=== PATIENT | male | born 1945 | race Caucasian/White ===

== ENCOUNTER 2018-04-21 12:41 | Emergency (ER) | payer MEDICARE, OTHER ==
--- NOTE | 2018-04-21 13:16 | ED ---
General Adult HPI - General Chief complaint: Shortness of Breath Stated complaint: Trouble breathing Time Seen by Provider: 04/21/18 13:09 Source: patient, RN notes reviewed Mode of arrival: wheelchair Limitations: no limitations - History of Present Illness Initial comments: Patient is a pleasant 73-year-old male presenting to the emergency department with some difficulty in breathing. Patient did have arthroscopic surgery of the right shoulder yesterday to clean up some cartilage. Patient did have nerve block, no intubation. Patient did feel somewhat short of breath last night. Patient did use his CPAP last night and noticed dyspnea again this morning when he woke up. Patient does have some discomfort of the right side of the chest with deep breaths. No history of similar symptoms previously. No cough. No fever. - Related Data Home Medications Medication Instructions Recorded Confirmed Atorvastatin [Lipitor] 40 mg PO QAM 03/08/16 04/21/18 Dofetilide [Tikosyn] 500 mcg PO Q12HR 03/08/16 04/21/18 Furosemide [Lasix] 20 mg PO QAM 03/08/16 04/21/18 Lisinopril 20 mg PO QAM 03/08/16 04/21/18 Magnesium 200 mg PO BID 03/08/16 04/21/18 Potassium Chloride [Klor-Con 20] 20 meq PO HS 03/08/16 04/21/18 Rivaroxaban [Xarelto] 20 mg PO QAM 03/08/16 04/21/18 Tamsulosin [Flomax] 0.4 mg PO HS 03/08/16 04/21/18 metFORMIN HCL [Glucophage] 500 mg PO BID 03/08/16 04/21/18 Multivitamins, Thera [Multivitamin] 1 tab PO DAILY 08/23/16 04/21/18 Omeprazole 20 mg PO DAILY 08/23/16 04/21/18 Cinnamon Bark [Cinnamon] 500 mg PO HS 04/21/18 04/21/18 Allergies Allergy/AdvReac Type Severity Reaction Status Date / Time No Known Allergies Allergy Verified 04/21/18 13:16 Review of Systems ROS Statement: Those systems with pertinent positive or pertinent negative responses have been documented in the HPI. ROS Other: All systems not noted in ROS Statement are negative. Constitutional: Denies: fever Eyes: Denies: eye pain ENT: Denies: ear pain Respiratory: Reports: dyspnea. Denies: cough Cardiovascular: Reports: chest pain Endocrine: Denies: fatigue Gastrointestinal: Denies: abdominal pain Genitourinary: Denies: dysuria Musculoskeletal: Denies: back pain Skin: Denies: rash Neurological: Denies: weakness Past Medical History Past Medical History: Atrial Fibrillation, Diabetes Mellitus, Hyperlipidemia, Hypertension, Prostate Disorder Additional Past Medical History / Comment(s): disc out of place in back, cardioversion 10/2015, Fe deficiency anemia, SOB when doing "strenuous activity " such as climbing stairs; as of 03/07/16 core analyst in [place] has patient on a heart monitor for 2 weeks "my heart beats slow...it was down to 48" History of Any Multi-Drug Resistant Organisms: None Reported Past Surgical History: Adenoidectomy, Cholecystectomy, Coronary Bypass/CABG, Hernia Repair, Joint Replacement, Tonsillectomy Additional Past Surgical History / Comment(s): CABG x 4 in 2005 at [facility], bilateral knees replaced, cardioversion 10/2015 Past Anesthesia/Blood Transfusion Reactions: Postoperative Nausea & Vomiting ( PONV) Past Psychological History: PTSD Smoking Status: Former smoker Past Alcohol Use History: Rare Past Drug Use History: None Reported - Past Family History Mother Family Medical History: Chest Pain / Angina, Coronary Artery Disease (CAD), Diabetes Mellitus, Hypertension Father Family Medical History: Chest Pain / Angina, Coronary Artery Disease (CAD), Diabetes Mellitus, Hypertension General Exam Limitations: no limitations General appearance: alert, in no apparent distress Head exam: Present: atraumatic Eye exam: Present: normal appearance, PERRL ENT exam: Present: normal oropharynx Neck exam: Present: normal inspection Respiratory exam: Present: normal lung sounds bilaterally. Absent: chest wall tenderness Cardiovascular Exam: Present: regular rate, normal rhythm Expanded Peripheral pulses: 2+: Radial (R), Radial (L), Dorsalis Pedis (R), Dorsalis Pedis (L) GI/Abdominal exam: Present: soft. Absent: tenderness Extremities exam: Present: normal inspection. Absent: pedal edema, calf tenderness Neurological exam: Present: alert Psychiatric exam: Present: normal affect, normal mood Skin exam: Present: normal color Course Vital Signs 04/21/18 04/21/18 04/21/18 12:46 14:01 15:13 Temperature 97.8 F Pulse Rate 83 78 76 Respiratory 22 18 18 Rate Blood Pressure 148/69 147/63 143/65 O2 Sat by Pulse 94 L 95 97 Oximetry EKG Findings - EKG Comments: EKG Findings:: Sinus rhythm at 81. For screening AV block OH of 240. QRS 84. QT 418. QTC 45. Left axis. Normal QRS. No acute ST change. Medical Decision Making - Medical Decision Making Patient reevaluated and resting comfortably in bed. Patient updated on results. Patient is unaware of any wiring in his chest except for loop recorder which he does not believe has additional wiring to it. Patient is advised to stay in the hospital for further evaluation including further cardiac testing. Also for evaluation for why her. Patient is made aware that cardiac etiology has not been completely ruled out at this time. Family is present. Despite this patient refuses admission stating he is feeling better. Patient does agree to follow-up and states he does have a core analyst in [place] that he will also follow-up with regarding CT results. - Lab Data Result diagrams: 04/21/18 13:09 04/21/18 13:09 Lab Results 04/21/18 04/21/18 04/21/18 Range/Units 13:09 13:09 13:09 WBC 11.9 H (3.8-10.6) k/uL RBC 4.40 (4.30-5.90) m/uL Hgb 13.5 (13.0-17.5) gm/dL Hct 41.5 (39.0-53.0) % MCV 94.3 (80.0-100.0) fL MCH 30.7 (25.0-35.0) pg MCHC 32.5 (31.0-37.0) g/dL RDW 13.2 (11.5-15.5) % Plt Count 212 (150-450) k/uL Neutrophils % 85 % Lymphocytes % 7 % Monocytes % 6 % Eosinophils % 1 % Basophils % 0 % Neutrophils # 10.1 H (1.3-7.7) k/uL Lymphocytes # 0.9 L (1.0-4.8) k/uL Monocytes # 0.7 (0-1.0) k/uL Eosinophils # 0.1 (0-0.7) k/uL Basophils # 0.0 (0-0.2) k/uL PT (9.0-12.0) sec INR (<1.2) APTT (22.0-30.0) sec Sodium 140 (137-145) mmol/L Potassium 4.5 (3.5-5.1) mmol/L Chloride 104 (98-107) mmol/L Carbon Dioxide 24 (22-30) mmol/L Anion Gap 12 mmol/L BUN 14 (9-20) mg/dL Creatinine 0.75 (0.66-1.25) mg/dL Est GFR (CKD-EPI)AfAm >90 (>60 ml/min/1.73 sqM) Est GFR (CKD-EPI)NonAf >90 (>60 ml/min/1.73 sqM) Glucose 172 H (74-99) mg/dL Calcium 9.2 (8.4-10.2) mg/dL Total Bilirubin 0.4 (0.2-1.3) mg/dL AST 27 (17-59) U/L ALT 47 (21-72) U/L Alkaline Phosphatase 69 (38-126) U/L Total Creatine Kinase 133 (55-170) U/L CK-MB (CK-2) 4.1 H* (0.0-2.4) ng/mL CK-MB (CK-2) Rel Index 3.1 Troponin I <0.012 (0.000-0.034) ng/mL NT-Pro-B Natriuret Pep pg/mL Total Protein 6.0 L (6.3-8.2) g/dL Albumin 3.7 (3.5-5.0) g/dL 04/21/18 04/21/18 Range/Units 13:09 13:09 WBC (3.8-10.6) k/uL RBC (4.30-5.90) m/uL Hgb (13.0-17.5) gm/dL Hct (39.0-53.0) % MCV (80.0-100.0) fL MCH (25.0-35.0) pg MCHC (31.0-37.0) g/dL RDW (11.5-15.5) % Plt Count (150-450) k/uL Neutrophils % % Lymphocytes % % Monocytes % % Eosinophils % % Basophils % % Neutrophils # (1.3-7.7) k/uL Lymphocytes # (1.0-4.8) k/uL Monocytes # (0-1.0) k/uL Eosinophils # (0-0.7) k/uL Basophils # (0-0.2) k/uL PT 11.8 (9.0-12.0) sec INR 1.2 H (<1.2) APTT 28.2 (22.0-30.0) sec Sodium (137-145) mmol/L Potassium (3.5-5.1) mmol/L Chloride (98-107) mmol/L Carbon Dioxide (22-30) mmol/L Anion Gap mmol/L BUN (9-20) mg/dL Creatinine (0.66-1.25) mg/dL Est GFR (CKD-EPI)AfAm (>60 ml/min/1.73 sqM) Est GFR (CKD-EPI)NonAf (>60 ml/min/1.73 sqM) Glucose (74-99) mg/dL Calcium (8.4-10.2) mg/dL Total Bilirubin (0.2-1.3) mg/dL AST (17-59) U/L ALT (21-72) U/L Alkaline Phosphatase (38-126) U/L Total Creatine Kinase (55-170) U/L CK-MB (CK-2) (0.0-2.4) ng/mL CK-MB (CK-2) Rel Index Troponin I (0.000-0.034) ng/mL NT-Pro-B Natriuret Pep 546 pg/mL Total Protein (6.3-8.2) g/dL Albumin (3.5-5.0) g/dL - Radiology Data Radiology results: image reviewed (Computed tomography scan of the chest shows no evidence of pulmonary embolism. There is an epicardial pacer leads. Also appears to be a free-floating transvenous pacer which extends across right atrium, right ventricle and turbinates the level of the main pulmonary artery bifurcation. Right basilar volume loss and pleural parenchymal scarring. Previous rib fracture.) Disposition Clinical Impression: Dyspnea Disposition: Left Against Medical Advice Instructions: Dyspnea (ED) Additional Instructions: Please follow-up with primary care physician and core analyst and orthopedic surgeon in the beginning of the week. Please have your doctor's review computed tomography scan from today. Return for chest pain, difficulty breathing, worsening or change in symptoms or other concerns. Is patient prescribed a controlled substance at d/c from ED?: No Referrals: Cornell Leon MD [Primary Care Provider] - 1-2 days Jeferson Mi DO [Doctor of Osteopathic Medicine] - 1-2 days Estrada Wong MD [STAFF PHYSICIAN] - 1-2 days Time of Disposition: 16:21
[2018-04-21 13:32] LABS: Basophils % (A) 0 %; Eosinophils # (A) 0.1 k/uL (0-0.7); Eosinophils % (A) 1 %; HCT 41.5 % (39.0-53.0); HGB 13.5 gm/dL (13.0-17.5); Lymphocytes # (A) 0.9 k/uL (1.0-4.8); Lymphocytes % (A) 7 %; MCH 30.7 pg (25.0-35.0); MCHC 32.5 g/dL (31.0-37.0); MCV 94.3 fL (80.0-100.0); Mean Platelet Volume 7.2; Monocytes # (A) 0.7 k/uL (0-1.0); Monocytes % (A) 6 %; Neutrophils # (A) 10.1 k/uL (1.3-7.7); Neutrophils % (A) 85 %; Platelet Count 212 k/uL (150-450); RDW 13.2 % (11.5-15.5); WBC 11.9 k/uL (3.8-10.6)
[2018-04-21 13:43] LABS: INR 1.2 (<1.2); Partial Thromboplastin Time 28.2 sec (22.0-30.0); Prothrombin Time 11.8 sec (9.0-12.0)
[2018-04-21 13:50] LABS: ALT 47 U/L (21-72); AST 27 U/L (17-59); Albumin 3.7 g/dL (3.5-5.0); Alkaline Phosphatase 69 U/L (38-126); Anion Gap 12 mmol/L; Blood Urea Nitrogen 14 mg/dL (9-20); Calcium 9.2 mg/dL (8.4-10.2); Carbon Dioxide 24 mmol/L (22-30); Chloride 104 mmol/L (98-107); Glucose 172 mg/dL (74-99); Potassium 4.5 mmol/L (3.5-5.1); Sodium 140 mmol/L (137-145); Total Bilirubin 0.4 mg/dL (0.2-1.3)
[2018-04-21 13:57] LABS: Creatine Kinase 133 U/L (55-170)
[2018-04-21 14:01] VITALS: RESP 18
[2018-04-21 14:09] LABS: Troponin I <0.012 ng/mL (0.000-0.034)
[2018-04-21 14:19] LABS: Creatine Kinase MB 4.1 ng/mL (0.0-2.4)
--- NOTE | 2018-04-21 15:42 | CT ---
EXAMINATION TYPE: CT angio chest DATE OF EXAM: 04/21/2018 COMPARISON: 08/14/2013 HISTORY: 73-year-old male shortness of breath, right shoulder arthroscopic surgery yesterday TECHNIQUE: Contiguous axial scanning of the chest performed with IV Contrast, patient injected with 1 00 mL of Isovue 370. Coronal/sagittal MIP reconstructions performed. CT DLP: 1132.4 mGycm Automated exposure control for dose reduction was used. FINDINGS: Median sternotomy wires post-CABG changes. Heart is normal size without pericardial effusion. Epicardial pacer leads. There also appears to be a transvenous pacer lead that extends into the right atrium, right ventricle, and terminates at the bi furcation of the pulmonary artery. Mild ectasia ascending aorta 3.6 cm. Mild atherosclerotic arch calcifications with a very direct take off of the left vertebral artery directly from the aortic arch. The findings lead as mentioned above terminating at the level of the main pulmonary artery bifurcatio n. Satisfactory opacification of the pulmonary arterial system. Some motion artifact in the lower magnus gs. No definite pulmonary embolus. Enlarged caliber to the main right and the pulmonary arteries at 2.7 and 2.9 cm, respectively, sugges ting underlying pulmonary artery hypertension. Mild bilateral gynecomastia. No thoracic lymphadenopathy. Mild emphysematous change is present. Prominent bands of right basilar atelectasis with elevation of the right hemidiaphragm. Stable nodular thickening along the right mid lung major fissure as compared to 2013, axial image 67 likely a pulmonary lymph node. Mild diffuse bronchial wall thickening. Visualized upper abdomen shows no gross abnormality. Bones: Incompletely united right lateral fourth, fifth, and sixth rib fractures. Degenerative disc di sease midthoracic spine. No osseous destructive process. IMPRESSION: 1. NO EVIDENCE FOR PULMONARY EMBOLUS. 2. COPD WITH MILD EMPHYSEMA AND PULMONARY ARTERY HYPERTENSION. 3. NOTE AN EPICARDIAL PACER LEAD. THERE ALSO APPEARS TO BE A FREE-FLOATING TRANSVENOUS PACER LEAD WHI CH EXTENDS ACROSS THE RIGHT ATRIUM, RIGHT VENTRICLE, AND TERMINATES AT THE LEVEL OF THE MAIN PULMONAR Y ARTERY BIFURCATION. 4. RIGHT BASILAR VOLUME LOSS WITH PLEURAL PARENCHYMAL SCARRING AND INCOMPLETELY UNITED RIGHT LATERAL FOURTH THROUGH SIXTH RIB FRACTURE DEFORMITIES.
[2018-04-21 16:41] VITALS: BP 143/67; PULSE 87; TEMP 98.5
== END 2018-04-21 16:41 | disposition left against medical advice (07) ==
LOC: EC 12:41
DX: R06.00 Dyspnea, unspecified (principal); I48.91 Unspecified atrial fibrillation; E11.9 Type 2 diabetes mellitus without complications; E78.5 Hyperlipidemia, unspecified; I10 Essential (primary) hypertension; Z87.891 Personal history of nicotine dependence; Z90.49 Acquired absence of other specified parts of digestive tract; Z95.1 Presence of aortocoronary bypass graft; Z96.653 Presence of artificial knee joint, bilateral; Z98.890 Other specified postprocedural states; Z79.01 Long term (current) use of anticoagulants; Z79.84 Long term (current) use of oral hypoglycemic drugs; Z79.899 Other long term (current) drug therapy
CPT/HCPCS: 36415; 93005; 83880; 80053; 82550; 82553; 84484; 85025; 85610; 85730; 71275; 99285; Q9967

== ENCOUNTER 2020-08-17 13:21 | Emergency (ER) | payer MEDICARE, OTHER ==
[2020-08-17 13:48] VITALS: BP 113/54; PULSE 94; RESP 18; TEMP 98.5
[2020-08-17] MEDS ORDERED: HYDROmorphone 1 MG/ML 1 ML SYRINGE IM STA (14:03)
[2020-08-17] MEDS ORDERED: KETOROLAC 15 MG/ML 1 ML VIAL IM STA (14:03)
--- NOTE | 2020-08-17 14:09 | ED ---
General Adult HPI - General Chief complaint: Back Pain/Injury Stated complaint: Sciatic Nerve Pain Time Seen by Provider: 08/17/20 13:52 Source: patient, family, RN notes reviewed Mode of arrival: ambulatory Limitations: no limitations - History of Present Illness Initial comments: Patient is a pleasant 75-year-old male presenting to the emergency Department with complaints of left sciatic pain. Onset of symptoms was months ago. Patient has seen several doctors for this including had acupuncture done. Patient did have an epidural without much improvement of symptoms. Patient is pending injection with Dr. Akers here however there is dispute between him and the support services coordinator as far as how long to hold anticoagulation. Patient does have history of similar symptoms previously. Patient has had MRI for this. No abdominal pain. No leg weakness. No incontinence or retention of bowel or bladder. Patient does take [place] and Motrin at home - Related Data Home Medications Medication Instructions Recorded Confirmed Atorvastatin [Lipitor] 40 mg PO QAM 03/08/16 04/21/18 Dofetilide [Tikosyn] 500 mcg PO Q12HR 03/08/16 04/21/18 Furosemide [Lasix] 20 mg PO QAM 03/08/16 04/21/18 Magnesium 200 mg PO BID 03/08/16 04/21/18 Potassium Chloride [Klor-Con 20] 20 meq PO HS 03/08/16 04/21/18 Rivaroxaban [Xarelto] 20 mg PO QAM 03/08/16 04/21/18 Tamsulosin [Flomax] 0.4 mg PO HS 03/08/16 04/21/18 lisinopriL 20 mg PO QAM 03/08/16 04/21/18 metFORMIN HCL [Glucophage] 500 mg PO BID 03/08/16 04/21/18 Multivitamins, Thera [Multivitamin] 1 tab PO DAILY 08/23/16 04/21/18 Omeprazole 20 mg PO DAILY 08/23/16 04/21/18 Cinnamon Bark [Cinnamon] 500 mg PO HS 04/21/18 04/21/18 Previous Rx's Medication Instructions Recorded Cyclobenzaprine [Flexeril] 10 mg PO TID PRN #12 tablet 08/17/20 Allergies Allergy/AdvReac Type Severity Reaction Status Date / Time No Known Allergies Allergy Verified 08/17/20 13:46 Review of Systems ROS Statement: Those systems with pertinent positive or pertinent negative responses have been documented in the HPI. ROS Other: All systems not noted in ROS Statement are negative. Constitutional: Denies: fever Eyes: Denies: eye pain ENT: Denies: ear pain Respiratory: Denies: cough Cardiovascular: Denies: chest pain Endocrine: Denies: fatigue Gastrointestinal: Denies: abdominal pain Genitourinary: Denies: dysuria Musculoskeletal: Reports: as per HPI Skin: Denies: rash Neurological: Denies: weakness Past Medical History Past Medical History: Atrial Fibrillation, Diabetes Mellitus, Hyperlipidemia, Hypertension, Prostate Disorder Additional Past Medical History / Comment(s): disc out of place in back, cardioversion 10/2015, Fe deficiency anemia, SOB when doing "strenuous activity" such as climbing stairs; as of 03/07/16 support services coordinator in [place] has patient on a heart monitor for 2 weeks "my heart beats slow...it was down to 48" History of Any Multi-Drug Resistant Organisms: None Reported Past Surgical History: Adenoidectomy, Cholecystectomy, Coronary Bypass/CABG, Hernia Repair, Joint Replacement, Tonsillectomy Additional Past Surgical History / Comment(s): CABG x 4 in 2006 at [facility], bilateral knees replaced, cardioversion 10/2015 Past Anesthesia/Blood Transfusion Reactions: Postoperative Nausea & Vomiting (PONV) Past Psychological History: PTSD Past Alcohol Use History: Rare Past Drug Use History: None Reported - Past Family History Mother Family Medical History: Chest Pain / Angina, Coronary Artery Disease (CAD), Diabetes Mellitus, Hypertension Father Family Medical History: Chest Pain / Angina, Coronary Artery Disease (CAD), Diabetes Mellitus, Hypertension General Exam Limitations: no limitations General appearance: alert, in no apparent distress Head exam: Present: normocephalic Eye exam: Present: normal appearance Neck exam: Present: normal inspection Respiratory exam: Present: normal lung sounds bilaterally Cardiovascular Exam: Present: regular rate, normal rhythm GI/Abdominal exam: Present: soft. Absent: tenderness Extremities exam: Present: normal inspection, full ROM Back exam: Present: normal inspection. Absent: tenderness Neurological exam: Present: alert. Absent: motor sensory deficit Expanded Sensory exam: Lower Extremity Light Touch: Normal Motor strength exam: RUE: 5, LUE: 5, RLE: 5, LLE: 5 Psychiatric exam: Present: normal affect, normal mood Skin exam: Present: normal color Course Vital Signs 08/17/20 13:43 Temperature 98.5 F Pulse Rate 94 Respiratory 18 Rate Blood Pressure 113/54 O2 Sat by Pulse 97 Oximetry Disposition Clinical Impression: Sciatica Disposition: HOME SELF-CARE Condition: Stable Instructions (If sedation given, give patient instructions): Sciatica (ED) Additional Instructions: Please follow-up with Dr. velasquez as well as your support services coordinator to determine exact treatment plan. Return for leg weakness, loss of sensation, loss of control of bowel or bladder function, worsening symptoms or other concerns. Also consider physical therapy. Prescription has been sent to your pharmacy, [facility] in [place]. Prescriptions: Cyclobenzaprine [Flexeril] 10 mg PO TID PRN #12 tablet PRN Reason: Pain Is patient prescribed a controlled substance at d/c from ED?: No Referrals: Cornell Leon MD [Primary Care Provider] - 1-2 days Ward Velasquez MD [STAFF PHYSICIAN] - 1-2 days George Nugent MD [STAFF PHYSICIAN] - 1-2 days Time of Disposition: 14:07
== END 2020-08-17 14:23 | disposition home or self-care (01) ==
LOC: EC 13:21
DX: M54.32 Sciatica, left side (principal); I48.91 Unspecified atrial fibrillation; E11.9 Type 2 diabetes mellitus without complications; E78.5 Hyperlipidemia, unspecified; I10 Essential (primary) hypertension; N42.9 Disorder of prostate, unspecified; F43.10 Post-traumatic stress disorder, unspecified; Z79.1 Long term (current) use of non-steroidal anti-inflammatories (NSAID); Z79.899 Other long term (current) drug therapy; Z95.1 Presence of aortocoronary bypass graft; Z96.653 Presence of artificial knee joint, bilateral; Z79.84 Long term (current) use of oral hypoglycemic drugs
CPT/HCPCS: 96372 ×2; 99283; J1170; J1885

== ENCOUNTER 2020-09-03 15:24 | Emergency (ER) | payer MEDICARE, OTHER ==
[2020-09-03 15:29] VITALS: RESP 18
[2020-09-03] MEDS ORDERED: SODIUM CHLORIDE 0.9% 500 ML 500 ML IV STA (15:49)
[2020-09-03 16:12] LABS: HCT 42.7 % (39.0-53.0); HGB 13.8 gm/dL (13.0-17.5); MCH 31.6 pg (25.0-35.0); MCHC 32.4 g/dL (31.0-37.0); MCV 97.6 fL (80.0-100.0); Mean Platelet Volume 7.2; Platelet Count 267 k/uL (150-450); RBC 4.38 m/uL (4.30-5.90); RDW 13.1 % (11.5-15.5); WBC 4.6 k/uL (3.8-10.6)
[2020-09-03 16:14] LABS: Glucose,Whole Blood 105 mg/dL (75-99)
[2020-09-03 16:15] LABS: Appearance,Urine Clear (Clear); Bacteria,Urine Few /hpf; Bilirubin,Urine Negative (Negative); Blood,Urine Moderate (Negative); Color,Urine Yellow; Glucose,Urine (UA) Negative (Negative); Hyaline Casts,Urine 10 /lpf (0-2); Ketones,Urine Negative (Negative); Leukocyte Esterase,Urine Moderate (Negative); Mucus,Urine Rare /hpf; Nitrite,Urine Negative (Negative); Protein,Urine Negative (Negative); RBC,Urine 43 /hpf (0-5); Specific Gravity,Urine 1.015 (1.001-1.035); Squamous Epithelial Cell,Urine <1 /hpf (0-4); Urobilinogen,Urine <2.0 mg/dL (<2.0); WBC,Urine 13 /hpf (0-5)
[2020-09-03 16:23] LABS: Albumin 3.4 g/dL (3.5-5.0); Magnesium 1.6 mg/dL (1.6-2.3); Total Bilirubin 0.5 mg/dL (0.2-1.3)
[2020-09-03 16:36] LABS: INR 1.1 (<1.2); Partial Thromboplastin Time 32.9 sec (22.0-30.0); Prothrombin Time 11.4 sec (9.0-12.0)
[2020-09-03 16:38] LABS: Lymphocytes # (M) 1.43 k/uL (1.0-4.8); Neutrophils # (M) 2.58 k/uL (1.3-7.7); Neutrophils % (M) 56 %; Nucleated Red Blood Cells 0 /100 WBC (0-0); Total Cells Counted 100
--- NOTE | 2020-09-03 16:50 | CT ---
EXAMINATION TYPE: CT brain wo con DATE OF EXAM: 09/03/2020 COMPARISON: None HISTORY: 75-year-old male Headache and dizziness TECHNIQUE: Examination was done in axial plane without intravenous contrast. Coronal and sagittal r econstructions performed. CT DLP: 1011.4 mGycm Automated exposure control for dose reduction was used. FINDINGS: There is no evidence of acute intracranial hemorrhage, acute ischemic changes, mass, mass-effect, or extra-axial fluid collection. There is no effacement of cerebral sulci or basal subarachnoid cister ns. There is no hydrocephalus. There is no midline shift. Salazar-white matter distinction is preserv ed. Very mild age related cerebral cortical volume loss. Paranasal sinuses and mastoid air cells well pneumatized. Orbits and globes are intact. IMPRESSION: Very mild age-related cortical atrophy. No acute intracranial abnormality seen.
--- NOTE | 2020-09-03 17:36 | XR ---
EXAMINATION: XR chest 2V DATE AND TIME: 09/03/2020 5:07 PM CLINICAL INDICATION: PHH; sob TECHNIQUE: Departmental protocol COMPARISON: 08/16/2011 FINDINGS: The lungs are predominantly clear and well expanded, but there is subtle added opacity at the right l eitan base on the frontal radiograph, overlying the right breast shadow. This is a nonspecific finding not confirmed on the lateral view. It could simply represent artifact from overlying anatomic summati on shadows. However, if there is clinical suspicion for developing pneumonia, short interval repeat r adiographs could add specificity. The pleural spaces are negative. Sternal sutures and mediastinal clips noted. The cardiac silhouette is not enlarged. The remainder of the mediastinal silhouette is unremarkable. The skeletal structures and soft tissues are negative for acute findings. IMPRESSION: No definite acute radiographic process, although subtle right lung base finding as discussed.
--- NOTE | 2020-09-03 18:47 | ED ---
General Adult HPI - General Chief complaint: Dizziness Stated complaint: Dizziness Time Seen by Provider: 09/03/20 15:33 Source: patient, RN notes reviewed, old records reviewed Mode of arrival: wheelchair Limitations: no limitations - History of Present Illness Initial comments: 75-year-old male patient presents ED for evaluation. Patient reports that 3 times a day one time yesterday while walking he felt dizzy as if he is going to pass out. He reports that he stay down and the feeling went away. Denies any chest pain is shortness of breath associated with this. Patient reports that he is concerned because he states the friend had similar symptoms and diagnosed with a brain tumor - he wants to make sure that he does not have one. Patient does have COPD and after walking a distance does have some shortness of breath. This is unchanged. Denies any chest pain. Denies any other acute complaints. Patient is feeling fine at this time. Systemic: Pt denies fatigue, fever/chills, rash. Pt denies weakness, night sweats, weight loss. Neuro: Pt denies headache, visual disturbances, syncope. HEENT: Pt denies ocular discharge or irritation, otalgia, rhinorrhea, pharyngitis or notable lymphadenopathy. Cardiopulmonary: Pt denies chest pain, SOB, heart palpitations, dyspnea on exertion. Abdominal/GI: Pt denies abdominal pain, n/v/d. : Pt denies dysuria, burning w/ urination, frequency/urgency. Denies new onset urinary or bowel incontinence. MSK: Pt denies myalgia, loss of strength or function in extremities. Neuro: Pt denies new onset weakness, paresthesias. - Related Data Home Medications Medication Instructions Recorded Confirmed Dofetilide [Tikosyn] 500 mcg PO BID 03/08/16 09/03/20 Furosemide [Lasix] 20 mg PO DAILY 03/08/16 09/03/20 Rivaroxaban [Xarelto] 20 mg PO DAILY 03/08/16 09/03/20 Tamsulosin [Flomax] 0.4 mg PO HS 03/08/16 09/03/20 metFORMIN HCL [Glucophage] 500 mg PO BID 03/08/16 09/03/20 Multivitamins, Thera [Multivitamin] 1 tab PO DAILY 08/23/16 09/03/20 Omeprazole 20 mg PO DAILY 08/23/16 09/03/20 Cinnamon Bark [Cinnamon] 500 mg PO HS 04/21/18 09/03/20 Atorvastatin [Lipitor] 80 mg PO DAILY 09/03/20 09/03/20 Dulaglutide [Trulicity] 0.75 mg SQ MO 09/03/20 09/03/20 Glimepiride [Amaryl] 2 mg PO BID 09/03/20 09/03/20 Metoprolol Tartrate [Lopressor] 25 mg PO BID 09/03/20 09/03/20 lisinopriL 20 mg PO DAILY 09/03/20 09/03/20 Allergies Allergy/AdvReac Type Severity Reaction Status Date / Time No Known Allergies Allergy Verified 09/03/20 17:48 Review of Systems ROS Statement: Those systems with pertinent positive or pertinent negative responses have been documented in the HPI. ROS Other: All systems not noted in ROS Statement are negative. Past Medical History Past Medical History: Atrial Fibrillation, Diabetes Mellitus, Hyperlipidemia, Hypertension, Prostate Disorder Additional Past Medical History / Comment(s): disc out of place in [facility] rdioversion 10/2015, Fe deficiency anemia, SOB when doing "strenuous activity" such as climbing stairs; as of 03/07/16 automation technologist in [place] has patient on a heart monitor for 2 weeks "my heart beats slow...it was down to 48" History of Any Multi-Drug Resistant Organisms: None Reported Past Surgical History: Adenoidectomy, Cholecystectomy, Coronary Bypass/CABG, Hernia Repair, Joint Replacement, Tonsillectomy Additional Past Surgical History / Comment(s): CABG x 4 in 2006 at [facility], bilateral knees replaced, cardioversion 10/2015 Past Anesthesia/Blood Transfusion Reactions: Postoperative Nausea & Vomiting (PONV) Past Psychological History: PTSD Smoking Status: Former smoker Past Alcohol Use History: Occasional Past Drug Use History: None Reported - Past Family History Mother Family Medical History: Chest Pain / Angina, Coronary Artery Disease (CAD), Diabetes Mellitus, Hypertension Father Family Medical History: Chest Pain / Angina, Coronary Artery Disease (CAD), Diabetes Mellitus, Hypertension General Exam - General Exam Comments Initial Comments: Constitutional: NAD, AOX3, Pt has pleasant affect. HEENT: NC/AT, trachea midline, neck supple, no lymphadenopathy. Posterior pharynx non erythematous, without exudates. External ears appear normal, without discharge. Mucous membranes moist. Eyes PERRLA, EOM intact. There is no scleral icterus. No pallor noted. Cardiopulmonary: RRR, no murmurs, rubs or gallops, no JVD noted. Lungs CTAB in anterior and posterior smith. No peripheral edema. Abdominal exam: Abdomen soft and non-distended. Abdomen non-tender to palpation in all 4 quadrants. Bowel sounds active in LLQ. No hepatosplenomegaly. No ecchymosis Neuro: CN II-XII intact. No nuchal rigidity. No raccon eyes, no stroud sign, no hemotympanum. No cervical spinal tenderness. MSK: No posterior calf tenderness bilaterally, homans sign negative bilaterally. Posterior tibialis and radial pulse +2 bilaterally. Sensation intact in upper and lower extremities. Full active ROM in upper and lower extremities, 5/5 stregnth. Limitations: no limitations Course Vital Signs 09/03/20 09/03/20 15:27 18:59 Temperature 98.4 F 98.5 F Pulse Rate 86 94 Respiratory 18 18 Rate Blood Pressure 117/71 152/69 O2 Sat by Pulse 97 96 Oximetry Medical Decision Making - Medical Decision Making 75-year-old male patient to ED for evaluation. Patient vital signs are stable, afebrile. Physical exam negative for acute pathology. Laboratory investigations are overall unremarkable. There is some blood noted in his urine. Brain CT is negative for any acute process. Chest x-ray did not display any definite acute radiographic process. There was subtle opacity in the right lung base and dullness in one view. Likely overlying soft tissue. Patient not having any new cough or any fevers. Patient ambulatory without difficulty. EKG is nonischemic. I did recommend admission patient she is declining. Patient will follow-up with primary care provider and return to ER if any worsening symptoms. He reports that he had a stress test and the heart ca theterization a couple months ago which he reports were normal. Pt advised to have repeat urine. Csae disucssed with Dr. Joyce. - Lab Data Result diagrams: 09/03/20 15:57 09/03/20 15:57 Lab Results 09/03/20 09/03/20 09/03/20 Range/Units 15:57 15:57 15:57 WBC 4.6 (3.8-10.6) k/uL RBC 4.38 (4.30-5.90) m/uL Hgb 13.8 (13.0-17.5) gm/dL Hct 42.7 (39.0-53.0) % MCV 97.6 (80.0-100.0) fL MCH 31.6 (25.0-35.0) pg MCHC 32.4 (31.0-37.0) g/dL RDW 13.1 (11.5-15.5) % Plt Count 267 (150-450) k/uL Neutrophils % (Manual) 56 % Lymphocytes % (Manual) 31 % Monocytes % (Manual) 13 % Neutrophils # (Manual) 2.58 (1.3-7.7) k/uL Lymphocytes # (Manual) 1.43 (1.0-4.8) k/uL Monocytes # (Manual) 0.60 (0-1.0) k/uL Nucleated RBCs 0 (0-0) /100 WBC Manual Slide Review Performed RBC Morphology Normal PT 11.4 (9.0-12.0) sec INR 1.1 (<1.2) APTT 32.9 H (22.0-30.0) sec Sodium (137-145) mmol/L Potassium (3.5-5.1) mmol/L Chloride (98-107) mmol/L Carbon Dioxide (22-30) mmol/L Anion Gap mmol/L BUN (9-20) mg/dL Creatinine (0.66-1.25) mg/dL Est GFR (CKD-EPI)AfAm (>60 ml/min/1.73 sqM) Est GFR (CKD-EPI)NonAf (>60 ml/min/1.73 sqM) Glucose (74-99) mg/dL POC Glucose (mg/dL) (75-99) mg/dL POC Glu Giver ID Calcium (8.4-10.2) mg/dL Magnesium (1.6-2.3) mg/dL Total Bilirubin (0.2-1.3) mg/dL AST (17-59) U/L ALT (4-49) U/L Alkaline Phosphatase (38-126) U/L Troponin I (0.000-0.034) ng/mL Total Protein (6.3-8.2) g/dL Albumin (3.5-5.0) g/dL Urine Color Yellow Urine Appearance Clear (Clear) Urine pH 6.0 (5.0-8.0) Ur Specific [place] 1.015 (1.001-1.035) Urine Protein Negative (Negative) Urine Glucose (UA) Negative (Negative) Urine Ketones Negative (Negative) Urine Blood Moderate H (Negative) Urine Nitrite Negative (Negative) Urine Bilirubin Negative (Negative) Urine Urobilinogen <2.0 (<2.0) mg/dL Ur Leukocyte Esterase Moderate H (Negative) Urine RBC 43 H (0-5) /hpf Urine WBC 13 H (0-5) /hpf Ur Squamous Epith Cells <1 (0-4) /hpf Urine Bacteria Few H (None) /hpf Hyaline Casts 10 H (0-2) /lpf Urine Mucus Rare H (None) /hpf 09/03/20 09/03/20 09/03/20 Range/Units 15:57 15:57 16:12 WBC (3.8-10.6) k/uL RBC (4.30-5.90) m/uL Hgb (13.0-17.5) gm/dL Hct (39.0-53.0) % MCV (80.0-100.0) fL MCH (25.0-35.0) pg MCHC (31.0-37.0) g/dL RDW (11.5-15.5) % Plt Count (150-450) k/uL Neutrophils % (Manual) % Lymphocytes % (Manual) % Monocytes % (Manual) % Neutrophils # (Manual) (1.3-7.7) k/uL Lymphocytes # (Manual) (1.0-4.8) k/uL Monocytes # (Manual) (0-1.0) k/uL Nucleated RBCs (0-0) /100 WBC Manual Slide Review RBC Morphology PT (9.0-12.0) sec INR (<1.2) APTT (22.0-30.0) sec Sodium 140 (137-145) mmol/L Potassium 4.0 (3.5-5.1) mmol/L Chloride 108 H (98-107) mmol/L Carbon Dioxide 25 (22-30) mmol/L Anion Gap 7 mmol/L BUN 16 (9-20) mg/dL Creatinine 1.03 (0.66-1.25) mg/dL Est GFR (CKD-EPI)AfAm 83 (>60 ml/min/1.73 sqM) Est GFR (CKD-EPI)NonAf 72 (>60 ml/min/1.73 sqM) Glucose 101 H (74-99) mg/dL POC Glucose (mg/dL) 105 H (75-99) mg/dL POC Glu Giver ID JUDI Maynard Andre Calcium 9.0 (8.4-10.2) mg/dL Magnesium 1.6 (1.6-2.3) mg/dL Total Bilirubin 0.5 (0.2-1.3) mg/dL AST 51 (17-59) U/L ALT 53 H (4-49) U/L Alkaline Phosphatase 82 (38-126) U/L Troponin I <0.012 (0.000-0.034) ng/mL Total Protein 6.0 L (6.3-8.2) g/dL Albumin 3.4 L (3.5-5.0) g/dL Urine Color Urine Appearance (Clear) Urine pH (5.0-8.0) Ur Specific [place] (1.001-1.035) Urine Protein (Negative) Urine Glucose (UA) (Negative) Urine Ketones (Negative) Urine Blood (Negative) Urine Nitrite (Negative) Urine Bilirubin (Negative) Urine Urobilinogen (<2.0) mg/dL Ur Leukocyte Esterase (Negative) Urine RBC (0-5) /hpf Urine WBC (0-5) /hpf Ur Squamous Epith Cells (0-4) /hpf Urine Bacteria (None) /hpf Hyaline Casts (0-2) /lpf Urine Mucus (None) /hpf - EKG Data -: EKG Interpreted by Me (and Dr. Joyce) EKG Comments: Ventriular rate 82, GA interval 228, QRS 88, QT/QTc 412/481. Sinus rhythm with 1st degree AV block. Sinus left axis deviation. Abnormal EKG. No concern for acute ischemia. Disposition Clinical Impression: Lightheadedness Disposition: HOME SELF-CARE Condition: Stable Instructions (If sedation given, give patient instructions): Dizziness (ED) Additional Instructions: Follow up with PCP tomorrow. Return to ED with any worsening symptoms. Is patient prescribed a controlled substance at d/c from ED?: No Referrals: Cornell Leon MD [Primary Care Provider] - 1-2 days
[2020-09-03 19:00] VITALS: BP 152/69; PULSE 94; TEMP 98.5
== END 2020-09-03 19:01 | disposition home or self-care (01) ==
LOC: EC 15:24
DX: R42 Dizziness and giddiness (principal); I48.91 Unspecified atrial fibrillation; E11.9 Type 2 diabetes mellitus without complications; E78.5 Hyperlipidemia, unspecified; I10 Essential (primary) hypertension; Z79.84 Long term (current) use of oral hypoglycemic drugs; Z79.01 Long term (current) use of anticoagulants; Z79.899 Other long term (current) drug therapy; Z95.1 Presence of aortocoronary bypass graft; Z90.49 Acquired absence of other specified parts of digestive tract; Z87.891 Personal history of nicotine dependence; Z96.653 Presence of artificial knee joint, bilateral
CPT/HCPCS: 36415; 70450; 71046; 80053; 81001; 83735; 84484; 85025; 85610; 85730; 93005; 96360; 99285

== ENCOUNTER 2020-09-07 16:14 | Observation (INO) | payer MEDICARE, OTHER ==
[2020-09-07] MEDS ORDERED: ACETAMINOPHEN TAB 500 MG TAB PO STA (17:08)
[2020-09-07] MEDS: SODIUM CHLORIDE 0.9% 500 ML 500 ML IV SCH ×2 (17:40→20:28)
[2020-09-07 17:54] LABS: Appearance,Urine Cloudy (Clear); Bacteria,Urine Occasional /hpf; Bilirubin,Urine Negative (Negative); Blood,Urine Negative (Negative); Color,Urine Dark Yellow; Glucose,Urine (UA) Negative (Negative); Ketones,Urine Negative (Negative); Leukocyte Esterase,Urine Large (Negative); Mucus,Urine Many /hpf; Nitrite,Urine Negative (Negative); PH, Urine 5.5 (5.0-8.0); Protein,Urine 2+ (Negative); RBC,Urine 23 /hpf (0-5); Specific Gravity,Urine 1.029 (1.001-1.035); Squamous Epithelial Cell,Urine 3 /hpf (0-4); WBC,Urine 99 /hpf (0-5)
[2020-09-07 17:55] LABS: ALT 52 U/L (4-49); AST 62 U/L (17-59); African American GFR (CKD) >90 (>60 ml/min/1.73 sqM); Albumin 3.7 g/dL (3.5-5.0); Alkaline Phosphatase 87 U/L (38-126); Anion Gap 6 mmol/L; Blood Urea Nitrogen 16 mg/dL (9-20); Calcium 8.9 mg/dL (8.4-10.2); Carbon Dioxide 29 mmol/L (22-30); Chloride 104 mmol/L (98-107); Glucose 103 mg/dL (74-99); Non-African American GFR(CKD) 85 (>60 ml/min/1.73 sqM); Potassium 4.3 mmol/L (3.5-5.1); Sodium 139 mmol/L (137-145); Total Bilirubin 0.6 mg/dL (0.2-1.3); Total Protein 6.5 g/dL (6.3-8.2)
--- NOTE | 2020-09-07 18:01 | XR ---
EXAMINATION TYPE: XR chest 2V DATE OF EXAM: 09/07/2020 COMPARISON: 09/03/2020 HISTORY: Dizziness TECHNIQUE: 2 views FINDINGS: There is no heart failure nor confluent pneumonic infiltrate. Costophrenic angles are clear . Heart appears enlarged. There are sternal wires. There are chest leads. Bony thorax appears intact. IMPRESSION: No active cardiopulmonary disease. Cardiomegaly unchanged.
[2020-09-07 18:08] LABS: Basophils % (A) 0 %; Eosinophils % (A) 0 %; HGB 14.6 gm/dL (13.0-17.5); Lymphocytes # (A) 0.8 k/uL (1.0-4.8); Lymphocytes % (A) 23 %; MCH 29.8 pg (25.0-35.0); MCHC 31.7 g/dL (31.0-37.0); MCV 94.3 fL (80.0-100.0); Mean Platelet Volume 7.8; Monocytes # (A) 0.3 k/uL (0-1.0); Monocytes % (A) 7 %; Neutrophils # (A) 2.3 k/uL (1.3-7.7); Neutrophils % (A) 68 %; Platelet Count 150 k/uL (150-450); RBC 4.88 m/uL (4.30-5.90); RDW 13.6 % (11.5-15.5); WBC 3.4 k/uL (3.8-10.6)
[2020-09-07 18:10] LABS: INR 0.9 (<1.2); Partial Thromboplastin Time 26.4 sec (22.0-30.0); Prothrombin Time 9.5 sec (9.0-12.0)
[2020-09-07] MEDS ORDERED: ONDANSETRON 4 MG/2 ML VIAL IVP PRN (19:09)
[2020-09-07] MEDS ORDERED: ACETAMINOPHEN TAB 325 MG TAB PO PRN (19:09)
[2020-09-07] MEDS ORDERED: NALOXONE 0.4 MG/ML 1 ML VIAL IV PRN (19:09)
--- NOTE | 2020-09-07 19:09 | ED ---
SOB HPI - General Chief Complaint: Shortness of Breath Stated Complaint: Med refill Time Seen by Provider: 09/07/20 16:51 Source: patient Mode of arrival: wheelchair Limitations: no limitations - History of Present Illness Initial Comments: 75-year-old male patient presents to the emergency department today for evaluation of cough, fever, shortness of breath with activity. Patient states that he was evaluated 5 days ago and told that he had a shadow over his lung was not given any treatment for it. States he follow-up with his primary care physician who treated him for his dizziness episodes only and not for his respiratory symptoms. Patient states that he has had persistent cough with sputum production. Denies any hemoptysis. States he has had chills and believes he has a fever. He denies any nausea or vomiting but states he does have diarrhea. Denies any hematochezia or melena. States his is sick with similar symptoms. Patient denies any recent rash, chest pain, abdominal pain, back pain, numbness, tingling, dizziness, weakness, hematuria, dysuria, urinary urgency, urinary frequency, headache, visual changes, or any other complaints. - Related Data Home Medications Medication Instructions Recorded Confirmed Dofetilide [Tikosyn] 500 mcg PO BID 03/08/16 09/07/20 Furosemide [Lasix] 20 mg PO DAILY 03/08/16 09/07/20 Rivaroxaban [Xarelto] 20 mg PO DAILY 03/08/16 09/07/20 Tamsulosin [Flomax] 0.4 mg PO HS 03/08/16 09/07/20 metFORMIN HCL [Glucophage] 500 mg PO BID 03/08/16 09/07/20 Multivitamins, Thera [Multivitamin] 1 tab PO DAILY 08/23/16 09/07/20 Cinnamon Bark [Cinnamon] 500 mg PO HS 04/21/18 09/07/20 Atorvastatin [Lipitor] 80 mg PO DAILY 09/03/20 09/07/20 Dulaglutide [Trulicity] 0.75 mg SQ MO 09/03/20 09/07/20 Glimepiride [Amaryl] 2 mg PO BID 09/03/20 09/07/20 Metoprolol Tartrate [Lopressor] 25 mg PO BID 09/03/20 09/07/20 lisinopriL 20 mg PO DAILY 09/03/20 09/07/20 Magnesium 300mg 300 mg PO DAILY 09/07/20 09/07/20 Allergies Allergy/AdvReac Type Severity Reaction Status Date / Time No Known Allergies Allergy Verified 09/07/20 17:55 Review of Systems ROS Statement: Those systems with pertinent positive or pertinent negative responses have been documented in the HPI. ROS Other: All systems not noted in ROS Statement are negative. 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 manager in [place] has patient on a heart monitor for 2 weeks "my heart beats slow...it was down to 48" History of Any Multi-Drug Resistant Organisms: None Reported Past Surgical History: Adenoidectomy, Cholecystectomy, Coronary Bypass/CABG, Hernia Repair, Joint Replacement, Tonsillectomy Additional Past Surgical History / Comment(s): CABG x 4 in 2005 at [facility], bilateral knees replaced, cardioversion 10/2015 Past Anesthesia/Blood Transfusion Reactions: Postoperative Nausea & Vomiting (PONV) Past Psychological History: PTSD Smoking Status: Former smoker Past Alcohol Use History: Occasional Past Drug Use History: None Reported - Past Family History Mother Family Medical History: Chest Pain / Angina, Coronary Artery Disease (CAD), Diabetes Mellitus, Hypertension Father Family Medical History: Chest Pain / Angina, Coronary Artery Disease (CAD), Diabetes Mellitus, Hypertension General Exam Limitations: no limitations General appearance: alert, in no apparent distress, other (This is a well- developed, well-nourished adult male patient in no acute distress. Vital signs upon presentation are temperature 101.8F oral, pulse 81, respirations 18, blood pressure 105/67, pulse ox 94% on room air.) Eye exam: Present: normal appearance, PERRL, EOMI. Absent: scleral icterus, conjunctival injection, periorbital swelling ENT exam: Present: normal exam, normal oropharynx, mucous membranes moist Neck exam: Present: normal inspection. Absent: tenderness, meningismus, lymphadenopathy Respiratory exam: Present: rales (Right lower lung). Absent: respiratory d istress, wheezes, rhonchi, stridor Cardiovascular Exam: Present: normal rhythm, tachycardia, normal heart sounds. Absent: systolic murmur, diastolic murmur, rubs, gallop, clicks GI/Abdominal exam: Present: soft, normal bowel sounds. Absent: distended, tenderness, guarding, rebound, rigid Neurological exam: Present: alert, oriented X3, CN II-XII intact Psychiatric exam: Present: normal affect, normal mood Skin exam: Present: warm, dry, intact, normal color. Absent: rash Course Vital Signs 09/07/20 09/07/20 09/07/20 16:38 17:01 18:35 Temperature 101.8 F H 100.0 F H Pulse Rate 81 97 Respiratory 18 16 16 Rate Blood Pressure 105/67 145/77 O2 Sat by Pulse 94 L 96 Oximetry Medical Decision Making - Lab Data Result diagrams: 09/07/20 17:36 09/07/20 17:36 Lab Results 09/07/20 09/07/20 09/07/20 Range/Units 17:36 17:36 17:36 WBC 3.4 L (3.8-10.6) k/uL RBC 4.88 (4.30-5.90) m/uL Hgb 14.6 (13.0-17.5) gm/dL Hct 46.0 (39.0-53.0) % MCV 94.3 (80.0-100.0) fL MCH 29.8 (25.0-35.0) pg MCHC 31.7 (31.0-37.0) g/dL RDW 13.6 (11.5-15.5) % Plt Count 150 (150-450) k/uL Neutrophils % 68 % Lymphocytes % 23 % Monocytes % 7 % Eosinophils % 0 % Basophils % 0 % Neutrophils # 2.3 (1.3-7.7) k/uL Lymphocytes # 0.8 L (1.0-4.8) k/uL Monocytes # 0.3 (0-1.0) k/uL Eosinophils # 0.0 (0-0.7) k/uL Basophils # 0.0 (0-0.2) k/uL PT 9.5 (9.0-12.0) sec INR 0.9 (<1.2) APTT 26.4 (22.0-30.0) sec Sodium (137-145) mmol/L Potassium (3.5-5.1) mmol/L Chloride (98-107) mmol/L Carbon Dioxide (22-30) mmol/L Anion Gap mmol/L BUN (9-20) mg/dL Creatinine (0.66-1.25) mg/dL Est GFR (CKD-EPI)AfAm (>60 ml/min/1.73 sqM) Est GFR (CKD-EPI)NonAf (>60 ml/min/1.73 sqM) Glucose (74-99) mg/dL Plasma Lactic Acid Eliazar (0.7-2.0) mmol/L Calcium (8.4-10.2) mg/dL Total Bilirubin (0.2-1.3) mg/dL AST (17-59) U/L ALT (4-49) U/L Alkaline Phosphatase (38-126) U/L Total Protein (6.3-8.2) g/dL Albumin (3.5-5.0) g/dL Urine Color Dark Yellow Urine Appearance Cloudy (Clear) Urine pH 5.5 (5.0-8.0) Ur Specific [place] 1.029 (1.001-1.035) Urine Protein 2+ H (Negative) Urine Glucose (UA) Negative (Negative) Urine Ketones Negative (Negative) Urine Blood Negative (Negative) Urine Nitrite Negative (Negative) Urine Bilirubin Negative (Negative) Urine Urobilinogen 2.0 (<2.0) mg/dL Ur Leukocyte Esterase Large H (Negative) Urine RBC 23 H (0-5) /hpf Urine WBC 99 H (0-5) /hpf Ur Squamous Epith Cells 3 (0-4) /hpf Urine Bacteria Occasional H (None) /hpf Urine Mucus Many H (None) /hpf Coronavirus (PCR) (Not Detectd) Influenza Type A RNA (Not Detectd) Influenza Type B (PCR) (Not Detectd) 09/07/20 09/07/20 09/07/20 Range/Units 17:36 17:36 17:36 WBC (3.8-10.6) k/uL RBC (4.30-5.90) m/uL Hgb (13.0-17.5) gm/dL Hct (39.0-53.0) % MCV (80.0-100.0) fL MCH (25.0-35.0) pg MCHC (31.0-37.0) g/dL RDW (11.5-15.5) % Plt Count (150-450) k/uL Neutrophils % % Lymphocytes % % Monocytes % % Eosinophils % % Basophils % % Neutrophils # (1.3-7.7) k/uL Lymphocytes # (1.0-4.8) k/uL Monocytes # (0-1.0) k/uL Eosinophils # (0-0.7) k/uL Basophils # (0-0.2) k/uL PT (9.0-12.0) sec INR (<1.2) APTT (22.0-30.0) sec Sodium 139 (137-145) mmol/L Potassium 4.3 (3.5-5.1) mmol/L Chloride 104 (98-107) mmol/L Carbon Dioxide 29 (22-30) mmol/L Anion Gap 6 mmol/L BUN 16 (9-20) mg/dL Creatinine 0.89 (0.66-1.25) mg/dL Est GFR (CKD-EPI)AfAm >90 (>60 ml/min/1.73 sqM) Est GFR (CKD-EPI)NonAf 85 (>60 ml/min/1.73 sqM) Glucose 103 H (74-99) mg/dL Plasma Lactic Acid Eliazar 1.6 (0.7-2.0) mmol/L Calcium 8.9 (8.4-10.2) mg/dL Total Bilirubin 0.6 (0.2-1.3) mg/dL AST 62 H (17-59) U/L ALT 52 H (4-49) U/L Alkaline Phosphatase 87 (38-126) U/L Total Protein 6.5 (6.3-8.2) g/dL Albumin 3.7 (3.5-5.0) g/dL Urine Color Urine Appearance (Clear) Urine pH (5.0-8.0) Ur Specific [place] (1.001-1.035) Urine Protein (Negative) Urine Glucose (UA) (Negative) Urine Ketones (Negative) Urine Blood (Negative) Urine Nitrite (Negative) Urine Bilirubin (Negative) Urine Urobilinogen (<2.0) mg/dL Ur Leukocyte Esterase (Negative) Urine RBC (0-5) /hpf Urine WBC (0-5) /hpf Ur Squamous Epith Cells (0-4) /hpf Urine Bacteria (None) /hpf Urine Mucus (None) /hpf Coronavirus (PCR) (Not Detectd) Influenza Type A RNA Not Detected (Not Detectd) Influenza Type B (PCR) Detected H (Not Detectd) 09/07/20 Range/Units 17:36 WBC (3.8-10.6) k/uL RBC (4.30-5.90) m/uL Hgb (13.0-17.5) gm/dL Hct (39.0-53.0) % MCV (80.0-100.0) fL MCH (25.0-35.0) pg MCHC (31.0-37.0) g/dL RDW (11.5-15.5) % Plt Count (150-450) k/uL Neutrophils % % Lymphocytes % % Monocytes % % Eosinophils % % Basophils % % Neutrophils # (1.3-7.7) k/uL Lymphocytes # (1.0-4.8) k/uL Monocytes # (0-1.0) k/uL Eosinophils # (0-0.7) k/uL Basophils # (0-0.2) k/uL PT (9.0-12.0) sec INR (<1.2) APTT (22.0-30.0) sec Sodium (137-145) mmol/L Potassium (3.5-5.1) mmol/L Chloride (98-107) mmol/L Carbon Dioxide (22-30) mmol/L Anion Gap mmol/L BUN (9-20) mg/dL Creatinine (0.66-1.25) mg/dL Est GFR (CKD-EPI)AfAm (>60 ml/min/1.73 sqM) Est GFR (CKD-EPI)NonAf (>60 ml/min/1.73 sqM) Glucose (74-99) mg/dL Plasma Lactic Acid Eliazar (0.7-2.0) mmol/L Calcium (8.4-10.2) mg/dL Total Bilirubin (0.2-1.3) mg/dL AST (17-59) U/L ALT (4-49) U/L Alkaline Phosphatase (38-126) U/L Total Protein (6.3-8.2) g/dL Albumin (3.5-5.0) g/dL Urine Color Urine Appearance (Clear) Urine pH (5.0-8.0) Ur Specific [place] (1.001-1.035) Urine Protein (Negative) Urine Glucose (UA) (Negative) Urine Ketones (Negative) Urine Blood (Negative) Urine Nitrite (Negative) Urine Bilirubin (Negative) Urine Urobilinogen (<2.0) mg/dL Ur Leukocyte Esterase (Negative) Urine RBC (0-5) /hpf Urine WBC (0-5) /hpf Ur Squamous Epith Cells (0-4) /hpf Urine Bacteria (None) /hpf Urine Mucus (None) /hpf Coronavirus (PCR) Detected A (Not Detectd) Influenza Type A RNA (Not Detectd) Influenza Type B (PCR) (Not Detectd) - EKG Data -: EKG Interpreted by [place] EKG Comments: EKG obtained at 1736 shows sinus tachycardia with first-degree AV block. Ventricular rate is 106, MA interval 218, QRS duration 90, QT 316, QTC 419 - Radiology Data Radiology results: report reviewed, image reviewed Disposition Clinical Impression: COVID-19, Influenza B Disposition: ADMITTED IP TO THIS HOSP Condition: Serious Referrals: Cornell Leon MD [Primary Care Provider] - 1-2 days Decision to Admit Reason: Admit from EC Decision Date: 09/07/20 Decision Time: 19:08
[2020-09-07 19:15] LABS: C Reactive Protein 35.1 mg/L (<10.0); Magnesium 2.1 mg/dL (1.6-2.3)
--- NOTE | 2020-09-07 23:37 | P.HPIM ---
History of Present Illness H&P Date: 09/07/20 The patient was seen and evaluated in the emergency room at 8 PM on 09/07 Patient is a 75-year-old male with a PMH of ATorri willoughby on Xarelto, type II DM, hyperlipidemia, and hypertension, who presented to the emergency room with complaints of diarrhea, fever, and productive cough. The patient reports that his symptoms started a few days ago and have gradually progressed. He reports that his chronic cough productive of yellow-green phlegm has increased and he's had intermittent fevers over this time. The patient was seen in the emergency room on 09/03 for complaints of shortness of breath and was discharged home at that time. He notes that his has had an excessive cough with significant amount of phlegm production for the past 2 weeks. The patient also reports mild dysuria and some hematuria. Denies hemoptysis. Denies chest pain, diaphoresis, nausea, vomiting, abdominal pain, weakness, or numbness. The patient was febrile in the emergency room with T-max of 101.8 and saturating 94% on room air. Laboratory evaluation was positive for coronavirus and influenza B. Chest x-ray in the emergency room revealed cardiomegaly. EKG revealed sinus tachycardia at 106 bpm with first-degree AV block with left axis deviation as reviewed by me. Review of Systems Pertinent positives and negatives as discussed in HPI, a complete review of systems was performed and all other systems are negative. 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 analyst in [place] has patient on a heart monitor for 2 weeks "my heart beats slow...it was down to 48" History of Any Multi-Drug Resistant Organisms: None Reported Past Surgical History: Adenoidectomy, Cholecystectomy, Coronary Bypass/CABG, Hernia Repair, Joint Replacement, Tonsillectomy Additional Past Surgical History / Comment(s): CABG x 4 in 2005 at [facility], bilateral knees replaced, cardioversion 10/2015 Past Anesthesia/Blood Transfusion Reactions: Postoperative Nausea & Vomiting (PONV) Past Psychological History: PTSD Smoking Status: Former smoker Past Alcohol Use History: Occasional Past Drug Use History: None Reported - Past Family History Mother Family Medical History: Chest Pain / Angina, Coronary Artery Disease (CAD), Diabetes Mellitus, Hypertension Father Family Medical History: Chest Pain / Angina, Coronary Artery Disease (CAD), Diabetes Mellitus, Hypertension Medications and Allergies Home Medications Medication Instructions Recorded Confirmed Type Dofetilide [Tikosyn] 500 mcg PO BID 03/08/16 09/07/20 History Furosemide [Lasix] 20 mg PO DAILY 03/08/16 09/07/20 History Rivaroxaban [Xarelto] 20 mg PO DAILY 03/08/16 09/07/20 History Tamsulosin [Flomax] 0.4 mg PO HS 03/08/16 09/07/20 History metFORMIN HCL [Glucophage] 500 mg PO BID 03/08/16 09/07/20 History Multivitamins, Thera [Multivitamin] 1 tab PO DAILY 08/23/16 09/07/20 History Cinnamon Bark [Cinnamon] 500 mg PO HS 04/21/18 09/07/20 History Atorvastatin [Lipitor] 80 mg PO DAILY 09/03/20 09/07/20 History Dulaglutide [Trulicity] 0.75 mg SQ MO 09/03/20 09/07/20 History Glimepiride [Amaryl] 2 mg PO BID 09/03/20 09/07/20 History Metoprolol Tartrate [Lopressor] 25 mg PO BID 09/03/20 09/07/20 History lisinopriL 20 mg PO DAILY 09/03/20 09/07/20 History Magnesium 300mg 300 mg PO DAILY 09/07/20 09/07/20 History Allergies Allergy/AdvReac Type Severity Reaction Status Date / Time No Known Allergies Allergy Verified 09/07/20 17:55 Physical Exam Vitals: Vital Signs Temp Pulse Resp BP Pulse Ox 09/07/20 18:35 100.0 F H 97 16 145/77 96 09/07/20 17:01 16 09/07/20 16:38 101.8 F H 81 18 105/67 94 L Intake and Output 09/07/20 09/07/20 09/07/20 06:59 14:59 22:59 Other: Weight 120.202 kg General: non toxic, no distress, appears at stated age, morbidly obese Derm: no unusual rashes/lesions no unusual ecchymoses, warm, dry Head: atraumatic, normocephalic, symmetric Eyes: EOMI, no lid lag, anicteric sclera, pupils equal round reactive to light ENT: Nose and ears atraumatic, no thrush, no pharyngeal erythema Neck: No thyromegaly, no cervical lymphadenopathy, trachea midline, supple Mouth: no lip lesion, mucus membranes moist Cardiovascular: S1S2 reg, no murmur, positive posterior tibial pulse bilateral, no edema, capillary refill less than 2 seconds Lungs: CTA bilateral, no rhonchi, no rales , no accessory muscle use Abdominal: soft, nontender to palpation, no guarding, no appreciable organomegaly, normal bowel sounds Ext: no gross muscle atrophy, muscle strength 5 out of 5 in all 4 extremities grossly, no contractures, Neuro: CN II-XI grossly intact, light touch intact all 4 extremities, finger to nose within normal limits, Psych: Alert, oriented, appropriate affect Results CBC & Chem 7: 09/07/20 17:36 09/07/20 17:36 Labs: Abnormal Lab Results - Last 24 Hours (Table) 09/07/20 09/07/20 09/07/20 Range/Units 17:36 17:36 17:36 WBC 3.4 L (3.8-10.6) k/uL Lymphocytes # 0.8 L (1.0-4.8) k/uL D-Dimer (<0.60) mg/L FEU Glucose 103 H (74-99) mg/dL AST 62 H (17-59) U/L ALT 52 H (4-49) U/L C-Reactive Protein (<10.0) mg/L Urine Protein 2+ H (Negative) Ur Leukocyte Esterase Large H (Negative) Urine RBC 23 H (0-5) /hpf Urine WBC 99 H (0-5) /hpf Urine Bacteria Occasional H (None) /hpf Urine Mucus Many H (None) /hpf Coronavirus (PCR) (Not Detectd) Influenza Type B (PCR) (Not Detectd) 09/07/20 09/07/20 09/07/20 Range/Units 17:36 17:36 17:36 WBC (3.8-10.6) k/uL Lymphocytes # (1.0-4.8) k/uL D-Dimer 0.86 H (<0.60) mg/L FEU Glucose (74-99) mg/dL AST (17-59) U/L ALT (4-49) U/L C-Reactive Protein (<10.0) mg/L Urine Protein (Negative) Ur Leukocyte Esterase (Negative) Urine RBC (0-5) /hpf Urine WBC (0-5) /hpf Urine Bacteria (None) /hpf Urine Mucus (None) /hpf Coronavirus (PCR) Detected A (Not Detectd) Influenza Type B (PCR) Detected H (Not Detectd) 09/07/20 Range/Units 17:36 WBC (3.8-10.6) k/uL Lymphocytes # (1.0-4.8) k/uL D-Dimer (<0.60) mg/L FEU Glucose (74-99) mg/dL AST (17-59) U/L ALT (4-49) U/L C-Reactive Protein 35.1 H (<10.0) mg/L Urine Protein (Negative) Ur Leukocyte Esterase (Negative) Urine RBC (0-5) /hpf Urine WBC (0-5) /hpf Urine Bacteria (None) /hpf Urine Mucus (None) /hpf Coronavirus (PCR) (Not Detectd) Influenza Type B (PCR) (Not Detectd) Assessment and Plan Plan: COVID-19 infection -Supplemental oxygen -Droplet precautions -Continue with Ceftriaxone for now(elevated CRP) -Patient does not qualify for Dexamethasone for Remdesevir -C/w Xarelto -Follow up blood cultures Influenza B infection -Does not meet criteria for Tamiflu -C/w treatment as above Diarrhea -Likely due to Covid. Treatment as per above UTI -C/w Ceftriaxone -F/u urine culture Chronic medications: Type II DM, A. fib, hypertension, hyperlipidemia, -Continue with home Xarelto -Blood glucose monitoring with lispro insulin sliding scale -Check A1c -Continue with home antihypertensives -Hold statin in setting of deranged LFTs DVT prophylaxis -Xarelto The patient is admitted with an anticipated less than 2 midnight stay for evaluation of COVID-19 infection CODE STATUS: Full Code Discussed with: Patient Anticipated discharge date: in am Anticipated discharge place: Home A total of 40 minutes was spent on the care of this complex patient more than 50% of the time was spent in counseling and care coordination.
[2020-09-08 06:24] LABS: Glucose,Whole Blood 113 mg/dL (75-99)
[2020-09-08 08:31] VITALS: BP 112/65; PULSE 100; RESP 16; TEMP 98.8
[2020-09-08] MEDS: INSULIN ASPART (NovoLOG) 100 UNIT/ML VIAL SQ SCH ×2 (08:33→13:18)
[2020-09-08] MEDS ORDERED: RIVAROXABAN 20 MG TAB PO SCH (09:00)
[2020-09-08] MEDS ORDERED: lisinopriL 20 MG TAB PO SCH (09:00)
[2020-09-08] MEDS ORDERED: MULTIVITAMINS, THERA 1 EACH TAB PO SCH (09:00)
[2020-09-08] MEDS ORDERED: ATORVASTATIN 80 MG TAB PO SCH (09:00)
[2020-09-08] MEDS ORDERED: METOPROLOL TARTRATE 25 MG TAB PO SCH (09:00)
[2020-09-08] MEDS ORDERED: dexAMETHasone 2 MG TAB PO STA (09:54)
[2020-09-08] MEDS ORDERED: HYDROcodone/APAP 5-325MG 1 EACH TAB PO PRN (09:54)
[2020-09-08 10:13] LABS: HCT 44.2 % (39.0-53.0); HGB 14.1 gm/dL (13.0-17.5); MCH 30.8 pg (25.0-35.0); MCHC 31.9 g/dL (31.0-37.0); MCV 96.8 fL (80.0-100.0); Mean Platelet Volume 7.6; Platelet Count 138 k/uL (150-450); RBC 4.57 m/uL (4.30-5.90); RDW 13.3 % (11.5-15.5); WBC 3.7 k/uL (3.8-10.6)
[2020-09-08 10:33] LABS: ALT 45 U/L (4-49); AST 55 U/L (17-59); African American GFR (CKD) >90 (>60 ml/min/1.73 sqM); Albumin 3.2 g/dL (3.5-5.0); Alkaline Phosphatase 73 U/L (38-126); Anion Gap 8 mmol/L; Blood Urea Nitrogen 14 mg/dL (9-20); Calcium 8.3 mg/dL (8.4-10.2); Carbon Dioxide 21 mmol/L (22-30); Chloride 108 mmol/L (98-107); Glucose 177 mg/dL (74-99); Non-African American GFR(CKD) >90 (>60 ml/min/1.73 sqM); Potassium 4.6 mmol/L (3.5-5.1); Sodium 137 mmol/L (137-145); Total Bilirubin 0.6 mg/dL (0.2-1.3); Total Protein 5.8 g/dL (6.3-8.2)
[2020-09-08 19:23] LABS: Hemoglobin A1C 6.7 % (4.0-6.0)
[2020-09-08] MEDS ORDERED: TAMSULOSIN 0.4 MG CAP.ER.24H PO SCH (21:00)
--- NOTE | 2020-09-08 22:07 | P.DS ---
Providers Date of admission: 09/07/20 18:16 Expected date of discharge: 09/08/20 Attending physician: Ranjana Cervantes Primary care physician: Cornell Leon Hospital Course: Discharge Diagnosis: Covid19 infection FLU B Acute hypoxic respiratory failure Paroxysmal atrial fibrillation on chronic anticoagulation Diabetes mellitus type 2 Dyslipidemia Hypertension Obesity with BMI 38.9 History of exercise-induced intolerance Diarrhea Hospital Course: Patient is a 75-year-old male with a PMH of A. fib on Xarelto, type II DM, hyperlipidemia, and hypertension, who presented to the emergency room with complaints of diarrhea, fever, and productive cough. The patient was seen in the emergency room on 09/03 for complaints of shortness of breath and was discharged home at that time. He notes that his has had an excessive cough with significant amount of phlegm production for the past 2 weeks. The patient was febrile in the emergency room with T-max of 101.8 and saturating 94% on room air. Laboratory evaluation was positive for coronavirus and influenza B. Chest x-ray in the emergency room revealed cardiomegaly. EKG revealed sinus tachycardia at 106 bpm with first-degree AV block with left axis deviation. He was admitted. He was found to have an oxygen saturation of less than 94%. He was subsequently started on dexamethasone. He did not have any additional significant fevers after admission. On the morning after admission he felt well and was asking to be discharged home. His ambulatory pulse ox dropped to 83%. He was subsequently when it written for home oxygen. I did encourage him to stay in the hospital for further monitoring however he felt well and wanted to be discharged home. He was given extensive instructions to return to the hospital with worsening shortness of breath, fever greater than 101, diarrhea, nausea, or worsening cough or fatigue. I did recommend obtaining a home pulse ox Emergency department if oxygen is less than 92%. He did require oxygen on discharge secondary to diagnosis of covert 19. He'll follow-up with Dr. Leon 1-2 days. Will complete a ten-day course of dexamethasone. He will also take vitamin C, zinc, and vitamin D. He is not given a dose of daily aspirin as he already takes Xarelto for his chronic A. fib. Again I encouraged patient to stay and he wanted to be discharged home. Patient seen and examined at bedside. Feeling well, having increase in his back pain. Asking to be discharged home. Vital signs reviewed and stable. General: non toxic, no distress, appears at stated age Derm: warm, dry Head: atraumatic, normocephalic, symmetric Eyes: EOMI, no lid lag, anicteric sclera Mouth: no lip lesion, mucus membranes moist Cardiovascular: S1S2 reg, no murmur, positive posterior tibial pulse bilateral, Lungs: Clear to auscultation bilaterally without rhonchi or wheeze, no accessory muscle use Abdominal: soft, nontender to palpation, no guarding, no appreciable organomegaly Ext: no gross muscle atrophy, trace edema, no contractures Neuro: CN II-XI grossly intact, no focal neuro deficits Psych: Alert, oriented, appropriate affect A total of 35 minutes of time were spent preparing this complex discharge summary . Patient Condition at Discharge: Stable Plan - Discharge Summary Discharge Rx Participant: No New Discharge Prescriptions: New Dexamethasone 6 mg PO DAILY #9 tablet Ascorbic Acid [Vitamin C] 1,000 mg PO DAILY #15 tablet Cholecalciferol [Vitamin D3 (25 Mcg = 1000 Iu)] 1,000 unit PO DAILY #15 tablet Zinc 50 mg PO DAILY #15 tablet Continue Dofetilide [Tikosyn] 500 mcg PO BID Furosemide [Lasix] 20 mg PO DAILY metFORMIN HCL [Glucophage] 500 mg PO BID Rivaroxaban [Xarelto] 20 mg PO DAILY Tamsulosin [Flomax] 0.4 mg PO HS Multivitamins, Thera [Multivitamin (formulary)] 1 tab PO DAILY Cinnamon Bark [Cinnamon] 500 mg PO HS Metoprolol Tartrate [Lopressor] 25 mg PO BID Glimepiride [Amaryl] 2 mg PO BID lisinopriL 20 mg PO DAILY Atorvastatin [Lipitor] 80 mg PO DAILY Dulaglutide [Trulicity] 0.75 mg SQ MO Magnesium 300mg 300 mg PO DAILY Discharge Medication List Dofetilide [Tikosyn] 500 mcg PO BID 03/08/16 [History] Furosemide [Lasix] 20 mg PO DAILY 03/08/16 [History] Rivaroxaban [Xarelto] 20 mg PO DAILY 03/08/16 [History] Tamsulosin [Flomax] 0.4 mg PO HS 03/08/16 [History] metFORMIN HCL [Glucophage] 500 mg PO BID 03/08/16 [History] Multivitamins, Thera [Multivitamin (formulary)] 1 tab PO DAILY 08/23/16 [History] Cinnamon Bark [Cinnamon] 500 mg PO HS 04/21/18 [History] Atorvastatin [Lipitor] 80 mg PO DAILY 09/03/20 [History] Dulaglutide [Trulicity] 0.75 mg SQ MO 09/03/20 [History] Glimepiride [Amaryl] 2 mg PO BID 09/03/20 [History] Metoprolol Tartrate [Lopressor] 25 mg PO BID 09/03/20 [History] lisinopriL 20 mg PO DAILY 09/03/20 [History] Magnesium 300mg 300 mg PO DAILY 09/07/20 [History] Ascorbic Acid [Vitamin C] 1,000 mg PO DAILY #15 tablet 09/08/20 [Rx] Cholecalciferol [Vitamin D3 (25 Mcg = 1000 Iu)] 1,000 unit PO DAILY #15 tablet 09/08/20 [Rx] Dexamethasone 6 mg PO DAILY #9 tablet 09/08/20 [Rx] Zinc 50 mg PO DAILY #15 tablet 09/08/20 [Rx] Follow up Appointment(s)/Referral(s): [facility],Equipment [NON-STAFF] - As Needed (Supplier of home oxygen) Cornell Leon MD [Primary Care Provider] - 1-2 days Patient Instructions/Handouts: Influenza (DC) Activity/Diet/Wound Care/Special Instructions: Activity: as tolerated Diet: heart healthy cardiac Special Instructions: Return to emergency department with worsening shortness of breath, fever 101 or greater, diarrhea, nausea, worsening cough, worsening fatigue. I recommend obtaining a home pulse Ox and coming to emergency department if O2 is less than 92 Patient will require home oxygen at discharge due to diagnosis of COVID 19 and low saturations when ambulating without oxygen. Discharge Disposition: HOME SELF-CARE
== END 2020-09-08 14:50 | disposition home or self-care (01) ==
LOC: EC 16:14 → 1SOBS 18:16
PROVIDERS: ADMIT Internal Medicine; ATTEND Internal Medicine
DX: U07.1 COVID-19 (principal); J96.01 Acute respiratory failure with hypoxia; J10.1 Influenza due to other identified influenza virus with other respiratory manifestations; N39.0 Urinary tract infection, site not specified; I11.9 Hypertensive heart disease without heart failure; I44.0 Atrioventricular block, first degree; I48.0 Paroxysmal atrial fibrillation; I48.20 Chronic atrial fibrillation, unspecified; E11.9 Type 2 diabetes mellitus without complications; E78.5 Hyperlipidemia, unspecified; Z68.38 Body mass index [BMI] 38.0-38.9, adult; F43.10 Post-traumatic stress disorder, unspecified; E66.9 Obesity, unspecified; Z79.01 Long term (current) use of anticoagulants; Z79.84 Long term (current) use of oral hypoglycemic drugs; Z79.899 Other long term (current) drug therapy; Z82.49 Family history of ischemic heart disease and other diseases of the circulatory system; Z83.3 Family history of diabetes mellitus; Z87.891 Personal history of nicotine dependence; Z95.1 Presence of aortocoronary bypass graft
CPT/HCPCS: 96361 ×2; 96366 ×2; 96365; 99285; 36415; 93005; 85379; 83880; 80053 ×2; 82728; 83605; 83615; 83735; 84484; 85025; 85027; 85610; 85730; 86140; 81001; 87040; 87086; 87077; 87186; 87502; 83036; 84145; 87635; 71046; G0378 ×2; J0696 ×2; J8540

== ENCOUNTER 2020-09-15 16:54 | Inpatient (IN) | payer MEDICARE, OTHER ==
[2020-09-15] MEDS ORDERED: ALBUTEROL HFA INHALER INHALATION STA (17:11)
[2020-09-15] MEDS ORDERED: ALBUTEROL HFA INHALER INHALATION PRN (17:11)
--- NOTE | 2020-09-15 17:13 | ED ---
General Adult HPI - General Chief complaint: Shortness of Breath Stated complaint: + COVID,SOB Time Seen by Provider: 09/15/20 16:56 Source: patient, EMS, RN notes reviewed Mode of arrival: EMS Limitations: no limitations - History of Present Illness Initial comments: Patient is a pleasant 75-year-old male presenting to the emergency Department with complaints of difficulty breathing. Patient states onset of symptoms was just a couple of days ago. Occasional cough that is dry nonproductive. Patient was diagnosed: Positive just less than a week ago. Patient unclear if he is having fevers. Patient does feel somewhat fatigued. No abdominal pain. No constipation or diarrhea. No history of chronic lung problems. - Related Data Home Medications Medication Instructions Recorded Confirmed Dofetilide [Tikosyn] 500 mcg PO BID 03/08/16 09/07/20 Furosemide [Lasix] 20 mg PO DAILY 03/08/16 09/07/20 Rivaroxaban [Xarelto] 20 mg PO DAILY 03/08/16 09/07/20 Tamsulosin [Flomax] 0.4 mg PO HS 03/08/16 09/07/20 metFORMIN HCL [Glucophage] 500 mg PO BID 03/08/16 09/07/20 Multivitamins, Thera [Multivitamin 1 tab PO DAILY 08/23/16 09/07/20 (formulary)] Cinnamon Bark [Cinnamon] 500 mg PO HS 04/21/18 09/07/20 Atorvastatin [Lipitor] 80 mg PO DAILY 09/03/20 09/07/20 Dulaglutide [Trulicity] 0.75 mg SQ MO 09/03/20 09/07/20 Glimepiride [Amaryl] 2 mg PO BID 09/03/20 09/07/20 Metoprolol Tartrate [Lopressor] 25 mg PO BID 09/03/20 09/07/20 lisinopriL 20 mg PO DAILY 09/03/20 09/07/20 Magnesium 300mg 300 mg PO DAILY 09/07/20 09/07/20 Previous Rx's Medication Instructions Recorded Ascorbic Acid [Vitamin C] 1,000 mg PO DAILY #15 tablet 09/08/20 Cholecalciferol [Vitamin D3 (25 1,000 unit PO DAILY #15 tablet 09/08/20 Mcg = 1000 Iu)] Dexamethasone 6 mg PO DAILY #9 tablet 09/08/20 Zinc 50 mg PO DAILY #15 tablet 09/08/20 Allergies Allergy/AdvReac Type Severity Reaction Status Date / Time No Known Allergies Allergy Verified 09/07/20 17:55 Review of Systems ROS Statement: Those systems with pertinent positive or pertinent negative responses have been documented in the HPI. ROS Other: All systems not noted in ROS Statement are negative. Constitutional: Reports: as per HPI Eyes: Denies: eye pain ENT: Denies: ear pain Respiratory: Reports: cough, dyspnea Cardiovascular: Denies: chest pain Endocrine: Reports: fatigue Gastrointestinal: Denies: abdominal pain, nausea, vomiting Genitourinary: Denies: dysuria Musculoskeletal: Denies: back pain Skin: Denies: rash Neurological: Denies: weakness Past Medical History Past Medical History: Atrial Fibrillation, Diabetes Mellitus, Hyperlipidemia, Hypertension, Prostate Disorder Additional Past Medical History / Comment(s): disc out of place in back, cardiov ersion 10/2015, Fe deficiency anemia, SOB when doing "strenuous activity" such as climbing stairs; as of 03/07/16 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 [place] has patient on a heart monitor for 2 weeks "my heart beats slow...it was down to 48" History of Any Multi-Drug Resistant Organisms: None Reported Past Surgical History: Adenoidectomy, Cholecystectomy, Coronary Bypass/CABG, Hernia Repair, Joint Replacement, Tonsillectomy Additional Past Surgical History / Comment(s): CABG x 4 in 2006 at [facility], bilateral knees replaced, cardioversion 10/2015 Past Anesthesia/Blood Transfusion Reactions: Postoperative Nausea & Vomiting (PONV) Past Psychological History: PTSD Smoking Status: Former smoker Past Alcohol Use History: Occasional Past Drug Use History: None Reported - Past Family History Mother Family Medical History: Chest Pain / Angina, Coronary Artery Disease (CAD), Diabetes Mellitus, Hypertension Father Family Medical History: Chest Pain / Angina, Coronary Artery Disease (CAD), Diabetes Mellitus, Hypertension General Exam Limitations: no limitations General appearance: alert, in no apparent distress Head exam: Present: normocephalic Eye exam: Present: normal appearance Neck exam: Present: normal inspection Respiratory exam: Present: normal lung sounds bilaterally Cardiovascular Exam: Present: regular rate, normal rhythm GI/Abdominal exam: Present: soft. Absent: tenderness Extremities exam: Present: normal inspection. Absent: pedal edema, calf tenderness Neurological exam: Present: alert Psychiatric exam: Present: normal affect, normal mood Skin exam: Present: normal color Course Vital Signs 09/15/20 09/15/20 17:01 17:06 Temperature 98.4 F Pulse Rate 84 Respiratory 24 30 H Rate Blood Pressure 97/67 O2 Sat by Pulse 84 L Oximetry EKG Findings - EKG Comments: EKG Findings:: normal sinus rhythm at 86. WI 182. QRS 90. QT 410. QTc 490. Left axis. Poor R-wave progression. Inferior Q waves. No acute ST change. Medical Decision Making - Medical Decision Making patient reevaluated and updated. BNP will be added. Case discussed with Dr. Staples, who will admit covering for Dr. Leon. Patient requires oxygen. - Lab Data Result diagrams: 09/15/20 17:17 09/15/20 17:17 Lab Results 09/15/20 09/15/20 09/15/20 Range/Units 17:17 17:17 17:17 WBC 10.6 (3.8-10.6) k/uL RBC 4.57 (4.30-5.90) m/uL Hgb 14.3 (13.0-17.5) gm/dL Hct 42.4 (39.0-53.0) % MCV 92.7 (80.0-100.0) fL MCH 31.2 (25.0-35.0) pg MCHC 33.7 (31.0-37.0) g/dL RDW 13.4 (11.5-15.5) % Plt Count 196 (150-450) k/uL MPV 8.1 Neutrophils % 94 % Lymphocytes % 2 % Monocytes % 2 % Eosinophils % 1 % Basophils % 0 % Neutrophils # 10.0 H (1.3-7.7) k/uL Lymphocytes # 0.2 L (1.0-4.8) k/uL Monocytes # 0.2 (0-1.0) k/uL Eosinophils # 0.1 (0-0.7) k/uL Basophils # 0.1 (0-0.2) k/uL PT 11.1 (9.0-12.0) sec INR 1.1 (<1.2) APTT 32.7 H (22.0-30.0) sec Sodium 140 (137-145) mmol/L Potassium 4.1 (3.5-5.1) mmol/L Chloride 109 H (98-107) mmol/L Carbon Dioxide 24 (22-30) mmol/L Anion Gap 7 mmol/L BUN 30 H (9-20) mg/dL Creatinine 0.99 (0.66-1.25) mg/dL Est GFR (CKD-EPI)AfAm 87 (>60 ml/min/1.73 sqM) Est GFR (CKD-EPI)NonAf 75 (>60 ml/min/1.73 sqM) Glucose 98 (74-99) mg/dL Plasma Lactic Acid Eliazar (0.7-2.0) mmol/L Calcium 8.4 (8.4-10.2) mg/dL Magnesium 1.9 (1.6-2.3) mg/dL Total Bilirubin 1.0 (0.2-1.3) mg/dL AST 87 H (17-59) U/L ALT 67 H (4-49) U/L Alkaline Phosphatase 67 (38-126) U/L Lactate Dehydrogenase 1513 H (313-618) U/L C-Reactive Protein 70.4 H (<10.0) mg/L Total Protein 5.7 L (6.3-8.2) g/dL Albumin 2.9 L (3.5-5.0) g/dL 09/15/20 Range/Units 17:17 WBC (3.8-10.6) k/uL RBC (4.30-5.90) m/uL Hgb (13.0-17.5) gm/dL Hct (39.0-53.0) % MCV (80.0-100.0) fL MCH (25.0-35.0) pg MCHC (31.0-37.0) g/dL RDW (11.5-15.5) % Plt Count (150-450) k/uL MPV Neutrophils % % Lymphocytes % % Monocytes % % Eosinophils % % Basophils % % Neutrophils # (1.3-7.7) k/uL Lymphocytes # (1.0-4.8) k/uL Monocytes # (0-1.0) k/uL Eosinophils # (0-0.7) k/uL Basophils # (0-0.2) k/uL PT (9.0-12.0) sec INR (<1.2) APTT (22.0-30.0) sec Sodium (137-145) mmol/L Potassium (3.5-5.1) mmol/L Chloride (98-107) mmol/L Carbon Dioxide (22-30) mmol/L Anion Gap mmol/L BUN (9-20) mg/dL Creatinine (0.66-1.25) mg/dL Est GFR (CKD-EPI)AfAm (>60 ml/min/1.73 sqM) Est GFR (CKD-EPI)NonAf (>60 ml/min/1.73 sqM) Glucose (74-99) mg/dL Plasma Lactic Acid Eliazar 2.5 H* (0.7-2.0) mmol/L Calcium (8.4-10.2) mg/dL Magnesium (1.6-2.3) mg/dL Total Bilirubin (0.2-1.3) mg/dL AST (17-59) U/L ALT (4-49) U/L Alkaline Phosphatase (38-126) U/L Lactate Dehydrogenase (313-618) U/L C-Reactive Protein (<10.0) mg/L Total Protein (6.3-8.2) g/dL Albumin (3.5-5.0) g/dL - Radiology Data Radiology results: image reviewed (Chest x-ray shows bilateral diffuse airspace disease, concerning for cold bed pneumonia, possibleedema) Disposition Clinical Impression: COVID-19 Disposition: ADMITTED IP TO THIS [facility] Condition: Serious Is patient prescribed a controlled substance at d/c from ED?: No Referrals: Cornell Leon MD [Primary Care Provider] - 1-2 days Decision Time: 18:17
[2020-09-15 17:30] LABS: Basophils # (A) 0.1 k/uL (0-0.2); Basophils % (A) 0 %; Eosinophils # (A) 0.1 k/uL (0-0.7); Eosinophils % (A) 1 %; HCT 42.4 % (39.0-53.0); HGB 14.3 gm/dL (13.0-17.5); Lymphocytes # (A) 0.2 k/uL (1.0-4.8); Lymphocytes % (A) 2 %; MCH 31.2 pg (25.0-35.0); MCHC 33.7 g/dL (31.0-37.0); MCV 92.7 fL (80.0-100.0); Mean Platelet Volume 8.1; Monocytes # (A) 0.2 k/uL (0-1.0); Monocytes % (A) 2 %; Neutrophils % (A) 94 %; Platelet Count 196 k/uL (150-450); RBC 4.57 m/uL (4.30-5.90); RDW 13.4 % (11.5-15.5); WBC 10.6 k/uL (3.8-10.6)
[2020-09-15 17:44] LABS: Albumin 2.9 g/dL (3.5-5.0); C Reactive Protein 70.4 mg/L (<10.0); Calcium 8.4 mg/dL (8.4-10.2); Magnesium 1.9 mg/dL (1.6-2.3); Potassium 4.1 mmol/L (3.5-5.1); Total Protein 5.7 g/dL (6.3-8.2)
[2020-09-15 17:46] LABS: INR 1.1 (<1.2); Partial Thromboplastin Time 32.7 sec (22.0-30.0); Prothrombin Time 11.1 sec (9.0-12.0)
--- NOTE | 2020-09-15 17:52 | XR ---
EXAMINATION TYPE: XR chest 1V portable DATE OF EXAM: 09/15/2020 COMPARISON: NONE HISTORY: Shortness of breath. TECHNIQUE: Single frontal view of the chest is obtained. FINDINGS: There are bilateral diffuse moderate airspace opacities. No significant pleural effusion, or pneumothorax seen. The cardiac silhouette size is within normal limits cardiomegaly and CABG are noted. There is limited evaluation of the bilateral lower ribs due to overlapping structures. Otherwi se no definite acute osseous abnormality. IMPRESSION: Bilateral diffuse airspace disease, concerning for Covid pneumonia with probable compone nt of pulmonary edema.
[2020-09-15] MEDS ORDERED: NALOXONE 0.4 MG/ML 1 ML VIAL IV PRN (18:18)
[2020-09-15] MEDS ORDERED: ACETAMINOPHEN TAB 500 MG TAB PO PRN (18:19)
[2020-09-15] MEDS ORDERED: ENOXAPARIN 40 MG/0.4 ML SYRINGE SQ SCH (18:30)
[2020-09-15] MEDS ORDERED: CHOLECALCIFEROL 1,000 UNIT TAB PO STA (18:41)
[2020-09-15] MEDS ORDERED: dexAMETHasone 2 MG TAB PO STA (18:41)
[2020-09-15] MEDS ORDERED: ZINC SULFATE 220 MG CAP PO STA (18:43)
[2020-09-15] MEDS: SODIUM CHLORIDE 0.9% 1,000 ML IV SCH (19:39)
[2020-09-15] MEDS: ALBUTEROL HFA INHALER INHALATION SCH (19:58)
[2020-09-15 20:26] LABS: Glucose,Whole Blood 156 mg/dL (75-99)
[2020-09-15] MEDS: GLIMEPIRIDE 2 MG TAB PO SCH (22:14)
[2020-09-15] MEDS: metFORMIN 500 MG TAB PO SCH (22:14)
[2020-09-15] MEDS: DOFETILIDE 500 MCG CAP PO SCH (22:15)
[2020-09-15] MEDS: ASCORBIC ACID 500 MG TAB PO SCH (22:15)
[2020-09-15] MEDS: METOPROLOL TARTRATE 25 MG TAB PO SCH (22:15)
[2020-09-16] MEDS: LACTATED RINGERS 1,000 ML IV SCH ×3 (00:32→21:39)
[2020-09-16 03:21] LABS: Ferritin 2454.5 ng/mL (22.0-322.0)
[2020-09-16] MEDS: ALBUTEROL HFA INHALER INHALATION SCH ×4 (04:33→21:19)
[2020-09-16 07:54] LABS: Glucose,Whole Blood 253 mg/dL (75-99)
[2020-09-16] MEDS: INSULIN ASPART (NovoLOG) 100 UNIT/ML VIAL SQ SCH ×4 (08:20→21:41)
[2020-09-16] MEDS: CHOLECALCIFEROL 1,000 UNIT TAB PO SCH (08:21)
[2020-09-16] MEDS: ASCORBIC ACID 500 MG TAB PO SCH ×2 (08:22→21:41)
[2020-09-16] MEDS: ATORVASTATIN 80 MG TAB PO SCH (08:22)
[2020-09-16] MEDS: lisinopriL 20 MG TAB PO SCH (08:23)
[2020-09-16] MEDS: METOPROLOL TARTRATE 25 MG TAB PO SCH ×2 (08:23→21:39)
[2020-09-16] MEDS: DOFETILIDE 500 MCG CAP PO SCH ×2 (08:23→21:39)
[2020-09-16] MEDS: RIVAROXABAN 20 MG TAB PO SCH (08:23)
[2020-09-16] MEDS: GLIMEPIRIDE 2 MG TAB PO SCH ×2 (08:24→21:39)
[2020-09-16] MEDS: metFORMIN 500 MG TAB PO SCH ×2 (08:24→21:39)
[2020-09-16] MEDS: MULTIVITAMINS, THERA 1 EACH TAB PO SCH (08:24)
[2020-09-16] MEDS: ZINC SULFATE 220 MG CAP PO SCH (08:25)
[2020-09-16] MEDS: MAGNESIUM OXIDE 400 MG TAB PO SCH (08:26)
[2020-09-16] MEDS ORDERED: NON FORMULARY DRUG (Ascorbic Acid [Vitamin C] 1,000 MG Tablet) PO SCH (09:00)
[2020-09-16] MEDS ORDERED: NON FORMULARY DRUG (Zinc [Zinc] 50 MG Tablet) PO SCH (09:00)
[2020-09-16] MEDS ORDERED: FUROSEMIDE 20 MG TAB PO SCH (09:00)
[2020-09-16] MEDS ORDERED: dexAMETHasone 2 MG TAB PO SCH (09:00)
[2020-09-16 11:31] LABS: Glucose,Whole Blood 257 mg/dL (75-99)
[2020-09-16] MEDS: methylPREDNISolone SOD SUCCI 40 MG/ML 1 ML VIAL IV SCH ×2 (12:32→16:44)
[2020-09-16 16:52] LABS: Glucose,Whole Blood 347 mg/dL (75-99)
[2020-09-16] MEDS: SODIUM CHLORIDE 0.9% 1,000 ML IV SCH (18:46)
[2020-09-16 20:29] LABS: Glucose,Whole Blood 283 mg/dL (75-99)
[2020-09-16] MEDS: TAMSULOSIN 0.4 MG CAP.ER.24H PO SCH (21:39)
--- NOTE | 2020-09-16 21:41 | P.HPIM ---
History of Present Illness H&P Date: 09/16/20 Chief Complaint: Short of breath History of presenting complaint: This is a pleasant [address] Leon. Chronic stable medical conditions include atrial fibrillation, diabetes, hyperlipidemia, hypertension, BPH, obstructive sleep apnea uses CPAP. Patient's had cardioversion in 2015. Also known coronary artery disease with bypass in 2005. Also had a cardiac catheteri zation in January of this year. He was told and no blockages. Patient was here in the hospital from September 07 of September 08. Patient on the last visit presented to the ER for cough fever or shortness of breath with activity. He tested positive for COVID. Did not want to stay longer the hospital and decided to leave. Patient does take Savella to for his chronic A. fib. Patient's also was tested positive for COVID. She now presents with increasing shortness of breath. Pulse ox was found to be 85%. Slight headache. Patient's been having some loose stool also. Does feel weak, tired and rundown. Review of systems: GEN.: As above EYES: None HEENT: Slight headaches NECK: None RESPIRATORY: Short of breath CARDIOVASCULAR: None GASTROINTESTINAL: Some loose stools GENITOURINARY: None MUSCULOSKELETAL: Generalized achiness LYMPHATICS: None HEMATOLOGICAL: None PSYCHIATRY: None NEUROLOGICAL: None Past medical history to include: Atrial fibrillation, diabetes, hyperlipidemia, hypertension, obstructive sleep apnea with CPAP, coronary artery disease with bypass and a repeat cardiac catheterization in 01/30/2020 with no significant disease PTSD. Social history: . Patient smoked for 49 years stopping in 2011. Social drinker. Physical examination: VITAL SIGNS: 98.4, 84, 24, 97.67, 84% on room air GENERAL: BMI 38, sitting up in a chair, tired. EYES: Pupils equal. Conjunctiva normal. HEENT: External appearance of nose and ears normal, oral cavity grossly normal. NECK: JVD not raised; masses not palpable. HEART: First and second heart sounds are normal; no edema. LUNGS: Respiratory rate increased, decreased breath sounds occasional crackles some wheezing. ABDOMEN: Soft, nontender, liver spleen not palpable, no masses palpable. PSYCH: Alert and oriented x3; mood and affect normal. NEUROLOGICAL: Cranial nerves grossly intact; no facial asymmetry, power and sensation grossly intact. LYMPHATICS: No lymph nodes palpable in the axilla and neck INVESTIGATIONS, reviewed in the clinical context: White count 10.6 hemoglobin 14.3 platelets 196 potassium 4.1 creatinine 0.99 Lactic acid 2.5 Ferritin 2454, CRP 70.4 LDH 1513 pro-calcitonin 0.09 EKG tracing personally reviewed by me-no sinus rhythm Chest x-ray film personally reviewed by me-bilateral infiltrates Assessment: -This is a patient tested positive for COVID on September 07. Symptoms have been progressive. Now has bilateral pneumonia. -Lactic acidosis type II from above -Acute hypoxic respiratory failure from above -Paroxysmal atrial fibrillation currently in sinus rhythm -Diabetes mellitus type 2 -Hyperlipidemia -Essential hypertension -Obstructive sleep apnea uses CPAP -Coronary artery disease with a CABG in 2005 and a cardiac catheterization in January 2020 showing nonsignificant disease -Acute COPD exacerbation in a ex-smoker Plan: Patient started IV Solu-Medrol, therapeutic doses of Lovenox, Ventolin inhaler, home medications are renewed. Accu-Cheks to be followed. Also supplemented with zinc Pepcid. COVID 19 precautions. Care was discussed with the patient. Questions answered. Pulmonary will be consulted. Supplement oxygen. Past Medical History Past Medical History: Atrial Fibrillation, Diabetes Mellitus, Hyperlipidemia, Hypertension, Prostate Disorder Additional Past Medical History / Comment(s): Cardioversion 10/2015 - 5 years without AFIB, iron deficiency anemia, sleep apnea with CPAP, heart catheterization January 2020, enlarged prostate History of Any Multi-Drug Resistant Organisms: None Reported Past Surgical History: Adenoidectomy, Cholecystectomy, Coronary Bypass/CABG, Heart Catheterization, Hernia Repair, Joint Replacement, Tonsillectomy Additional Past Surgical History / Comment(s): CABG x 4 in 2005 at [facility], bilateral knees replaced, cardioversion 10/2015, heart catheterization January 2020 Past Anesthesia/Blood Transfusion Reactions: Postoperative Nausea & Vomiting (PONV) Past Psychological History: PTSD Smoking Status: Former smoker Past Alcohol Use History: Occasional Additional Past Alcohol Use History / Comment(s): smoking: started 1962 stopped 2011. ETOH: "just social drinker" Past Drug Use History: None Reported - Past Family History Mother Family Medical History: Chest Pain / Angina, Coronary Artery Disease (CAD), Diabetes Mellitus, Hypertension Father Family Medical History: Chest Pain / Angina, Coronary Artery Disease (CAD), Diabetes Mellitus, Hypertension Medications and Allergies Home Medications Medication Instructions Recorded Confirmed Type Dofetilide [Tikosyn] 500 mcg PO BID 03/08/16 09/15/20 History Furosemide [Lasix] 20 mg PO DAILY 03/08/16 09/15/20 History Rivaroxaban [Xarelto] 20 mg PO DAILY 03/08/16 09/15/20 History Tamsulosin [Flomax] 0.4 mg PO HS 03/08/16 09/15/20 History metFORMIN HCL [Glucophage] 500 mg PO BID 03/08/16 09/15/20 History Multivitamins, Thera [Multivitamin 1 tab PO DAILY 08/23/16 09/15/20 History (formulary)] Cinnamon Bark [Cinnamon] 500 mg PO HS 04/21/18 09/15/20 History Atorvastatin [Lipitor] 80 mg PO DAILY 09/03/20 09/15/20 History Dulaglutide [Trulicity] 0.75 mg SQ MO 09/03/20 09/15/20 History Glimepiride [Amaryl] 2 mg PO BID 09/03/20 09/15/20 History Metoprolol Tartrate [Lopressor] 25 mg PO BID 09/03/20 09/15/20 History lisinopriL 20 mg PO DAILY 09/03/20 09/15/20 History Magnesium 300mg 300 mg PO DAILY 09/07/20 09/15/20 History Ascorbic Acid [Vitamin C] 1,000 mg PO DAILY #15 tablet 09/08/20 09/15/20 Rx Cholecalciferol [Vitamin D3 (25 1,000 unit PO DAILY #15 tablet 09/08/20 09/15/20 Rx Mcg = 1000 Iu)] Zinc 50 mg PO DAILY #15 tablet 09/08/20 09/15/20 Rx dexAMETHasone [Dexamethasone] 6 mg PO DAILY 09/15/20 09/15/20 History Allergies Allergy/AdvReac Type Severity Reaction Status Date / Time No Known Allergies Allergy Verified 09/15/20 18:21 Physical Exam Vitals: Vital Signs Temp Pulse Pulse Resp BP BP Pulse Ox 09/16/20 08:20 90 L 09/16/20 07:00 98.1 F 65 22 132/71 82 L 09/16/20 01:00 97.5 F L 71 22 105/63 88 L 09/15/20 20:25 97.6 F 87 24 115/74 86 L 09/15/20 18:57 98.3 F 79 24 104/64 90 L 09/15/20 17:06 30 H 09/15/20 17:01 98.4 F 84 24 97/67 84 L Intake and Output 09/15/20 09/16/20 09/16/20 22:59 06:59 14:59 Intake Total 60 800 Balance 60 800 Intake: Intake, IV Titration 60 800 Amount Lactated Ringers 1,000 ml 800 @ 100 mls/hr IV .Q10H [facility] Rx#:[id number] Sodium Chloride 0.9% 1, 60 000 ml @ 20 mls/hr IV . Q24H [facility] Rx#:[id number] Other: # Voids 1 Weight 120.202 kg Results CBC & Chem 7: 09/15/20 17:17 09/15/20 17:17 Labs: Abnormal Lab Results - Last 24 Hours (Table) 09/15/20 09/15/20 09/15/20 Range/Units 17:17 17:17 17:17 Neutrophils # 10.0 H (1.3-7.7) k/uL Lymphocytes # 0.2 L (1.0-4.8) k/uL APTT 32.7 H (22.0-30.0) sec Chloride 109 H (98-107) mmol/L BUN 30 H (9-20) mg/dL POC Glucose (mg/dL) (75-99) mg/dL Plasma Lactic Acid Eliazar (0.7-2.0) mmol/L Ferritin 2454.5 H (22.0-322.0) ng/mL AST 87 H (17-59) U/L ALT 67 H (4-49) U/L Lactate Dehydrogenase 1513 H (313-618) U/L C-Reactive Protein 70.4 H (<10.0) mg/L Total Protein 5.7 L (6.3-8.2) g/dL Albumin 2.9 L (3.5-5.0) g/dL 09/15/20 09/15/20 09/15/20 Range/Units 17:17 20:16 20:25 Neutrophils # (1.3-7.7) k/uL Lymphocytes # (1.0-4.8) k/uL APTT (22.0-30.0) sec Chloride (98-107) mmol/L BUN (9-20) mg/dL POC Glucose (mg/dL) 156 H (75-99) mg/dL Plasma Lactic Acid Eliazar 2.5 H* 3.6 H* (0.7-2.0) mmol/L Ferritin (22.0-322.0) ng/mL AST (17-59) U/L ALT (4-49) U/L Lactate Dehydrogenase (313-618) U/L C-Reactive Protein (<10.0) mg/L Total Protein (6.3-8.2) g/dL Albumin (3.5-5.0) g/dL 09/15/20 09/16/20 09/16/20 Range/Units 23:25 01:58 04:57 Neutrophils # (1.3-7.7) k/uL Lymphocytes # (1.0-4.8) k/uL APTT (22.0-30.0) sec Chloride (98-107) mmol/L BUN (9-20) mg/dL POC Glucose (mg/dL) (75-99) mg/dL Plasma Lactic Acid Eliazar 4.0 H* 3.1 H* 2.3 H* (0.7-2.0) mmol/L Ferritin (22.0-322.0) ng/mL AST (17-59) U/L ALT (4-49) U/L Lactate Dehydrogenase (313-618) U/L C-Reactive Protein (<10.0) mg/L Total Protein (6.3-8.2) g/dL Albumin (3.5-5.0) g/dL 09/16/20 09/16/20 Range/Units 07:52 08:34 Neutrophils # (1.3-7.7) k/uL Lymphocytes # (1.0-4.8) k/uL APTT (22.0-30.0) sec Chloride (98-107) mmol/L BUN (9-20) mg/dL POC Glucose (mg/dL) 253 H (75-99) mg/dL Plasma Lactic Acid Eliazar 4.2 H* (0.7-2.0) mmol/L Ferritin (22.0-322.0) ng/mL AST (17-59) U/L ALT (4-49) U/L Lactate Dehydrogenase (313-618) U/L C-Reactive Protein (<10.0) mg/L Total Protein (6.3-8.2) g/dL Albumin (3.5-5.0) g/dL Thrombosis Risk Factor Assmnt - Choose All That Apply Any of the Below Risk Factors Present?: No Other Risk Factors: Yes Each Risk Factor Represents 2 Points: Age 61-74 years Other congenital or acquired thrombophilia - If yes, enter type in comment: No Thrombosis Risk Factor Assessment Total Risk Factor Score: 2 Thrombosis Risk Factor Assessment Level: Low Risk
[2020-09-17] MEDS: methylPREDNISolone SOD SUCCI 40 MG/ML 1 ML VIAL IV SCH ×2 (00:06→07:56)
[2020-09-17] MEDS: ALBUTEROL HFA INHALER INHALATION SCH ×4 (04:01→20:53)
[2020-09-17] MEDS: LACTATED RINGERS 1,000 ML IV SCH ×2 (06:00→17:27)
[2020-09-17 07:27] LABS: Glucose,Whole Blood 202 mg/dL (75-99)
[2020-09-17] MEDS ORDERED: INSULIN ASPART (NovoLOG) 100 UNIT/ML VIAL SQ SCH (07:30)
[2020-09-17] MEDS: INSULIN ASPART (NovoLOG) 100 UNIT/ML VIAL SQ SCH ×4 (07:52→21:23)
[2020-09-17] MEDS: ASCORBIC ACID 500 MG TAB PO SCH ×2 (07:53→21:23)
[2020-09-17] MEDS: CHOLECALCIFEROL 1,000 UNIT TAB PO SCH (07:53)
[2020-09-17] MEDS: DOFETILIDE 500 MCG CAP PO SCH ×2 (07:54→21:23)
[2020-09-17] MEDS: RIVAROXABAN 20 MG TAB PO SCH (07:54)
[2020-09-17] MEDS: MAGNESIUM OXIDE 400 MG TAB PO SCH (07:54)
[2020-09-17] MEDS: GLIMEPIRIDE 2 MG TAB PO SCH ×2 (07:55→21:23)
[2020-09-17] MEDS: lisinopriL 20 MG TAB PO SCH (07:55)
[2020-09-17] MEDS: metFORMIN 500 MG TAB PO SCH ×2 (07:55→21:23)
[2020-09-17] MEDS: ZINC SULFATE 220 MG CAP PO SCH (07:56)
[2020-09-17] MEDS: MULTIVITAMINS, THERA 1 EACH TAB PO SCH (07:56)
[2020-09-17] MEDS: METOPROLOL TARTRATE 25 MG TAB PO SCH ×2 (07:56→21:23)
[2020-09-17] MEDS: ATORVASTATIN 80 MG TAB PO SCH (10:14)
[2020-09-17 11:10] LABS: Glucose,Whole Blood 261 mg/dL (75-99)
[2020-09-17] MEDS: OSELTAMIVIR 75 MG CAP PO SCH ×2 (15:04→21:23)
[2020-09-17] MEDS: dexAMETHasone 2 MG TAB PO SCH (15:04)
--- NOTE | 2020-09-17 15:58 | P.CNPUL ---
History of Present Illness Consult date: 09/17/20 Requesting physician: Sudheer Staples Reason for consult: dyspnea Chief complaint: Severe hypoxemia related to COVID 19 and influenza History of present illness: 75-year-old white male patient of Dr. Cornell Gasca who presented to the emergency department on 09/15/2020 with complaints of difficulty breathing. Patient tested positive for COVID 19 and influenza B on 09/07/2020. He is been progressively short of breath, has a dry nonproductive cough, he is unclear whether he is having fevers. He feels fatigued, denies any nausea vomiting or diarrhea, denies any abdominal pain, denies any history of chronic lung problems. His past medical history positive for atrial fibrillation on anticoa gulation, hypertension, hyperlipidemia, diabetes mellitus type 2, coronary artery disease with history of previous bypass grafting, he is a former smoker. His chest x-ray showed bilateral diffuse airspace disease, concerning for COVID 19 pneumonia. His labs were reviewed, showing lymphopenia with lymphocyte count of 0.2, lactic acid level of 2.5 which has subsequently increased to 4.0, ferritin level was 2454, AST and ALT were 87 and 67 respectively, Altace was 1513, and CRP was 70.4. Pro-calcitonin level was negative at 0.09. Decadron has been started at 6 mg daily, he is on IV hydration, with lactated Ringer's at 100 ML per hour. he is on oral anticoagulation in the form of Xarelto. Remains on 7 L of oxygen per high flow nasal cannula and the pulse ox is between 87-91%. Afebrile Review of Systems All systems: negative Constitutional: Denies chills, Denies fever Eyes: denies blurred vision, denies pain Ears, nose, mouth and throat: Denies headache, Denies sore throat Cardiovascular: Denies chest pain, Denies shortness of breath Respiratory: Reports cough, Reports dyspnea Gastrointestinal: Denies abdominal pain, Denies diarrhea, Denies nausea, Denies vomiting Musculoskeletal: Denies myalgias Integumentary: Denies pruritus, Denies rash Neurological: Denies numbness, Denies weakness Psychiatric: Denies anxiety, Denies depression Endocrine: Denies fatigue, Denies weight change Past Medical History Past Medical History: Atrial Fibrillation, Diabetes Mellitus, Hyperlipidemia, Hypertension, Prostate Disorder Additional Past Medical History / Comment(s): Cardioversion 10/2015 - 5 years without AFIB, iron deficiency anemia, sleep apnea with CPAP, heart catheterization January 2020, enlarged prostate History of Any Multi-Drug Resistant Organisms: None Reported Past Surgical History: Adenoidectomy, Cholecystectomy, Coronary Bypass/CABG, Heart Catheterization, Hernia Repair, Joint Replacement, Tonsillectomy Additional Past Surgical History / Comment(s): CABG x 4 in 2005 at [facility], bilateral knees replaced, cardioversion 10/2015, heart catheterization January 2020 Past Anesthesia/Blood Transfusion Reactions: Postoperative Nausea & Vomiting (PONV) Past Psychological History: PTSD Smoking Status: Former smoker Past Alcohol Use History: Occasional Additional Past Alcohol Use History / Comment(s): smoking: started 1963 stopped 2011. ETOH: "just social drinker" Past Drug Use History: None Reported - Past Family History Mother Family Medical History: Chest Pain / Angina, Coronary Artery Disease (CAD), Diabetes Mellitus, Hypertension Father Family Medical History: Chest Pain / Angina, Coronary Artery Disease (CAD), Diabetes Mellitus, Hypertension Medications and Allergies Home Medications Medication Instructions Recorded Confirmed Type Dofetilide [Tikosyn] 500 mcg PO BID 03/08/16 09/15/20 History Furosemide [Lasix] 20 mg PO DAILY 03/08/16 09/15/20 History Rivaroxaban [Xarelto] 20 mg PO DAILY 03/08/16 09/15/20 History Tamsulosin [Flomax] 0.4 mg PO HS 03/08/16 09/15/20 History metFORMIN HCL [Glucophage] 500 mg PO BID 03/08/16 09/15/20 History Multivitamins, Thera [Multivitamin 1 tab PO DAILY 08/23/16 09/15/20 History (formulary)] Cinnamon Bark [Cinnamon] 500 mg PO HS 04/21/18 09/15/20 History Atorvastatin [Lipitor] 80 mg PO DAILY 09/03/20 09/15/20 History Dulaglutide [Trulicity] 0.75 mg SQ MO 09/03/20 09/15/20 History Glimepiride [Amaryl] 2 mg PO BID 09/03/20 09/15/20 History Metoprolol Tartrate [Lopressor] 25 mg PO BID 09/03/20 09/15/20 History lisinopriL 20 mg PO DAILY 09/03/20 09/15/20 History Magnesium 300mg 300 mg PO DAILY 09/07/20 09/15/20 History Ascorbic Acid [Vitamin C] 1,000 mg PO DAILY #15 tablet 09/08/20 09/15/20 Rx Cholecalciferol [Vitamin D3 (25 1,000 unit PO DAILY #15 tablet 09/08/20 09/15/20 Rx Mcg = 1000 Iu)] Zinc 50 mg PO DAILY #15 tablet 09/08/20 09/15/20 Rx dexAMETHasone [Dexamethasone] 6 mg PO DAILY 09/15/20 09/15/20 History Allergies Allergy/AdvReac Type Severity Reaction Status Date / Time No Known Allergies Allergy Verified 09/15/20 18:21 Physical Exam Vitals: Vital Signs Temp Pulse Resp BP Pulse Ox 09/17/20 14:53 97.6 F 81 20 122/65 91 L 09/17/20 11:00 97.5 F L 62 18 126/64 90 L 09/17/20 07:00 97.0 F L 73 20 129/67 87 L 09/17/20 00:55 96.1 F L 56 L 24 123/64 95 09/16/20 19:07 97.6 F 84 22 121/69 90 L 09/16/20 16:00 20 Intake and Output 09/17/20 09/17/20 09/17/20 06:59 14:59 22:59 Intake Total 800 Balance 800 Intake: Intake, IV Titration 800 Amount Lactated Ringers 1,000 ml 800 @ 100 mls/hr IV .Q10H [facility] Rx#:[id number] Other: Voiding Method Toilet Urinal # Voids 2 4 GENERAL EXAM: Alert, very pleasant, 75-year-old white male, on 7 L per high flow nasal cannula with a pulse ox between 87-91%, comfortable in no apparent distress. HEAD: Normocephalic/atraumatic. EYES: Normal reaction of pupils, equal size. Conjunctiva pink, sclera white. NOSE: Clear with pink turbinates. THROAT: No erythema or exudates. NECK: No masses, no JVD, no thyroid enlargement, no adenopathy. CHEST: No chest wall deformity. Symmetrical expansion. LUNGS: Equal air entry with no crackles, wheeze, rhonchi or dullness. CVS: Regular rate and rhythm, normal S1 and S2, no gallops, no murmurs, no rubs ABDOMEN: Soft, nontender. No hepatosplenomegaly, normal bowel sounds, no guarding or rigidity. EXTREMITIES: No clubbing, no edema, no cyanosis, 2+ pulses and upper and lower extremities. MUSCULOSKELETAL: Muscle strength and tone normal. SPINE: No scoliosis or deformity SKIN: No rashes CENTRAL NERVOUS SYSTEM: Alert and oriented -3. No focal deficits, tone is normal in all 4 extremities. PSYCHIATRIC: Alert and oriented -3. Appropriate affect. Intact judgment and insight. Results - Laboratory Findings CBC and BMP: 09/15/20 17:17 09/15/20 17:17 PT/INR, D-dimer PT 11.1 sec (9.0-12.0) 09/15/20 17:17 INR 1.1 (<1.2) 09/15/20 17:17 D-Dimer 1.64 mg/L FEU (<0.60) H 09/17/20 07:32 Abnormal lab findings: Abnormal Labs 09/15/20 09/15/20 09/15/20 17:17 17:17 17:17 Neutrophils # 10.0 H Lymphocytes # 0.2 L APTT 32.7 H D-Dimer Chloride 109 H BUN 30 H POC Glucose (mg/dL) Plasma Lactic Acid Eliazar Ferritin 2454.5 H AST 87 H ALT 67 H Lactate Dehydrogenase 1513 H C-Reactive Protein 70.4 H Total Protein 5.7 L Albumin 2.9 L 09/15/20 09/15/20 09/15/20 17:17 20:16 20:25 Neutrophils # Lymphocytes # APTT D-Dimer Chloride BUN POC Glucose (mg/dL) 156 H Plasma Lactic Acid Eliazar 2.5 H* 3.6 H* Ferritin AST ALT Lactate Dehydrogenase C-Reactive Protein Total Protein Albumin 09/15/20 09/16/20 09/16/20 23:25 01:58 04:57 Neutrophils # Lymphocytes # APTT D-Dimer Chloride BUN POC Glucose (mg/dL) Plasma Lactic Acid Eliazar 4.0 H* 3.1 H* 2.3 H* Ferritin AST ALT Lactate Dehydrogenase C-Reactive Protein Total Protein Albumin 09/16/20 09/16/20 09/16/20 07:52 08:34 10:51 Neutrophils # Lymphocytes # APTT D-Dimer 1.39 H Chloride BUN POC Glucose (mg/dL) 253 H Plasma Lactic Acid Eliazar 4.2 H* Ferritin AST ALT Lactate Dehydrogenase C-Reactive Protein Total Protein Albumin 09/16/20 09/16/20 09/16/20 11:30 11:39 14:48 Neutrophils # Lymphocytes # APTT D-Dimer Chloride BUN POC Glucose (mg/dL) 257 H Plasma Lactic Acid Eliazar 3.4 H* 4.4 H* Ferritin AST ALT Lactate Dehydrogenase C-Reactive Protein Total Protein Albumin 09/16/20 09/16/20 09/16/20 16:50 17:57 20:27 Neutrophils # Lymphocytes # APTT D-Dimer Chloride BUN POC Glucose (mg/dL) 347 H 283 H Plasma Lactic Acid Eliazar 3.0 H* Ferritin AST ALT Lactate Dehydrogenase C-Reactive Protein Total Protein Albumin 09/17/20 09/17/20 09/17/20 07:22 07:32 07:32 Neutrophils # Lymphocytes # APTT D-Dimer 1.64 H Chloride BUN POC Glucose (mg/dL) 202 H Plasma Lactic Acid Eliazar Ferritin AST ALT Lactate Dehydrogenase C-Reactive Protein 3.6 H Total Protein Albumin 09/17/20 11:09 Neutrophils # Lymphocytes # APTT D-Dimer Chloride BUN POC Glucose (mg/dL) 261 H Plasma Lactic Acid Eliazar Ferritin AST ALT Lactate Dehydrogenase C-Reactive Protein Total Protein Albumin - Diagnostic Findings Chest x-ray: report reviewed, image reviewed Additional studies: EKG Assessment and Plan Plan: Assessment: #1. Acute hypoxic respiratory failure related to COVID 19 and Influenza B, patient tested positive on September 07, 2020 for both COVID 19 and influenza B infection #2. Worsening dyspnea and severe hypoxemia related to the above #3. Chronic atrial fibrillation on Xarelto, with previous history of cardioversion #4. BPH #5. Diabetes mellitus type 2 #6. Hypertension #7. Increased inflammatory markers related to acute COVID 19 infection #8. Lymphopenia #9. Lactic acidosis Plan: Continue with oral Decadron, albuterol inhaler, vitamin C, zinc supplement, vitamin D, continue IV hydration, we will add Tamiflu, patient is out of the window for Remdesivir. We'll continue supportive treatment, continue Lovenox. I performed a history & physical examination of the patient and discussed their management with my nurse practitioner, Xochitl Ramirez. I reviewed the nurse practitioner's note and agree with the documented findings and plan of care. Lung sounds are positive for diminished breath sounds. The findings and the impression was discussed with the patient. I attest to the documentation by the nurse practitioner. Time with Patient: Greater than 30
[2020-09-17 16:24] LABS: Glucose,Whole Blood 165 mg/dL (75-99)
[2020-09-17] MEDS: SODIUM CHLORIDE 0.9% 1,000 ML IV SCH (20:06)
[2020-09-17 20:22] LABS: Glucose,Whole Blood 278 mg/dL (75-99)
--- NOTE | 2020-09-17 20:26 | P.PN ---
Progress Note - Text Progress Note Date: 09/17/20 Chief Complaint: Short of breath History of presenting complaint: This is a pleasant [address] Leon. Chronic stable medical conditions include atrial fibrillation, diabetes, hyperlipidemia, hypertension, BPH, obstructive sleep apnea uses CPAP. Patient's had cardioversion in 2015. Also known coronary artery disease with bypass in 2005. Also had a cardiac catheterization in January of this year. He was told and no blockages. Patient was here in the hospital from September 07 of September 08. Patient on the last visit presented to the ER for cough fever or shortness of breath with activity. He tested positive for COVID. Did not want to stay longer the hospital and decided to leave. Patient does take Savella to for his chronic A. fib. Patient's also was tested positive for COVID. She now presents with increasing shortness of breath. Pulse ox was found to be 85%. Slight headache. Patient's been having some loose stool also. Does feel weak, tired and rundown. Admitted with bilateral COVID 19 pneumonia, acute hypoxic respiratory failure, l actic acidosis type II. Patient was started on steroids, Lovenox, continued on Xarelto, bronchodilators. Today-sitting up in a chair. Eating all his meals. Breathing a bit better. Slight cough. Review of systems: Was done for constitutional, cardiovascular, GI, pulmonary. relevant finding as above Active Medications Acetaminophen (Acetaminophen Tab 500 Mg Tab) 1,000 mg PO Q6HR PRN PRN Reason: Fever>101 Albuterol Sulfate (Albuterol Hfa Inhaler) 2 puff INHALATION RT-Q6H PRN PRN Reason: Shortness Of Breath Or Wheezing Albuterol Sulfate (Albuterol Hfa Inhaler) 2 puff INHALATION RT-Q6H [facility] Last Admin: 09/17/20 12:11 Dose: 2 puff Documented by: Ascorbic Acid (Ascorbic Acid 500 Mg Tab) 500 mg PO BID [facility] Last Admin: 09/17/20 07:53 Dose: 500 mg Documented by: Atorvastatin Calcium (Atorvastatin 80 Mg Tab) 80 mg PO DAILY [facility] Last Admin: 09/17/20 10:14 Dose: Not Given Documented by: Cholecalciferol (Cholecalciferol 1,000 Unit Tab) 5,000 unit PO DAILY [facility] Last Admin: 09/17/20 07:53 Dose: 5,000 unit Documented by: Dexamethasone (Dexamethasone 2 Mg Tab) 6 mg PO DAILY [facility] Last Admin: 09/17/20 15:04 Dose: 6 mg Documented by: Dofetilide (Dofetilide 500 Mcg Cap) 500 mcg PO BID [facility] Last Admin: 09/17/20 07:54 Dose: 500 mcg Documented by: Glimepiride (Glimepiride 2 Mg Tab) 2 mg PO BID [facility] Last Admin: 09/17/20 07:55 Dose: 2 mg Documented by: Sodium Chloride (Saline 0.9%) 1,000 mls @ 20 mls/hr IV .Q24H [facility] Last Admin: 09/17/20 20:06 Dose: Not Given Documented by: Lactated Ringer's (Lactated Ringers) 1,000 mls @ 100 mls/hr IV .Q10H [facility] Last Admin: 09/17/20 17:27 Dose: Not Given Documented by: Insulin Aspart (Insulin Aspart (Novolog) 100 Unit/Ml Vial) 0 unit SQ ACHS [facility]; Protocol Last Admin: 09/17/20 17:26 Dose: 2 unit Documented by: Lisinopril (Lisinopril 20 Mg Tab) 20 mg PO DAILY [facility] Last Admin: 09/17/20 07:55 Dose: 20 mg Documented by: Magnesium Oxide (Magnesium Oxide 400 Mg Tab) 400 mg PO DAILY [facility] Last Admin: 09/17/20 07:54 Dose: 400 mg Documented by: Metformin HCl (Metformin 500 Mg Tab) 500 mg PO BID [facility] Last Admin: 09/17/20 07:55 Dose: 500 mg Documented by: Metoprolol Tartrate (Metoprolol Tartrate 25 Mg Tab) 25 mg PO BID [facility] Last Admin: 09/17/20 07:56 Dose: 25 mg Documented by: Multivitamins (Multivitamins, Thera 1 Each Tab) 1 each PO DAILY [facility] Last Admin: 09/17/20 07:56 Dose: 1 each Documented by: Naloxone HCl (Naloxone 0.4 Mg/Ml 1 Ml Vial) 0.2 mg IV Q2M PRN PRN Reason: Opioid Reversal Non-Formulary Medication (Dulaglutide [Trulicity]) 0.75 mg SQ MO [facility] Oseltamivir Phosphate (Oseltamivir 75 Mg Cap) 75 mg PO Q12HR [facility] Stop: 09/21/20 21:01 Last Admin: 11/19/20 15:04 Dose: 75 mg Documented by: Rivaroxaban (Rivaroxaban 20 Mg Tab) 20 mg PO DAILY [facility] Last Admin: 09/17/20 07:54 Dose: 20 mg Documented by: Tamsulosin HCl (Tamsulosin 0.4 Mg Cap.Er.24h) 0.4 mg PO HS [facility] Last Admin: 09/16/20 21:39 Dose: 0.4 mg Documented by: Zinc Sulfate (Zinc Sulfate 220 Mg Cap) 220 mg PO DAILY [facility] Last Admin: 09/17/20 07:56 Dose: 220 mg Documented by: Physical examination: VITAL SIGNS: 97.5, 62, 18, 1 26 x 64, 90% on 7 L GENERAL: BMI 38, sitting up in a chair, some shortness of breath EYES: Pupils equal. Conjunctiva normal. PSYCH: Alert and oriented x3; mood and affect normal. Rest of exam as per nursing and pulmonary INVESTIGATIONS, reviewed in the clinical context: D-dimer 1.64, CRP 3.6 Previous testing White count 10.6 hemoglobin 14.3 platelets 196 potassium 4.1 creatinine 0.99 Lactic acid 2.5 Ferritin 2454, CRP 70.4 LDH 1513 pro-calcitonin 0.09 EKG tracing personally reviewed by me-no sinus rhythm Chest x-ray film personally reviewed by me-bilateral infiltrates Assessment: -This is a patient tested positive for COVID on September 07. Symptoms have been progressive. Now has bilateral pneumonia.-Slow to respond -Lactic acidosis type II from above -Acute hypoxic respiratory failure from above-9 L nasal cannula-slow to respond -Paroxysmal atrial fibrillation currently in sinus rhythm -Diabetes mellitus type 2 -Hyperlipidemia -Essential hypertension -Obstructive sleep apnea uses CPAP -Coronary artery disease with a CABG in 2005 and a cardiac catheterization in January 2020 showing nonsignificant disease -Acute COPD exacerbation in a ex-smoker Plan: Continue steroids, xarelto, Ventolin inhaler, questions answered. Supplement oxygen. Follow with pulmonary.
[2020-09-17] MEDS: TAMSULOSIN 0.4 MG CAP.ER.24H PO SCH (21:23)
[2020-09-18] MEDS: LACTATED RINGERS 1,000 ML IV SCH ×2 (02:10→23:46)
[2020-09-18] MEDS: ALBUTEROL HFA INHALER INHALATION SCH ×4 (03:45→19:41)
[2020-09-18 06:53] LABS: Glucose,Whole Blood 127 mg/dL (75-99)
[2020-09-18] MEDS: INSULIN ASPART (NovoLOG) 100 UNIT/ML VIAL SQ SCH ×4 (07:59→21:10)
[2020-09-18] MEDS: MAGNESIUM OXIDE 400 MG TAB PO SCH (10:08)
[2020-09-18] MEDS: ATORVASTATIN 80 MG TAB PO SCH (10:08)
[2020-09-18] MEDS: ZINC SULFATE 220 MG CAP PO SCH (10:08)
[2020-09-18] MEDS: METOPROLOL TARTRATE 25 MG TAB PO SCH ×2 (10:08→21:12)
[2020-09-18] MEDS: metFORMIN 500 MG TAB PO SCH ×2 (10:08→21:13)
[2020-09-18] MEDS: GLIMEPIRIDE 2 MG TAB PO SCH ×2 (10:08→21:12)
[2020-09-18] MEDS: OSELTAMIVIR 75 MG CAP PO SCH ×2 (10:08→21:12)
[2020-09-18] MEDS: MULTIVITAMINS, THERA 1 EACH TAB PO SCH (10:08)
[2020-09-18] MEDS: RIVAROXABAN 20 MG TAB PO SCH (10:08)
[2020-09-18] MEDS: CHOLECALCIFEROL 1,000 UNIT TAB PO SCH (10:09)
[2020-09-18] MEDS: lisinopriL 20 MG TAB PO SCH (10:09)
[2020-09-18] MEDS: DOFETILIDE 500 MCG CAP PO SCH ×2 (10:09→21:13)
[2020-09-18] MEDS: dexAMETHasone 2 MG TAB PO SCH (10:10)
[2020-09-18] MEDS: ASCORBIC ACID 500 MG TAB PO SCH ×2 (10:11→21:12)
[2020-09-18 11:42] LABS: Glucose,Whole Blood 128 mg/dL (75-99)
--- NOTE | 2020-09-18 16:29 | P.PN ---
Subjective Progress Note Date: 09/18/20 Principal diagnosis: Severe hypoxemia related to COVID 19 and influenza B 75-year-old white male patient of Dr. Cornell Gasca who presented to the emergency department on 09/15/2020 with complaints of difficulty breathing. Patient tested positive for COVID 19 and influenza B on 09/07/2020. He is been progressively short of breath, has a dry nonproductive cough, he is unclear whether he is having fevers. He feels fatigued, denies any nausea vomiting or diarrhea, denies any abdominal pain, denies any history of chronic lung problems. His past medical history positive for atrial fibrillation on anticoagulation, hypertension, hyperlipidemia, diabetes mellitus type 2, robyn nary artery disease with history of previous bypass grafting, he is a former smoker. His chest x-ray showed bilateral diffuse airspace disease, concerning for COVID 19 pneumonia. His labs were reviewed, showing lymphopenia with lymphocyte count of 0.2, lactic acid level of 2.5 which has subsequently increased to 4.0, ferritin level was 2454, AST and ALT were 87 and 67 respectively, Altace was 1513, and CRP was 70.4. Pro-calcitonin level was negative at 0.09. Decadron has been started at 6 mg daily, he is on IV hydration, with lactated Ringer's at 100 ML per hour. he is on oral anticoagula tion in the form of Xarelto. Remains on 7 L of oxygen per high flow nasal cannula and the pulse ox is between 87-91%. Afebrile On 09/18/2020 patient seen in follow-up on general medical surgical floor. He is on 11 L of oxygen, his pulse ox is 89%, he is afebrile, hemodynamically is been stable, patient was out of the window for Remdesivir, he was started on Tamiflu, he is on oral anticoagulation in the form of Xarelto, no fever or chills, his d-dimer has increased, I came up to 2.31 on today's labs, his CRP has improved significantly and is down to 1.5, LDH level is pending, he is on oral Decadron, he is on IV hydration, nausea vomiting, no abdominal pain, he is tolerating oral intake. No, but the chest pain. Objective - Vital Signs Vital signs: Vital Signs Temp 98.1 F 09/18/20 14:00 Pulse 82 09/18/20 14:00 Resp 17 09/18/20 10:30 BP 154/74 09/18/20 14:00 Pulse Ox 89 L 09/18/20 14:00 Intake & Output 09/17/20 09/18/20 09/18/20 18:59 06:59 18:59 Intake Total 503 1050 Output Total 3 Balance 503 1047 Intake: Intake, IV Titration 300 800 Amount Lactated Ringers 1,000 ml 300 800 @ 100 mls/hr IV .Q10H [facility] Rx#:[id number] Oral 250 Blood Product 203 Ffp Pher Conval Covid19 203 Acda 2 Unit [id number] Output: Stool 3 Other: Voiding Method Toilet Toilet Urinal Urinal # Voids 4 1 - Exam GENERAL EXAM: Alert, very pleasant, 75-year-old white male, on 11 L of oxygen a pulse ox of 89-90% comfortable in no apparent distress. HEAD: Normocephalic/atraumatic. EYES: Normal reaction of pupils, equal size. Conjunctiva pink, sclera white. NOSE: Clear with pink turbinates. THROAT: No erythema or exudates. NECK: No masses, no JVD, no thyroid enlargement, no adenopathy. CHEST: No chest wall deformity. Symmetrical expansion. LUNGS: Equal air entry with no crackles, wheeze, rhonchi or dullness. CVS: Regular rate and rhythm, normal S1 and S2, no gallops, no murmurs, no rubs ABDOMEN: Soft, nontender. No hepatosplenomegaly, normal bowel sounds, no guarding or rigidity. EXTREMITIES: No clubbing, no edema, no cyanosis, 2+ pulses and upper and lower extremities. MUSCULOSKELETAL: Muscle strength and tone normal. SPINE: No scoliosis or deformity SKIN: No rashes CENTRAL NERVOUS SYSTEM: Alert and oriented -3. No focal deficits, tone is normal in all 4 extremities. PSYCHIATRIC: Alert and oriented -3. Appropriate affect. Intact judgment and insight. - Labs CBC & Chem 7: 09/15/20 17:17 09/15/20 17:17 Labs: Abnormal Lab Results - Last 24 Hours (Table) 09/17/20 09/17/20 09/18/20 Range/Units 16:23 20:20 06:29 D-Dimer 2.31 H (<0.60) mg/L FEU POC Glucose (mg/dL) 165 H 278 H (75-99) mg/dL C-Reactive Protein (0.0-0.8) mg/dL 09/18/20 09/18/20 09/18/20 Range/Units 06:29 06:50 11:40 D-Dimer (<0.60) mg/L FEU POC Glucose (mg/dL) 127 H 128 H (75-99) mg/dL C-Reactive Protein 1.5 H (0.0-0.8) mg/dL Microbiology - Last 24 Hours (Table) 09/15/20 17:01 Blood Culture - Preliminary Blood No Growth after 48 hours Assessment and Plan Plan: Assessment: #1. Acute hypoxic respiratory failure related to COVID 19 and Influenza B, patient tested positive on September 07, 2020 for both COVID 19 and influenza B infection #2. Worsening dyspnea and severe hypoxemia related to the above #3. Chronic atrial fibrillation on Xarelto, with previous history of cardioversion #4. BPH #5. Diabetes mellitus type 2 #6. Hypertension #7. Increased inflammatory markers related to acute COVID 19 infection #8. Lymphopenia #9. Lactic acidosis Plan: Continue current medical treatment, titrate FiO2 to keep pulse ox of 90%, afebrile, continue Tamiflu, he is out of the window for Remdesivir, continue Lovenox, Decadron, his inflammatory markers have improved, no worsening dyspnea although requiring high amounts of oxygen, follow inflammatory markers, monitor oxygenation, febrile pattern, we'll continue to follow I performed a history & physical examination of the patient and discussed their management with my nurse practitioner, Xochitl Rmairez. I reviewed the nurse practitioner's note and agree with the documented findings and plan of care. Lung sounds are positive for diminished breath sounds. The findings and the impression was discussed with the patient. I attest to the documentation by the nurse practitioner. Time with Patient: Less than 30
[2020-09-18 17:04] LABS: Glucose,Whole Blood 193 mg/dL (75-99)
[2020-09-18 20:49] LABS: Glucose,Whole Blood 247 mg/dL (75-99)
--- NOTE | 2020-09-18 20:51 | P.PN ---
Progress Note - Text Progress Note Date: 09/18/20 Chief Complaint: Short of breath History of presenting complaint: This is a pleasant [address] Leon. Chronic stable medical conditions include atrial fibrillation, diabetes, hyperlipidemia, hypertension, BPH, obstructive sleep apnea uses CPAP. Patient's had cardioversion in 2015. Also known coronary artery disease with bypass in 2005. Also had a cardiac catheterization in January of this year. He was told and no blockages. Patient was here in the hospital from September 07 of September 08. Patient on the last visit presented to the ER for cough fever or shortness of breath with activity. He tested positive for COVID. Did not want to stay longer the hospital and decided to leave. Patient does take Savella to for his chronic A. fib. Patient's also was tested positive for COVID. She now presents with increasing shortness of breath. Pulse ox was found to be 85%. Slight headache. Patient's been having some loose stool also. Does feel weak, tired and rundown. Admitted with bilateral COVID 19 pneumonia, acute hypoxic respiratory failure, l actic acidosis type II. Patient was started on steroids, Lovenox, continued on Xarelto, bronchodilators. Today-sitting up in a chair. Eating fair. A bit more short of breath today. Slight cough Review of systems: Was done for constitutional, cardiovascular, GI, pulmonary. relevant finding as above Active Medications Acetaminophen (Acetaminophen Tab 500 Mg Tab) 1,000 mg PO Q6HR PRN PRN Reason: Fever>101 Albuterol Sulfate (Albuterol Hfa Inhaler) 2 puff INHALATION RT-Q6H PRN PRN Reason: Shortness Of Breath Or Wheezing Albuterol Sulfate (Albuterol Hfa Inhaler) 2 puff INHALATION RT-Q6H [facility] Last Admin: 09/18/20 19:41 Dose: 2 puff Documented by: Ascorbic Acid (Ascorbic Acid 500 Mg Tab) 500 mg PO BID [facility] Last Admin: 09/18/20 10:11 Dose: Not Given Documented by: Atorvastatin Calcium (Atorvastatin 80 Mg Tab) 80 mg PO DAILY [facility] Last Admin: 09/18/20 10:08 Dose: 80 mg Documented by: Cholecalciferol (Cholecalciferol 1,000 Unit Tab) 5,000 unit PO DAILY [facility] Last Admin: 09/18/20 10:09 Dose: 5,000 unit Documented by: Dexamethasone (Dexamethasone 2 Mg Tab) 6 mg PO DAILY [facility] Last Admin: 09/18/20 10:10 Dose: 6 mg Documented by: Dofetilide (Dofetilide 500 Mcg Cap) 500 mcg PO BID [facility] Last Admin: 09/18/20 10:09 Dose: 500 mcg Documented by: Glimepiride (Glimepiride 2 Mg Tab) 2 mg PO BID [facility] Last Admin: 09/18/20 10:08 Dose: 2 mg Documented by: Sodium Chloride (Saline 0.9%) 1,000 mls @ 20 mls/hr IV .Q24H [facility] Last Admin: 09/17/20 20:06 Dose: Not Given Documented by: Lactated Ringer's (Lactated Ringers) 1,000 mls @ 100 mls/hr IV .Q10H [facility] Last Admin: 09/18/20 02:10 Dose: 100 mls/hr Documented by: Insulin Aspart (Insulin Aspart (Novolog) 100 Unit/Ml Vial) 0 unit SQ ACHS [facility]; Protocol Last Admin: 09/18/20 17:16 Dose: 3 unit Documented by: Lisinopril (Lisinopril 20 Mg Tab) 20 mg PO DAILY [facility] Last Admin: 09/18/20 10:09 Dose: 20 mg Documented by: Magnesium Oxide (Magnesium Oxide 400 Mg Tab) 400 mg PO DAILY [facility] Last Admin: 09/18/20 10:08 Dose: 400 mg Documented by: Metformin HCl (Metformin 500 Mg Tab) 500 mg PO BID [facility] Last Admin: 09/18/20 10:08 Dose: 500 mg Documented by: Metoprolol Tartrate (Metoprolol Tartrate 25 Mg Tab) 25 mg PO BID [facility] Last Admin: 09/18/20 10:08 Dose: 25 mg Documented by: Multivitamins (Multivitamins, Thera 1 Each Tab) 1 each PO DAILY [facility] Last Admin: 09/18/20 10:08 Dose: 1 each Documented by: Naloxone HCl (Naloxone 0.4 Mg/Ml 1 Ml Vial) 0.2 mg IV Q2M PRN PRN Reason: Opioid Reversal Non-Formulary Medication (Dulaglutide [Trulicity]) 0.75 mg SQ MO [facility] Oseltamivir Phosphate (Oseltamivir 75 Mg Cap) 75 mg PO Q12HR [facility] Stop: 09/21/20 21:01 Last Admin: 09/18/20 10:08 Dose: 75 mg Documented by: Rivaroxaban (Rivaroxaban 20 Mg Tab) 20 mg PO DAILY [facility] Last Admin: 09/18/20 10:08 Dose: 20 mg Documented by: Tamsulosin HCl (Tamsulosin 0.4 Mg Cap.Er.24h) 0.4 mg PO HS [facility] Last Admin: 09/17/20 21:23 Dose: 0.4 mg Documented by: Zinc Sulfate (Zinc Sulfate 220 Mg Cap) 220 mg PO DAILY [facility] Last Admin: 09/18/20 10:08 Dose: 220 mg Documented by: Physical examination: VITAL SIGNS: 98.4, 100, 17, 160/80, 90% on 11 L GENERAL: , sitting up in a chair, shortness of breath NEUROLOGICAL: Cranial nerves grossly intact, moving all 4 limbs PSYCH: Alert and oriented x3; mood and affect normal. Rest of exam as per nursing and pulmonary INVESTIGATIONS, reviewed in the clinical context: D-dimer 2.31 CRP 1.5 Previous testing White count 10.6 hemoglobin 14.3 platelets 196 potassium 4.1 creatinine 0.99 Lactic acid 2.5 Ferritin 2454, CRP 70.4 LDH 1513 pro-calcitonin 0.09 EKG tracing personally reviewed by me-no sinus rhythm Chest x-ray film personally reviewed by me-bilateral infiltrates Assessment: -This is a patient tested positive for COVID on September 07. Symptoms have been progressive. Now has bilateral pneumonia.-Slow to respond -Lactic acidosis type II from above -Acute hypoxic respiratory failure from above-11 L nasal worsening -Paroxysmal atrial fibrillation currently in sinus rhythm -Diabetes mellitus type 2 -Hyperlipidemia -Essential hypertension -Obstructive sleep apnea uses CPAP -Coronary artery disease with a CABG in 2005 and a cardiac catheterization in January 2020 showing nonsignificant disease -Acute COPD exacerbation in a ex-smoker Plan: Continue steroids, xarelto, Ventolin inhaler, questions answered. Given COPD was switched to IV steroids. Cutback IV fluids. Repeat chest x-ray the morning
[2020-09-18] MEDS: TAMSULOSIN 0.4 MG CAP.ER.24H PO SCH (21:13)
[2020-09-18] MEDS: SODIUM CHLORIDE 0.9% 1,000 ML IV SCH (23:46)
[2020-09-19] MEDS: ALBUTEROL HFA INHALER INHALATION SCH ×4 (00:45→21:11)
[2020-09-19 07:17] LABS: Glucose,Whole Blood 108 mg/dL (75-99)
--- NOTE | 2020-09-19 07:43 | XR ---
EXAMINATION TYPE: XR chest 1V portable DATE OF EXAM: 09/19/2020 HISTORY: Shortness of breath. COMPARISON: 09/15/2020 TECHNIQUE: Single view of the chest is submitted. FINDINGS: Demonstrated are scattered senescent parenchymal change. Coarse interstitial infiltrates are seen bilaterally. Allowing for differences in technique no signif icant change is appreciated at this time. The heart is stable. Hilar and mediastinal structures are within normal limits. Degenerative changes are seen of the dorsal spine. IMPRESSION: 1. Coarse interstitial infiltrates are seen bilaterally. Allowing for differences in technique no si gnificant change is appreciated at this time.
[2020-09-19] MEDS: INSULIN ASPART (NovoLOG) 100 UNIT/ML VIAL SQ SCH ×3 (07:44→19:52)
[2020-09-19] MEDS: ASCORBIC ACID 500 MG TAB PO SCH ×2 (08:38→21:26)
[2020-09-19] MEDS: RIVAROXABAN 20 MG TAB PO SCH (08:38)
[2020-09-19] MEDS: lisinopriL 20 MG TAB PO SCH (08:38)
[2020-09-19] MEDS: ZINC SULFATE 220 MG CAP PO SCH (08:38)
[2020-09-19] MEDS: MULTIVITAMINS, THERA 1 EACH TAB PO SCH (08:38)
[2020-09-19] MEDS: DOFETILIDE 500 MCG CAP PO SCH ×3 (08:38→22:22)
[2020-09-19] MEDS: metFORMIN 500 MG TAB PO SCH (08:38)
[2020-09-19] MEDS: MAGNESIUM OXIDE 400 MG TAB PO SCH (08:38)
[2020-09-19] MEDS: OSELTAMIVIR 75 MG CAP PO SCH ×2 (08:38→22:23)
[2020-09-19] MEDS: METOPROLOL TARTRATE 25 MG TAB PO SCH ×2 (08:38→21:26)
[2020-09-19] MEDS: ATORVASTATIN 80 MG TAB PO SCH (08:38)
[2020-09-19] MEDS: GLIMEPIRIDE 2 MG TAB PO SCH (08:38)
[2020-09-19] MEDS: CHOLECALCIFEROL 1,000 UNIT TAB PO SCH (08:39)
[2020-09-19 09:26] LABS: African American GFR (CKD) 108.5 (60.0-200.0); Anion Gap 10.2 mmol/L (4.00-12.00); BUN/Creat Ratio 31.43 Ratio (12.00-20.00); C Reactive Protein 8.2 mg/dL (0.0-0.8); Carbon Dioxide 25.8 mmol/L (21.6-31.8); Magnesium 1.7 mg/dL (1.5-2.4); Non-African American GFR(CKD) 93.6 (60.0-200.0)
[2020-09-19 12:07] LABS: Glucose,Whole Blood 101 mg/dL (75-99)
[2020-09-19] MEDS ORDERED: ALPRAZolam 0.5 MG TAB PO PRN (12:10)
[2020-09-19] MEDS: LORazepam 2 MG/ML INJ IV PRN ×2 (14:36→18:03)
[2020-09-19] MEDS ORDERED: DEXMEDETOMIDINE/0.9% NACL(PMX) 400 MCG in EMPTY BAG 1 BAG IV SCH (15:45)
[2020-09-19 16:52] LABS: Glucose,Whole Blood 151 mg/dL (75-99)
--- NOTE | 2020-09-19 17:31 | P.PN ---
Subjective Progress Note Date: 09/19/20 Principal diagnosis: Severe hypoxemia related to CoVID 19 and influenza B infection 75-year-old white male patient of Dr. Cornell Gasca who presented to the emergency department on 09/15/2020 with complaints of difficulty breathing. Patient tested positive for COVID 19 and influenza B on 09/07/2020. He is been progressively short of breath, has a dry nonproductive cough, he is unclear whether he is having fevers. He feels fatigued, denies any nausea vomiting or diarrhea, denies any abdominal pain, denies any history of chronic lung problems. His past medical history positive for atrial fibrillation on anticoagulation, hypertension, hyperlipidemia, diabetes mellitus type 2, coronary artery disease with history of previous bypass grafting, he is a former smoker. His chest x-ray showed bilateral diffuse airspace disease, concerning for COVID 19 pneumonia. His labs were reviewed, showing lymphopenia with lymphocyte count of 0.2, lactic acid level of 2.5 which has subsequently increased to 4.0, ferritin level was 2454, AST and ALT were 87 and 67 respectively, Altace was 1513, and CRP was 70.4. Pro-calcitonin level was negative at 0.09. Decadron has been started at 6 mg daily, he is on IV hydration, with lactated Ringer's at 100 ML per hour. he is on oral a nticoagulation in the form of Xarelto. Remains on 7 L of oxygen per high flow nasal cannula and the pulse ox is between 87-91%. Afebrile On 09/18/2020 patient seen in follow-up on general medical surgical floor. He is on 11 L of oxygen, his pulse ox is 89%, he is afebrile, hemodynamically is been stable, patient was out of the window for Remdesivir, he was started on Tamiflu, he is on oral anticoagulation in the form of Xarelto, no fever or chills, his d-dimer has increased, I came up to 2.31 on today's labs, his CRP has improved significantly and is down to 1.5, LDH level is pending, he is on oral Decadron, he is on IV hydration, nausea vomiting, no abdominal pain, he is tolerating oral intake. No, but the chest pain. The patient is seen today 09/19/2020 follow-up on the regular medical floor. He is currently sitting up in bed. He is somewhat confused and altered. He's been pulling off his hospital gown. Getting up out of bed without assistance. Uncooperative. He is pulling off his oxygen. He is only at 90% O2 saturation on 15 L high flow nasal cannula. Chest x-ray continues to show coarse interstitial infiltrates bilaterally. D-dimer 3.01. Sodium 143. Potassium 4 .0. Creatinine 0.7. C-reactive protein 8.2. Pro-calcitonin 0.09. He remains on Tamiflu. Anticoagulated with Xarelto. Objective - Vital Signs Vital signs: Vital Signs Temp 100.4 F H 09/19/20 16:50 Pulse 112 H 09/19/20 16:50 Resp 23 09/19/20 16:50 BP 125/75 09/19/20 16:50 Pulse Ox 97 09/19/20 16:50 Intake & Output 09/18/20 09/19/20 09/19/20 18:59 06:59 18:59 Intake Total 1050 1200 140 Output Total 9 300 Balance 1041 1200 -160 Intake: IV 20 Sodium Chloride 0.9% 1, 20 000 ml @ 20 mls/hr IV . Q24H [facility] Rx#:[id number] Intake, IV Titration 800 600 Amount Lactated Ringers 1,000 ml 800 400 @ 100 mls/hr IV .Q10H [facility] Rx#:[id number] Sodium Chloride 0.9% 1, 200 000 ml @ 20 mls/hr IV . Q24H [facility] Rx#:[id number] Oral 250 600 120 Output: Urine 300 Stool 9 Other: Voiding Method Toilet Urinal # Voids 1 1 2 # Bowel Movements 2 - Exam GENERAL EXAM: Alert, currently confused, 75-year-old outpatient, on 15 L of oxygen a pulse ox of 90-92 % comfortable in no apparent distress. HEAD: Normocephalic/atraumatic. EYES: Normal reaction of pupils, equal size. Conjunctiva pink, sclera white. NOSE: Clear with pink turbinates. THROAT: No erythema or exudates. NECK: No masses, no JVD, no thyroid enlargement, no adenopathy. CHEST: No chest wall deformity. Symmetrical expansion. LUNGS: Equal air entry with bilateral scattered rhonchi. CVS: Regular rate and rhythm, normal S1 and S2, no gallops, no murmurs, no rubs ABDOMEN: Soft, nontender. No hepatosplenomegaly, normal bowel sounds, no guarding or rigidity. EXTREMITIES: No clubbing, no edema, no cyanosis, 2+ pulses and upper and lower extremities. MUSCULOSKELETAL: Muscle strength and tone normal. SPINE: No scoliosis or deformity SKIN: No rashes CENTRAL NERVOUS SYSTEM: Currently with altered mental status. No focal deficits, tone is normal in all 4 extremities. PSYCHIATRIC: Appropriate affect. Intact judgment and insight. - Labs CBC & Chem 7: 09/15/20 17:17 09/19/20 05:59 Labs: Abnormal Lab Results - Last 24 Hours (Table) 09/18/20 09/19/20 09/19/20 Range/Units 20:47 05:59 05:59 D-Dimer 3.01 H (<0.60) mg/L FEU BUN/Creatinine Ratio 31.43 H (12.00-20.00) Ratio Glucose 115 H (70-110) mg/dL POC Glucose (mg/dL) 247 H (75-99) mg/dL C-Reactive Protein 8.2 H (0.0-0.8) mg/dL 09/19/20 09/19/20 09/19/20 Range/Units 07:09 11:57 16:50 D-Dimer (<0.60) mg/L FEU BUN/Creatinine Ratio (12.00-20.00) Ratio Glucose (70-110) mg/dL POC Glucose (mg/dL) 108 H 101 H 151 H (75-99) mg/dL C-Reactive Protein (0.0-0.8) mg/dL Microbiology - Last 24 Hours (Table) 09/15/20 17:01 Blood Culture - Preliminary Blood No Growth after 72 hours Assessment and Plan Assessment: #1. Acute hypoxic respiratory failure related to COVID 19 and Influenza B, patient tested positive on September 07, 2020 for both COVID 19 and influenza B infection #2. Worsening dyspnea and severe hypoxemia related to the above #3. Chronic atrial fibrillation on Xarelto, with previous history of cardioversion #4. BPH #5. Diabetes mellitus type 2 #6. Hypertension #7. Increased inflammatory markers related to acute COVID 19 infection #8. Lymphopenia #9. Lactic acidosis Plan: The patient was seen and evaluated by Dr. Rivera He has developed increased altered mental status He will be given Ativan and trialed on BiPAP He will also be initiated on Precedex and transferred to the ICU We will continue to follow make further recommendations based on his clinical status I, the cosigning physician, performed a history & physical examination of the patient. Lungs sounds with bilateral scattered rhonchi. Maintaining good O2 saturations in the 90s on 15 L high flow nasal canula. I discussed the assessment and plan of care with my nurse practitioner, Kaitlin Lowe. I attest to the above note as dictated by her.
[2020-09-19] MEDS: propofoL 100 ML IV ONE ×2 (18:45→19:20)
[2020-09-19 18:55] LABS: Appearance,Urine Clear (Clear); Bilirubin,Urine Negative (Negative); Blood,Urine Trace (Negative); Color,Urine Yellow; Glucose,Urine (UA) Negative (Negative); Ketones,Urine Negative (Negative); Leukocyte Esterase,Urine Negative (Negative); Mucus,Urine Rare /hpf; Nitrite,Urine Negative (Negative); Protein,Urine Trace (Negative); RBC,Urine 22 /hpf (0-5); Urobilinogen,Urine <2.0 mg/dL (<2.0); WBC,Urine <1 /hpf (0-5)
--- NOTE | 2020-09-19 19:09 | XR ---
EXAMINATION TYPE: XR chest 1V portable DATE OF EXAM: 09/19/2020 COMPARISON: Earlier same day. HISTORY: Status post tube placement. TECHNIQUE: Single frontal view of the chest is obtained. FINDINGS: There is placement of endotracheal tube terminating approximately 2.8 cm above the claudia. There is also a nasogastric tube with tip overlying the gastric fundus and side port noted level of the GE junction. There is redemonstration of moderate right greater than left opacities predominantl y in the mid to lower lungs. The cardiac silhouette size is enlarged. CABG is noted. The osseous str uctures are intact. IMPRESSION: Status post support apparatus. NG tube side port at level of the GE junction. Consider advancing at l east 3 cm. Otherwise no significant interval change.
[2020-09-19 19:54] LABS: ABG HCO3 24 mmol/L (21-25); ABG Oxygen Saturation 96.3 % (94-97); ABG PCO2 42 mmHg (35-45); ABG PH 7.36 (7.35-7.45); ABG PO2 90 mmHg (83-108); ABG TCO2 25 mmol/L (19-24); Allen Test Performed? Yes
[2020-09-19] MEDS ORDERED: CISATRACURIUM 2 MG/ML 5 ML VIAL IV ONE (20:50)
--- NOTE | 2020-09-19 20:58 | P.PN ---
Progress Note - Text Progress Note Date: 09/19/20 Chief Complaint: Short of breath History of presenting complaint: This is a pleasant [address] Leon. Chronic stable medical conditions include atrial fibrillation, diabetes, hyperlipidemia, hypertension, BPH, obstructive sleep apnea uses CPAP. Patient's had cardioversion in 2015. Also known coronary artery disease with bypass in 2005. Also had a cardiac catheterization in January of this year. He was told and no blockages. Patient was here in the hospital from September 07 of September 08. Patient on the last visit presented to the ER for cough fever or shortness of breath with activity. He tested positive for COVID. Did not want to stay longer the hospital and decided to leave. Patient does take Savella to for his chronic A. fib. Patient's also was tested positive for COVID. She now presents with increasing shortness of breath. Pulse ox was found to be 85%. Slight headache. Patient's been having some loose stool also. Does feel weak, tired and rundown. Admitted with bilateral COVID 19 pneumonia, acute hypoxic respiratory failure, l actic acidosis type II. Patient was started on steroids, Lovenox, continued on Xarelto, bronchodilators. Today-much more short of breath. Not able to eat much. High flow oxygen. Sitting up in a chair. Slight cough. Tired. Review of systems: Was done for constitutional, cardiovascular, GI, pulmonary. relevant finding as above Active Medications Acetaminophen (Acetaminophen Tab 500 Mg Tab) 1,000 mg PO Q6HR PRN PRN Reason: Fever>101 Albuterol Sulfate (Albuterol Hfa Inhaler) 2 puff INHALATION RT-Q6H PRN PRN Reason: Shortness Of Breath Or Wheezing Albuterol Sulfate (Albuterol Hfa Inhaler) 2 puff INHALATION RT-Q6H [facility] Last Admin: 09/19/20 12:33 Dose: 2 puff Documented by: Ascorbic Acid (Ascorbic Acid 500 Mg Tab) 500 mg PO BID [facility] Last Admin: 09/19/20 08:38 Dose: 500 mg Documented by: Atorvastatin Calcium (Atorvastatin 80 Mg Tab) 80 mg PO DAILY [facility] Last Admin: 09/19/20 08:38 Dose: 80 mg Documented by: Chlorhexidine Gluconate (Chlorhexidine Gluconate 15 Ml Cup) 15 ml MUCOUS MEM BID [facility] Cholecalciferol (Cholecalciferol 1,000 Unit Tab) 5,000 unit PO DAILY [facility] Last Admin: 09/19/20 08:39 Dose: 5,000 unit Documented by: Dofetilide (Dofetilide 500 Mcg Cap) 500 mcg PO BID [facility] Last Admin: 09/19/20 08:49 Dose: 500 mcg Documented by: Sodium Chloride (Saline 0.9%) 1,000 mls @ 20 mls/hr IV .Q24H [facility] Last Admin: 09/18/20 23:46 Dose: 20 mls/hr Documented by: Propofol 1,000 mg/ IV Solution 100 mls @ 0 mls/hr IV .Q0M [facility]; Protocol Last Titration: 09/19/20 19:20 Dose: 50 mcg/kg/min, 36.061 mls/hr Documented by: Insulin Aspart (Insulin Aspart (Novolog) 100 Unit/Ml Vial) 0 unit SQ Q6HR [facility]; Protocol Lisinopril (Lisinopril 20 Mg Tab) 20 mg PO DAILY [facility] Last Admin: 09/19/20 08:38 Dose: 20 mg Documented by: Lorazepam (Lorazepam 2 Mg/Ml Inj) 1 mg IV Q2H PRN PRN Reason: Agitation or Acute Anxiety Last Admin: 09/19/20 18:03 Dose: 1 mg Documented by: Magnesium Oxide (Magnesium Oxide 400 Mg Tab) 400 mg PO DAILY [facility] Last Admin: 09/19/20 08:38 Dose: 400 mg Documented by: Methylprednisolone Sodium Succinate (Methylprednisolone Sod Succi 40 Mg/Ml 1 Ml Vial) 40 mg IV Q8HR [facility] Metoprolol Tartrate (Metoprolol Tartrate 25 Mg Tab) 25 mg PO BID [facility] Last Admin: 09/19/20 08:38 Dose: 25 mg Documented by: Multivitamins (Multivitamins, Thera 1 Each Tab) 1 each PO DAILY [facility] Last Admin: 09/19/20 08:38 Dose: 1 each Documented by: Naloxone HCl (Naloxone 0.4 Mg/Ml 1 Ml Vial) 0.2 mg IV Q2M PRN PRN Reason: Opioid Reversal Oseltamivir Phosphate (Oseltamivir 75 Mg Cap) 75 mg PO Q12HR [facility] Stop: 09/21/20 21:01 Last Admin: 09/19/20 08:38 Dose: 75 mg Documented by: Rivaroxaban (Rivaroxaban 20 Mg Tab) 20 mg PO DAILY [facility] Last Admin: 09/19/20 08:38 Dose: 20 mg Documented by: Tamsulosin HCl (Tamsulosin 0.4 Mg Cap.Er.24h) 0.4 mg PO HS [facility] Last Admin: 09/18/20 21:13 Dose: 0.4 mg Documented by: Zinc Sulfate (Zinc Sulfate 220 Mg Cap) 220 mg PO DAILY [facility] Last Admin: 09/19/20 08:38 Dose: 220 mg Documented by: Physical examination: VITAL SIGNS: 98.3, 90, 26, 133/61, 86% on 15 L nonrebreather GENERAL: , sitting up in a chair, more short of breath, RESPIRATORY: not able to speak in full sentences. Pickford C muscular working NEUROLOGICAL: Cranial nerves grossly intact, moving all 4 limbs PSYCH: Alert and oriented x3; mood and affect anxious. Rest of exam as per nursing and pulmonary INVESTIGATIONS, reviewed in the clinical context: D-dimer 3.01 CRP 8.2 Previous testing White count 10.6 hemoglobin 14.3 platelets 196 potassium 4.1 creatinine 0.99 Lactic acid 2.5 Ferritin 2454, CRP 70.4 LDH 1513 pro-calcitonin 0.09 EKG tracing personally reviewed by me-no sinus rhythm Chest x-ray film personally reviewed by me-bilateral infiltrates Assessment: -This is a patient tested positive for COVID on September 07. Symptoms have been progressive. Now has bilateral pneumonia.-Worsening -Lactic acidosis type II from above -Acute hypoxic respiratory failure from above-11 L nasal -worsening worsening -Paroxysmal atrial fibrillation currently in sinus rhythm -Diabetes mellitus type 2 -Hyperlipidemia -Essential hypertension -Obstructive sleep apnea uses CPAP -Coronary artery disease with a CABG in 2005 and a cardiac catheterization in January 2020 showing nonsignificant disease -Acute COPD exacerbation in a ex-smoker Plan: She'll xarelto. Steroid.-Oxygen. Worsening respiratory distress. May need to move to the ICU. Being followed by pulmonary. Prognosis guarded.
[2020-09-19 21:21] LABS: Glucose,Whole Blood 169 mg/dL (75-99)
[2020-09-19] MEDS: CHLORHEXIDINE GLUCONATE 15 ML CUP MUCOUS MEM SCH (21:26)
[2020-09-19] MEDS: TAMSULOSIN 0.4 MG CAP.ER.24H PO SCH (21:26)
--- NOTE | 2020-09-19 21:28 | P.PCN ---
Date of Procedure: 09/19/20 Preoperative Diagnosis: Acute respiratory failure/pneumonia Postoperative Diagnosis: Acute respiratory failure/pneumonia Procedure(s) Performed: Insertion of a triple-lumen catheter, insertion of an arterial line Anesthesia: local Surgeon: Martina Rivera Pathology: other Condition: critical Disposition: ICU Operative Findings: Insertion of a triple-lumen catheter Indication: Hemodynamic monitoring/Intravenous access. A time-out was completed verifying correct patient, procedure, site, positioning, and implant(s) or special equipment if applicable. The patient was placed in a dependent position appropriate for central line placement based on the vein to be cannulated. The patients left neck was prepped and draped in sterile fashion. 1% Lidocaine was used to anesthetize the surrounding skin area. A triple lumen 9F Cordis catheter was introduced into the left IJ vein using Seldinger technique. The catheter was threaded smoothly over the guide wire and appropriate blood return was obtained. Each lumen of the catheter was evacuated of air and flushed with sterile saline. The catheter was then sutured in place to the skin and a sterile dressing applied. Perfusion to the extremity distal to the point of catheter insertion was checked and found to be adequate. The patient tolerated the procedure well and there were no complications. Insertion of arterial line Indication: Hemodynamic monitoring. A time-out was completed verifying correct patient, procedure, site, positioning, and implant(s) or special equipment if applicable. Allens test was performed to ensure adequate perfusion. The patients left arm/wrist was prepped and draped in sterile fashion. 1% Lidocaine was used to anesthetize the area. An 18G Arrow arterial line was introduced into the radial artery. The catheter was threaded over the guide wire and the needle was removed with appropriate pulsatile blood return. Blood loss was minimal. The catheter was then sutured in place to the skin and a sterile dressing applied. Perfusion to the extremity distal to the point of catheter insertion was checked and found to be adequate. The patient tolerated the procedure well and there were no complications.
--- NOTE | 2020-09-19 22:00 | XR ---
EXAMINATION TYPE: XR chest 1V portable DATE OF EXAM: 09/19/2020 COMPARISON: Earlier same day. HISTORY: Line placement. TECHNIQUE: Single frontal view of the chest is obtained. FINDINGS: There is placement of a left IJ catheter with tip overlying the caudal SVC. The endotrache al and nasogastric tube remain in place. There is unchanged bilateral diffuse patchy airspace opaciti es. No significant pleural effusion or pneumothorax. Stable cardiomediastinal silhouette and overlyin g post surgical changes. The osseous structures are intact. IMPRESSION: As above.
[2020-09-19] MEDS: methylPREDNISolone SOD SUCCI 40 MG/ML 1 ML VIAL IV SCH (22:04)
[2020-09-19] MEDS: SODIUM CHLORIDE 0.9% 1,000 ML IV SCH (22:23)
[2020-09-19 23:32] LABS: Glucose,Whole Blood 209 mg/dL (75-99)
[2020-09-20] MEDS: methylPREDNISolone SOD SUCCI 40 MG/ML 1 ML VIAL IV SCH ×3 (00:37→15:47)
[2020-09-20] MEDS: ALBUTEROL HFA INHALER INHALATION SCH ×4 (02:34→19:29)
[2020-09-20 05:07] LABS: Glucose,Whole Blood 197 mg/dL (75-99)
[2020-09-20] MEDS: INSULIN ASPART (NovoLOG) 100 UNIT/ML VIAL SQ SCH ×3 (05:18→17:48)
[2020-09-20 05:23] LABS: Basophils % (A) 0 %; Eosinophils # (A) 0.1 k/uL (0-0.7); Eosinophils % (A) 1 %; HGB 12.4 gm/dL (13.0-17.5); Lymphocytes # (A) 0.1 k/uL (1.0-4.8); Lymphocytes % (A) 1 %; MCHC 33.4 g/dL (31.0-37.0); MCV 92.8 fL (80.0-100.0); Mean Platelet Volume 8.3; Monocytes # (A) 0.1 k/uL (0-1.0); Monocytes % (A) 1 %; Neutrophils # (A) 8.3 k/uL (1.3-7.7); Neutrophils % (A) 97 %; Platelet Count 153 k/uL (150-450); RBC 3.99 m/uL (4.30-5.90); RDW 13.3 % (11.5-15.5); WBC 8.5 k/uL (3.8-10.6)
[2020-09-20 05:36] LABS: ALT 52 U/L (4-49); AST 37 U/L (17-59); African American GFR (CKD) >90 (>60 ml/min/1.73 sqM); Albumin 2.3 g/dL (3.5-5.0); Alkaline Phosphatase 61 U/L (38-126); Anion Gap 2 mmol/L; Blood Urea Nitrogen 20 mg/dL (9-20); Calcium 8.4 mg/dL (8.4-10.2); Carbon Dioxide 25 mmol/L (22-30); Chloride 108 mmol/L (98-107); Glucose 211 mg/dL (74-99); Magnesium 2.1 mg/dL (1.6-2.3); Non-African American GFR(CKD) >90 (>60 ml/min/1.73 sqM); Potassium 4.7 mmol/L (3.5-5.1); Sodium 135 mmol/L (137-145); Total Bilirubin 0.8 mg/dL (0.2-1.3); Total Protein 4.9 g/dL (6.3-8.2)
[2020-09-20 05:41] LABS: ABG Base Excess -1.4 mmol/L; ABG HCO3 24 mmol/L (21-25); ABG Oxygen Saturation 99.5 % (94-97); ABG PCO2 41 mmHg (35-45); ABG PH 7.37 (7.35-7.45); ABG PO2 153 mmHg (83-108); ABG TCO2 25 mmol/L (19-24); Allen Test Performed? Yes
[2020-09-20 06:01] LABS: C Reactive Protein 267.6 mg/L (<10.0)
--- NOTE | 2020-09-20 07:27 | XR ---
EXAMINATION TYPE: XR chest 1V portable DATE OF EXAM: 09/20/2020 COMPARISON: 09/19/2020 HISTORY: Shortness of breath TECHNIQUE: Single frontal view of the chest is obtained. FINDINGS: ET tube, NG tube and central line stable. Underlying COPD with postoperative change. Heart size stable. No pneumothorax or sizable effusion. Patchy diffuse bilateral infiltrate stable. IMPRESSION: Diffuse bilateral patchy infiltrate stable correlate for pneumonia.
[2020-09-20] MEDS: ASCORBIC ACID 500 MG TAB PO SCH ×2 (09:29→21:06)
[2020-09-20] MEDS: ATORVASTATIN 80 MG TAB PO SCH (09:29)
[2020-09-20] MEDS: CHLORHEXIDINE GLUCONATE 15 ML CUP MUCOUS MEM SCH ×2 (09:29→21:06)
[2020-09-20] MEDS: CHOLECALCIFEROL 1,000 UNIT TAB PO SCH (09:30)
[2020-09-20] MEDS: DOFETILIDE 500 MCG CAP PO SCH ×2 (09:30→22:17)
[2020-09-20] MEDS: lisinopriL 20 MG TAB PO SCH (09:30)
[2020-09-20] MEDS: METOPROLOL TARTRATE 25 MG TAB PO SCH ×2 (09:31→21:08)
[2020-09-20] MEDS: OSELTAMIVIR 75 MG CAP PO SCH (09:31)
[2020-09-20] MEDS: RIVAROXABAN 20 MG TAB PO SCH (09:31)
[2020-09-20] MEDS: MULTIVITAMINS, THERA 1 EACH TAB PO SCH (09:35)
[2020-09-20] MEDS: ZINC SULFATE 220 MG CAP PO SCH (09:35)
[2020-09-20] MEDS: MAGNESIUM OXIDE 400 MG TAB PO SCH (09:35)
[2020-09-20] MEDS: SODIUM CHLORIDE 0.9% 1,000 ML IV SCH (09:54)
[2020-09-20] MEDS ORDERED: REMDESIVIR 200 MG in SODIUM CHLORIDE 0.9% 250 ML IVPB ONE (11:00)
[2020-09-20 11:42] LABS: Glucose,Whole Blood 194 mg/dL (75-99)
[2020-09-20 11:56] LABS: ABG Base Excess -1.7 mmol/L; ABG HCO3 23 mmol/L (21-25); ABG Oxygen Saturation 97.9 % (94-97); ABG PCO2 38 mmHg (35-45); ABG PH 7.39 (7.35-7.45); ABG PO2 101 mmHg (83-108); ABG TCO2 24 mmol/L (19-24); Allen Test Performed? Yes
--- NOTE | 2020-09-20 14:49 | P.PN ---
Subjective Progress Note Date: 09/20/20 75-year-old white male patient of Dr. Cornell Gasca who presented to the emergency department on 09/15/2020 with complaints of difficulty breathing. Patient tested positive for COVID 19 and influenza B on 09/07/2020. He is been progressively short of breath, has a dry nonproductive cough, he is unclear whether he is having fevers. He feels fatigued, denies any nausea vomiting or diarrhea, denies any abdominal pain, denies any history of chronic lung problems. His past medical history positive for atrial fibrillation on anticoagulation, hypertension, hyperlipidemia, diabetes mellitus type 2, robyn nary artery disease with history of previous bypass grafting, he is a former smoker. His chest x-ray showed bilateral diffuse airspace disease, concerning for COVID 19 pneumonia. His labs were reviewed, showing lymphopenia with lymphocyte count of 0.2, lactic acid level of 2.5 which has subsequently increased to 4.0, ferritin level was 2454, AST and ALT were 87 and 67 respectively, Altace was 1513, and CRP was 70.4. Pro-calcitonin level was negative at 0.09. Decadron has been started at 6 mg daily, he is on IV hydration, with lactated Ringer's at 100 ML per hour. he is on oral anticoagula tion in the form of Xarelto. Remains on 7 L of oxygen per high flow nasal cannula and the pulse ox is between 87-91%. Afebrile On 09/18/2020 patient seen in follow-up on general medical surgical floor. He is on 11 L of oxygen, his pulse ox is 89%, he is afebrile, hemodynamically is been stable, patient was out of the window for Remdesivir, he was started on Tamiflu, he is on oral anticoagulation in the form of Xarelto, no fever or chills, his d-dimer has increased, I came up to 2.31 on today's labs, his CRP has improved significantly and is down to 1.5, LDH level is pending, he is on oral Decadron, he is on IV hydration, nausea vomiting, no abdominal pain, he is tolerating oral intake. No, but the chest pain. The patient is seen today 09/19/2020 follow-up on the regular medical floor. He is currently sitting up in bed. He is somewhat confused and altered. He's been pulling off his hospital gown. Getting up out of bed without assistance. Uncooperative. He is pulling off his oxygen. He is only at 90% O2 saturation on 15 L high flow nasal cannula. Chest x-ray continues to show coarse interstitial infiltrates bilaterally. D-dimer 3.01. Sodium 143. Potassium 4.0. Creatinine 0.7. C-reactive protein 8.2. Pro-calcitonin 0.09. He remains on Tamiflu. Anticoagulated with Xarelto. 09/20/2020, the patient is being seen in follow-up in the intensive care unit. As mentioned earlier, the patient developed progressive worsening shortness of breath, altered mentation, confusion, oxygen saturation, tachypnea and tachycardia and respiratory failure with hypoxemia. The patient got transferred to the intensive care unit and overnight the patient had to be intubated and placed on a mechanical ventilator. Currently is intubated. Lisinopril running at 25 mg per KG per minute. He is an assist-control mode of ventilation at the rate of 18 with a tidal volume of 450 and FiO2 of 80% with a PEEP of 10. Peak airway pressures around 21. He was quite tachypneic with increased minute ventilation. He was urinating adequate amount of tidal volumes well on a mechanical ventilator on a Monday tidal volume of 550 which obviously dropped a respiratory rate down to the mid 20s. The patient is currently being treated with systemic steroids. The patient was also given a course of Tamiflu knowing that he was checked positive for influenza B. He has been out of the window for Rermdesivir treatment, and the treatment was declined by pharmacy. I contacted the pharmacy again and based on the decline in his respiratory status and progressive worsening his hypoxic respiratory failure, we'll need an exception to offer this patient a treatment to give him the benefit of the doubt. Also, the patient is on IV Solu-Medrol. He remains on zinc. He remains on vitamin C. The patient has received also units of convalescent plasma. He'll be started on enteral feeding for nutritional support. 2 triple-lumen catheter was established yesterday. He remains on Xarelto as a long-term anticoagulant that the patient has been taking. Objective - Vital Signs Vital signs: Vital Signs Temp 98.1 F 09/20/20 04:00 Pulse 61 09/20/20 14:00 Resp 19 09/20/20 14:00 BP 97/56 09/20/20 14:00 Pulse Ox 93 L 09/20/20 14:00 Intake & Output 09/19/20 09/20/20 09/20/20 18:59 06:59 18:59 Intake Total 180 597.466 901.919 Output Total 415 665 280 Balance -235 -67.534 621.919 Weight 120.6 kg Intake: IV 60 240 660 Remdesivir (Eua) 200 mg 250 In Sodium Chloride 0.9% 250 ml @ 250 mls/hr IVPB ONCE ONE Rx#:[id number] Sodium Chloride 0.9% 1, 60 240 410 000 ml @ 75 mls/hr IV . [id number] MICHOACANO Rx#:[id number] Intake, IV Titration 357.466 151.919 Amount propofoL 1,000 mg In 357.466 151.919 Empty Bag 1 bag @ Titrate IV .Q0M MICHOACANO Rx#: [id number] Oral 120 Other 90 Output: Urine 415 665 280 Other: Voiding Method Indwelling Catheter Indwelling Catheter # Voids 2 # Bowel Movements 2 ABP, PAP, CO, CI - Last Documented Arterial Blood Pressure 115/38 - Exam Gen. appearance the patient is obese, comfortable likely distress well sedated at this point in time. Head exam was generally normal. There was no scleral icterus or corneal arcus. Mucous membranes were moist. Neck was supple and without jugular venous distension, thyromegaly, or carotid bruits. Carotids were easily palpable bilaterally. There was no adenopathy. The patient is a left IJ triple-lumen catheter which is sutured in place. Lungs sounds are diminished in the patient's faint crackles at lung bases bilaterally. Cardiac exam revealed the PMI to be normally situated and sized. The rhythm was irregular consistent with atrial fibrillation. On examination, there are no extrasystoles were noted during several minutes of auscultation. The first and second heart sounds were normal and physiologic splitting of the second heart sound was noted. There were no murmurs, rubs, clicks, or gallops. Abdominal exam revealed normal bowel sounds. The abdomen was soft, non-tender, and without masses, organomegaly, or appreciable enlargement of the abdominal ao rta. Examination of the extremities revealed easily palpable radial, femoral and pedal pulses. There was no cyanosis, clubbing or edema. Examination of the skin revealed no evidence of significant rashes, suspicious appearing nevi or other concerning lesions. Neurologically, the patient is awake and alert and the patient does not have any focal neurological deficit. Cranial nerves are essentially intact. - Labs CBC & Chem 7: 09/20/20 05:15 09/20/20 05:15 Labs: Abnormal Lab Results - Last 24 Hours (Table) 09/19/20 09/19/20 09/19/20 Range/Units 16:50 17:25 19:48 RBC (4.30-5.90) m/uL Hgb (13.0-17.5) gm/dL Hct (39.0-53.0) % Neutrophils # (1.3-7.7) k/uL Lymphocytes # (1.0-4.8) k/uL D-Dimer (<0.60) mg/L FEU ABG pO2 (83-108) mmHg ABG Total CO2 25 H (19-24) mmol/L ABG O2 Saturation (94-97) % Sodium (137-145) mmol/L Chloride (98-107) mmol/L Glucose (74-99) mg/dL POC Glucose (mg/dL) 151 H (75-99) mg/dL ALT (4-49) U/L C-Reactive Protein (<10.0) mg/L Total Protein (6.3-8.2) g/dL Albumin (3.5-5.0) g/dL Urine Protein Trace H (Negative) Urine Blood Trace H (Negative) Urine RBC 22 H (0-5) /hpf Urine Mucus Rare H (None) /hpf 09/19/20 09/19/20 09/20/20 Range/Units 21:19 23:30 05:06 RBC (4.30-5.90) m/uL Hgb (13.0-17.5) gm/dL Hct (39.0-53.0) % Neutrophils # (1.3-7.7) k/uL Lymphocytes # (1.0-4.8) k/uL D-Dimer (<0.60) mg/L FEU ABG pO2 (83-108) mmHg ABG Total CO2 (19-24) mmol/L ABG O2 Saturation (94-97) % Sodium (137-145) mmol/L Chloride (98-107) mmol/L Glucose (74-99) mg/dL POC Glucose (mg/dL) 169 H 209 H 197 H (75-99) mg/dL ALT (4-49) U/L C-Reactive Protein (<10.0) mg/L Total Protein (6.3-8.2) g/dL Albumin (3.5-5.0) g/dL Urine Protein (Negative) Urine Blood (Negative) Urine RBC (0-5) /hpf Urine Mucus (None) /hpf 09/20/20 09/20/20 09/20/20 Range/Units 05:15 05:15 05:15 RBC 3.99 L (4.30-5.90) m/uL Hgb 12.4 L (13.0-17.5) gm/dL Hct 37.0 L (39.0-53.0) % Neutrophils # 8.3 H (1.3-7.7) k/uL Lymphocytes # 0.1 L (1.0-4.8) k/uL D-Dimer 6.65 H (<0.60) mg/L FEU ABG pO2 (83-108) mmHg ABG Total CO2 (19-24) mmol/L ABG O2 Saturation (94-97) % Sodium 135 L (137-145) mmol/L Chloride 108 H (98-107) mmol/L Glucose 211 H (74-99) mg/dL POC Glucose (mg/dL) (75-99) mg/dL ALT 52 H (4-49) U/L C-Reactive Protein 267.6 H (<10.0) mg/L Total Protein 4.9 L (6.3-8.2) g/dL Albumin 2.3 L (3.5-5.0) g/dL Urine Protein (Negative) Urine Blood (Negative) Urine RBC (0-5) /hpf Urine Mucus (None) /hpf 09/20/20 09/20/20 09/20/20 Range/Units 05:35 11:40 11:54 RBC (4.30-5.90) m/uL Hgb (13.0-17.5) gm/dL Hct (39.0-53.0) % Neutrophils # (1.3-7.7) k/uL Lymphocytes # (1.0-4.8) k/uL D-Dimer (<0.60) mg/L FEU ABG pO2 153 H (83-108) mmHg ABG Total CO2 25 H (19-24) mmol/L ABG O2 Saturation 99.5 H 97.9 H (94-97) % Sodium (137-145) mmol/L Chloride (98-107) mmol/L Glucose (74-99) mg/dL POC Glucose (mg/dL) 194 H (75-99) mg/dL ALT (4-49) U/L C-Reactive Protein (<10.0) mg/L Total Protein (6.3-8.2) g/dL Albumin (3.5-5.0) g/dL Urine Protein (Negative) Urine Blood (Negative) Urine RBC (0-5) /hpf Urine Mucus (None) /hpf Microbiology - Last 24 Hours (Table) 09/19/20 19:36 Gram Stain - Preliminary Sputum Sputum Culture - Preliminary 09/15/20 17:01 Blood Culture - Preliminary Blood No Growth after 96 hours Assessment and Plan Plan: #1. Acute hypoxic respiratory failure related to COVID 19 and Influenza B, adriana thea tested positive on September 07, 2020 for both COVID 19 and influenza B infection. The patient's condition progressively got worse and the patient developed progressive dyspnea and hypoxemia and he ultimately went into acute hypoxic respiratory failure requiring high oxygen flows and ultimately had to be intubated and placed on a mechanical ventilator. Note that during the course of the treatment, the patient became quite confused and restless and agitated and he had to be intubated overnight. Currently sedated, comfortable on a mechanical ventilator. Oxygenation and ventilation is adequate. In terms of treatment, the patient is currently receiving Tamiflu, he is on IV Solu-Medrol, he will be started on Remdesivir despite the fact that the patient has been out of the window for treatment with this drug. The patient is also treated with a unit of convalescent plasma. #2. Acute Covid 19 related pneumonia along with influenza B infection #3. Chronic atrial fibrillation on Xarelto, with previous history of cardioversion #4. BPH #5. Diabetes mellitus type 2 #6. Hypertension #7. Increased inflammatory markers related to acute COVID 19 infection #8. Lymphopenia, secondary to Covid 19 infection Plan The patient continues to have a high minute ventilation. I gave the higher tidal volume of 550 to drop his respiratory rate in the mid 20s. Start the patient on normal saline at the rate of 75 mL an hour Initiate tube feeds Repeated blood gases around noontime and evaluate for any potential for weaning his FiO2 Approval has been given for Remdesivir Continue Solu-Medrol Continue with a course of Tamiflu Patient was given a unit of convalescent plasma Initiate enteral feeding Condition is critical we'll continue to follow make further recommendations based on his progress. Affirmative markers will be monitored. This evaluation was done within More than 30 minutes. Time with Patient: Greater than 30
[2020-09-20 17:29] LABS: Glucose,Whole Blood 186 mg/dL (75-99)
--- NOTE | 2020-09-20 17:45 | P.PN ---
Progress Note - Text Progress Note Date: 09/20/20 Chief Complaint: Short of breath History of presenting complaint: This is a pleasant [address] Leon. Chronic stable medical conditions include atrial fibrillation, diabetes, hyperlipidemia, hypertension, BPH, obstructive sleep apnea uses CPAP. Patient's had cardioversion in 2015. Also known coronary artery disease with bypass in 2005. Also had a cardiac catheterization in January of this year. He was told and no blockages. Patient was here in the hospital from September 07 of September 08. Patient on the last visit presented to the ER for cough fever or shortness of breath with activity. He tested positive for COVID. Did not want to stay longer the hospital and decided to leave. Patient does take Savella to for his chronic A. fib. Patient's also was tested positive for COVID. She now presents with increasing shortness of breath. Pulse ox was found to be 85%. Slight headache. Patient's been having some loose stool also. Does feel weak, tired and rundown. Admitted with bilateral COVID 19 pneumonia, acute hypoxic respiratory failure, l actic acidosis type II. Patient was started on steroids, Lovenox, continued on Xarelto, bronchodilators. September 19 patient went into respiratory distress. Moved to the ICU. Intubated. [id number]. On the ventilator. FiO2 79. Obtain. Telemetry-sinus rhythm. Drips included propofol. Review of systems: Patient intubated Active Medications Acetaminophen (Acetaminophen Tab 500 Mg Tab) 1,000 mg PO Q6HR PRN PRN Reason: Fever>101 Albuterol Sulfate (Albuterol Hfa Inhaler) 2 puff INHALATION RT-Q6H PRN PRN Reason: Shortness Of Breath Or Wheezing Albuterol Sulfate (Albuterol Hfa Inhaler) 2 puff INHALATION RT-Q6H [facility] Last Admin: 09/20/20 15:14 Dose: 2 puff Documented by: Ascorbic Acid (Ascorbic Acid 500 Mg Tab) 500 mg PO BID [facility] Last Admin: 09/20/20 09:29 Dose: 500 mg Documented by: Atorvastatin Calcium (Atorvastatin 80 Mg Tab) 80 mg PO DAILY [facility] Last Admin: 09/20/20 09:29 Dose: 80 mg Documented by: Chlorhexidine Gluconate (Chlorhexidine Gluconate 15 Ml Cup) 15 ml MUCOUS MEM BID [facility] Last Admin: 09/20/20 09:29 Dose: 15 ml Documented by: Cholecalciferol (Cholecalciferol 1,000 Unit Tab) 5,000 unit PO DAILY [facility] Last Admin: 09/20/20 09:30 Dose: 5,000 unit Documented by: Dofetilide (Dofetilide 500 Mcg Cap) 500 mcg PO BID [facility] Last Admin: 09/20/20 09:30 Dose: 500 mcg Documented by: Sodium Chloride (Saline 0.9%) 1,000 mls @ 75 mls/hr IV .[id number] [facility] Last Admin: 09/20/20 09:54 Dose: 75 mls/hr Documented by: Propofol 1,000 mg/ IV Solution 100 mls @ 0 mls/hr IV .Q0M [facility]; Protocol Last Titration: 09/20/20 16:20 Dose: 41 mcg/kg/min, 29.668 mls/hr Documented by: Remdesivir 100 mg/ Sodium (Chloride) 250 mls @ 250 mls/hr IVPB DAILY@1100 [facility] Stop: 09/24/20 11:59 Insulin Aspart (Insulin Aspart (Novolog) 100 Unit/Ml Vial) 0 unit SQ Q6HR [facility]; Protocol Lisinopril (Lisinopril 20 Mg Tab) 20 mg PO DAILY [facility] Last Admin: 09/20/20 09:30 Dose: Not Given Documented by: Lorazepam (Lorazepam 2 Mg/Ml Inj) 1 mg IV Q2H PRN PRN Reason: Agitation or Acute Anxiety Last Admin: 09/19/20 18:03 Dose: 1 mg Documented by: Magnesium Oxide (Magnesium Oxide 400 Mg Tab) 400 mg PO DAILY [facility] Last Admin: 09/20/20 09:35 Dose: 400 mg Documented by: Methylprednisolone Sodium Succinate (Methylprednisolone Sod Succi 40 Mg/Ml 1 Ml Vial) 40 mg IV Q8HR [facility] Last Admin: 09/20/20 15:47 Dose: 40 mg Documented by: Metoprolol Tartrate (Metoprolol Tartrate 25 Mg Tab) 25 mg PO BID [facility] Last Admin: 09/20/20 09:31 Dose: Not Given Documented by: Multivitamins (Multivitamins, Thera 1 Each Tab) 1 each PO DAILY [facility] Last Admin: 09/20/20 09:35 Dose: 1 each Documented by: Naloxone HCl (Naloxone 0.4 Mg/Ml 1 Ml Vial) 0.2 mg IV Q2M PRN PRN Reason: Opioid Reversal Oseltamivir Phosphate (Oseltamivir 60 Mg/10 Ml Oral Syringe) 75 mg PO Q12HR [facility] Stop: 09/21/20 21:01 Rivaroxaban (Rivaroxaban 20 Mg Tab) 20 mg PO DAILY [facility] Last Admin: 09/20/20 09:31 Dose: 20 mg Documented by: Tamsulosin HCl (Tamsulosin 0.4 Mg Cap.Er.24h) 0.4 mg PO HS [facility] Last Admin: 09/19/20 21:26 Dose: 0.4 mg Documented by: Zinc Sulfate (Zinc Sulfate 220 Mg Cap) 220 mg PO DAILY [facility] Last Admin: 09/20/20 09:35 Dose: 220 mg Documented by: Physical examination: VITAL SIGNS: 63, 23, 109/61, 94% on the ventilator GENERAL: , Laying in bed-intubated, PSYCH: Patient sedated Rest of exam as per nursing and pulmonary INVESTIGATIONS, reviewed in the clinical context: White count 8.5 hemoglobin 12.4 potassium 4.7 creatinine 0.7 CRP to 67 Chest x-ray film personally reviewed by me-bilateral infiltrates Previous testing White count 10.6 hemoglobin 14.3 platelets 196 potassium 4.1 creatinine 0.99 Lactic acid 2.5 Ferritin 2454, CRP 70.4 LDH 1513 pro-calcitonin 0.09 EKG tracing personally reviewed by me-no sinus rhythm Chest x-ray film personally reviewed by me-bilateral infiltrates Assessment: -COVID 19 pneumonia-worsening -Lactic acidosis type II from above -Acute hypoxic respiratory failure from above-now on ventilator support [intubated September 19] -worsening -Paroxysmal atrial fibrillation currently in sinus rhythm -Diabetes mellitus type 2 -Hyperlipidemia -Essential hypertension -Obstructive sleep apnea uses CPAP -Coronary artery disease with a CABG in 2005 and a cardiac catheterization in January 2020 showing nonsignificant disease -Acute COPD exacerbation in a ex-smoker Plan: Patient the ICU. Continue with bronchodilators, IV Solu-Medrol, IV propofol, Remdesivir has been ordered. On xarelto. IV fluids. Critical
[2020-09-20] MEDS: TAMSULOSIN 0.4 MG CAP.ER.24H PO SCH (21:06)
[2020-09-20] MEDS: OSELTAMIVIR 60 MG/10 ML ORAL SYRINGE PO SCH (21:07)
[2020-09-21] LABS: Glucose,Whole Blood 232 mg/dL (75-99)
[2020-09-21] MEDS: methylPREDNISolone SOD SUCCI 40 MG/ML 1 ML VIAL IV SCH ×4 (00:52→23:46)
[2020-09-21] MEDS: INSULIN ASPART (NovoLOG) 100 UNIT/ML VIAL SQ SCH ×5 (00:52→23:46)
[2020-09-21] MEDS: ALBUTEROL HFA INHALER INHALATION SCH ×4 (03:39→19:06)
[2020-09-21 05:07] LABS: ABG Base Excess -1.9 mmol/L; ABG HCO3 23 mmol/L (21-25); ABG Oxygen Saturation 96.9 % (94-97); ABG PCO2 37 mmHg (35-45); ABG PO2 88 mmHg (83-108); ABG TCO2 24 mmol/L (19-24); Allen Test Performed? Yes
[2020-09-21 05:37] LABS: Basophils % (A) 0 %; Eosinophils % (A) 0 %; HCT 33.5 % (39.0-53.0); HGB 11.2 gm/dL (13.0-17.5); Lymphocytes # (A) 0.2 k/uL (1.0-4.8); Lymphocytes % (A) 2 %; MCH 31.2 pg (25.0-35.0); MCHC 33.5 g/dL (31.0-37.0); MCV 93.2 fL (80.0-100.0); Mean Platelet Volume 8.3; Monocytes # (A) 0.2 k/uL (0-1.0); Monocytes % (A) 2 %; Neutrophils # (A) 9.3 k/uL (1.3-7.7); Neutrophils % (A) 96 %; Platelet Count 153 k/uL (150-450); RDW 13.3 % (11.5-15.5); WBC 9.7 k/uL (3.8-10.6)
[2020-09-21 05:43] LABS: ALT 65 U/L (4-49); AST 49 U/L (17-59); African American GFR (CKD) >90 (>60 ml/min/1.73 sqM); Albumin 2.1 g/dL (3.5-5.0); Alkaline Phosphatase 60 U/L (38-126); Anion Gap 4 mmol/L; Blood Urea Nitrogen 27 mg/dL (9-20); Calcium 8.1 mg/dL (8.4-10.2); Carbon Dioxide 23 mmol/L (22-30); Chloride 109 mmol/L (98-107); Glucose 223 mg/dL (74-99); Magnesium 2.5 mg/dL (1.6-2.3); Non-African American GFR(CKD) >90 (>60 ml/min/1.73 sqM); Sodium 136 mmol/L (137-145); Total Bilirubin 0.5 mg/dL (0.2-1.3); Total Protein 4.4 g/dL (6.3-8.2)
[2020-09-21 06:00] LABS: Glucose,Whole Blood 241 mg/dL (75-99)
[2020-09-21] MEDS: SODIUM CHLORIDE 0.9% 1,000 ML IV SCH ×2 (06:05→20:50)
[2020-09-21] MEDS ORDERED: NON FORMULARY DRUG (Dulaglutide [Trulicity] 0.75 MG/0.5 ML Pen.Injctr) SQ SCH (09:00)
--- NOTE | 2020-09-21 09:00 | XR ---
EXAMINATION TYPE: XR chest 1V portable DATE OF EXAM: 09/21/2020 COMPARISON: 09/20/2020 INDICATION: Tube placement TECHNIQUE: Single frontal view of the chest is obtained. FINDINGS: The heart size is normal. The pulmonary vasculature is normal. Is diffuse increased patchy infiltrates. Correlate for atypical pneumonia. There may be slight improv ement over the interval. Endotracheal tube tip is 3.8 cm above the claudia. Nasogastric tube transverses the thorax. Left centr al venous catheter tip is within the distal superior vena cava region. IMPRESSION: 1. Slight improvement of patchy bilateral lung infiltrates.
[2020-09-21] MEDS: CHLORHEXIDINE GLUCONATE 15 ML CUP MUCOUS MEM SCH ×2 (09:05→20:48)
[2020-09-21] MEDS: CHOLECALCIFEROL 1,000 UNIT TAB PO SCH (09:06)
[2020-09-21] MEDS: ZINC SULFATE 220 MG CAP PO SCH (09:06)
[2020-09-21] MEDS: ATORVASTATIN 80 MG TAB PO SCH (09:06)
[2020-09-21] MEDS: RIVAROXABAN 20 MG TAB PO SCH (09:06)
[2020-09-21] MEDS: ASCORBIC ACID 500 MG TAB PO SCH ×2 (09:06→20:47)
[2020-09-21] MEDS: MULTIVITAMINS, THERA 1 EACH TAB PO SCH (09:10)
[2020-09-21] MEDS: METOPROLOL TARTRATE 25 MG TAB PO SCH (10:37)
[2020-09-21] MEDS: OSELTAMIVIR 60 MG/10 ML ORAL SYRINGE PO SCH ×2 (10:43→23:46)
[2020-09-21] MEDS: REMDESIVIR 100 MG in SODIUM CHLORIDE 0.9% 250 ML IVPB SCH (10:44)
--- NOTE | 2020-09-21 11:02 | CDI ---
Documentation Clarification Form Date: 09/21/2020 10:11:18 AM From: Isela Hernandez RN CCDS Admit Date: 09/15/2020 06:18:00 PM Patient Name: Gilebrt Wyatt Visit Number: [id number] Discharge Date: ATTENTION: The Clinical Documentation Specialists (CDI) and [facility] Coding Staff appreciate your assistance in clarifying documentation. Please respond to the clarification below the line at the bottom and electronically sign. The CDI & [facility] Coding staff will review the response and follow-up if needed. Please note: Queries are made part of the Legal Health Record. If you have any questions, please contact the author of this message via ITS. Dr. Martina Rivera Altered Mental Status was documented in your progress note 09/19 History/Risk Factors: 75-year-old male presents to the ED with difficulty breathing tested positive for COVID out-patient September 07. Medical history DM, HLD, HTN and Sleep Apnea. Clinical Indicators: Admitted with Acute hypoxic respiratory failure; COVID 19; Influenza B 09/20 Pulmonary Progress Note: As mentioned earlier, the patient developed progressive worsening shortness of breath, altered mentation, confusion, oxygen saturation, tachypnea and tachycardia and respiratory failure with hypoxemia 09/15 CXR: Bilateral diffuse airspace disease, concerning for COVID Pneumonia 09/19 CXR: Redemonstrations of moderate right greater than left opacities predominantly in the mid to lower lungs. VSS: 09/15 Admission: B/P 97/67; HR 84; RR 24; SpO2 84% Room Air 09/16 RR 20; SpO2 87% 6L nasal cannula 09/18 RR 22; SpO2 92% 15L [id number] 09/19 RR 38; SpO2 97% BiPap FiO2 100 09/19 RR 42; SpO2 95% Mechanical Ventilation Treatment: 09/19 Solumedrol Iv Q 8Hr; ICU admission, Trialed on BiPap, Mechanical Ventilation In your professional opinion, please clarify the etiology of the Altered Mental Status, if known. Metabolic Encephalopathy secondary to (please specify) Other condition (please specify) Unable to determine (Last Revision: January 2018) Metabolic Encephalopathy secondary to COVID MTDD
[2020-09-21 11:42] LABS: Glucose,Whole Blood 249 mg/dL (75-99)
[2020-09-21] MEDS: DOFETILIDE 500 MCG CAP PO SCH (11:43)
[2020-09-21] MEDS: MAGNESIUM OXIDE 400 MG TAB PO SCH (11:43)
[2020-09-21] MEDS: lisinopriL 20 MG TAB PO SCH (12:27)
--- NOTE | 2020-09-21 12:37 | P.CRDCN ---
History of Present Illness History of present illness: HISTORY OF PRESENTING ILLNESS This is a pleasant 75-year-old male past medical history significant for paroxysmal atrial fibrillation status post cardioversion maintained on dofetilide, diabetes mellitus, hypertension, dyslipidemia, coronary bypass grafting and former nicotine dependence. He is currently in the hospital maintained on mechanical ventilation secondary to Covid 19 infection. We're asked to see the patient secondary to bradycardia. There is no office records o r information in [facility] regarding his past medical cardiac history. We are waiting for further information from his spouse. EKG on admission revealed sinus mechanism. Telemetry tracings over the previous 12 hours have revealed sinus bradycardia. Repeat EKG obtained last night revealed sinus bradycardia heart rate of 41 with a QTC of 486. Currently maintained on dofetilide 500 g twice a day, Lopressor 25 mg twice a day, lisinopril 20 mg daily, Xarelto 20 mg daily, Lasix 20 mg daily, daily magnesium supplementation and atorvastatin 80 mg daily. Laboratory data reviewed, WBC 9.7, hemoglobin 11.2, platelets 153, d- dimer 6.65, sodium 136, potassium 4.0, creatinine 0.7, magnesium 2.5, NT proBNP 570 and peripheral calcitonin 0.09. REVIEW OF SYSTEMS At the time of my exam: Unable to obtain secondary to mechanical ventilation and sedation PHYSICAL EXAMINATION Blood pressure 145/46 heart rate 62 afebrile and maintaining oxygen saturation on afebrile. CONSTITUTIONAL: No apparent distress. NEUROLOGIC EXAMINATION: Sedated and on mechanical ventilation. 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 Hold dofetilide, Lopressor and magnesium. Continue to monitor closely on telemetry for evidence of breakthrough a-fib while holding dofetilide. Thank you kindly for this consultation. Nurse Practitioner note has been reviewed, I agree with a documented findings and plan of care. Patient was seen and examined. Past Medical History Past Medical History: Atrial Fibrillation, Diabetes Mellitus, Hyperlipidemia, Hypertension, Prostate Disorder Additional Past Medical History / Comment(s): Cardioversion 10/2015 - 5 years without AFIB, iron deficiency anemia, sleep apnea with CPAP, heart catheterization January 2020, enlarged prostate History of Any Multi-Drug Resistant Organisms: None Reported Past Surgical History: Adenoidectomy, Cholecystectomy, Coronary Bypass/CABG, Heart Catheterization, Hernia Repair, Joint Replacement, Tonsillectomy Additional Past Surgical History / Comment(s): CABG x [address] [facility], bilateral knees replaced, cardioversion 10/2015, heart catheterization January 2020 Past Anesthesia/Blood Transfusion Reactions: Postoperative Nausea & Vomiting (PONV) Past Psychological History: PTSD Smoking Status: Former smoker Past Alcohol Use History: Occasional Additional Past Alcohol Use History / Comment(s): smoking: started 1963 stopped 2011. ETOH: "just social drinker" Past Drug Use History: None Reported - Past Family History Mother Family Medical History: Chest Pain / Angina, Coronary Artery Disease (CAD), Diabetes Mellitus, Hypertension Father Family Medical History: Chest Pain / Angina, Coronary Artery Disease (CAD), Diabetes Mellitus, Hypertension Medications and Allergies Home Medications Medication Instructions Recorded Confirmed Type Dofetilide [Tikosyn] 500 mcg PO BID 03/08/16 09/15/20 History Furosemide [Lasix] 20 mg PO DAILY 03/08/16 09/15/20 History Rivaroxaban [Xarelto] 20 mg PO DAILY 03/08/16 09/15/20 History Tamsulosin [Flomax] 0.4 mg PO HS 03/08/16 09/15/20 History metFORMIN HCL [Glucophage] 500 mg PO BID 03/08/16 09/15/20 History Multivitamins, Thera [Multivitamin 1 tab PO DAILY 08/23/16 09/15/20 History (formulary)] Cinnamon Bark [Cinnamon] 500 mg PO HS 04/21/18 09/15/20 History Atorvastatin [Lipitor] 80 mg PO DAILY 09/03/20 09/15/20 History Dulaglutide [Trulicity] 0.75 mg SQ MO 09/03/20 09/15/20 History Glimepiride [Amaryl] 2 mg PO BID 09/03/20 09/15/20 History Metoprolol Tartrate [Lopressor] 25 mg PO BID 09/03/20 09/15/20 History lisinopriL 20 mg PO DAILY 09/03/20 09/15/20 History Magnesium 300mg 300 mg PO DAILY 09/07/20 09/15/20 History Ascorbic Acid [Vitamin C] 1,000 mg PO DAILY #15 tablet 09/08/20 09/15/20 Rx Cholecalciferol [Vitamin D3 (25 1,000 unit PO DAILY #15 tablet 09/08/20 09/15/20 Rx Mcg = 1000 Iu)] Zinc 50 mg PO DAILY #15 tablet 09/08/20 09/15/20 Rx dexAMETHasone [Dexamethasone] 6 mg PO DAILY 09/15/20 09/15/20 History Allergies Allergy/AdvReac Type Severity Reaction Status Date / Time No Known Allergies Allergy Verified 09/15/20 18:21 Physical Exam Vitals: Vital Signs Temp Pulse Resp BP Pulse Ox 09/21/20 12:00 97.5 F L 62 25 H 95 09/21/20 11:00 43 L 24 94 L 09/21/20 10:00 50 L 18 94 L 09/21/20 09:00 66 18 91 L 09/21/20 08:00 97.3 F L 59 L 33 H 96 09/21/20 07:00 55 L 27 H 106/52 95 09/21/20 06:00 52 L 22 104/52 94 L 09/21/20 05:00 49 L 22 104/52 95 09/21/20 04:00 97.5 F L 47 L 23 111/50 94 L 09/21/20 03:00 47 L 24 94 L 09/21/20 02:00 48 L 25 H 97/46 95 09/21/20 01:00 56 L 27 H 97/46 95 09/21/20 00:00 97.5 F L 58 L 24 116/74 95 09/20/20 23:00 62 25 H 116/74 94 L 09/20/20 22:00 72 24 95/54 94 L 09/20/20 21:00 61 28 H 95/54 94 L 09/20/20 20:00 97.6 F 59 L 26 H 96/49 93 L 09/20/20 19:00 66 28 H 94 L 09/20/20 18:30 65 96/49 94 L 09/20/20 18:00 64 27 H 97/58 91 L 09/20/20 17:30 65 28 H 98/52 94 L 09/20/20 17:00 64 25 H 95/54 93 L 09/20/20 16:30 67 26 H 114/55 93 L 09/20/20 16:00 66 28 H 100/52 94 L 09/20/20 15:30 64 26 H 101/51 93 L 09/20/20 15:00 63 34 H 95/53 93 L 09/20/20 14:45 19 93 L 09/20/20 14:30 65 24 97/56 92 L 09/20/20 14:00 61 19 97/56 93 L 09/20/20 13:30 63 23 109/61 94 L 09/20/20 13:00 56 L 28 H 101/54 94 L 09/20/20 12:30 60 24 107/53 93 L Intake and Output 09/20/20 09/21/20 09/21/20 22:59 06:59 14:59 Intake Total 466.329 2884 925.864 Output Total 245 253 190 Balance 621.081 775 735.864 Intake: IV 618 642 655 Pressure bags 18 42 30 Remdesivir (Eua) 200 mg 250 In Sodium Chloride 0.9% 250 ml @ 250 mls/hr IVPB ONCE ONE Rx#:[id number] Sodium Chloride 0.9% 1, 600 600 375 000 ml @ 75 mls/hr IV . [id number] [facility] Rx#:[id number] Intake, IV Titration 148.081 200 190.864 Amount propofoL 1,000 mg In 148.081 200 190.864 Empty Bag 1 bag @ Titrate IV .Q0M [facility] Rx#: [id number] Tube Feeding 70 120 80 Lipid 6 Pressure bags 6 Other 30 60 Output: Urine 245 250 190 Stool 3 Other: Voiding Method Indwelling Catheter Indwelling Catheter Indwelling Catheter Weight 120.6 kg 123.7 kg ABP, PAP, CO, CI - Last 8 Hours Arterial Blood Pressure 145/46 Arterial Blood Pressure 120/38 Arterial Blood Pressure 132/40 Arterial Blood Pressure 124/39 Arterial Blood Pressure 159/54 Arterial Blood Pressure 124/40 Arterial Blood Pressure 134/50 Arterial Blood Pressure 130/48 Results 09/21/20 04:40 09/21/20 04:40 Cardiac Enzymes 09/21/20 Range/Units 04:40 AST 49 (17-59) U/L CBC 09/21/20 Range/Units 04:40 WBC 9.7 (3.8-10.6) k/uL RBC 3.60 L (4.30-5.90) m/uL Hgb 11.2 L (13.0-17.5) gm/dL Hct 33.5 L (39.0-53.0) % Plt Count 153 (150-450) k/uL Comprehensive Metabolic Panel 09/21/20 Range/Units 04:40 Sodium 136 L (137-145) mmol/L Potassium 4.0 (3.5-5.1) mmol/L Chloride 109 H (98-107) mmol/L Carbon Dioxide 23 (22-30) mmol/L BUN 27 H (9-20) mg/dL Creatinine 0.70 (0.66-1.25) mg/dL Glucose 223 H (74-99) mg/dL Calcium 8.1 L (8.4-10.2) mg/dL AST 49 (17-59) U/L ALT 65 H (4-49) U/L Alkaline Phosphatase 60 (38-126) U/L Total Protein 4.4 L (6.3-8.2) g/dL Albumin 2.1 L (3.5-5.0) g/dL Current Medications Generic Name Dose Route Start Last Admin Trade Name Freq PRN Reason Stop Dose Admin Acetaminophen 1,000 mg 09/15/20 18:19 Acetaminophen Tab 500 Mg Tab PO Q6HR PRN Fever>101 Albuterol Sulfate 2 puff 09/15/20 17:11 Albuterol Hfa Inhaler INHALATION RT-Q6H PRN Shortness Of Breath Or Wheezing Albuterol Sulfate 2 puff 09/15/20 21:00 09/21/20 07:41 Albuterol Hfa Inhaler INHALATION 2 puff RT-Q6H MICHOACANO Administration Ascorbic Acid 500 mg 09/15/20 21:00 09/21/20 09:06 Ascorbic Acid 500 Mg Tab PO 500 mg BID MICHOACANO Administration Atorvastatin Calcium 80 mg 09/16/20 09:00 09/21/20 09:06 Atorvastatin 80 Mg Tab PO 80 mg DAILY MICHOACANO Administration Chlorhexidine Gluconate 15 ml 09/19/20 21:00 09/21/20 09:05 Chlorhexidine Gluconate 15 Ml Cup MUCOUS MEM 15 ml BID MICHOACANO Administration Cholecalciferol 5,000 unit 09/16/20 09:00 09/21/20 09:06 Cholecalciferol 1,000 Unit Tab PO 5,000 unit DAILY MICHOACANO Administration Sodium Chloride 1,000 mls @ 75 mls/hr 09/15/20 18:30 09/21/20 06:05 Saline 0.9% IV 75 mls/hr .[id number] MICHOACANO Administration Propofol 1,000 mg/ IV Solution 100 mls @ 0 mls/hr 09/19/20 18:30 09/21/20 11:31 IV 41 mcg/kg/min .Q0M MICHOACANO 29.668 mls/hr Administration Protocol Titrate Remdesivir 100 mg/ Sodium 250 mls @ 250 mls/hr 09/21/20 11:00 09/21/20 10:44 Chloride IVPB 09/24/20 11:59 250 mls/hr DAILY@1100 MICHOACANO Administration Insulin Aspart 0 unit 09/20/20 18:00 09/21/20 06:08 Insulin Aspart (Novolog) 100 Unit/Ml Vial SQ 8 unit Q6HR MICHOACANO Administration Protocol Lisinopril 20 mg 09/16/20 09:00 09/20/20 09:30 Lisinopril 20 Mg Tab PO Not Given DAILY MICHOACANO Lorazepam 1 mg 09/19/20 14:27 09/19/20 18:03 Lorazepam 2 Mg/Ml Inj IV 1 mg Q2H PRN Administration Agitation or Acute Anxiety Methylprednisolone Sodium Succinate 40 mg 09/19/20 21:00 09/21/20 09:05 Methylprednisolone Sod Succi 40 Mg/Ml 1 Ml Vial IV 40 mg Q8HR MICHOACANO Administration Multivitamins 1 each 09/16/20 09:00 09/21/20 09:10 Multivitamins, Thera 1 Each Tab PO 1 each DAILY MICHOACANO Administration Naloxone HCl 0.2 mg 09/15/20 18:18 Naloxone 0.4 Mg/Ml 1 Ml Vial IV Q2M PRN Opioid Reversal Oseltamivir Phosphate 75 mg 09/20/20 21:00 09/21/20 10:43 Oseltamivir 60 Mg/10 Ml Oral Syringe PO 09/21/20 21:01 75 mg Q12HR MICHOACANO Administration Rivaroxaban 20 mg 09/16/20 09:00 09/21/20 09:06 Rivaroxaban 20 Mg Tab PO 20 mg DAILY MICHOACANO Administration Tamsulosin HCl 0.4 mg 09/16/20 21:00 09/20/20 21:06 Tamsulosin 0.4 Mg Cap.Er.24h PO 0.4 mg HS MICHOACANO Administration Zinc Sulfate 220 mg 09/16/20 09:00 09/21/20 09:06 Zinc Sulfate 220 Mg Cap PO 220 mg DAILY MICHOACANO Administration Intake and Output 09/20/20 09/21/20 09/21/20 22:59 06:59 14:59 Intake Total 043.556 5300 925.864 Output Total 245 253 190 Balance 621.081 775 735.864 Intake: IV 618 642 655 Pressure bags 18 42 30 Remdesivir (Eua) 200 mg 250 In Sodium Chloride 0.9% 250 ml @ 250 mls/hr IVPB ONCE ONE Rx#:[id number] Sodium Chloride 0.9% 1, 600 600 375 000 ml @ 75 mls/hr IV . [id number] [facility] Rx#:[id number] Intake, IV Titration 148.081 200 190.864 Amount propofoL 1,000 mg In 148.081 200 190.864 Empty Bag 1 bag @ Titrate IV .Q0M [facility] Rx#: [id number] Tube Feeding 70 120 80 Lipid 6 Pressure bags 6 Other 30 60 Output: Urine 245 250 190 Stool 3 Other: Voiding Method Indwelling Catheter Indwelling Catheter Indwelling Catheter Weight 120.6 kg 123.7 kg 09/21/20 04:40 09/21/20 04:40
[2020-09-21] MEDS: INSULIN DETEMIR (LEVEMIR) 100 UNIT/ML SYR SQ SCH (13:21)
[2020-09-21 13:32] LABS: T4, Free (Free Thyroxine) 1.18 ng/dL (0.78-2.19)
--- NOTE | 2020-09-21 15:23 | P.PN ---
Subjective Progress Note Date: 09/21/20 Principal diagnosis: Acute hypoxic respiratory failure secondary to covid 19 pneumonitis and influenza B infection. 75-year-old white male patient of Dr. Cornell Gasca who presented to the emergency department on 09/15/2020 with complaints of difficulty breathing. Patient tested positive for COVID 19 and influenza B on 09/07/2020. He is been progressively short of breath, has a dry nonproductive cough, he is unclear whether he is having fevers. He feels fatigued, denies any nausea vomiting or diarrhea, denies any abdominal pain, denies any history of chronic lung problem s. His past medical history positive for atrial fibrillation on anticoagulation, hypertension, hyperlipidemia, diabetes mellitus type 2, coronary artery disease with history of previous bypass grafting, he is a former smoker. His chest x-ray showed bilateral diffuse airspace disease, concerning for COVID 19 pneumonia. His labs were reviewed, showing lymphopenia with lymphocyte count of 0.2, lactic acid level of 2.5 which has subsequently increased to 4.0, ferritin level was 2454, AST and ALT were 87 and 67 respectively, Altace was 1513, and CRP was 70.4. Pro-calcitonin level was negative at 0.09. Decadron has been started at 6 mg daily, he is on IV hydration, with lactated Ringer's at 100 ML per hour. he is on oral anticoagulation in the form of Xarelto. Remains on 7 L of oxygen per high flow nasal cannula and the pulse ox is between 87-91%. Afebrile On 09/18/2020 patient seen in follow-up on general medical surgical floor. He is on 11 L of oxygen, his pulse ox is 89%, he is afebrile, hemodynamically is been stable, patient was out of the window for Remdesivir, he was started on Tamiflu, he is on oral anticoagulation in the form of Xarelto, no fever or chills, his d-dimer has increased, I came up to 2.31 on today's labs, his CRP has improved significantly and is down to 1.5, LDH level is pending, he is on oral Decadron, he is on IV hydration, nausea vomiting, no abdominal pain, he is tolerating oral intake. No, but the chest pain. The patient is seen today 09/19/2020 follow-up on the regular medical floor. He is currently sitting up in bed. He is somewhat confused and altered. He's been pulling off his hospital gown. Getting up out of bed without assistance. Uncooperative. He is pulling off his oxygen. He is only at 90% O2 saturation on 15 L high flow nasal cannula. Chest x-ray continues to show coarse interstitial infiltrates bilaterally. D-dimer 3.01. Sodium 143. Potassium 4.0. Creatinine 0.7. C-reactive protein 8.2. Pro-calcitonin 0.09. He remains on Tamiflu. Anticoagulated with Xarelto. 09/20/2020, the patient is being seen in follow-up in the intensive care unit. As mentioned earlier, the patient developed progressive worsening shortness of breath, altered mentation, confusion, oxygen saturation, tachypnea and tachycardia and respiratory failure with hypoxemia. The patient got transferred to the intensive care unit and overnight the patient had to be intubated and placed on a mechanical ventilator. Currently is intubated. Lisinopril running at 25 mg per KG per minute. He is an assist-control mode of ventilation at the rate of 18 with a tidal volume of 450 and FiO2 of 80% with a PEEP of 10. Peak airway pressures around 21. He was quite tachypneic with increased minute ventilation. He was urinating adequate amount of tidal volumes well on a mechanical ventilator on a Monday tidal volume of 550 which obviously dropped a respiratory rate down to the mid 20s. The patient is currently being treated with systemic steroids. The patient was also given a course of Tamiflu knowing that he was checked positive for influenza B. He has been out of the window for Rermdesivir treatment, and the treatment was declined by pharmacy. I contacted the pharmacy again and based on the decline in his respiratory status and progressive worsening his hypoxic respiratory failure, we'll need an exception to offer this patient a treatment to give him the benefit of the doubt. Also, the patient is on IV Solu-Medrol. He remains on zinc. He remains on vitamin C. The patient has received also units of convalescent plasma. He'll be started on enteral feeding for nutritional support. 2 triple-lumen catheter was established yesterday. He remains on Xarelto as a long-term anticoagulant that the patient has been taking. Reevaluated today on 09/21/20, patient remains in the ICU, intubated and mechanically ventilated. Ventilator settings are assist control rate of 18, fully in control +550, FiO2 of 70%, PEEP of 10, however after reviewing the ABG, PEEP was increased at 12, FiO2 down to 60%. ABG showed a pO2 of 88 pCO2 of 37 pH of 7.40. IV fluids at 75 mL per hour. Propofol at 41 g subcu per minute, patient is not requiring any pressors. He is on enteral feeding vital a PE with rate to 20 mL per hour. Goal is 58. Patient had a right IJ triple-lumen catheter, placed on 09/19, and left radial arterial line. Patient is receiving IV Solu-Medrol, also received remdesivir. Remains on zinc and vitamin C. He also received convalescent plasma. On enteral feeding. And on Xarelto long- term for anticoagulations therapy WBC count is 9.7 hemoglobin is 11.2. Electrolytes are normal. Chest x-ray shows bilateral interstitial infiltrates Objective - Vital Signs Vital signs: Vital Signs Temp 97.5 F L 09/21/20 12:00 Pulse 68 09/21/20 15:00 Resp 25 H 09/21/20 15:00 BP 106/52 09/21/20 07:00 Pulse Ox 95 09/21/20 15:00 Intake & Output 09/20/20 09/21/20 09/21/20 18:59 06:59 18:59 Intake Total 8821.430 2331.257 1051.296 Output Total 445 363 190 Balance 706.351 5739.257 861.296 Weight 120.6 kg 123.7 kg Intake: IV 960 960 655 Pressure bags 60 30 Remdesivir (Eua) 200 mg 250 250 In Sodium Chloride 0.9% 250 ml @ 250 mls/hr IVPB ONCE ONE Rx#:[id number] Sodium Chloride 0.9% 1, 710 900 375 000 ml @ 75 mls/hr IV . [id number] [facility] Rx#:[id number] Intake, IV Titration 220.743 279.257 286.296 Amount propofoL 1,000 mg In 220.743 279.257 286.296 Empty Bag 1 bag @ Titrate IV .Q0M [facility] Rx#: [id number] Tube Feeding 10 180 110 Lipid 6 Pressure bags 6 Other 90 90 Output: Urine 445 360 190 Stool 3 Other: Voiding Method Indwelling Catheter Indwelling Catheter Indwelling Catheter # Voids 2 ABP, PAP, CO, CI - Last Documented Arterial Blood Pressure 142/42 - Exam GENERAL EXAM: 75-year-old on mechanical ventilation. Sedated. HEAD: Normocephalic/atraumatic. HEENT: PERRLA, EOMI, no icterus. Endotracheal tube and orogastric tube are intact. CHEST: No chest wall deformity. Symmetrical expansion. LUNGS: Crackles and rhonchi noted bilaterally. CVS: Regular rate and rhythm, normal S1 and S2, no gallops, no murmurs, no rubs ABDOMEN: Soft, nontender. No hepatosplenomegaly, normal bowel sounds, no guarding or rigidity. EXTREMITIES: No clubbing, no edema, no cyanosis, 2+ pulses and upper and lower extremities. MUSCULOSKELETAL: Could not be assessed.. SKIN: No rashes CENTRAL NERVOUS SYSTEM: Sedated on mechanical ventilation, could not assess. PSYCHIATRIC: Could not assess - Labs CBC & Chem 7: 09/21/20 04:40 09/21/20 04:40 Labs: Abnormal Lab Results - Last 24 Hours (Table) 09/20/20 09/20/20 09/21/20 Range/Units 17:27 23:59 04:40 RBC 3.60 L (4.30-5.90) m/uL Hgb 11.2 L (13.0-17.5) gm/dL Hct 33.5 L (39.0-53.0) % Neutrophils # 9.3 H (1.3-7.7) k/uL Lymphocytes # 0.2 L (1.0-4.8) k/uL Sodium (137-145) mmol/L Chloride (98-107) mmol/L BUN (9-20) mg/dL Glucose (74-99) mg/dL POC Glucose (mg/dL) 186 H 232 H (75-99) mg/dL Calcium (8.4-10.2) mg/dL Magnesium (1.6-2.3) mg/dL ALT (4-49) U/L Total Protein (6.3-8.2) g/dL Albumin (3.5-5.0) g/dL TSH (0.465-4.680) mIU/L 09/21/20 09/21/20 09/21/20 Range/Units 04:40 04:40 05:59 RBC (4.30-5.90) m/uL Hgb (13.0-17.5) gm/dL Hct (39.0-53.0) % Neutrophils # (1.3-7.7) k/uL Lymphocytes # (1.0-4.8) k/uL Sodium 136 L (137-145) mmol/L Chloride 109 H (98-107) mmol/L BUN 27 H (9-20) mg/dL Glucose 223 H (74-99) mg/dL POC Glucose (mg/dL) 241 H (75-99) mg/dL Calcium 8.1 L (8.4-10.2) mg/dL Magnesium 2.5 H (1.6-2.3) mg/dL ALT 65 H (4-49) U/L Total Protein 4.4 L (6.3-8.2) g/dL Albumin 2.1 L (3.5-5.0) g/dL TSH 0.385 L (0.465-4.680) mIU/L 09/21/20 Range/Units 11:40 RBC (4.30-5.90) m/uL Hgb (13.0-17.5) gm/dL Hct (39.0-53.0) % Neutrophils # (1.3-7.7) k/uL Lymphocytes # (1.0-4.8) k/uL Sodium (137-145) mmol/L Chloride (98-107) mmol/L BUN (9-20) mg/dL Glucose (74-99) mg/dL POC Glucose (mg/dL) 249 H (75-99) mg/dL Calcium (8.4-10.2) mg/dL Magnesium (1.6-2.3) mg/dL ALT (4-49) U/L Total Protein (6.3-8.2) g/dL Albumin (3.5-5.0) g/dL TSH (0.465-4.680) mIU/L Microbiology - Last 24 Hours (Table) 09/19/20 19:36 Gram Stain - Final Sputum Sputum Culture - Final 09/15/20 17:01 Blood Culture - Preliminary Blood No Growth after 120 hours Assessment and Plan Assessment: Impression: Acute hypoxic respiratory failure secondary to covid 19 pneumonitis, and underlying influenza B infection. Chronic atrial fibrillation. Type 2 diabetes. Benign essential hypertension. Recommendation: Continue ventilatory support. Ventilator settings were adjusted accordingly. Continue nutritional support. Continue Decadron, vitamin C, zinc, Continue Tamiflu. Hemodynamic support if necessary. GI and DVT prophylaxis. Patient is not ready for any weaning trials at this point, We will reassess for weaning possibly in the next 24 hours. Remains critically ill, critical care time is greater than 30 minutes. Time with Patient: Greater than 30
[2020-09-21 18:09] LABS: Glucose,Whole Blood 249 mg/dL (75-99)
[2020-09-21] MEDS: TAMSULOSIN 0.4 MG CAP.ER.24H PO SCH (20:47)
--- NOTE | 2020-09-21 22:03 | P.PN ---
Progress Note - Text Progress Note Date: 09/21/20 Chief Complaint: Short of breath History of presenting complaint: This is a pleasant [address] Leon. Chronic stable medical conditions include atrial fibrillation, diabetes, hyperlipidemia, hypertension, BPH, obstructive sleep apnea uses CPAP. Patient's had cardioversion in 2015. Also known coronary artery disease with bypass in 2005. Also had a cardiac catheterization in January of this year. He was told and no blockages. Patient was here in the hospital from September 07 of September 08. Patient on the last visit presented to the ER for cough fever or shortness of breath with activity. He tested positive for COVID. Did not want to stay longer the hospital and decided to leave. Patient does take Savella to for his chronic A. fib. Patient's also was tested positive for COVID. She now presents with increasing shortness of breath. Pulse ox was found to be 85%. Slight headache. Patient's been having some loose stool also. Does feel weak, tired and rundown. Admitted with bilateral COVID 19 pneumonia, acute hypoxic respiratory failure, l actic acidosis type II. Patient was started on steroids, Lovenox, continued on Xarelto, bronchodilators. September 19 patient went into respiratory distress. Moved to the ICU. Intubated. Thcfx-IHW-alsfacfxe. ventilator-FiO2 16 a PEEP of 12. tube feeding at 30 mL an hour. Drips include IV propofol. Patient sedated. Review of systems: Patient intubated Active Medications Acetaminophen (Acetaminophen Tab 500 Mg Tab) 1,000 mg PO Q6HR PRN PRN Reason: Fever>101 Albuterol Sulfate (Albuterol Hfa Inhaler) 2 puff INHALATION RT-Q6H PRN PRN Reason: Shortness Of Breath Or Wheezing Albuterol Sulfate (Albuterol Hfa Inhaler) 2 puff INHALATION RT-Q6H FOR[facility], [facility] Last Admin: 09/21/20 19:06 Dose: 2 puff Documented by: Ascorbic Acid (Ascorbic Acid 500 Mg Tab) 500 mg PO BID [facility], [facility] Last Admin: 09/21/20 20:47 Dose: 500 mg Documented by: Atorvastatin Calcium (Atorvastatin 80 Mg Tab) 80 mg PO DAILY [facility], [facility] Last Admin: 09/21/20 09:06 Dose: 80 mg Documented by: Chlorhexidine Gluconate (Chlorhexidine Gluconate 15 Ml Cup) 15 ml MUCOUS MEM BID FOR[facility], [facility]1983 Last Admin: 09/21/20 20:48 Dose: 15 ml Documented by: Cholecalciferol (Cholecalciferol 1,000 Unit Tab) 5,000 unit PO DAILY [facility], [facility] Last Admin: 09/21/20 09:06 Dose: 5,000 unit Documented by: Sodium Chloride (Saline 0.9%) 1,000 mls @ 75 mls/hr IV .[id number] [facility], [facility] Last Admin: 09/21/20 20:50 Dose: 75 mls/hr Documented by: Propofol 1,000 mg/ IV Solution 100 mls @ 0 mls/hr IV .Q0M [facility], [facility]; Protocol Last Admin: 09/21/20 20:53 Dose: 41 mcg/kg/min, 29.668 mls/hr Documented by: Remdesivir 100 mg/ Sodium (Chloride) 250 mls @ 250 mls/hr IVPB DAILY@1100 [facility] Stop: 09/24/20 11:59 Last Admin: 09/21/20 10:44 Dose: 250 mls/hr Documented by: Insulin Aspart (Insulin Aspart (Novolog) 100 Unit/Ml Vial) 0 unit SQ Q6HR [facility], [facility]; Protocol Last Admin: 09/21/20 19:02 Dose: 8 unit Documented by: Insulin Detemir (Insulin Detemir (Levemir) 100 Unit/Ml Syr) 16 unit SQ DAILY@0700 [facility] Last Admin: 09/21/20 13:21 Dose: 16 unit Documented by: Lisinopril (Lisinopril 20 Mg Tab) 20 mg PO DAILY [facility] Last Admin: 09/21/20 12:27 Dose: 20 mg Documented by: Lorazepam (Lorazepam 2 Mg/Ml Inj) 1 mg IV Q2H PRN PRN Reason: Agitation or Acute Anxiety Last Admin: 09/19/20 18:03 Dose: 1 mg Documented by: Methylprednisolone Sodium Succinate (Methylprednisolone Sod Succi 40 Mg/Ml 1 Ml Vial) 40 mg IV Q8HR [facility], [facility] Last Admin: 09/21/20 16:22 Dose: 40 mg Documented by: Multivitamins (Multivitamins, Thera 1 Each Tab) 1 each PO DAILY [facility], [facility] Last Admin: 09/21/20 09:10 Dose: 1 each Documented by: Naloxone HCl (Naloxone 0.4 Mg/Ml 1 Ml Vial) 0.2 mg IV Q2M PRN PRN Reason: Opioid Reversal Rivaroxaban (Rivaroxaban 20 Mg Tab) 20 mg PO DAILY [facility] Last Admin: 09/21/20 09:06 Dose: 20 mg Documented by: Tamsulosin HCl (Tamsulosin 0.4 Mg Cap.Er.24h) 0.4 mg PO HS [facility], [facility] Last Admin: 09/21/20 20:47 Dose: 0.4 mg Documented by: Zinc Sulfate (Zinc Sulfate 220 Mg Cap) 220 mg PO DAILY [facility] Last Admin: 09/21/20 09:06 Dose: 220 mg Documented by: Physical examination: VITAL SIGNS: 98, 65, 25, 133/42, 94% on the ventilator GENERAL: , Laying in bed-intubated, PSYCH: Patient sedated Rest of exam as per nursing and pulmonary INVESTIGATIONS, reviewed in the clinical context: white count 9.7 hemoglobin 11.2potassium 4 creatinine 0.70 albumin 2.1 Chest x-ray film today-bilateral infiltrates Previous testing White count 10.6 hemoglobin 14.3 platelets 196 potassium 4.1 creatinine 0.99 Lactic acid 2.5 Ferritin 2454, CRP 70.4 LDH 1513 pro-calcitonin 0.09 EKG tracing personally reviewed by me-no sinus rhythm Chest x-ray film personally reviewed by me-bilateral infiltrates Assessment: -COVID 19 pneumonia-slow to respond -Lactic acidosis type II from above -Acute hypoxic respiratory failure from above-now on ventilator support [intubated September 19] -slow to respond -Paroxysmal atrial fibrillation currently in sinus rhythm -Diabetes mellitus type 2, uncontrolled with hyperglycemia secondary to steroids -Hyperlipidemia -Essential hypertension -Obstructive sleep apnea uses CPAP -Coronary artery disease with a CABG in 2005 and a cardiac catheterization in January 2020 showing nonsignificant disease -Acute COPD exacerbation in a ex-smoker Plan: Patient the ICU. Continue with bronchodilators, IV Solu-Medrol, IV propofol, Remdesivir , xarelto. prognosis guarded. Remains Critical
[2020-09-21 23:30] LABS: Glucose,Whole Blood 256 mg/dL (75-99)
[2020-09-22] MEDS: ALBUTEROL HFA INHALER INHALATION SCH ×4 (04:08→20:41)
[2020-09-22 04:23] LABS: Basophils % (A) 0 %; Eosinophils % (A) 0 %; HCT 33.5 % (39.0-53.0); HGB 10.9 gm/dL (13.0-17.5); Lymphocytes # (A) 0.1 k/uL (1.0-4.8); Lymphocytes % (A) 1 %; MCH 30.6 pg (25.0-35.0); MCHC 32.7 g/dL (31.0-37.0); MCV 93.6 fL (80.0-100.0); Mean Platelet Volume 8.6; Monocytes # (A) 0.3 k/uL (0-1.0); Monocytes % (A) 3 %; Neutrophils # (A) 8.8 k/uL (1.3-7.7); Neutrophils % (A) 95 %; Platelet Count 167 k/uL (150-450); RBC 3.57 m/uL (4.30-5.90); RDW 13.5 % (11.5-15.5); WBC 9.2 k/uL (3.8-10.6)
[2020-09-22 04:31] LABS: ALT 71 U/L (4-49); AST 45 U/L (17-59); African American GFR (CKD) >90 (>60 ml/min/1.73 sqM); Albumin 2.1 g/dL (3.5-5.0); Alkaline Phosphatase 54 U/L (38-126); Anion Gap 1 mmol/L; Blood Urea Nitrogen 31 mg/dL (9-20); Calcium 8.2 mg/dL (8.4-10.2); Carbon Dioxide 25 mmol/L (22-30); Chloride 111 mmol/L (98-107); Glucose 267 mg/dL (74-99); Magnesium 2.4 mg/dL (1.6-2.3); Non-African American GFR(CKD) >90 (>60 ml/min/1.73 sqM); Potassium 4.5 mmol/L (3.5-5.1); Sodium 137 mmol/L (137-145); Total Bilirubin 0.4 mg/dL (0.2-1.3); Total Protein 4.5 g/dL (6.3-8.2)
[2020-09-22 05:01] LABS: ABG Base Excess -1.3 mmol/L; ABG HCO3 23 mmol/L (21-25); ABG Oxygen Saturation 97.4 % (94-97); ABG PCO2 37 mmHg (35-45); ABG PH 7.41 (7.35-7.45); ABG PO2 90 mmHg (83-108); ABG TCO2 25 mmol/L (19-24); Allen Test Performed? Yes
[2020-09-22 06:18] LABS: Glucose,Whole Blood 246 mg/dL (75-99)
[2020-09-22] MEDS: INSULIN ASPART (NovoLOG) 100 UNIT/ML VIAL SQ SCH ×4 (06:36→23:33)
[2020-09-22] MEDS: INSULIN DETEMIR (LEVEMIR) 100 UNIT/ML SYR SQ SCH (06:37)
[2020-09-22] MEDS: RIVAROXABAN 20 MG TAB PO SCH (08:01)
[2020-09-22] MEDS: MULTIVITAMINS, THERA 1 EACH TAB PO SCH (08:01)
[2020-09-22] MEDS: ATORVASTATIN 80 MG TAB PO SCH (08:01)
[2020-09-22] MEDS: methylPREDNISolone SOD SUCCI 40 MG/ML 1 ML VIAL IV SCH ×3 (08:01→23:35)
[2020-09-22] MEDS: CHOLECALCIFEROL 1,000 UNIT TAB PO SCH (08:01)
[2020-09-22] MEDS: ZINC SULFATE 220 MG CAP PO SCH (08:01)
[2020-09-22] MEDS: CHLORHEXIDINE GLUCONATE 15 ML CUP MUCOUS MEM SCH ×2 (08:01→20:38)
[2020-09-22] MEDS: lisinopriL 20 MG TAB PO SCH (08:01)
[2020-09-22] MEDS: ASCORBIC ACID 500 MG TAB PO SCH ×2 (08:01→20:38)
--- NOTE | 2020-09-22 09:18 | XR ---
EXAMINATION TYPE: XR chest 1V portable DATE OF EXAM: 09/22/2020 Comparison: 09/21/2020 Clinical History: 75-year-old male Tube placement Findings: ET tube is satisfactory. Left IJ CVC tip at the lower SVC. NG tube sidehole at the level of the GE ju nction. Median sternotomy wires. Postoperative clips mediastinum. Heart upper limits of normal in siz e. Diffuse patchy airspace and interstitial opacities are unchanged. No sizable effusion. Impression: 1. NG tube side hole at the level of the GE junction. Recommend further advancement into the stomach. 2. Continued diffuse patchy airspace and interstitial infiltrates.
--- NOTE | 2020-09-22 11:10 | P.PN ---
Subjective HISTORY OF PRESENTING ILLNESS This is a pleasant 75-year-old male past medical history significant for paroxysmal atrial fibrillation status post cardioversion maintained on dofetilide, diabetes mellitus, hypertension, dyslipidemia, coronary bypass grafting and former nicotine dependence. He is currently in the hospital maintained on mechanical ventilation secondary to Covid 19 infection. We did not examine the patient due to active COVID 19 infection, information was obtained from the nursing staff and medical record review. He continues to have sinus bradycardia that seems to be associated with deep sedation. Blood pressure 149 /57 heart rate currently 65. Laboratory data reviewed, WBC 9.2, hemoglobin 10.9, platelets 167, sodium 137, potassium 4.5, creatinine 0.65 and magnesium 2.4. Currently maintained on atorvastatin 80 mg daily, lisinopril 20 mg daily and Xarelto 20 mg daily. 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 Continue to hold dofetilide, Lopressor and magnesium. Continue to monitor closely on telemetry for evidence of breakthrough a-fib while holding dofetilide. Nurse Practitioner note has been reviewed, I agree with a documented findings and plan of care. Patient was seen and examined. Objective - Vital Signs Vital signs: Vital Signs Temp 97.6 F 09/22/20 08:00 Pulse 65 09/22/20 10:00 Resp 24 09/22/20 10:00 BP 96/50 09/22/20 07:00 Pulse Ox 95 09/22/20 10:00 Intake & Output 09/21/20 09/22/20 09/22/20 18:59 06:59 18:59 Intake Total 7007.091 2569.477 284.515 Output Total 490 515 40 Balance 8530.877 1990.477 244.515 Weight 122.7 kg Intake: IV 1222 972 81 Pressure bags 72 72 6 Remdesivir (Eua) 200 mg 250 In Sodium Chloride 0.9% 250 ml @ 250 mls/hr IVPB ONCE ONE Rx#:[id number] Sodium Chloride 0.9% 1, 900 900 75 000 ml @ 75 mls/hr IV . [id number] [facility] Rx#:[id number] Intake, IV Titration 383.706 359.477 89.515 Amount propofoL 1,000 mg In 383.706 359.477 89.515 Empty Bag 1 bag @ Titrate IV .Q0M [facility] Rx#: [id number] Tube Feeding 140 418 114 Other 90 Output: Urine 490 515 40 Other: Voiding Method Indwelling Catheter Indwelling Catheter Indwelling Catheter ABP, PAP, CO, CI - Last Documented Arterial Blood Pressure 149/51 - Labs CBC & Chem 7: 09/22/20 04:00 09/22/20 04:00 Labs: Abnormal Lab Results - Last 24 Hours (Table) 09/21/20 09/21/20 09/21/20 Range/Units 04:40 11:40 18:07 RBC (4.30-5.90) m/uL Hgb (13.0-17.5) gm/dL Hct (39.0-53.0) % Neutrophils # (1.3-7.7) k/uL Lymphocytes # (1.0-4.8) k/uL ABG Total CO2 (19-24) mmol/L ABG O2 Saturation (94-97) % Chloride (98-107) mmol/L BUN (9-20) mg/dL Creatinine (0.66-1.25) mg/dL Glucose (74-99) mg/dL POC Glucose (mg/dL) 249 H 249 H (75-99) mg/dL Calcium (8.4-10.2) mg/dL Magnesium (1.6-2.3) mg/dL ALT (4-49) U/L Total Protein (6.3-8.2) g/dL Albumin (3.5-5.0) g/dL TSH 0.385 L (0.465-4.680) mIU/L 09/21/20 09/22/20 09/22/20 Range/Units 23:28 04:00 04:00 RBC 3.57 L (4.30-5.90) m/uL Hgb 10.9 L (13.0-17.5) gm/dL Hct 33.5 L (39.0-53.0) % Neutrophils # 8.8 H (1.3-7.7) k/uL Lymphocytes # 0.1 L (1.0-4.8) k/uL ABG Total CO2 (19-24) mmol/L ABG O2 Saturation (94-97) % Chloride 111 H (98-107) mmol/L BUN 31 H (9-20) mg/dL Creatinine 0.65 L (0.66-1.25) mg/dL Glucose 267 H (74-99) mg/dL POC Glucose (mg/dL) 256 H (75-99) mg/dL Calcium 8.2 L (8.4-10.2) mg/dL Magnesium 2.4 H (1.6-2.3) mg/dL ALT 71 H (4-49) U/L Total Protein 4.5 L (6.3-8.2) g/dL Albumin 2.1 L (3.5-5.0) g/dL TSH (0.465-4.680) mIU/L 09/22/20 09/22/20 Range/Units 04:56 06:17 RBC (4.30-5.90) m/uL Hgb (13.0-17.5) gm/dL Hct (39.0-53.0) % Neutrophils # (1.3-7.7) k/uL Lymphocytes # (1.0-4.8) k/uL ABG Total CO2 25 H (19-24) mmol/L ABG O2 Saturation 97.4 H (94-97) % Chloride (98-107) mmol/L BUN (9-20) mg/dL Creatinine (0.66-1.25) mg/dL Glucose (74-99) mg/dL POC Glucose (mg/dL) 246 H (75-99) mg/dL Calcium (8.4-10.2) mg/dL Magnesium (1.6-2.3) mg/dL ALT (4-49) U/L Total Protein (6.3-8.2) g/dL Albumin (3.5-5.0) g/dL TSH (0.465-4.680) mIU/L Microbiology - Last 24 Hours (Table) 09/15/20 17:01 Blood Culture - Final Blood No Growth after 144 hours 09/19/20 19:36 Gram Stain - Final Sputum Sputum Culture - Final
[2020-09-22 11:42] LABS: Glucose,Whole Blood 248 mg/dL (75-99)
[2020-09-22] MEDS: SODIUM CHLORIDE 0.9% 1,000 ML IV SCH ×2 (11:47→23:35)
[2020-09-22] MEDS: REMDESIVIR 100 MG in SODIUM CHLORIDE 0.9% 250 ML IVPB SCH (11:47)
--- NOTE | 2020-09-22 12:55 | P.PN ---
Subjective Progress Note Date: 09/22/20 Principal diagnosis: Acute hypoxic respiratory failure secondary to covid 19 pneumonitis and influenza B infection. 75-year-old white male patient of Dr. Cornell Gasca who presented to the emergency department on 09/15/2020 with complaints of difficulty breathing. Patient tested positive for COVID 19 and influenza B on 09/07/2020. He is been progressively short of breath, has a dry nonproductive cough, he is unclear whether he is having fevers. He feels fatigued, denies any nausea vomiting or diarrhea, denies any abdominal pain, denies any history of chronic lung problem s. His past medical history positive for atrial fibrillation on anticoagulation, hypertension, hyperlipidemia, diabetes mellitus type 2, coronary artery disease with history of previous bypass grafting, he is a former smoker. His chest x-ray showed bilateral diffuse airspace disease, concerning for COVID 19 pneumonia. His labs were reviewed, showing lymphopenia with lymphocyte count of 0.2, lactic acid level of 2.5 which has subsequently increased to 4.0, ferritin level was 2454, AST and ALT were 87 and 67 respectively, Altace was 1513, and CRP was 70.4. Pro-calcitonin level was negative at 0.09. Decadron has been started at 6 mg daily, he is on IV hydration, with lactated Ringer's at 100 ML per hour. he is on oral anticoagulation in the form of Xarelto. Remains on 7 L of oxygen per high flow nasal cannula and the pulse ox is between 87-91%. Afebrile On 09/18/2020 patient seen in follow-up on general medical surgical floor. He is on 11 L of oxygen, his pulse ox is 89%, he is afebrile, hemodynamically is been stable, patient was out of the window for Remdesivir, he was started on Tamiflu, he is on oral anticoagulation in the form of Xarelto, no fever or chills, his d-dimer has increased, I came up to 2.31 on today's labs, his CRP has improved significantly and is down to 1.5, LDH level is pending, he is on oral Decadron, he is on IV hydration, nausea vomiting, no abdominal pain, he is tolerating oral intake. No, but the chest pain. The patient is seen today 09/19/2020 follow-up on the regular medical floor. He is currently sitting up in bed. He is somewhat confused and altered. He's been pulling off his hospital gown. Getting up out of bed without assistance. Uncooperative. He is pulling off his oxygen. He is only at 90% O2 saturation on 15 L high flow nasal cannula. Chest x-ray continues to show coarse interstitial infiltrates bilaterally. D-dimer 3.01. Sodium 143. Potassium 4.0. Creatinine 0.7. C-reactive protein 8.2. Pro-calcitonin 0.09. He remains on Tamiflu. Anticoagulated with Xarelto. 09/20/2020, the patient is being seen in follow-up in the intensive care unit. As mentioned earlier, the patient developed progressive worsening shortness of breath, altered mentation, confusion, oxygen saturation, tachypnea and tachycardia and respiratory failure with hypoxemia. The patient got transferred to the intensive care unit and overnight the patient had to be intubated and placed on a mechanical ventilator. Currently is intubated. Lisinopril running at 25 mg per KG per minute. He is an assist-control mode of ventilation at the rate of 18 with a tidal volume of 450 and FiO2 of 80% with a PEEP of 10. Peak airway pressures around 21. He was quite tachypneic with increased minute ventilation. He was urinating adequate amount of tidal volumes well on a mechanical ventilator on a Monday tidal volume of 550 which obviously dropped a respiratory rate down to the mid 20s. The patient is currently being treated with systemic steroids. The patient was also given a course of Tamiflu knowing that he was checked positive for influenza B. He has been out of the window for Rermdesivir treatment, and the treatment was declined by pharmacy. I contacted the pharmacy again and based on the decline in his respiratory status and progressive worsening his hypoxic respiratory failure, we'll need an exception to offer this patient a treatment to give him the benefit of the doubt. Also, the patient is on IV Solu-Medrol. He remains on zinc. He remains on vitamin C. The patient has received also units of convalescent plasma. He'll be started on enteral feeding for nutritional support. 2 triple-lumen catheter was established yesterday. He remains on Xarelto as a long-term anticoagulant that the patient has been taking. Reevaluated today on 09/21/20, patient remains in the ICU, intubated and mechanically ventilated. Ventilator settings are assist control rate of 18, fully in control +550, FiO2 of 70%, PEEP of 10, however after reviewing the ABG, PEEP was increased at 12, FiO2 down to 60%. ABG showed a pO2 of 88 pCO2 of 37 pH of 7.40. IV fluids at 75 mL per hour. Propofol at 41 g subcu per minute, patient is not requiring any pressors. He is on enteral feeding with rate to 20 mL per hour. Goal is 58. Patient had a right IJ triple-lumen catheter, placed on 09/19, and left radial arterial line. Patient is receiving IV Solu- Medrol, also received remdesivir. Remains on zinc and vitamin C. He also received convalescent plasma. On enteral feeding. And on Xarelto long-term for anticoagulations therapy WBC count is 9.7 hemoglobin is 11.2. Electrolytes are normal. Chest x-ray shows bilateral interstitial infiltrates Reevaluated today on 09/22/20, remains in the ICU intubated and mechanically ventilated. Patient has ventilator settings are tidal volume is 550 assist- control rate of 18 FiO2 60% and PEEP of 12 ABG showed a pO2 of 90 pCO2 of 37 pH of 7.41 however based on that ABG I cut down the FiO2 to 55% kept him on a PEEP of 12. 80s on propofol at 45 mcg/kg/m 0.9 normal saline at 75 mL per hour not requiring any pressors. Remains on enteral tube feeding . CBC showed WBC count of 9.2 hemoglobin is 10.9. Electrolytes are normal chest x-ray showed evidence of bilateral multifocal airspace disease consistent with pneumonia. Objective - Vital Signs Vital signs: Vital Signs Temp 97.8 F 09/22/20 12:00 Pulse 58 L 09/22/20 12:00 Resp 25 H 09/22/20 12:00 BP 96/50 09/22/20 07:00 Pulse Ox 95 09/22/20 12:00 Intake & Output 09/21/20 09/22/20 09/22/20 18:59 06:59 18:59 Intake Total 5601.548 7112.477 777.859 Output Total 490 515 345 Balance 7370.882 8745.477 432.859 Weight 122.7 kg Intake: IV 1222 972 486 Pressure bags 72 72 36 Remdesivir (Eua) 200 mg 250 In Sodium Chloride 0.9% 250 ml @ 250 mls/hr IVPB ONCE ONE Rx#:[id number] Sodium Chloride 0.9% 1, 900 900 450 000 ml @ 75 mls/hr IV . [id number] [facility] Rx#:[id number] Intake, IV Titration 383.706 359.477 177.859 Amount propofoL 1,000 mg In 383.706 359.477 177.859 Empty Bag 1 bag @ Titrate IV .Q0M [facility] Rx#: [id number] Tube Feeding 140 418 114 Other 90 Output: Urine 490 515 345 Other: Voiding Method Indwelling Catheter Indwelling Catheter Indwelling Catheter ABP, PAP, CO, CI - Last Documented Arterial Blood Pressure 137/48 - Exam GENERAL EXAM: 75-year-old on mechanical ventilation. Sedated. HEAD: Normocephalic/atraumatic. HEENT: PERRLA, EOMI, no icterus. Endotracheal tube and orogastric tube are intact. CHEST: No chest wall deformity. Symmetrical expansion. LUNGS: Crackles and rhonchi noted bilaterally. CVS: Regular rate and rhythm, normal S1 and S2, no gallops, no murmurs, no rubs ABDOMEN: Soft, nontender. No hepatosplenomegaly, normal bowel sounds, no guarding or rigidity. EXTREMITIES: No clubbing, no edema, no cyanosis, 2+ pulses and upper and lower extremities. MUSCULOSKELETAL: Could not be assessed.. SKIN: No rashes CENTRAL NERVOUS SYSTEM: Sedated on mechanical ventilation, could not assess. PSYCHIATRIC: Could not assess - Labs CBC & Chem 7: 09/22/20 04:00 09/22/20 04:00 Labs: Abnormal Lab Results - Last 24 Hours (Table) 09/21/20 09/21/20 09/22/20 Range/Units 18:07 23:28 04:00 RBC 3.57 L (4.30-5.90) m/uL Hgb 10.9 L (13.0-17.5) gm/dL Hct 33.5 L (39.0-53.0) % Neutrophils # 8.8 H (1.3-7.7) k/uL Lymphocytes # 0.1 L (1.0-4.8) k/uL ABG Total CO2 (19-24) mmol/L ABG O2 Saturation (94-97) % Chloride (98-107) mmol/L BUN (9-20) mg/dL Creatinine (0.66-1.25) mg/dL Glucose (74-99) mg/dL POC Glucose (mg/dL) 249 H 256 H (75-99) mg/dL Calcium (8.4-10.2) mg/dL Magnesium (1.6-2.3) mg/dL ALT (4-49) U/L Total Protein (6.3-8.2) g/dL Albumin (3.5-5.0) g/dL 09/22/20 09/22/20 09/22/20 Range/Units 04:00 04:56 06:17 RBC (4.30-5.90) m/uL Hgb (13.0-17.5) gm/dL Hct (39.0-53.0) % Neutrophils # (1.3-7.7) k/uL Lymphocytes # (1.0-4.8) k/uL ABG Total CO2 25 H (19-24) mmol/L ABG O2 Saturation 97.4 H (94-97) % Chloride 111 H (98-107) mmol/L BUN 31 H (9-20) mg/dL Creatinine 0.65 L (0.66-1.25) mg/dL Glucose 267 H (74-99) mg/dL POC Glucose (mg/dL) 246 H (75-99) mg/dL Calcium 8.2 L (8.4-10.2) mg/dL Magnesium 2.4 H (1.6-2.3) mg/dL ALT 71 H (4-49) U/L Total Protein 4.5 L (6.3-8.2) g/dL Albumin 2.1 L (3.5-5.0) g/dL 09/22/20 Range/Units 11:40 RBC (4.30-5.90) m/uL Hgb (13.0-17.5) gm/dL Hct (39.0-53.0) % Neutrophils # (1.3-7.7) k/uL Lymphocytes # (1.0-4.8) k/uL ABG Total CO2 (19-24) mmol/L ABG O2 Saturation (94-97) % Chloride (98-107) mmol/L BUN (9-20) mg/dL Creatinine (0.66-1.25) mg/dL Glucose (74-99) mg/dL POC Glucose (mg/dL) 248 H (75-99) mg/dL Calcium (8.4-10.2) mg/dL Magnesium (1.6-2.3) mg/dL ALT (4-49) U/L Total Protein (6.3-8.2) g/dL Albumin (3.5-5.0) g/dL Microbiology - Last 24 Hours (Table) 09/15/20 17:01 Blood Culture - Final Blood No Growth after 144 hours 09/19/20 19:36 Gram Stain - Final Sputum Sputum Culture - Final Assessment and Plan Assessment: Impression: Acute hypoxic respiratory failure secondary to covid 19 pneumonitis, and underlying influenza B infection. Chronic atrial fibrillation. Type 2 diabetes. Benign essential hypertension. Recommendation: Continue ventilatory support. Not ready for weaning at this point, however I was able to cut down the FiO2 to 55%. Ventilator settings were adjusted accordingly. Continue nutritional support. Continue Decadron, vitamin C, zinc, Continue Tamiflu. Hemodynamic support if necessary. GI and DVT prophylaxis. Patient is not ready for any weaning trials at this point, Remains critically ill, critical care time is greater than 34minutes. Time with Patient: Greater than 30
[2020-09-22 18:01] LABS: Glucose,Whole Blood 213 mg/dL (75-99)
[2020-09-22] MEDS: NYSTATIN 100,000 UNIT/ML SUSP 500,000 UNIT/5 ML CUP PO SCH ×2 (18:17→20:38)
--- NOTE | 2020-09-22 18:59 | P.PN ---
Progress Note - Text Progress Note Date: 09/22/20 Chief Complaint: Short of breath History of presenting complaint: This is a pleasant [address] Leon. Chronic stable medical conditions include atrial fibrillation, diabetes, hyperlipidemia, hypertension, BPH, obstructive sleep apnea uses CPAP. Patient's had cardioversion in 2015. Also known coronary artery disease with bypass in 2005. Also had a cardiac catheterization in January of this year. He was told and no blockages. Patient was here in the hospital from September 07 of September 08. Patient on the last visit presented to the ER for cough fever or shortness of breath with activity. He tested positive for COVID. Did not want to stay longer the hospital and decided to leave. Patient does take Savella to for his chronic A. fib. Patient's also was tested positive for COVID. She now presents with increasing shortness of breath. Pulse ox was found to be 85%. Slight headache. Patient's been having some loose stool also. Does feel weak, tired and rundown. Admitted with bilateral COVID 19 pneumonia, acute hypoxic respiratory failure, l actic acidosis type II. Patient was started on steroids, Lovenox, continued on Xarelto, bronchodilators. September 19 patient went into respiratory distress. Moved to the ICU. Intubated. [id number]. ventilator-FiO2 55 and a PEEP of 10. Bradycardia. Patient is on IV propofol. Sedated. Review of systems: Patient intubated Active Medications Acetaminophen (Acetaminophen Tab 500 Mg Tab) 1,000 mg PO Q6HR PRN PRN Reason: Fever>101 Albuterol Sulfate (Albuterol Hfa Inhaler) 2 puff INHALATION RT-Q6H PRN PRN Reason: Shortness Of Breath Or Wheezing Albuterol Sulfate (Albuterol Hfa Inhaler) 2 puff INHALATION RT-Q6H [facility] Last Admin: 09/22/20 16:09 Dose: 2 puff Documented by: Ascorbic Acid (Ascorbic Acid 500 Mg Tab) 500 mg PO BID [facility] Last Admin: 09/22/20 08:01 Dose: 500 mg Documented by: Atorvastatin Calcium (Atorvastatin 80 Mg Tab) 80 mg PO DAILY [facility] Last Admin: 09/22/20 08:01 Dose: 80 mg Documented by: Chlorhexidine Gluconate (Chlorhexidine Gluconate 15 Ml Cup) 15 ml MUCOUS MEM BID [facility] Last Admin: 09/22/20 08:01 Dose: 15 ml Documented by: Cholecalciferol (Cholecalciferol 1,000 Unit Tab) 5,000 unit PO DAILY [facility] Last Admin: 09/22/20 08:01 Dose: 5,000 unit Documented by: Sodium Chloride (Saline 0.9%) 1,000 mls @ 75 mls/hr IV .[id number] [facility] Last Admin: 09/22/20 11:47 Dose: 75 mls/hr Documented by: Propofol 1,000 mg/ IV Solution 100 mls @ 0 mls/hr IV .Q0M [facility]; Protocol Last Admin: 09/22/20 18:17 Dose: 41 mcg/kg/min, 30.184 mls/hr Documented by: Remdesivir 100 mg/ Sodium (Chloride) 250 mls @ 250 mls/hr IVPB DAILY@1100 [facility] Stop: 09/24/20 11:59 Last Admin: 09/22/20 11:47 Dose: 250 mls/hr Documented by: Insulin Aspart (Insulin Aspart (Novolog) 100 Unit/Ml Vial) 0 unit SQ Q6HR [facility]; Protocol Last Admin: 09/22/20 18:16 Dose: 6 unit Documented by: Insulin Detemir (Insulin Detemir (Levemir) 100 Unit/Ml Syr) 16 unit SQ DAILY@0700 [facility] Last Admin: 09/22/20 06:37 Dose: 16 unit Documented by: Lisinopril (Lisinopril 20 Mg Tab) 20 mg PO DAILY [facility] Last Admin: 09/22/20 08:01 Dose: 20 mg Documented by: Lorazepam (Lorazepam 2 Mg/Ml Inj) 1 mg IV Q2H PRN PRN Reason: Agitation or Acute Anxiety Last Admin: 09/19/20 18:03 Dose: 1 mg Documented by: Methylprednisolone Sodium Succinate (Methylprednisolone Sod Succi 40 Mg/Ml 1 Ml Vial) 40 mg IV Q8HR [facility] Last Admin: 09/22/20 15:46 Dose: 40 mg Documented by: Multivitamins (Multivitamins, Thera 1 Each Tab) 1 each PO DAILY [facility] Last Admin: 09/22/20 08:01 Dose: 1 each Documented by: Naloxone HCl (Naloxone 0.4 Mg/Ml 1 Ml Vial) 0.2 mg IV Q2M PRN PRN Reason: Opioid Reversal Nystatin (Nystatin 100,000 Unit/Ml Susp 500,000 Unit/5 Ml Cup) 500,000 unit PO QID [facility] Last Admin: 09/22/20 18:17 Dose: 500,000 unit Documented by: Rivaroxaban (Rivaroxaban 20 Mg Tab) 20 mg PO DAILY [facility] Last Admin: 09/22/20 08:01 Dose: 20 mg Documented by: Tamsulosin HCl (Tamsulosin 0.4 Mg Cap.Er.24h) 0.4 mg PO HS [facility] Last Admin: 09/21/20 20:47 Dose: 0.4 mg Documented by: Zinc Sulfate (Zinc Sulfate 220 Mg Cap) 220 mg PO DAILY [facility] Last Admin: 09/22/20 08:01 Dose: 220 mg Documented by: Physical examination: VITAL SIGNS: 97.8, 58, 25, 130s and by 48, 95% on the ventilator GENERAL: , Laying in bed-intubated, PSYCH: Patient sedated Rest of exam as per nursing and pulmonary INVESTIGATIONS, reviewed in the clinical context: White count 9.2 hemoglobin 10.9 lymphocytes 0.1 potassium 4.5 creatinine 0.65 blood glucose 267 albumin 2.1 Chest x-ray film today-bilateral infiltrates Previous testing White count 10.6 hemoglobin 14.3 platelets 196 potassium 4.1 creatinine 0.99 Lactic acid 2.5 Ferritin 2454, CRP 70.4 LDH 1513 pro-calcitonin 0.09 EKG tracing personally reviewed by me-no sinus rhythm Chest x-ray film personally reviewed by me-bilateral infiltrates Assessment: -COVID 19 pneumonia-slow to respond -Lactic acidosis type II from above -Acute hypoxic respiratory failure from above-now on ventilator support [intubated September 19] -slow to respond -Paroxysmal atrial fibrillation currently in sinus rhythm -Diabetes mellitus type 2, uncontrolled with hyperglycemia secondary to steroids -Hyperlipidemia -Essential hypertension -Obstructive sleep apnea uses CPAP -Coronary artery disease with a CABG in 2005 and a cardiac catheterization in January 2020 showing nonsignificant disease -Acute COPD exacerbation in a ex-smoker Plan: Patient the ICU. Continue with bronchodilators, IV Solu-Medrol, IV propofol, Remdesivir , xarelto. prognosis remains guarded. And critical.
[2020-09-22] MEDS: TAMSULOSIN 0.4 MG CAP.ER.24H PO SCH (20:38)
[2020-09-22 23:28] LABS: Glucose,Whole Blood 218 mg/dL (75-99)
[2020-09-23] MEDS: ALBUTEROL HFA INHALER INHALATION SCH ×4 (04:36→21:16)
[2020-09-23 04:57] LABS: Basophils % (A) 0 %; Eosinophils % (A) 0 %; HCT 37.1 % (39.0-53.0); HGB 11.8 gm/dL (13.0-17.5); Lymphocytes # (A) 0.2 k/uL (1.0-4.8); Lymphocytes % (A) 2 %; MCHC 31.9 g/dL (31.0-37.0); MCV 93.8 fL (80.0-100.0); Mean Platelet Volume 8.2; Monocytes # (A) 0.2 k/uL (0-1.0); Monocytes % (A) 2 %; Neutrophils % (A) 96 %; Platelet Count 186 k/uL (150-450); RBC 3.95 m/uL (4.30-5.90); RDW 13.6 % (11.5-15.5); WBC 8.4 k/uL (3.8-10.6)
[2020-09-23 05:15] LABS: ALT 65 U/L (4-49); AST 41 U/L (17-59); African American GFR (CKD) >90 (>60 ml/min/1.73 sqM); Albumin 2.2 g/dL (3.5-5.0); Alkaline Phosphatase 64 U/L (38-126); Anion Gap 1 mmol/L; Blood Urea Nitrogen 28 mg/dL (9-20); Calcium 8.5 mg/dL (8.4-10.2); Carbon Dioxide 24 mmol/L (22-30); Chloride 112 mmol/L (98-107); Glucose 230 mg/dL (74-99); Magnesium 2.3 mg/dL (1.6-2.3); Non-African American GFR(CKD) >90 (>60 ml/min/1.73 sqM); Potassium 4.7 mmol/L (3.5-5.1); Sodium 137 mmol/L (137-145); Total Bilirubin 0.4 mg/dL (0.2-1.3); Total Protein 4.7 g/dL (6.3-8.2)
[2020-09-23 05:23] LABS: ABG Base Excess -2.4 mmol/L; ABG HCO3 22 mmol/L (21-25); ABG Oxygen Saturation 94.1 % (94-97); ABG PCO2 36 mmHg (35-45); ABG PO2 71 mmHg (83-108); ABG TCO2 23 mmol/L (19-24)
[2020-09-23 06:06] LABS: Glucose,Whole Blood 210 mg/dL (75-99)
[2020-09-23] MEDS: INSULIN ASPART (NovoLOG) 100 UNIT/ML VIAL SQ SCH ×4 (06:22→23:58)
[2020-09-23] MEDS: INSULIN DETEMIR (LEVEMIR) 100 UNIT/ML SYR SQ SCH (06:23)
--- NOTE | 2020-09-23 06:56 | XR ---
EXAMINATION TYPE: XR chest 1V portable DATE OF EXAM: 09/23/2020 COMPARISON: 09/22/2020 HISTORY: SOB, Follow Up FINDINGS: Indwelling tubes and catheters are unchanged. Scattered bilateral airspace infiltrates are unchanged. Stable appearance of the cardio-mediastinal structures at this time. IMPRESSION: 1. Stable portable chest. Clinical correlation and follow up until resolution is recommended.
[2020-09-23] MEDS: methylPREDNISolone SOD SUCCI 40 MG/ML 1 ML VIAL IV SCH ×3 (08:08→23:59)
[2020-09-23] MEDS: ASCORBIC ACID 500 MG TAB PO SCH ×2 (08:09→21:06)
[2020-09-23] MEDS: ATORVASTATIN 80 MG TAB PO SCH (08:09)
[2020-09-23] MEDS: lisinopriL 20 MG TAB PO SCH (08:10)
[2020-09-23] MEDS: MULTIVITAMINS, THERA 1 EACH TAB PO SCH (08:10)
[2020-09-23] MEDS: NYSTATIN 100,000 UNIT/ML SUSP 500,000 UNIT/5 ML CUP PO SCH ×4 (08:10→21:27)
[2020-09-23] MEDS: CHLORHEXIDINE GLUCONATE 15 ML CUP MUCOUS MEM SCH ×2 (08:10→21:06)
[2020-09-23] MEDS: RIVAROXABAN 20 MG TAB PO SCH (08:10)
[2020-09-23] MEDS: CHOLECALCIFEROL 1,000 UNIT TAB PO SCH (08:10)
[2020-09-23] MEDS: ZINC SULFATE 220 MG CAP PO SCH (08:12)
[2020-09-23] MEDS: DOPamine DRIP 800 MG in DEXTROSE/WATER 1 250ML.BAG IV SCH (09:37)
[2020-09-23] MEDS: REMDESIVIR 100 MG in SODIUM CHLORIDE 0.9% 250 ML IVPB SCH (10:55)
[2020-09-23 12:06] LABS: Glucose,Whole Blood 198 mg/dL (75-99)
[2020-09-23] MEDS: SODIUM CHLORIDE 0.9% 1,000 ML IV SCH ×2 (12:26→21:06)
--- NOTE | 2020-09-23 13:26 | ECHOF ---
Referral Reason:Bradycardia MEASUREMENTS -------- HEIGHT: 177.8 cm WEIGHT: 127.5 kg BP: 129/40 IVSd: 1.2 cm (0.6 - 1.1) LVIDd: 5.2 cm (3.9 - 5.3) LVPWd: 1.3 cm (0.6 - 1.1) EDV(Teich): 127 ml IVSs: 2.0 cm LVIDs: 3.4 cm LVPWs: 1.8 cm %IVS Thck: 66 % ESV(Teich): 48 ml EF(Teich): 62 % %FS: 34 % SV(Teich): 79 ml LA Diam: 4.3 cm (2.7 - 3.8) RVIDd: 3.8 cm (< 3.3) LALs A4C: 6.8 cm LAAs A4C: 30.6 cm LAESV A-L A4C: 117 ml LAESV MOD A4C: 114 ml LALs A2C: 7.4 cm LAAs A2C: 28.2 cm LAESV A-L A2C: 92 ml LAESV MOD A2C: 87 ml LAESV(A-L): 108 ml LAESV Index (A-L): 44.71 ml/m Ao Diam: 4.4 cm (2.0 - 3.7) AV Cusp: 2.1 cm (1.5 - 2.6) EPSS: 0.8 cm MV E Laureano: 1.08 m/s MV DecT: 169 ms MV Dec Knott: 6.4 m/s MV A Laureano: 0.44 m/s MV E/A Ratio: 2.47 MV PHT: 49 ms AV Vmax: 1.13 m/s AV maxP.09 mmHg TR Vmax: 2.83 m/s TR maxP.12 mmHg RAP: 15.00 mmHg RVSP: 47.12 mmHg MV EF SLOPE: 121.52 mm/s (70 - 150) MV EXCURSION: 25.77 mm (> 18.000) FINDINGS -------- Sinus rhythm. This was a technically adequate study. The left ventricular size is normal. There is mild concentric left ventricular hypertrophy. Overa ll left ventricular systolic function is normal with, an EF between 55 - 60 %. The right ventricle is mild to moderately enlarged. LA is severely dilated >40 ml/m2 The right atrium is normal in size. Lumason used Interatrial and interventricular septum intact. There is mild aortic valve sclerosis. There is mild aortic regurgitation. Mild mitral annular calcification present. Mild tricuspid regurgitation present. There is moderate pulmonary hypertension. The right ventric ular systolic pressure, as measured by Doppler, is 47.12mmHg. Trace/mild (physiologic) pulmonic regurgitation. 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 The inferior vena cava is dilated with poor inspiratory collapse which is consistent with estimated r ight atrial pressure of 15 mmHg. There is no pericardial effusion. CONCLUSIONS -------- 1. The left ventricular size is normal. 2. There is mild concentric left ventricular hypertrophy. 3. Overall left ventricular systolic function is normal with, an EF between 55 - 60 %. 4. The right ventricle is mild to moderately enlarged. 5. LA is severely dilated >40 ml/m2 6. Lumason used 7. There is mild aortic valve sclerosis. 8. There is mild aortic regurgitation. 9. Mild tricuspid regurgitation present. 10. There is moderate pulmonary hypertension. 11. The right ventricular systolic pressure, as measured by Doppler, is 47.12mmHg. 12. Trace/mild (physiologic) pulmonic regurgitation. 13. 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 14. The inferior vena cava is dilated with poor inspiratory collapse which is consistent with estimat ed right atrial pressure of 15 mmHg. 15. There is no pericardial effusion. AIR QUALITY CONSULTANT: Radha Olivas RDCS
--- NOTE | 2020-09-23 15:18 | P.PN ---
Subjective Progress Note Date: 09/23/20 Principal diagnosis: Acute hypoxic respiratory failure secondary to covid 19 pneumonitis and influenza B infection. 75-year-old white male patient of Dr. Cornell Gasca who presented to the emergency department on 09/15/2020 with complaints of difficulty breathing. Patient tested positive for COVID 19 and influenza B on 09/07/2020. He is been progressively short of breath, has a dry nonproductive cough, he is unclear whether he is having fevers. He feels fatigued, denies any nausea vomiting or diarrhea, denies any abdominal pain, denies any history of chronic lung problem s. His past medical history positive for atrial fibrillation on anticoagulation, hypertension, hyperlipidemia, diabetes mellitus type 2, coronary artery disease with history of previous bypass grafting, he is a former smoker. His chest x-ray showed bilateral diffuse airspace disease, concerning for COVID 19 pneumonia. His labs were reviewed, showing lymphopenia with lymphocyte count of 0.2, lactic acid level of 2.5 which has subsequently increased to 4.0, ferritin level was 2454, AST and ALT were 87 and 67 respectively, Altace was 1513, and CRP was 70.4. Pro-calcitonin level was negative at 0.09. Decadron has been started at 6 mg daily, he is on IV hydration, with lactated Ringer's at 100 ML per hour. he is on oral anticoagulation in the form of Xarelto. Remains on 7 L of oxygen per high flow nasal cannula and the pulse ox is between 87-91%. Afebrile On 09/18/2020 patient seen in follow-up on general medical surgical floor. He is on 11 L of oxygen, his pulse ox is 89%, he is afebrile, hemodynamically is been stable, patient was out of the window for Remdesivir, he was started on Tamiflu, he is on oral anticoagulation in the form of Xarelto, no fever or chills, his d-dimer has increased, I came up to 2.31 on today's labs, his CRP has improved significantly and is down to 1.5, LDH level is pending, he is on oral Decadron, he is on IV hydration, nausea vomiting, no abdominal pain, he is tolerating oral intake. No, but the chest pain. The patient is seen today 09/19/2020 follow-up on the regular medical floor. He is currently sitting up in bed. He is somewhat confused and altered. He's been pulling off his hospital gown. Getting up out of bed without assistance. Uncooperative. He is pulling off his oxygen. He is only at 90% O2 saturation on 15 L high flow nasal cannula. Chest x-ray continues to show coarse interstitial infiltrates bilaterally. D-dimer 3.01. Sodium 143. Potassium 4.0. Creatinine 0.7. C-reactive protein 8.2. Pro-calcitonin 0.09. He remains on Tamiflu. Anticoagulated with Xarelto. 09/20/2020, the patient is being seen in follow-up in the intensive care unit. As mentioned earlier, the patient developed progressive worsening shortness of breath, altered mentation, confusion, oxygen saturation, tachypnea and tachycardia and respiratory failure with hypoxemia. The patient got transferred to the intensive care unit and overnight the patient had to be intubated and placed on a mechanical ventilator. Currently is intubated. Lisinopril running at 25 mg per KG per minute. He is an assist-control mode of ventilation at the rate of 18 with a tidal volume of 450 and FiO2 of 80% with a PEEP of 10. Peak airway pressures around 21. He was quite tachypneic with increased minute ventilation. He was urinating adequate amount of tidal volumes well on a mechanical ventilator on a Monday tidal volume of 550 which obviously dropped a respiratory rate down to the mid 20s. The patient is currently being treated with systemic steroids. The patient was also given a course of Tamiflu knowing that he was checked positive for influenza B. He has been out of the window for Rermdesivir treatment, and the treatment was declined by pharmacy. I contacted the pharmacy again and based on the decline in his respiratory status and progressive worsening his hypoxic respiratory failure, we'll need an exception to offer this patient a treatment to give him the benefit of the doubt. Also, the patient is on IV Solu-Medrol. He remains on zinc. He remains on vitamin C. The patient has received also units of convalescent plasma. He'll be started on enteral feeding for nutritional support. 2 triple-lumen catheter was established yesterday. He remains on Xarelto as a long-term anticoagulant that the patient has been taking. Reevaluated today on 09/21/20, patient remains in the ICU, intubated and mechanically ventilated. Ventilator settings are assist control rate of 18, fully in control +550, FiO2 of 70%, PEEP of 10, however after reviewing the ABG, PEEP was increased at 12, FiO2 down to 60%. ABG showed a pO2 of 88 pCO2 of 37 pH of 7.40. IV fluids at 75 mL per hour. Propofol at 41 g subcu per minute, patient is not requiring any pressors. He is on enteral feeding with rate to 20 mL per hour. Goal is 58. Patient had a right IJ triple-lumen catheter, placed on 09/19, and left radial arterial line. Patient is receiving IV Solu- Medrol, also received remdesivir. Remains on zinc and vitamin C. He also received convalescent plasma. On enteral feeding. And on Xarelto long-term for anticoagulations therapy WBC count is 9.7 hemoglobin is 11.2. Electrolytes are normal. Chest x-ray shows bilateral interstitial infiltrates Reevaluated today on 09/22/20, remains in the ICU intubated and mechanically ventilated. Patient has ventilator settings are tidal volume is 550 assist- control rate of 18 FiO2 60% and PEEP of 12 ABG showed a pO2 of 90 pCO2 of 37 pH of 7.41 however based on that ABG I cut down the FiO2 to 55% kept him on a PEEP of 12. 80s on propofol at 45 mcg/kg/m 0.9 normal saline at 75 mL per hour not requiring any pressors. Remains on enteral tube feeding /. CBC showed WBC count of 9.2 hemoglobin is 10.9. Electrolytes are normal chest x-ray showed evidence of bilateral multifocal airspace disease consistent with pneumonia. Patient was reevaluated today on 09/23/20, remains intubated and mechanically ventilated. He is now on assist control mode of mechanical ventilation, volume control plus, tidal volume is 550 rate is 18 FiO2 is 55% and PEEP is 10. ABG showed a pO2 of 71 pCO2 of 36 pH of 7.40. Remains on propofol at 40 mcg/kg/m, IV fluid at 75 mL/h, patient is noted to be quite bradycardic, although his blood pressure seems to be holding, he is having sinus bradycardia rates as low as 58, seen by cardiology and recommended dopamine at 2 mcg/kg/m. Patient is also on enteral feeding no changes were made today his ventilator settings. However would like to awaken the patient, and assess mental status at least today. Chest x-ray continues to show diffuse bilateral interstitial infiltrates. Consistent with covid 19 pneumonitis, and ARDS Objective - Vital Signs Vital signs: Vital Signs Temp 98.6 F 09/23/20 12:00 Pulse 48 L 09/23/20 14:00 Resp 23 09/23/20 14:00 BP 135/66 09/23/20 14:00 Pulse Ox 92 L 09/23/20 14:00 Intake & Output 09/22/20 09/23/20 09/23/20 18:59 06:59 18:59 Intake Total 6827.767 4376.995 1185.596 Output Total 690 743 483 Balance 732.264 0380.995 702.596 Weight 127.6 kg 127.6 kg Intake: IV 972 945 645 Pressure bags 72 45 45 Sodium Chloride 0.9% 1, 900 900 600 000 ml @ 75 mls/hr IV . [id number] [facility]ANO Rx#:[id number] Intake, IV Titration 353.822 324.995 140.596 Amount DOPamine DRIP 800 mg In 7.497 Dextrose/Water 1 250ml. bag @ 2 MCG/KG/MIN 4.785 mls/hr IV .Q24H [facility] Rx#: [id number] propofoL 1,000 mg In 353.822 324.995 133.099 Empty Bag 1 bag @ Titrate IV .Q0M [facility] Rx#: [id number] Tube Feeding 266 532 340 Other 30 60 Output: Urine 690 743 480 Stool 3 Other: Voiding Method Indwelling Catheter Indwelling Catheter Indwelling Catheter ABP, PAP, CO, CI - Last Documented Arterial Blood Pressure 147/42 - Exam GENERAL EXAM: 75-year-old on mechanical ventilation. Sedated. HEAD: Normocephalic/atraumatic. HEENT: PERRLA, EOMI, no icterus. Endotracheal tube and orogastric tube are intact. CHEST: No chest wall deformity. Symmetrical expansion. LUNGS: Crackles and rhonchi noted bilaterally. CVS: Regular rate and rhythm, normal S1 and S2, no gallops, no murmurs, no rubs ABDOMEN: Soft, nontender. No hepatosplenomegaly, normal bowel sounds, no guarding or rigidity. EXTREMITIES: No clubbing, no edema, no cyanosis, 2+ pulses and upper and lower extremities. MUSCULOSKELETAL: Could not be assessed.. SKIN: No rashes CENTRAL NERVOUS SYSTEM: Sedated on mechanical ventilation, could not assess. PSYCHIATRIC: Could not assess - Labs CBC & Chem 7: 09/23/20 04:15 09/23/20 04:15 Labs: Abnormal Lab Results - Last 24 Hours (Table) 09/22/20 09/22/20 09/23/20 Range/Units 17:49 23:27 04:15 RBC 3.95 L (4.30-5.90) m/uL Hgb 11.8 L (13.0-17.5) gm/dL Hct 37.1 L (39.0-53.0) % Neutrophils # 8.0 H (1.3-7.7) k/uL Lymphocytes # 0.2 L (1.0-4.8) k/uL ABG pO2 (83-108) mmHg Chloride (98-107) mmol/L BUN (9-20) mg/dL Creatinine (0.66-1.25) mg/dL Glucose (74-99) mg/dL POC Glucose (mg/dL) 213 H 218 H (75-99) mg/dL ALT (4-49) U/L Total Protein (6.3-8.2) g/dL Albumin (3.5-5.0) g/dL 09/23/20 09/23/20 09/23/20 Range/Units 04:15 05:19 06:04 RBC (4.30-5.90) m/uL Hgb (13.0-17.5) gm/dL Hct (39.0-53.0) % Neutrophils # (1.3-7.7) k/uL Lymphocytes # (1.0-4.8) k/uL ABG pO2 71 L (83-108) mmHg Chloride 112 H (98-107) mmol/L BUN 28 H (9-20) mg/dL Creatinine 0.62 L (0.66-1.25) mg/dL Glucose 230 H (74-99) mg/dL POC Glucose (mg/dL) 210 H (75-99) mg/dL ALT 65 H (4-49) U/L Total Protein 4.7 L (6.3-8.2) g/dL Albumin 2.2 L (3.5-5.0) g/dL 09/23/20 Range/Units 12:05 RBC (4.30-5.90) m/uL Hgb (13.0-17.5) gm/dL Hct (39.0-53.0) % Neutrophils # (1.3-7.7) k/uL Lymphocytes # (1.0-4.8) k/uL ABG pO2 (83-108) mmHg Chloride (98-107) mmol/L BUN (9-20) mg/dL Creatinine (0.66-1.25) mg/dL Glucose (74-99) mg/dL POC Glucose (mg/dL) 198 H (75-99) mg/dL ALT (4-49) U/L Total Protein (6.3-8.2) g/dL Albumin (3.5-5.0) g/dL Assessment and Plan Assessment: Impression: Acute hypoxic respiratory failure secondary to covid 19 pneumonitis, and underlying influenza B infection. Chronic atrial fibrillation. Type 2 diabetes. Benign essential hypertension. Moderate pulmonary hypertension Recommendation: Continue ventilatory support. No changes in ventilator settings today. Hold and assess mental status today, but not ready for weaning. Continue nutritional support. Enteral feeding. Continue Decadron, vitamin C, zinc, Finish 5 day course of Tamiflu. Hemodynamic support if necessary. GI and DVT prophylaxis. Patient is not ready for any weaning trials at this point, Remains critically ill, critical care time is greater than 33 minutes. Time with Patient: Greater than 30
--- NOTE | 2020-09-23 17:29 | P.PN ---
Subjective HISTORY OF PRESENTING ILLNESS This is a pleasant 75-year-old male past medical history significant for paroxysmal atrial fibrillation status post cardioversion maintained on dofetilide, diabetes mellitus, hypertension, dyslipidemia, coronary bypass grafting and former nicotine dependence. He is currently in the hospital maintained on mechanical ventilation secondary to Covid 19 infection. We did not examine the patient due to active COVID 19 infection, information was obtained from the nursing staff and medical record review. He continues to have sinus bradycardia that seems to be associated with deep sedation. Hemodynamically he has been stable however still having HR's in the 30-40's intermittently. When he is deep suctioned or aroused, his HR does improve. Attempted dopamine today however had increased BP and increased HR's and therefore was discontinued by ICU. 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 We will check 2D echo. Continue to hold dofetilide, Lopressor and magnesium. Continue to monitor closely on telemetry for evidence of breakthrough a-fib wh ile holding dofetilide. If hemodynamically stable, continue to monitor HR. If HR or hemodynamics wo rsen, may consider addition of Dopamine or Dobutamine. Objective - Vital Signs Vital signs: Vital Signs Temp 97.5 F L 09/23/20 16:00 Pulse 65 09/23/20 17:00 Resp 23 09/23/20 17:00 BP 137/71 09/23/20 17:00 Pulse Ox 94 L 09/23/20 17:00 Intake & Output 09/22/20 09/23/20 09/23/20 18:59 06:59 18:59 Intake Total 5812.332 0132.995 1686.177 Output Total 690 743 740 Balance 190.500 3185.995 946.177 Weight 127.6 kg 127.6 kg Intake: IV 972 945 888 Pressure bags 72 45 63 Sodium Chloride 0.9% 1, 900 900 825 000 ml @ 75 mls/hr IV . [id number] [facility] Rx#:[id number] Intake, IV Titration 353.822 324.995 218.177 Amount DOPamine DRIP 800 mg In 7.497 Dextrose/Water 1 250ml. bag @ 2 MCG/KG/MIN 4.785 mls/hr IV .Q24H [facility] Rx#: [id number] propofoL 1,000 mg In 353.822 324.995 210.680 Empty Bag 1 bag @ Titrate IV .Q0M [facility] Rx#: [id number] Tube Feeding 266 532 490 Other 30 90 Output: Urine 690 743 740 Other: Voiding Method Indwelling Catheter Indwelling Catheter Indwelling Catheter ABP, PAP, CO, CI - Last Documented Arterial Blood Pressure 162/56 - Labs CBC & Chem 7: 09/23/20 04:15 09/23/20 04:15 Labs: Abnormal Lab Results - Last 24 Hours (Table) 09/22/20 09/22/20 09/23/20 Range/Units 17:49 23:27 04:15 RBC 3.95 L (4.30-5.90) m/uL Hgb 11.8 L (13.0-17.5) gm/dL Hct 37.1 L (39.0-53.0) % Neutrophils # 8.0 H (1.3-7.7) k/uL Lymphocytes # 0.2 L (1.0-4.8) k/uL ABG pO2 (83-108) mmHg Chloride (98-107) mmol/L BUN (9-20) mg/dL Creatinine (0.66-1.25) mg/dL Glucose (74-99) mg/dL POC Glucose (mg/dL) 213 H 218 H (75-99) mg/dL ALT (4-49) U/L Total Protein (6.3-8.2) g/dL Albumin (3.5-5.0) g/dL 09/23/20 09/23/20 09/23/20 Range/Units 04:15 05:19 06:04 RBC (4.30-5.90) m/uL Hgb (13.0-17.5) gm/dL Hct (39.0-53.0) % Neutrophils # (1.3-7.7) k/uL Lymphocytes # (1.0-4.8) k/uL ABG pO2 71 L (83-108) mmHg Chloride 112 H (98-107) mmol/L BUN 28 H (9-20) mg/dL Creatinine 0.62 L (0.66-1.25) mg/dL Glucose 230 H (74-99) mg/dL POC Glucose (mg/dL) 210 H (75-99) mg/dL ALT 65 H (4-49) U/L Total Protein 4.7 L (6.3-8.2) g/dL Albumin 2.2 L (3.5-5.0) g/dL 09/23/ Range/Units 12:05 RBC (4.30-5.90) m/uL Hgb (13.0-17.5) gm/dL Hct (39.0-53.0) % Neutrophils # (1.3-7.7) k/uL Lymphocytes # (1.0-4.8) k/uL ABG pO2 (83-108) mmHg Chloride (98-107) mmol/L BUN (9-20) mg/dL Creatinine (0.66-1.25) mg/dL Glucose (74-99) mg/dL POC Glucose (mg/dL) 198 H (75-99) mg/dL ALT (4-49) U/L Total Protein (6.3-8.2) g/dL Albumin (3.5-5.0) g/dL
--- NOTE | 2020-09-23 17:54 | PN ---
PROGRESS NOTE I am covering for Dr. Staples. DATE OF SERVICE: 09/23/2020 This 75-year-old gentleman admitted with bilateral pneumonia also had COVID pneumonia. The patient is on mechanical ventilation. The patient is also receiving remdesivir. The patient also had bradycardia suggested by Cardiology. Patient is being closely monitored. Chest x-ray showed bilateral infiltrates. The 2D echo with Doppler was noted, which showed ejection fraction about 55% to 60% and severely dilated LA and mild tricuspid regurgitation. Aortic root was 4.4 cm. Past medical history reviewed. Review of systems could not be taken; the patient is mechanically ventilated and sedated. CURRENT MEDICATIONS: Current medications include Tylenol, Ventolin, vitamin, Lipitor, Peridex, dopamine, NovoLog Levemir, Zestril, Ativan, Solu-Medrol, Narcan, Mycostatin, propofol, remdesivir, Flomax, Orazinc. PHYSICAL EXAMINATION: Patient is mechanically ventilated and sedated. Pulse 71, blood pressure 120/65, respiration 22, temperature 97.4, pulse ox 94% on mechanical ventilation with 50% FiO2. HEENT: Conjunctivae normal. NECK: No jugular venous distention. CARDIOVASCULAR SYSTEM: S1, S2 muffled. RESPIRATORY SYSTEM: A few scattered rhonchi. ABDOMEN: Soft. NERVOUS SYSTEM: Patient is sedated. LABS: WBC 8.2, hemoglobin 11.8. Other labs are noted. ASSESSMENT: 1. Acute bilateral COVID-19 pneumonia with acute hypoxic hypercarbic respiratory failure, on mechanical ventilation, as well as sepsis, present on admission. 2. Lactic acidosis. 3. Paroxysmal atrial fibrillation. 4. Sinus bradycardia. 5. Diabetes mellitus, type 2. 6. Hyperlipidemia. 7. Hypertension history. 8. Obstructive sleep apnea. 9. History of coronary artery disease, coronary artery bypass grafting. 10.Chronic obstructive pulmonary disease, acute exacerbation. 11.Elevated inflammatory markers, elevated D-dimer, indicative of COVID-19. 12.Anemia, normocytic. RECOMMENDATIONS AND DISCUSSION: I recommend to continue current medications, continue with the monitoring, symptomatic treatment. Continue with the remdesivir. Continue with the bronchodilators. Patient is already on Xarelto. Prognosis is extremely guarded. Further weaning parameters per Dr. Walls. Guarded prognosis. Further recommendations to follow. MMODL / IJN: [id number] / MTDD
[2020-09-23 18:01] LABS: Glucose,Whole Blood 224 mg/dL (75-99)
[2020-09-23] MEDS: TAMSULOSIN 0.4 MG CAP.ER.24H PO SCH (21:06)
[2020-09-23 23:50] LABS: Glucose,Whole Blood 245 mg/dL (75-99)
[2020-09-24] MEDS: ALBUTEROL HFA INHALER INHALATION SCH ×4 (04:12→20:04)
[2020-09-24 05:28] LABS: Basophils % (A) 0 %; Eosinophils % (A) 0 %; HCT 39.5 % (39.0-53.0); HGB 12.4 gm/dL (13.0-17.5); Lymphocytes # (A) 0.1 k/uL (1.0-4.8); Lymphocytes % (A) 1 %; MCH 29.5 pg (25.0-35.0); MCHC 31.4 g/dL (31.0-37.0); Mean Platelet Volume 8.1; Monocytes # (A) 0.3 k/uL (0-1.0); Monocytes % (A) 3 %; Neutrophils # (A) 11.3 k/uL (1.3-7.7); Neutrophils % (A) 96 %; Platelet Count 162 k/uL (150-450); RDW 13.8 % (11.5-15.5); WBC 11.8 k/uL (3.8-10.6)
[2020-09-24 05:32] LABS: ABG Base Excess 0.3 mmol/L; ABG HCO3 25 mmol/L (21-25); ABG Oxygen Saturation 94.6 % (94-97); ABG PCO2 38 mmHg (35-45); ABG PH 7.42 (7.35-7.45); ABG PO2 73 mmHg (83-108); ABG TCO2 26 mmol/L (19-24)
[2020-09-24 05:45] LABS: Glucose,Whole Blood 238 mg/dL (75-99)
[2020-09-24] MEDS: INSULIN ASPART (NovoLOG) 100 UNIT/ML VIAL SQ SCH ×3 (05:57→18:04)
[2020-09-24 05:58] LABS: ALT 78 U/L (4-49); AST 46 U/L (17-59); African American GFR (CKD) >90 (>60 ml/min/1.73 sqM); Albumin 2.3 g/dL (3.5-5.0); Alkaline Phosphatase 70 U/L (38-126); Anion Gap 1 mmol/L; Blood Urea Nitrogen 28 mg/dL (9-20); C Reactive Protein 36.3 mg/L (<10.0); Calcium 8.4 mg/dL (8.4-10.2); Carbon Dioxide 26 mmol/L (22-30); Chloride 111 mmol/L (98-107); Glucose 256 mg/dL (74-99); LDH 787 U/L (313-618); Non-African American GFR(CKD) >90 (>60 ml/min/1.73 sqM); Potassium 4.6 mmol/L (3.5-5.1); Sodium 138 mmol/L (137-145); Total Bilirubin 0.5 mg/dL (0.2-1.3); Total Protein 4.8 g/dL (6.3-8.2)
[2020-09-24] MEDS: INSULIN DETEMIR (LEVEMIR) 100 UNIT/ML SYR SQ SCH (05:58)
--- NOTE | 2020-09-24 07:22 | XR ---
EXAMINATION TYPE: XR chest 1V portable DATE OF EXAM: 09/24/2020 COMPARISON: 09/23/2020 HISTORY: SOB, Follow Up FINDINGS: Indwelling tubes and catheters are unchanged. Diffuse bilateral infiltrates persist greatest at the left lower lobe. Allowing for differences in [place] no significant change is appreciated. Stable appearance of the cardio-mediastinal structures at this time. IMPRESSION: 1. Stable portable chest. Clinical correlation and follow up until resolution is recommended.
[2020-09-24] MEDS: methylPREDNISolone SOD SUCCI 40 MG/ML 1 ML VIAL IV SCH ×2 (07:57→16:56)
[2020-09-24] MEDS: CHOLECALCIFEROL 1,000 UNIT TAB PO SCH (08:27)
[2020-09-24] MEDS: RIVAROXABAN 20 MG TAB PO SCH (08:27)
[2020-09-24] MEDS: ATORVASTATIN 80 MG TAB PO SCH (08:27)
[2020-09-24] MEDS: ASCORBIC ACID 500 MG TAB PO SCH ×2 (08:27→21:10)
[2020-09-24] MEDS: lisinopriL 20 MG TAB PO SCH (08:28)
[2020-09-24] MEDS: MULTIVITAMINS, THERA 1 EACH TAB PO SCH (08:28)
[2020-09-24] MEDS: NYSTATIN 100,000 UNIT/ML SUSP 500,000 UNIT/5 ML CUP PO SCH ×4 (08:28→21:11)
[2020-09-24] MEDS: CHLORHEXIDINE GLUCONATE 15 ML CUP MUCOUS MEM SCH ×3 (08:28→21:16)
[2020-09-24] MEDS: ZINC SULFATE 220 MG CAP PO SCH (08:28)
[2020-09-24] MEDS: DOPamine DRIP 800 MG in DEXTROSE/WATER 1 250ML.BAG IV SCH (08:48)
[2020-09-24 10:17] LABS: Ferritin 1691.5 ng/mL (22.0-322.0)
[2020-09-24] MEDS: REMDESIVIR 100 MG in SODIUM CHLORIDE 0.9% 250 ML IVPB SCH (10:30)
--- NOTE | 2020-09-24 11:56 | P.PN ---
Subjective Progress Note Date: 09/24/20 This is a 75-year-old gentleman with history of paroxysmal atrial fibrillation who was on dofetilide for maintenance of sinus rhythm. Patient also has history of diabetes, hypertension, dyslipidemia and previous bypass surgery. Patient is admitted now to hospital with cold with 19 infection and pneumonia. Patient was bradycardic and he was taken off both dofetilide and beta blockers. His heart rate has improved and it's in the range of 90s. His pulmonary status seemed to be stable without any significant improvement. From [facility] standpoint we'll continue holding dofetilide and beta james. Further recommendations depend upon clinical course. Objective - Vital Signs Vital signs: Vital Signs Temp 98.1 F 09/24/20 08:00 Pulse 96 09/24/20 11:00 Resp 26 H 09/24/20 11:00 BP 123/62 09/24/20 11:00 Pulse Ox 90 L 09/24/20 11:00 Intake & Output 09/23/20 09/24/20 09/24/20 18:59 06:59 18:59 Intake Total 2702.102 9670.578 787.915 Output Total 810 2075 700 Balance 1089.862 -16.422 87.915 Weight 127.6 kg 127.5 kg Intake: IV 969 972 405 Pressure bags 69 72 30 Sodium Chloride 0.9% 1, 900 900 375 000 ml @ 75 mls/hr IV . [id number] [facility] Rx#:[id number] Intake, IV Titration 300.862 346.578 92.915 Amount DOPamine DRIP 800 mg In 7.497 Dextrose/Water 1 250ml. bag @ 2 MCG/KG/MIN 4.785 mls/hr IV .Q24H [facility] Rx#: [id number] propofoL 1,000 mg In 293.365 346.578 92.915 Empty Bag 1 bag @ Titrate IV .Q0M [facility] Rx#: [id number] Tube Feeding 540 650 200 Other 90 90 90 Output: Urine 810 2075 700 Other: Voiding Method Indwelling Catheter Indwelling Catheter Indwelling Catheter ABP, PAP, CO, CI - Last Documented Arterial Blood Pressure 130/48 - Exam GENERAL EXAM: Patient is not personally examined. He still intubated. According to nurses note, patient's lungs show diminished breath sounds. Heart rhythm is regular - Labs CBC & Chem 7: 09/24/20 04:50 09/24/20 04:50 Labs: Abnormal Lab Results - Last 24 Hours (Table) 09/23/20 09/23/20 09/23/20 Range/Units 12:05 18:00 23:49 WBC (3.8-10.6) k/uL RBC (4.30-5.90) m/uL Hgb (13.0-17.5) gm/dL Neutrophils # (1.3-7.7) k/uL Lymphocytes # (1.0-4.8) k/uL D-Dimer (<0.60) mg/L FEU ABG pO2 (83-108) mmHg ABG Total CO2 (19-24) mmol/L Chloride (98-107) mmol/L BUN (9-20) mg/dL Creatinine (0.66-1.25) mg/dL Glucose (74-99) mg/dL POC Glucose (mg/dL) 198 H 224 H 245 H (75-99) mg/dL Ferritin (22.0-322.0) ng/mL ALT (4-49) U/L Lactate Dehydrogenase (313-618) U/L C-Reactive Protein (<10.0) mg/L Total Protein (6.3-8.2) g/dL Albumin (3.5-5.0) g/dL 09/24/20 09/24/20 09/24/20 Range/Units 04:50 04:50 04:50 WBC 11.8 H (3.8-10.6) k/uL RBC 4.20 L (4.30-5.90) m/uL Hgb 12.4 L (13.0-17.5) gm/dL Neutrophils # 11.3 H (1.3-7.7) k/uL Lymphocytes # 0.1 L (1.0-4.8) k/uL D-Dimer 12.59 H (<0.60) mg/L FEU ABG pO2 (83-108) mmHg ABG Total CO2 (19-24) mmol/L Chloride 111 H (98-107) mmol/L BUN 28 H (9-20) mg/dL Creatinine 0.60 L (0.66-1.25) mg/dL Glucose 256 H (74-99) mg/dL POC Glucose (mg/dL) (75-99) mg/dL Ferritin 1691.5 H (22.0-322.0) ng/mL ALT 78 H (4-49) U/L Lactate Dehydrogenase 787 H (313-618) U/L C-Reactive Protein 36.3 H (<10.0) mg/L Total Protein 4.8 L (6.3-8.2) g/dL Albumin 2.3 L (3.5-5.0) g/dL 09/24/20 09/24/20 Range/Units 05:27 05:44 WBC (3.8-10.6) k/uL RBC (4.30-5.90) m/uL Hgb (13.0-17.5) gm/dL Neutrophils # (1.3-7.7) k/uL Lymphocytes # (1.0-4.8) k/uL D-Dimer (<0.60) mg/L FEU ABG pO2 73 L (83-108) mmHg ABG Total CO2 26 H (19-24) mmol/L Chloride (98-107) mmol/L BUN (9-20) mg/dL Creatinine (0.66-1.25) mg/dL Glucose (74-99) mg/dL POC Glucose (mg/dL) 238 H (75-99) mg/dL Ferritin (22.0-322.0) ng/mL ALT (4-49) U/L Lactate Dehydrogenase (313-618) U/L C-Reactive Protein (<10.0) mg/L Total Protein (6.3-8.2) g/dL Albumin (3.5-5.0) g/dL Assessment and Plan (1) Paroxysmal atrial fibrillation Current Visit: Yes Status: Acute Code(s): I48.0 - PAROXYSMAL ATRIAL FIBRILLATION SNOMED Code(s): 182726356 (2) COVID-19 Current Visit: Yes Status: Acute Code(s): U07.1 - COVID-19 SNOMED Code(s): 406060015 (3) Pneumonia due to COVID-19 virus Current Visit: Yes Status: Acute Code(s): U07.1 - COVID-19; J12.89 - OTHER VIRAL PNEUMONIA SNOMED Code(s): 979573252043224960 (4) History of coronary artery disease Current Visit: Yes Status: Acute Code(s): Z86.79 - PERSONAL HISTORY OF OTHER DISEASES OF THE CIRCULATORY SYSTEM SNOMED Code(s): 658511951 Plan: Continue holding dofetilide and metoprolol. We'll may be able to resume metoprolol. If blood pressure remains stable
[2020-09-24 12:02] LABS: Glucose,Whole Blood 229 mg/dL (75-99)
--- NOTE | 2020-09-24 14:49 | P.PN ---
Subjective Progress Note Date: 09/24/20 Principal diagnosis: Acute hypoxic respiratory failure secondary to covid 19 pneumonitis and influenza B infection. 75-year-old white male patient of Dr. Cornell Gasca who presented to the emergency department on 09/15/2020 with complaints of difficulty breathing. Patient tested positive for COVID 19 and influenza B on 09/07/2020. He is been progressively short of breath, has a dry nonproductive cough, he is unclear whether he is having fevers. He feels fatigued, denies any nausea vomiting or diarrhea, denies any abdominal pain, denies any history of chronic lung problem s. His past medical history positive for atrial fibrillation on anticoagulation, hypertension, hyperlipidemia, diabetes mellitus type 2, coronary artery disease with history of previous bypass grafting, he is a former smoker. His chest x-ray showed bilateral diffuse airspace disease, concerning for COVID 19 pneumonia. His labs were reviewed, showing lymphopenia with lymphocyte count of 0.2, lactic acid level of 2.5 which has subsequently increased to 4.0, ferritin level was 2454, AST and ALT were 87 and 67 respectively, Altace was 1513, and CRP was 70.4. Pro-calcitonin level was negative at 0.09. Decadron has been started at 6 mg daily, he is on IV hydration, with lactated Ringer's at 100 ML per hour. he is on oral anticoagulation in the form of Xarelto. Remains on 7 L of oxygen per high flow nasal cannula and the pulse ox is between 87-91%. Afebrile On 09/18/2020 patient seen in follow-up on general medical surgical floor. He is on 11 L of oxygen, his pulse ox is 89%, he is afebrile, hemodynamically is been stable, patient was out of the window for Remdesivir, he was started on Tamiflu, he is on oral anticoagulation in the form of Xarelto, no fever or chills, his d-dimer has increased, I came up to 2.31 on today's labs, his CRP has improved significantly and is down to 1.5, LDH level is pending, he is on oral Decadron, he is on IV hydration, nausea vomiting, no abdominal pain, he is tolerating oral intake. No, but the chest pain. The patient is seen today 09/19/2020 follow-up on the regular medical floor. He is currently sitting up in bed. He is somewhat confused and altered. He's been pulling off his hospital gown. Getting up out of bed without assistance. Uncooperative. He is pulling off his oxygen. He is only at 90% O2 saturation on 15 L high flow nasal cannula. Chest x-ray continues to show coarse interstitial infiltrates bilaterally. D-dimer 3.01. Sodium 143. Potassium 4.0. Creatinine 0.7. C-reactive protein 8.2. Pro-calcitonin 0.09. He remains on Tamiflu. Anticoagulated with Xarelto. 09/20/2020, the patient is being seen in follow-up in the intensive care unit. As mentioned earlier, the patient developed progressive worsening shortness of breath, altered mentation, confusion, oxygen saturation, tachypnea and tachycardia and respiratory failure with hypoxemia. The patient got transferred to the intensive care unit and overnight the patient had to be intubated and placed on a mechanical ventilator. Currently is intubated. Lisinopril running at 25 mg per KG per minute. He is an assist-control mode of ventilation at the rate of 18 with a tidal volume of 450 and FiO2 of 80% with a PEEP of 10. Peak airway pressures around 21. He was quite tachypneic with increased minute ventilation. He was urinating adequate amount of tidal volumes well on a mechanical ventilator on a Monday tidal volume of 550 which obviously dropped a respiratory rate down to the mid 20s. The patient is currently being treated with systemic steroids. The patient was also given a course of Tamiflu knowing that he was checked positive for influenza B. He has been out of the window for Rermdesivir treatment, and the treatment was declined by pharmacy. I contacted the pharmacy again and based on the decline in his respiratory status and progressive worsening his hypoxic respiratory failure, we'll need an exception to offer this patient a treatment to give him the benefit of the doubt. Also, the patient is on IV Solu-Medrol. He remains on zinc. He remains on vitamin C. The patient has received also units of convalescent plasma. He'll be started on enteral feeding for nutritional support. 2 triple-lumen catheter was established yesterday. He remains on Xarelto as a long-term anticoagulant that the patient has been taking. Reevaluated today on 09/21/20, patient remains in the ICU, intubated and mechanically ventilated. Ventilator settings are assist control rate of 18, fully in control +550, FiO2 of 70%, PEEP of 10, however after reviewing the ABG, PEEP was increased at 12, FiO2 down to 60%. ABG showed a pO2 of 88 pCO2 of 37 pH of 7.40. IV fluids at 75 mL per hour. Propofol at 41 g subcu per minute, patient is not requiring any pressors. He is on enteral feeding with rate to 20 mL per hour. Goal is 58. Patient had a right IJ triple-lumen catheter, placed on 09/19, and left radial arterial line. Patient is receiving IV Solu- Medrol, also received remdesivir. Remains on zinc and vitamin C. He also received convalescent plasma. On enteral feeding. And on Xarelto long-term for anticoagulations therapy WBC count is 9.7 hemoglobin is 11.2. Electrolytes are normal. Chest x-ray shows bilateral interstitial infiltrates Reevaluated today on 09/22/20, remains in the ICU intubated and mechanically ventilated. Patient has ventilator settings are tidal volume is 550 assist- control rate of 18 FiO2 60% and PEEP of 12 ABG showed a pO2 of 90 pCO2 of 37 pH of 7.41 however based on that ABG I cut down the FiO2 to 55% kept him on a PEEP of 12. 80s on propofol at 45 mcg/kg/m 0.9 normal saline at 75 mL per hour not requiring any pressors. Remains on enteral tube feeding /. CBC showed WBC count of 9.2 hemoglobin is 10.9. Electrolytes are normal chest x-ray showed evidence of bilateral multifocal airspace disease consistent with pneumonia. Patient was reevaluated today on 09/23/20, remains intubated and mechanically ventilated. He is now on assist control mode of mechanical ventilation, volume control plus, tidal volume is 550 rate is 18 FiO2 is 55% and PEEP is 10. ABG showed a pO2 of 71 pCO2 of 36 pH of 7.40. Remains on propofol at 40 mcg/kg/m, IV fluid at 75 mL/h, patient is noted to be quite bradycardic, although his blood pressure seems to be holding, he is having sinus bradycardia rates as low as 58, seen by cardiology and recommended dopamine at 2 mcg/kg/m. Patient is also on enteral feeding no changes were made today his ventilator settings. However would like to awaken the patient, and assess mental status at least today. Chest x-ray continues to show diffuse bilateral interstitial infiltrates. Consistent with covid 19 pneumonitis, and ARDS Patient was reevaluated today on 09/24/20, remains intubated and mechanically ventilated. Patient is now on assist control rate of 18, volume control +550, inspiratory time is 1 second. FiO2 is 55% and PEEP is 10 ABG is pO2 of 73 pCO2 of 38 pH of 7.42. Patient is on propofol at 45 mcg/kg/m, his PEEP was cut down to 8. Basic metabolic profile is basically normal. CBC is relatively normal. D-dimer is 12.59. LDH is down to 787 from 1513. C-reactive protein is 36. Patient remains on the Covid 19 pneumonitis cocktail Objective - Vital Signs Vital signs: Vital Signs Temp 97.9 F 09/24/20 12:00 Pulse 99 09/24/20 12:00 Resp 30 H 09/24/20 12:00 BP 123/62 09/24/20 12:00 Pulse Ox 91 L 09/24/20 12:00 Intake & Output 09/23/20 09/24/20 09/24/20 18:59 06:59 18:59 Intake Total 7165.567 9153.578 840.294 Output Total 810 2075 700 Balance 1089.862 -16.422 140.294 Weight 127.6 kg 127.5 kg Intake: IV 969 972 405 Pressure bags 69 72 30 Sodium Chloride 0.9% 1, 900 900 375 000 ml @ 75 mls/hr IV . [id number] [facility] Rx#:[id number] Intake, IV Titration 300.862 346.578 145.294 Amount DOPamine DRIP 800 mg In 7.497 Dextrose/Water 1 250ml. bag @ 2 MCG/KG/MIN 4.785 mls/hr IV .Q24H [facility] Rx#: [id number] propofoL 1,000 mg In 293.365 346.578 145.294 Empty Bag 1 bag @ Titrate IV .Q0M [facility] Rx#: [id number] Tube Feeding 540 650 200 Other 90 90 90 Output: Urine 810 2075 700 Other: Voiding Method Indwelling Catheter Indwelling Catheter Indwelling Catheter ABP, PAP, CO, CI - Last Documented Arterial Blood Pressure 138/46 - Exam GENERAL EXAM: 75-year-old on mechanical ventilation. Sedated. HEAD: Normocephalic/atraumatic. HEENT: PERRLA, EOMI, no icterus. Endotracheal tube and orogastric tube are intact. CHEST: No chest wall deformity. Symmetrical expansion. LUNGS: Crackles and rhonchi noted bilaterally. CVS: Regular rate and rhythm, normal S1 and S2, no gallops, no murmurs, no rubs ABDOMEN: Soft, nontender. No hepatosplenomegaly, normal bowel sounds, no guarding or rigidity. EXTREMITIES: No clubbing, no edema, no cyanosis, 2+ pulses and upper and lower extremities. MUSCULOSKELETAL: Could not be assessed.. SKIN: No rashes CENTRAL NERVOUS SYSTEM: Sedated on mechanical ventilation, could not assess. PSYCHIATRIC: Could not assess - Labs CBC & Chem 7: 09/24/20 04:50 09/24/20 04:50 Labs: Abnormal Lab Results - Last 24 Hours (Table) 09/23/20 09/23/20 09/24/20 Range/Units 18:00 23:49 04:50 WBC (3.8-10.6) k/uL RBC (4.30-5.90) m/uL Hgb (13.0-17.5) gm/dL Neutrophils # (1.3-7.7) k/uL Lymphocytes # (1.0-4.8) k/uL D-Dimer 12.59 H (<0.60) mg/L FEU ABG pO2 (83-108) mmHg ABG Total CO2 (19-24) mmol/L Chloride (98-107) mmol/L BUN (9-20) mg/dL Creatinine (0.66-1.25) mg/dL Glucose (74-99) mg/dL POC Glucose (mg/dL) 224 H 245 H (75-99) mg/dL Ferritin (22.0-322.0) ng/mL ALT (4-49) U/L Lactate Dehydrogenase (313-618) U/L C-Reactive Protein (<10.0) mg/L Total Protein (6.3-8.2) g/dL Albumin (3.5-5.0) g/dL 09/24/20 09/24/20 09/24/20 Range/Units 04:50 04:50 05:27 WBC 11.8 H (3.8-10.6) k/uL RBC 4.20 L (4.30-5.90) m/uL Hgb 12.4 L (13.0-17.5) gm/dL Neutrophils # 11.3 H (1.3-7.7) k/uL Lymphocytes # 0.1 L (1.0-4.8) k/uL D-Dimer (<0.60) mg/L FEU ABG pO2 73 L (83-108) mmHg ABG Total CO2 26 H (19-24) mmol/L Chloride 111 H (98-107) mmol/L BUN 28 H (9-20) mg/dL Creatinine 0.60 L (0.66-1.25) mg/dL Glucose 256 H (74-99) mg/dL POC Glucose (mg/dL) (75-99) mg/dL Ferritin 1691.5 H (22.0-322.0) ng/mL ALT 78 H (4-49) U/L Lactate Dehydrogenase 787 H (313-618) U/L C-Reactive Protein 36.3 H (<10.0) mg/L Total Protein 4.8 L (6.3-8.2) g/dL Albumin 2.3 L (3.5-5.0) g/dL 09/24/20 09/24/20 Range/Units 05:44 12:01 WBC (3.8-10.6) k/uL RBC (4.30-5.90) m/uL Hgb (13.0-17.5) gm/dL Neutrophils # (1.3-7.7) k/uL Lymphocytes # (1.0-4.8) k/uL D-Dimer (<0.60) mg/L FEU ABG pO2 (83-108) mmHg ABG Total CO2 (19-24) mmol/L Chloride (98-107) mmol/L BUN (9-20) mg/dL Creatinine (0.66-1.25) mg/dL Glucose (74-99) mg/dL POC Glucose (mg/dL) 238 H 229 H (75-99) mg/dL Ferritin (22.0-322.0) ng/mL ALT (4-49) U/L Lactate Dehydrogenase (313-618) U/L C-Reactive Protein (<10.0) mg/L Total Protein (6.3-8.2) g/dL Albumin (3.5-5.0) g/dL Assessment and Plan Assessment: Impression: Acute hypoxic respiratory failure secondary to covid 19 pneumonitis, and underlying influenza B infection. Chronic atrial fibrillation. Type 2 diabetes. Benign essential hypertension. Moderate pulmonary hypertension Recommendation: Continue ventilatory support. Decreased PEEP down to 8 today. Assessment of status today and possibly consider weaning parameters to be checked. Continue nutritional support. Enteral feeding. Continue Covid 19 cocktail. GI and DVT prophylaxis. Remains critically ill, critical care time is greater than 30 minutes Time with Patient: Greater than 30
[2020-09-24] MEDS: SODIUM CHLORIDE 0.9% 1,000 ML IV SCH (17:01)
[2020-09-24 17:46] LABS: Glucose,Whole Blood 218 mg/dL (75-99)
[2020-09-24] MEDS: METOPROLOL TARTRATE 12.5 MG TAB PO SCH (21:10)
[2020-09-24] MEDS: TAMSULOSIN 0.4 MG CAP.ER.24H PO SCH (21:10)
--- NOTE | 2020-09-24 22:45 | PN ---
PROGRESS NOTE DATE OF SERVICE: 09/24/2020 I am covering for Dr. Staples. This 75-year-old gentleman admitted with bilateral pneumonia Covid pneumonia, acute respiratory failure on mechanical ventilation. The patient also had elevated blood sugars. Patient also had bradycardia, did not tolerate dopamine well. Currently the patient had a 2D echo showed normal ejection fraction. Currently the patient is on PEEP of 8 and FiO2 of 55%. The patient being closely monitored at this time. Dr. Walls is following the vent management. D-dimer is elevated. The patient is on Xarelto. Past medical history reviewed. REVIEW OF SYSTEMS: Review of systems could not be taken because the patient is on mechanical ventilation. CURRENT MEDICATIONS: Reviewed and include: 1. Tylenol. 2. Ventolin. 3. Vitamin C. 4. Lipitor. 5. Peridex. 6. Vitamin D3. 7. NovoLog. 8. Levemir. 9. Zestril. 10.Ativan. 11.Solu-Medrol. 12.Lopressor. 13.Narcan. 14.Mycostatin. 15.Xarelto. 16.Doses are reviewed. PHYSICAL EXAM: Patient is on mechanical ventilation. Pulse 68. Blood pressure 115/64, respiration 26, pulse 97.9. Pulse ox 98% on 55% mechanical ventilation. HEENT: Conjunctivae normal. NECK: No JVD. CARDIOVASCULAR: S1, S2 muffled. RESPIRATION: Breath sounds diminished in the bases. A few scattered rhonchi and crackles. ABDOMEN: Soft, nontender. LEGS are no edema. No swelling. NERVOUS SYSTEM: Patient unresponsive. LABS: WBC 11.8, hemoglobin 12.4. D-dimer is 12.59. Sodium is 138 and creatinine 0.6, glucose is 238, 210 and 218, AST 78. LDH is 787, CRP 36.3, total protein is 4.8, albumin is 2.3. ASSESSMENT: 1. Acute bilateral Covid-19 interstitial pneumonia with acute hypoxic hypercarbic respiratory failure on mechanical ventilation as well as sepsis, present on admission. 2. Lactic acidosis. 3. Paroxysmal atrial fibrillation. 4. Elevated D-dimer without any evidence of pulmonary embolism in the previous studies, on Xarelto. 5. Sinus bradycardia with multiple PVCs as a response to dopamine. 6. Diabetes mellitus type 2. 7. Hyperlipidemia. 8. Hypertension history. 9. Obstructive sleep apnea. 10.History of coronary artery disease/coronary artery bypass grafting. 11.History of chronic obstructive pulmonary disease acute exacerbation. 12.Elevated inflammatory markers elevated D-dimer indicative of Covid-19. 13.Anemia, normocytic. 14.FULL CODE. RECOMMENDATIONS AND DISCUSSION: Recommend to continue current medications, management and symptomatic treatment. Prognosis extremely guarded because of the persistent lesions and hypoxia requiring mechanical ventilation. D-dimer is elevated. I would recommend IL 6 levels and continue to monitor closely. Follow with Dr. Walls. Increase the Levemir to 20 units and for better blood sugar control. The prognosis is extremely guarded because of multiple complex medical issues and further recommendations to follow. MMODL / IJN: [id number] / BENJAMIN
[2020-09-25 00:05] LABS: Glucose,Whole Blood 205 mg/dL (75-99)
[2020-09-25] MEDS: methylPREDNISolone SOD SUCCI 40 MG/ML 1 ML VIAL IV SCH ×3 (00:13→16:52)
[2020-09-25] MEDS: INSULIN ASPART (NovoLOG) 100 UNIT/ML VIAL SQ SCH ×4 (00:13→17:07)
[2020-09-25] MEDS: SODIUM CHLORIDE 0.9% 1,000 ML IV SCH ×2 (04:12→17:09)
[2020-09-25 04:56] LABS: Basophils % (A) 0 %; Eosinophils % (A) 0 %; HCT 37.7 % (39.0-53.0); Lymphocytes # (A) 0.2 k/uL (1.0-4.8); Lymphocytes % (A) 1 %; MCH 29.8 pg (25.0-35.0); MCHC 31.7 g/dL (31.0-37.0); Mean Platelet Volume 8.1; Monocytes # (A) 0.2 k/uL (0-1.0); Monocytes % (A) 2 %; Neutrophils # (A) 10.8 k/uL (1.3-7.7); Neutrophils % (A) 96 %; Platelet Count 130 k/uL (150-450); RBC 4.01 m/uL (4.30-5.90); WBC 11.3 k/uL (3.8-10.6)
[2020-09-25 05:09] LABS: ALT 59 U/L (4-49); AST 30 U/L (17-59); African American GFR (CKD) >90 (>60 ml/min/1.73 sqM); Albumin 2.1 g/dL (3.5-5.0); Alkaline Phosphatase 67 U/L (38-126); Anion Gap 0 mmol/L; Blood Urea Nitrogen 29 mg/dL (9-20); C Reactive Protein 75.6 mg/L (<10.0); Calcium 8.4 mg/dL (8.4-10.2); Carbon Dioxide 27 mmol/L (22-30); Chloride 111 mmol/L (98-107); Glucose 249 mg/dL (74-99); LDH 680 U/L (313-618); Non-African American GFR(CKD) >90 (>60 ml/min/1.73 sqM); Potassium 4.8 mmol/L (3.5-5.1); Sodium 138 mmol/L (137-145); Total Bilirubin 0.4 mg/dL (0.2-1.3); Total Protein 4.5 g/dL (6.3-8.2)
[2020-09-25 05:54] LABS: ABG Base Excess 1.8 mmol/L; ABG HCO3 26 mmol/L (21-25); ABG Oxygen Saturation 94.7 % (94-97); ABG PCO2 39 mmHg (35-45); ABG PH 7.44 (7.35-7.45); ABG PO2 71 mmHg (83-108); ABG TCO2 27 mmol/L (19-24)
[2020-09-25 06:20] LABS: Glucose,Whole Blood 240 mg/dL (75-99)
[2020-09-25 06:33] LABS: Allen Test Performed? no
[2020-09-25] MEDS ORDERED: INSULIN DETEMIR (LEVEMIR) 100 UNIT/ML SYR SQ SCH (07:00)
[2020-09-25] MEDS: ALBUTEROL HFA INHALER INHALATION SCH ×4 (07:43→21:05)
[2020-09-25] MEDS: MULTIVITAMINS, THERA 1 EACH TAB PO SCH (08:59)
[2020-09-25] MEDS: ZINC SULFATE 220 MG CAP PO SCH (08:59)
[2020-09-25] MEDS: CHOLECALCIFEROL 1,000 UNIT TAB PO SCH (08:59)
[2020-09-25] MEDS: CHLORHEXIDINE GLUCONATE 15 ML CUP MUCOUS MEM SCH ×2 (08:59→19:59)
[2020-09-25] MEDS: METOPROLOL TARTRATE 12.5 MG TAB PO SCH (08:59)
[2020-09-25] MEDS: ASCORBIC ACID 500 MG TAB PO SCH ×2 (08:59→20:00)
[2020-09-25] MEDS: ATORVASTATIN 80 MG TAB PO SCH (09:00)
[2020-09-25] MEDS: DOPamine DRIP 800 MG in DEXTROSE/WATER 1 250ML.BAG IV SCH (09:00)
[2020-09-25] MEDS: lisinopriL 20 MG TAB PO SCH (09:00)
[2020-09-25] MEDS: NYSTATIN 100,000 UNIT/ML SUSP 500,000 UNIT/5 ML CUP PO SCH ×4 (09:36→20:03)
[2020-09-25] MEDS: PIPERACILLIN-TAZOBACTAM 3.375 GM in SODIUM CHLORIDE 0.9% 100 ML IVPB SCH ×2 (09:36→16:52)
--- NOTE | 2020-09-25 09:59 | XR ---
EXAMINATION TYPE: XR chest 1V portable DATE OF EXAM: 09/25/2020 COMPARISON: 09/24/2020 INDICATION: Tube placement TECHNIQUE: Single frontal view of the chest is obtained. FINDINGS: The heart size is mildly prominent. The pulmonary vasculature is normal. Patchy infiltrate is present to the right lung and in the mid left lower lung field. Findings are wor sening over the interval. Endotracheal tube tip is above the claudia. Nasogastric tube transverses the thorax. Left central veno us catheter tip is in the superior vena cava region. IMPRESSION: 1. Worsening bilateral lung joint. Correlate for atypical pneumonia.
--- NOTE | 2020-09-25 12:06 | P.PN ---
Subjective Progress Note Date: 09/25/20 This is a 75-year-old gentleman with history of paroxysmal atrial fibrillation who was on dofetilide for maintenance of sinus rhythm. Patient also has history of diabetes, hypertension, dyslipidemia and previous bypass surgery. Patient is admitted now to hospital with cold with 19 infection and pneumonia. Patient was bradycardic and he was taken off both dofetilide and beta blockers. His heart rate has improved and it's in the range of 90s. His pulmonary status seemed to be stable without any significant improvement. From [facility] standpoint we'll continue holding dofetilide and beta james. Further recommendations depend upon clinical course. This patient is a maintaining sinus rhythm. Bradycardic when is sedated but otherwise his heart rate is certainly 80s and 90s. No recurrence of the alat[place] fibrillation. We will continue current medical therapy and will follow him as needed Objective - Vital Signs Vital signs: Vital Signs Temp 97.9 F 09/25/20 08:00 Pulse 49 L 09/25/20 10:00 Resp 21 09/25/20 10:00 BP 105/53 09/25/20 10:00 Pulse Ox 94 L 09/25/20 10:00 Intake & Output 09/24/20 09/25/20 09/25/20 18:59 06:59 18:59 Intake Total 0061.932 7480.399 604 Output Total 1378 1638 450 Balance 561.644 326.399 154 Weight 127.2 kg 127.2 kg Intake: IV 951 969 324 Pressure bags 51 69 24 Sodium Chloride 0.9% 1, 900 900 300 000 ml @ 75 mls/hr IV . [id number] [facility] Rx#:[id number] Intake, IV Titration 288.644 155.399 Amount propofoL 1,000 mg In 288.644 155.399 Empty Bag 1 bag @ Titrate IV .Q0M [facility] Rx#: [id number] Tube Feeding 550 750 250 Other 150 90 30 Output: Urine 1375 1635 450 Stool 3 3 Other: Voiding Method Indwelling Catheter Indwelling Catheter Indwelling Catheter ABP, PAP, CO, CI - Last Documented Arterial Blood Pressure 83/29 - Exam GENERAL EXAM: Patient is not personally examined. He still intubated. According to nurses note, patient's lungs show diminished breath sounds. Heart rhythm is regular - Labs CBC & Chem 7: 09/25/20 04:30 09/25/20 04:30 Labs: Abnormal Lab Results - Last 24 Hours (Table) 09/24/20 09/25/20 09/25/20 Range/Units 17:44 00:04 04:30 WBC (3.8-10.6) k/uL RBC (4.30-5.90) m/uL Hgb (13.0-17.5) gm/dL Hct (39.0-53.0) % Plt Count (150-450) k/uL Neutrophils # (1.3-7.7) k/uL Lymphocytes # (1.0-4.8) k/uL D-Dimer 11.57 H (<0.60) mg/L FEU ABG pO2 (83-108) mmHg ABG HCO3 (21-25) mmol/L ABG Total CO2 (19-24) mmol/L Chloride (98-107) mmol/L BUN (9-20) mg/dL Creatinine (0.66-1.25) mg/dL Glucose (74-99) mg/dL POC Glucose (mg/dL) 218 H 205 H (75-99) mg/dL ALT (4-49) U/L Lactate Dehydrogenase (313-618) U/L C-Reactive Protein (<10.0) mg/L Total Protein (6.3-8.2) g/dL Albumin (3.5-5.0) g/dL 09/25/20 09/25/20 09/25/20 Range/Units 04:30 04:30 05:52 WBC 11.3 H (3.8-10.6) k/uL RBC 4.01 L (4.30-5.90) m/uL Hgb 12.0 L (13.0-17.5) gm/dL Hct 37.7 L (39.0-53.0) % Plt Count 130 L (150-450) k/uL Neutrophils # 10.8 H (1.3-7.7) k/uL Lymphocytes # 0.2 L (1.0-4.8) k/uL D-Dimer (<0.60) mg/L FEU ABG pO2 71 L (83-108) mmHg ABG HCO3 26 H (21-25) mmol/L ABG Total CO2 27 H (19-24) mmol/L Chloride 111 H (98-107) mmol/L BUN 29 H (9-20) mg/dL Creatinine 0.64 L (0.66-1.25) mg/dL Glucose 249 H (74-99) mg/dL POC Glucose (mg/dL) (75-99) mg/dL ALT 59 H (4-49) U/L Lactate Dehydrogenase 680 H (313-618) U/L C-Reactive Protein 75.6 H (<10.0) mg/L Total Protein 4.5 L (6.3-8.2) g/dL Albumin 2.1 L (3.5-5.0) g/dL 09/25/20 Range/Units 06:19 WBC (3.8-10.6) k/uL RBC (4.30-5.90) m/uL Hgb (13.0-17.5) gm/dL Hct (39.0-53.0) % Plt Count (150-450) k/uL Neutrophils # (1.3-7.7) k/uL Lymphocytes # (1.0-4.8) k/uL D-Dimer (<0.60) mg/L FEU ABG pO2 (83-108) mmHg ABG HCO3 (21-25) mmol/L ABG Total CO2 (19-24) mmol/L Chloride (98-107) mmol/L BUN (9-20) mg/dL Creatinine (0.66-1.25) mg/dL Glucose (74-99) mg/dL POC Glucose (mg/dL) 240 H (75-99) mg/dL ALT (4-49) U/L Lactate Dehydrogenase (313-618) U/L C-Reactive Protein (<10.0) mg/L Total Protein (6.3-8.2) g/dL Albumin (3.5-5.0) g/dL Assessment and Plan (1) Paroxysmal atrial fibrillation Current Visit: Yes Status: Acute Code(s): I48.0 - PAROXYSMAL ATRIAL FIBRILLATION SNOMED Code(s): 270223051 (2) COVID-19 Current Visit: Yes Status: Acute Code(s): U07.1 - COVID-19 SNOMED Code(s): 250056250 (3) Pneumonia due to COVID-19 virus Current Visit: Yes Status: Acute Code(s): U07.1 - COVID-19; J12.89 - OTHER VIRAL PNEUMONIA SNOMED Code(s): 917592430237079707 (4) History of coronary artery disease Current Visit: Yes Status: Acute Code(s): Z86.79 - PERSONAL HISTORY OF OTHER DISEASES OF THE CIRCULATORY SYSTEM SNOMED Code(s): 710262050 Plan: Continue to hold metoprolol and antiarrhythmic medication. We'll follow
[2020-09-25] MEDS ORDERED: LORazepam 2 MG/ML INJ ONE (12:11)
[2020-09-25] MEDS ORDERED: LORazepam 2 MG/ML INJ IV STA (12:21)
[2020-09-25] MEDS: HYDROmorphone 1 MG/ML 1 ML SYRINGE IVP PRN (12:24)
[2020-09-25] MEDS: RIVAROXABAN 20 MG TAB PO SCH ×2 (12:31→13:11)
[2020-09-25 12:39] LABS: Glucose,Whole Blood 166 mg/dL (75-99)
--- NOTE | 2020-09-25 15:37 | PN ---
PROGRESS NOTE I am covering for Dr. Staples DATE OF SERVICE: 09/25/2020 This 75-year-old gentleman who was admitted with bilateral pneumonia, COVID pneumonia, is being closely monitored. The patient had features of sepsis and the most recent chest x-ray, which was personally reviewed by me, showed bilateral significant chest x- ray lesions, and interleukin-1 is pending at this time. The patient's D-dimer is also elevated but seems to be at this time. A 2D echo with Doppler done with Cardiology showed about ejection fraction 55% to 60% and LA was severely dilated, and the patient had some bradycardia. Past medical history reviewed. Review of systems could not be taken; the patient is mechanically ventilated and sedated. CURRENT MEDICATIONS: Reviewed. They include Tylenol, Ventolin, vitamins, Peridex, vitamin D3, dopamine, which was discontinued, Levemir, Zestril, Ativan. Currently the patient is on Levemir 20 units subcutaneously daily. PHYSICAL EXAMINATION: Patient is on mechanical ventilation. The pulse is 49, blood pressure 105/53, respiration 21, temperature 97.9, pulse ox 94% on 50% FiO2. HEENT: Conjunctivae normal. NECK: No jugular venous distention. CARDIOVASCULAR SYSTEM: S1, S2 muffled. RESPIRATORY SYSTEM: Breath sounds diminished at the bases. Bilateral scattered rhonchi and crackles. ABDOMEN: Soft, obese, non-tender. NERVOUS SYSTEM: No focal deficit. LABS: WBC 11.3, hemoglobin 12. D-dimer is 11.57. Glucose noted. LDH is 680. C-reactive protein is 75.6. ASSESSMENT: 1. Acute bilateral COVID-19 interstitial pneumonia with acute hypoxic hypercarbic respiratory failure, on mechanical ventilation, as well as sepsis, present on admission. 2. Lactic acidosis. 3. Paroxysmal atrial fibrillation. 4. Bradycardia. 5. Elevated D-dimer without any evidence of pulmonary embolism on previous studies, on Xarelto. 6. Multiple premature ventricular contractions as a response to dopamine. 7. Diabetes mellitus, type 2. 8. Hyperlipidemia. 9. Hypertension history. 10.Obstructive sleep apnea. 11.History of coronary artery disease, coronary artery bypass grafting. 12.History of chronic obstructive pulmonary disease. 13.Elevated inflammatory markers and elevated D-dimer indicative of COVID-19. 14.Anemia, normocytic. 15.FULL CODE. RECOMMENDATIONS AND DISCUSSION: I recommend to continue current medications, continue with symptomatic treatment. Otherwise, continue with mechanical ventilation as per Dr. Walls's recommendations. Continue the bronchodilators. I would recommend increasing insulin to 25 units tonight and monitor the blood sugars closely. Il-6 results are pending at this time. Continue the broad-spectrum IV antibiotics. Closely follow with Dr. Walls. Further recommendations to follow. Discussed with staff. MMTUNGL / IJN: [id number] / BENJAMIN
--- NOTE | 2020-09-25 16:23 | P.PN ---
Subjective Progress Note Date: 09/25/20 Principal diagnosis: Acute hypoxic respiratory failure secondary to covid 19 pneumonitis and influenza B infection. 75-year-old white male patient of Dr. Cornell Gasca who presented to the emergency department on 09/15/2020 with complaints of difficulty breathing. Patient tested positive for COVID 19 and influenza B on 09/07/2020. He is been progressively short of breath, has a dry nonproductive cough, he is unclear whether he is having fevers. He feels fatigued, denies any nausea vomiting or diarrhea, denies any abdominal pain, denies any history of chronic lung problem s. His past medical history positive for atrial fibrillation on anticoagulation, hypertension, hyperlipidemia, diabetes mellitus type 2, coronary artery disease with history of previous bypass grafting, he is a former smoker. His chest x-ray showed bilateral diffuse airspace disease, concerning for COVID 19 pneumonia. His labs were reviewed, showing lymphopenia with lymphocyte count of 0.2, lactic acid level of 2.5 which has subsequently increased to 4.0, ferritin level was 2454, AST and ALT were 87 and 67 respectively, Altace was 1513, and CRP was 70.4. Pro-calcitonin level was negative at 0.09. Decadron has been started at 6 mg daily, he is on IV hydration, with lactated Ringer's at 100 ML per hour. he is on oral anticoagulation in the form of Xarelto. Remains on 7 L of oxygen per high flow nasal cannula and the pulse ox is between 87-91%. Afebrile On 09/18/2020 patient seen in follow-up on general medical surgical floor. He is on 11 L of oxygen, his pulse ox is 89%, he is afebrile, hemodynamically is been stable, patient was out of the window for Remdesivir, he was started on Tamiflu, he is on oral anticoagulation in the form of Xarelto, no fever or chills, his d-dimer has increased, I came up to 2.31 on today's labs, his CRP has improved significantly and is down to 1.5, LDH level is pending, he is on oral Decadron, he is on IV hydration, nausea vomiting, no abdominal pain, he is tolerating oral intake. No, but the chest pain. The patient is seen today 09/19/2020 follow-up on the regular medical floor. He is currently sitting up in bed. He is somewhat confused and altered. He's been pulling off his hospital gown. Getting up out of bed without assistance. Uncooperative. He is pulling off his oxygen. He is only at 90% O2 saturation on 15 L high flow nasal cannula. Chest x-ray continues to show coarse interstitial infiltrates bilaterally. D-dimer 3.01. Sodium 143. Potassium 4.0. Creatinine 0.7. C-reactive protein 8.2. Pro-calcitonin 0.09. He remains on Tamiflu. Anticoagulated with Xarelto. 09/20/2020, the patient is being seen in follow-up in the intensive care unit. As mentioned earlier, the patient developed progressive worsening shortness of breath, altered mentation, confusion, oxygen saturation, tachypnea and tachycardia and respiratory failure with hypoxemia. The patient got transferred to the intensive care unit and overnight the patient had to be intubated and placed on a mechanical ventilator. Currently is intubated. Lisinopril running at 25 mg per KG per minute. He is an assist-control mode of ventilation at the rate of 18 with a tidal volume of 450 and FiO2 of 80% with a PEEP of 10. Peak airway pressures around 21. He was quite tachypneic with increased minute ventilation. He was urinating adequate amount of tidal volumes well on a mechanical ventilator on a Monday tidal volume of 550 which obviously dropped a respiratory rate down to the mid 20s. The patient is currently being treated with systemic steroids. The patient was also given a course of Tamiflu knowing that he was checked positive for influenza B. He has been out of the window for Rermdesivir treatment, and the treatment was declined by pharmacy. I contacted the pharmacy again and based on the decline in his respiratory status and progressive worsening his hypoxic respiratory failure, we'll need an exception to offer this patient a treatment to give him the benefit of the doubt. Also, the patient is on IV Solu-Medrol. He remains on zinc. He remains on vitamin C. The patient has received also units of convalescent plasma. He'll be started on enteral feeding for nutritional support. 2 triple-lumen catheter was established yesterday. He remains on Xarelto as a long-term anticoagulant that the patient has been taking. Reevaluated today on 09/21/20, patient remains in the ICU, intubated and mechanically ventilated. Ventilator settings are assist control rate of 18, fully in control +550, FiO2 of 70%, PEEP of 10, however after reviewing the ABG, PEEP was increased at 12, FiO2 down to 60%. ABG showed a pO2 of 88 pCO2 of 37 pH of 7.40. IV fluids at 75 mL per hour. Propofol at 41 g subcu per minute, patient is not requiring any pressors. He is on enteral feeding with rate to 20 mL per hour. Goal is 58. Patient had a right IJ triple-lumen catheter, placed on 09/19, and left radial arterial line. Patient is receiving IV Solu- Medrol, also received remdesivir. Remains on zinc and vitamin C. He also received convalescent plasma. On enteral feeding. And on Xarelto long-term for anticoagulations therapy WBC count is 9.7 hemoglobin is 11.2. Electrolytes are normal. Chest x-ray shows bilateral interstitial infiltrates Reevaluated today on 09/22/20, remains in the ICU intubated and mechanically ventilated. Patient has ventilator settings are tidal volume is 550 assist- control rate of 18 FiO2 60% and PEEP of 12 ABG showed a pO2 of 90 pCO2 of 37 pH of 7.41 however based on that ABG I cut down the FiO2 to 55% kept him on a PEEP of 12. 80s on propofol at 45 mcg/kg/m 0.9 normal saline at 75 mL per hour not requiring any pressors. Remains on enteral tube feeding /. CBC showed WBC count of 9.2 hemoglobin is 10.9. Electrolytes are normal chest x-ray showed evidence of bilateral multifocal airspace disease consistent with pneumonia. Patient was reevaluated today on 09/23/20, remains intubated and mechanically ventilated. He is now on assist control mode of mechanical ventilation, volume control plus, tidal volume is 550 rate is 18 FiO2 is 55% and PEEP is 10. ABG showed a pO2 of 71 pCO2 of 36 pH of 7.40. Remains on propofol at 40 mcg/kg/m, IV fluid at 75 mL/h, patient is noted to be quite bradycardic, although his blood pressure seems to be holding, he is having sinus bradycardia rates as low as 58, seen by cardiology and recommended dopamine at 2 mcg/kg/m. Patient is also on enteral feeding no changes were made today his ventilator settings. However would like to awaken the patient, and assess mental status at least today. Chest x-ray continues to show diffuse bilateral interstitial infiltrates. Consistent with covid 19 pneumonitis, and ARDS Patient was reevaluated today on 09/24/20, remains intubated and mechanically ventilated. Patient is now on assist control rate of 18, volume control +550, inspiratory time is 1 second. FiO2 is 55% and PEEP is 10 ABG is pO2 of 73 pCO2 of 38 pH of 7.42. Patient is on propofol at 45 mcg/kg/m, his PEEP was cut down to 8. Basic metabolic profile is basically normal. CBC is relatively normal. D-dimer is 12.59. LDH is down to 787 from 1513. C-reactive protein is 36. Patient remains on the Covid 19 pneumonitis cocktail reevaluated today on 09/25/20, remains intubated and mechanically ventilated. His ventilator settings are assist control rate of 18, tidal volume is 550, FiO2 55%, PEEP is 5. ABG showed a pO2 of 71 pCO2 of 39 pH of 7.4.. His IV fluid is at 75 mL/h 0.9 normal saline, on propofol at 30 mcg/kg/m. Chest x-ray looks slightly worse with bilateral interstitial infiltrates. Patient remains on enteral tube feeding. Considering the worsening of the chest x-ray today, I recommended adding Zosyn empirically. Inflammatory markers were noted today, LDH is 680 C-reactive protein is 75.6. WBC count is 11.3 hemoglobin is 12. D- dimer remains elevated at 11.57. Objective - Vital Signs Vital signs: Vital Signs Temp 97.8 F 09/25/20 16:00 Pulse 96 09/25/20 16:00 Resp 26 H 09/25/20 16:00 BP 94/47 09/25/20 16:00 Pulse Ox 92 L 09/25/20 16:00 Intake & Output 09/24/20 09/25/20 09/25/20 18:59 06:59 18:59 Intake Total 5509.533 5291.399 1489 Output Total 1378 1638 775 Balance 561.644 326.399 714 Weight 127.2 kg 127.2 kg Intake: IV 951 969 729 Pressure bags 51 69 54 Sodium Chloride 0.9% 1, 900 900 675 000 ml @ 75 mls/hr IV . [id number] [facility] Rx#:[id number] Intake, IV Titration 288.644 155.399 100 Amount propofoL 1,000 mg In 288.644 155.399 100 Empty Bag 1 bag @ Titrate IV .Q0M [facility] Rx#: [id number] Tube Feeding 550 750 600 Other 150 90 60 Output: Urine 1375 1635 775 Stool 3 3 Other: Voiding Method Indwelling Catheter Indwelling Catheter Indwelling Catheter ABP, PAP, CO, CI - Last Documented Arterial Blood Pressure 98/41 - Exam GENERAL EXAM: 75-year-old on mechanical ventilation. Sedated. HEAD: Normocephalic/atraumatic. HEENT: PERRLA, EOMI, no icterus. Endotracheal tube and orogastric tube are intact. CHEST: No chest wall deformity. Symmetrical expansion. LUNGS: Crackles and rhonchi noted bilaterally. CVS: Regular rate and rhythm, normal S1 and S2, no gallops, no murmurs, no rubs ABDOMEN: Soft, nontender. No hepatosplenomegaly, normal bowel sounds, no guarding or rigidity. EXTREMITIES: No clubbing, no edema, no cyanosis, 2+ pulses and upper and lower extremities. MUSCULOSKELETAL: Could not be assessed.. SKIN: No rashes CENTRAL NERVOUS SYSTEM: Sedated on mechanical ventilation, could not assess. PSYCHIATRIC: Could not assess - Labs CBC & Chem 7: 09/25/20 04:30 09/25/20 04:30 Labs: Abnormal Lab Results - Last 24 Hours (Table) 09/24/20 09/25/20 09/25/20 Range/Units 17:44 00:04 04:30 WBC (3.8-10.6) k/uL RBC (4.30-5.90) m/uL Hgb (13.0-17.5) gm/dL Hct (39.0-53.0) % Plt Count (150-450) k/uL Neutrophils # (1.3-7.7) k/uL Lymphocytes # (1.0-4.8) k/uL D-Dimer 11.57 H (<0.60) mg/L FEU ABG pO2 (83-108) mmHg ABG HCO3 (21-25) mmol/L ABG Total CO2 (19-24) mmol/L Chloride (98-107) mmol/L BUN (9-20) mg/dL Creatinine (0.66-1.25) mg/dL Glucose (74-99) mg/dL POC Glucose (mg/dL) 218 H 205 H (75-99) mg/dL ALT (4-49) U/L Lactate Dehydrogenase (313-618) U/L C-Reactive Protein (<10.0) mg/L Total Protein (6.3-8.2) g/dL Albumin (3.5-5.0) g/dL 09/25/20 09/25/20 09/25/20 Range/Units 04:30 04:30 05:52 WBC 11.3 H (3.8-10.6) k/uL RBC 4.01 L (4.30-5.90) m/uL Hgb 12.0 L (13.0-17.5) gm/dL Hct 37.7 L (39.0-53.0) % Plt Count 130 L (150-450) k/uL Neutrophils # 10.8 H (1.3-7.7) k/uL Lymphocytes # 0.2 L (1.0-4.8) k/uL D-Dimer (<0.60) mg/L FEU ABG pO2 71 L (83-108) mmHg ABG HCO3 26 H (21-25) mmol/L ABG Total CO2 27 H (19-24) mmol/L Chloride 111 H (98-107) mmol/L BUN 29 H (9-20) mg/dL Creatinine 0.64 L (0.66-1.25) mg/dL Glucose 249 H (74-99) mg/dL POC Glucose (mg/dL) (75-99) mg/dL ALT 59 H (4-49) U/L Lactate Dehydrogenase 680 H (313-618) U/L C-Reactive Protein 75.6 H (<10.0) mg/L Total Protein 4.5 L (6.3-8.2) g/dL Albumin 2.1 L (3.5-5.0) g/dL 09/25/20 09/25/20 Range/Units 06:19 12:38 WBC (3.8-10.6) k/uL RBC (4.30-5.90) m/uL Hgb (13.0-17.5) gm/dL Hct (39.0-53.0) % Plt Count (150-450) k/uL Neutrophils # (1.3-7.7) k/uL Lymphocytes # (1.0-4.8) k/uL D-Dimer (<0.60) mg/L FEU ABG pO2 (83-108) mmHg ABG HCO3 (21-25) mmol/L ABG Total CO2 (19-24) mmol/L Chloride (98-107) mmol/L BUN (9-20) mg/dL Creatinine (0.66-1.25) mg/dL Glucose (74-99) mg/dL POC Glucose (mg/dL) 240 H 166 H (75-99) mg/dL ALT (4-49) U/L Lactate Dehydrogenase (313-618) U/L C-Reactive Protein (<10.0) mg/L Total Protein (6.3-8.2) g/dL Albumin (3.5-5.0) g/dL Assessment and Plan Assessment: Impression: Acute hypoxic respiratory failure secondary to covid 19 pneumonitis, and underlying influenza B infection. Chronic atrial fibrillation. Type 2 diabetes. Benign essential hypertension. Moderate pulmonary hypertension Recommendation: Continue ventilatory support. Continue PEEP at 8. Add Zosyn empirically especially with the worsening chest x-ray. Consider daily assessment for weaning.. Off propofol. Continue nutritional support. Enteral feeding. Continue Covid 19 cocktail. GI and DVT prophylaxis. Remains critically ill, critical care time is greater than 30 minutes Time with Patient: Greater than 30
[2020-09-25] MEDS ORDERED: SODIUM CHLORIDE 0.9% 1,000 ML IV ONE (16:50)
[2020-09-25 17:04] LABS: Glucose,Whole Blood 241 mg/dL (75-99)
[2020-09-25] MEDS: TAMSULOSIN 0.4 MG CAP.ER.24H PO SCH (20:00)
[2020-09-25 23:36] LABS: Glucose,Whole Blood 247 mg/dL (75-99)
[2020-09-26] MEDS: INSULIN ASPART (NovoLOG) 100 UNIT/ML VIAL SQ SCH ×4 (00:16→18:37)
[2020-09-26] MEDS: PIPERACILLIN-TAZOBACTAM 3.375 GM in SODIUM CHLORIDE 0.9% 100 ML IVPB SCH ×3 (00:16→15:27)
[2020-09-26] MEDS: methylPREDNISolone SOD SUCCI 40 MG/ML 1 ML VIAL IV SCH ×3 (00:16→15:27)
[2020-09-26] MEDS: HYDROmorphone 1 MG/ML 1 ML SYRINGE IVP PRN ×2 (03:05→16:00)
[2020-09-26 04:55] LABS: ABG Base Excess 0.4 mmol/L; ABG HCO3 26 mmol/L (21-25); ABG PCO2 46 mmHg (35-45); ABG PH 7.36 (7.35-7.45); ABG PO2 84 mmHg (83-108); ABG TCO2 27 mmol/L (19-24); Allen Test Performed? Yes
[2020-09-26 05:11] LABS: Basophils % (A) 0 %; Eosinophils % (A) 0 %; HCT 35.2 % (39.0-53.0); HGB 11.1 gm/dL (13.0-17.5); Lymphocytes # (A) 0.2 k/uL (1.0-4.8); Lymphocytes % (A) 2 %; MCH 29.8 pg (25.0-35.0); MCHC 31.5 g/dL (31.0-37.0); MCV 94.7 fL (80.0-100.0); Monocytes # (A) 0.2 k/uL (0-1.0); Monocytes % (A) 2 %; Neutrophils # (A) 10.4 k/uL (1.3-7.7); Neutrophils % (A) 96 %; Platelet Count 104 k/uL (150-450); RBC 3.72 m/uL (4.30-5.90); WBC 10.8 k/uL (3.8-10.6)
[2020-09-26 05:20] LABS: Glucose,Whole Blood 277 mg/dL (75-99)
[2020-09-26 05:51] LABS: African American GFR (CKD) >90 (>60 ml/min/1.73 sqM); Anion Gap 1 mmol/L; Blood Urea Nitrogen 33 mg/dL (9-20); Calcium 8.1 mg/dL (8.4-10.2); Carbon Dioxide 26 mmol/L (22-30); Chloride 109 mmol/L (98-107); Glucose 274 mg/dL (74-99); LDH 657 U/L (313-618); Non-African American GFR(CKD) >90 (>60 ml/min/1.73 sqM); Potassium 4.9 mmol/L (3.5-5.1); Sodium 136 mmol/L (137-145)
[2020-09-26 06:24] LABS: C Reactive Protein 163.8 mg/L (<10.0)
[2020-09-26] MEDS ORDERED: INSULIN DETEMIR (LEVEMIR) 100 UNIT/ML SYR SQ SCH (07:00)
--- NOTE | 2020-09-26 07:03 | XR ---
EXAMINATION TYPE: XR chest 1V portable DATE OF EXAM: 09/26/2020 CLINICAL HISTORY: Difficulty breathing progress study. TECHNIQUE: Single AP portable semiupright view of the chest is obtained. COMPARISON: Chest x-ray from one day earlier and older studies. FINDINGS: Stable endotracheal and orogastric tubes. Stable left internal jugular central venous cath eter. Persistent cardiomegaly with atherosclerotic aorta. Overlying sternal wires redemonstrated. Per sistent bilateral multifocal opacities. Worsening findings in the right lung base suspected as there is increased silhouetting right hemidiaphragm. Osseous structures show scoliotic curvature may be pos itional. IMPRESSION: Cardiomegaly with bilateral multifocal acute infiltrates redemonstrated. Suspected worsen ing in right basilar findings noted.
[2020-09-26] MEDS: ALBUTEROL HFA INHALER INHALATION SCH ×4 (07:24→21:52)
[2020-09-26] MEDS: ASCORBIC ACID 500 MG TAB PO SCH ×2 (08:42→21:15)
[2020-09-26] MEDS: ZINC SULFATE 220 MG CAP PO SCH (08:42)
[2020-09-26] MEDS: CHOLECALCIFEROL 1,000 UNIT TAB PO SCH (08:42)
[2020-09-26] MEDS: MULTIVITAMINS, THERA 1 EACH TAB PO SCH (08:43)
[2020-09-26] MEDS: CHLORHEXIDINE GLUCONATE 15 ML CUP MUCOUS MEM SCH ×2 (08:43→21:15)
[2020-09-26] MEDS: ATORVASTATIN 80 MG TAB PO SCH (08:43)
[2020-09-26] MEDS: RIVAROXABAN 20 MG TAB PO SCH (08:43)
[2020-09-26] MEDS: lisinopriL 20 MG TAB PO SCH (08:43)
[2020-09-26] MEDS: NYSTATIN 100,000 UNIT/ML SUSP 500,000 UNIT/5 ML CUP PO SCH ×4 (08:44→21:15)
[2020-09-26] MEDS: SODIUM CHLORIDE 0.9% 1,000 ML IV SCH (08:44)
[2020-09-26] MEDS: DOPamine DRIP 800 MG in DEXTROSE/WATER 1 250ML.BAG IV SCH (08:44)
[2020-09-26 13:32] LABS: Glucose,Whole Blood 306 mg/dL (75-99)
[2020-09-26] MEDS ORDERED: INSULIN DETEMIR (LEVEMIR) 100 UNIT/ML SYR SQ ONE (14:00)
--- NOTE | 2020-09-26 14:55 | P.PN ---
Subjective Progress Note Date: 09/26/20 Principal diagnosis: Acute hypoxic respiratory failure secondary to covid 19 pneumonitis and influenza B infection. 75-year-old white male patient of Dr. Cornell Gasca who presented to the emergency department on 09/15/2020 with complaints of difficulty breathing. Patient tested positive for COVID 19 and influenza B on 09/07/2020. He is been progressively short of breath, has a dry nonproductive cough, he is unclear whether he is having fevers. He feels fatigued, denies any nausea vomiting or diarrhea, denies any abdominal pain, denies any history of chronic lung problem s. His past medical history positive for atrial fibrillation on anticoagulation, hypertension, hyperlipidemia, diabetes mellitus type 2, coronary artery disease with history of previous bypass grafting, he is a former smoker. His chest x-ray showed bilateral diffuse airspace disease, concerning for COVID 19 pneumonia. His labs were reviewed, showing lymphopenia with lymphocyte count of 0.2, lactic acid level of 2.5 which has subsequently increased to 4.0, ferritin level was 2454, AST and ALT were 87 and 67 respectively, Altace was 1513, and CRP was 70.4. Pro-calcitonin level was negative at 0.09. Decadron has been started at 6 mg daily, he is on IV hydration, with lactated Ringer's at 100 ML per hour. he is on oral anticoagulation in the form of Xarelto. Remains on 7 L of oxygen per high flow nasal cannula and the pulse ox is between 87-91%. Afebrile On 09/18/2020 patient seen in follow-up on general medical surgical floor. He is on 11 L of oxygen, his pulse ox is 89%, he is afebrile, hemodynamically is been stable, patient was out of the window for Remdesivir, he was started on Tamiflu, he is on oral anticoagulation in the form of Xarelto, no fever or chills, his d-dimer has increased, I came up to 2.31 on today's labs, his CRP has improved significantly and is down to 1.5, LDH level is pending, he is on oral Decadron, he is on IV hydration, nausea vomiting, no abdominal pain, he is tolerating oral intake. No, but the chest pain. The patient is seen today 09/19/2020 follow-up on the regular medical floor. He is currently sitting up in bed. He is somewhat confused and altered. He's been pulling off his hospital gown. Getting up out of bed without assistance. Uncooperative. He is pulling off his oxygen. He is only at 90% O2 saturation on 15 L high flow nasal cannula. Chest x-ray continues to show coarse interstitial infiltrates bilaterally. D-dimer 3.01. Sodium 143. Potassium 4.0. Creatinine 0.7. C-reactive protein 8.2. Pro-calcitonin 0.09. He remains on Tamiflu. Anticoagulated with Xarelto. 09/20/2020, the patient is being seen in follow-up in the intensive care unit. As mentioned earlier, the patient developed progressive worsening shortness of breath, altered mentation, confusion, oxygen saturation, tachypnea and tachycardia and respiratory failure with hypoxemia. The patient got transferred to the intensive care unit and overnight the patient had to be intubated and placed on a mechanical ventilator. Currently is intubated. Lisinopril running at 25 mg per KG per minute. He is an assist-control mode of ventilation at the rate of 18 with a tidal volume of 450 and FiO2 of 80% with a PEEP of 10. Peak airway pressures around 21. He was quite tachypneic with increased minute ventilation. He was urinating adequate amount of tidal volumes well on a mechanical ventilator on a Monday tidal volume of 550 which obviously dropped a respiratory rate down to the mid 20s. The patient is currently being treated with systemic steroids. The patient was also given a course of Tamiflu knowing that he was checked positive for influenza B. He has been out of the window for Rermdesivir treatment, and the treatment was declined by pharmacy. I contacted the pharmacy again and based on the decline in his respiratory status and progressive worsening his hypoxic respiratory failure, we'll need an exception to offer this patient a treatment to give him the benefit of the doubt. Also, the patient is on IV Solu-Medrol. He remains on zinc. He remains on vitamin C. The patient has received also units of convalescent plasma. He'll be started on enteral feeding for nutritional support. 2 triple-lumen catheter was established yesterday. He remains on Xarelto as a long-term anticoagulant that the patient has been taking. Reevaluated today on 09/21/20, patient remains in the ICU, intubated and mechanically ventilated. Ventilator settings are assist control rate of 18, fully in control +550, FiO2 of 70%, PEEP of 10, however after reviewing the ABG, PEEP was increased at 12, FiO2 down to 60%. ABG showed a pO2 of 88 pCO2 of 37 pH of 7.40. IV fluids at 75 mL per hour. Propofol at 41 g subcu per minute, patient is not requiring any pressors. He is on enteral feeding with rate to 20 mL per hour. Goal is 58. Patient had a right IJ triple-lumen catheter, placed on 09/19, and left radial arterial line. Patient is receiving IV Solu- Medrol, also received remdesivir. Remains on zinc and vitamin C. He also received convalescent plasma. On enteral feeding. And on Xarelto long-term for anticoagulations therapy WBC count is 9.7 hemoglobin is 11.2. Electrolytes are normal. Chest x-ray shows bilateral interstitial infiltrates Reevaluated today on 09/22/20, remains in the ICU intubated and mechanically ventilated. Patient has ventilator settings are tidal volume is 550 assist- control rate of 18 FiO2 60% and PEEP of 12 ABG showed a pO2 of 90 pCO2 of 37 pH of 7.41 however based on that ABG I cut down the FiO2 to 55% kept him on a PEEP of 12. 80s on propofol at 45 mcg/kg/m 0.9 normal saline at 75 mL per hour not requiring any pressors. Remains on enteral tube feeding /. CBC showed WBC count of 9.2 hemoglobin is 10.9. Electrolytes are normal chest x-ray showed evidence of bilateral multifocal airspace disease consistent with pneumonia. Patient was reevaluated today on 09/23/20, remains intubated and mechanically ventilated. He is now on assist control mode of mechanical ventilation, volume control plus, tidal volume is 550 rate is 18 FiO2 is 55% and PEEP is 10. ABG showed a pO2 of 71 pCO2 of 36 pH of 7.40. Remains on propofol at 40 mcg/kg/m, IV fluid at 75 mL/h, patient is noted to be quite bradycardic, although his blood pressure seems to be holding, he is having sinus bradycardia rates as low as 58, seen by cardiology and recommended dopamine at 2 mcg/kg/m. Patient is also on enteral feeding no changes were made today his ventilator settings. However would like to awaken the patient, and assess mental status at least today. Chest x-ray continues to show diffuse bilateral interstitial infiltrates. Consistent with covid 19 pneumonitis, and ARDS Patient was reevaluated today on 09/24/20, remains intubated and mechanically ventilated. Patient is now on assist control rate of 18, volume control +550, inspiratory time is 1 second. FiO2 is 55% and PEEP is 10 ABG is pO2 of 73 pCO2 of 38 pH of 7.42. Patient is on propofol at 45 mcg/kg/m, his PEEP was cut down to 8. Basic metabolic profile is basically normal. CBC is relatively normal. D-dimer is 12.59. LDH is down to 787 from 1513. C-reactive protein is 36. Patient remains on the Covid 19 pneumonitis cocktail reevaluated today on 09/25/20, remains intubated and mechanically ventilated. His ventilator settings are assist control rate of 18, tidal volume is 550, FiO2 55%, PEEP is 5. ABG showed a pO2 of 71 pCO2 of 39 pH of 7.4.. His IV fluid is at 75 mL/h 0.9 normal saline, on propofol at 30 mcg/kg/m. Chest x-ray looks slightly worse with bilateral interstitial infiltrates. Patient remains on enteral tube feeding. Considering the worsening of the chest x-ray today, I recommended adding Zosyn empirically. Inflammatory markers were noted today, LDH is 680 C-reactive protein is 75.6. WBC count is 11.3 hemoglobin is 12. D- dimer remains elevated at 11.57. Reevaluated today on 09/26/20, remains in the ICU, intubated and mechanically ventilated. Patient is on assist control mode of mechanical ventilation rate 18, he is on volume control plus at 550, inspiratory time is 1. FiO2 is 65% and PEEP is at 8. ABG showed a pO2 of 84 pCO2 of 46 pH of 7.36. Cut down his FiO2 to 60%. Patient remains on propofol at 30 mcg/kg/m, he is on IV fluid 0.9 at 75 mL per hour. Chest x-ray continues to show significant airspace disease bilaterally. Patient remains sedated, however I haven't made a recommendation to hold sedation and assessment of status on a daily basis but the patient is not quite ready to have weaning parameters or 2 given weaning trials. D-dimer remains elevated at 9. Celexa lites are normal renal profile is normal WBC count is 10.8 hemoglobin is 11.20 Objective - Vital Signs Vital signs: Vital Signs Temp 97.4 F L 09/26/20 08:00 Pulse 43 L 09/26/20 10:00 Resp 20 09/26/20 10:00 BP 133/55 09/26/20 10:00 Pulse Ox 92 L 09/26/20 10:00 Intake & Output 09/25/20 09/26/20 09/26/20 18:59 06:59 18:59 Intake Total 2887 1973.987 670.623 Output Total 925 825 275 Balance 1962 1148.987 395.623 Weight 127.2 kg 128.6 kg Intake: IV 1897 972 324 Pressure bags 72 72 24 Sodium Chloride 0.9% 1, 825 900 300 000 ml @ 75 mls/hr IV . [id number] [facility] Rx#:[id number] Sodium Chloride 0.9% 1, 1000 000 ml @ 999 mls/hr IV . Q1H1M [facility] Rx#:[id number] Intake, IV Titration 200 311.987 66.623 Amount propofoL 1,000 mg In 200 311.987 66.623 Empty Bag 1 bag @ Titrate IV .Q0M [facility] Rx#: [id number] Tube Feeding 700 600 250 Other 90 90 30 Output: Urine 925 825 275 Other: Voiding Method Indwelling Catheter Indwelling Catheter Indwelling Catheter ABP, PAP, CO, CI - Last Documented Arterial Blood Pressure 160/50 - Exam GENERAL EXAM: 75-year-old on mechanical ventilation. Sedated. HEAD: Normocephalic/atraumatic. HEENT: PERRLA, EOMI, no icterus. Endotracheal tube and orogastric tube are intact. CHEST: No chest wall deformity. Symmetrical expansion. LUNGS: Crackles and rhonchi noted bilaterally. CVS: Regular rate and rhythm, normal S1 and S2, no gallops, no murmurs, no rubs ABDOMEN: Soft, nontender. No hepatosplenomegaly, normal bowel sounds, no guarding or rigidity. EXTREMITIES: No clubbing, no edema, no cyanosis, 2+ pulses and upper and lower extremities. MUSCULOSKELETAL: Could not be assessed.. SKIN: No rashes CENTRAL NERVOUS SYSTEM: Sedated on mechanical ventilation, could not assess. PSYCHIATRIC: Could not assess - Labs CBC & Chem 7: 09/26/20 04:35 09/26/20 04:35 Labs: Abnormal Lab Results - Last 24 Hours (Table) 09/25/20 09/25/20 09/26/20 Range/Units 17:03 23:34 04:35 WBC (3.8-10.6) k/uL RBC (4.30-5.90) m/uL Hgb (13.0-17.5) gm/dL Hct (39.0-53.0) % Plt Count (150-450) k/uL Neutrophils # (1.3-7.7) k/uL Lymphocytes # (1.0-4.8) k/uL D-Dimer (<0.60) mg/L FEU ABG pCO2 (35-45) mmHg ABG HCO3 (21-25) mmol/L ABG Total CO2 (19-24) mmol/L Sodium 136 L (137-145) mmol/L Chloride 109 H (98-107) mmol/L BUN 33 H (9-20) mg/dL Glucose 274 H (74-99) mg/dL POC Glucose (mg/dL) 241 H 247 H (75-99) mg/dL Calcium 8.1 L (8.4-10.2) mg/dL Lactate Dehydrogenase 657 H (313-618) U/L C-Reactive Protein 163.8 H (<10.0) mg/L 09/26/20 09/26/20 09/26/20 Range/Units 04:35 04:50 05:15 WBC 10.8 H (3.8-10.6) k/uL RBC 3.72 L (4.30-5.90) m/uL Hgb 11.1 L (13.0-17.5) gm/dL Hct 35.2 L (39.0-53.0) % Plt Count 104 L (150-450) k/uL Neutrophils # 10.4 H (1.3-7.7) k/uL Lymphocytes # 0.2 L (1.0-4.8) k/uL D-Dimer 9.01 H (<0.60) mg/L FEU ABG pCO2 46 H (35-45) mmHg ABG HCO3 26 H (21-25) mmol/L ABG Total CO2 27 H (19-24) mmol/L Sodium (137-145) mmol/L Chloride (98-107) mmol/L BUN (9-20) mg/dL Glucose (74-99) mg/dL POC Glucose (mg/dL) (75-99) mg/dL Calcium (8.4-10.2) mg/dL Lactate Dehydrogenase (313-618) U/L C-Reactive Protein (<10.0) mg/L 09/26/20 09/26/20 Range/Units 05:19 13:21 WBC (3.8-10.6) k/uL RBC (4.30-5.90) m/uL Hgb (13.0-17.5) gm/dL Hct (39.0-53.0) % Plt Count (150-450) k/uL Neutrophils # (1.3-7.7) k/uL Lymphocytes # (1.0-4.8) k/uL D-Dimer (<0.60) mg/L FEU ABG pCO2 (35-45) mmHg ABG HCO3 (21-25) mmol/L ABG Total CO2 (19-24) mmol/L Sodium (137-145) mmol/L Chloride (98-107) mmol/L BUN (9-20) mg/dL Glucose (74-99) mg/dL POC Glucose (mg/dL) 277 H 306 H (75-99) mg/dL Calcium (8.4-10.2) mg/dL Lactate Dehydrogenase (313-618) U/L C-Reactive Protein (<10.0) mg/L Assessment and Plan Assessment: Impression: Acute hypoxic respiratory failure secondary to covid 19 pneumonitis, and underlying influenza B infection. Chronic atrial fibrillation. Type 2 diabetes. Benign essential hypertension. Moderate pulmonary hypertension Recommendation: Continue ventilatory support. Decrease FiO2 to 60%. Continue PEEP at 8. Continue Zosyn. Consider daily assessment of mental status, off propofol. Continue nutritional support. Enteral feeding. Continue Covid 19 cocktail. GI and DVT prophylaxis. Remains critically ill, critical care time is greater than 30 minutes Time with Patient: Greater than 30
[2020-09-26 18:36] LABS: Glucose,Whole Blood 273 mg/dL (75-99)
--- NOTE | 2020-09-26 19:56 | PN ---
PROGRESS NOTE DATE OF SERVICE: 09/26/2020 I am covering for Dr. Staples. This is a 75-year-old gentleman who was admitted with bilateral pneumonia secondary to COVID-19 pneumonia had received remdesivir. The patient has sepsis and multiple other complication also. The patient also has occasional PVCs at this time. Patient had bradycardia, but currently the heart rate is improved and the most recent chest x-ray which was reviewed personally by me showed multifocal acute bilateral infiltrates, slight worsening was suspected. Dr. Walls is following the patient closely. The patient is currently on PEEP of 8. No changes in the ventilator parameters are suspected. Interleukin-6 levels are pending at this time. The LDH and C-reactive protein is elevated. Blood sugars are also elevated to 277, 306. PAST MEDICAL HISTORY: Reviewed. REVIEW OF SYSTEMS: Could not be taken. The patient is mechanically ventilated and sedated. CURRENT MEDICATIONS: Reviewed and include Tylenol, Ventolin, vitamin C, Lipitor, Peridex, NovoLog, Levemir, Zestril, Zosyn. Doses reviewed. PHYSICAL EXAM: Patient is mechanically ventilated and sedated. VITAL SIGNS: Pulse 42, blood pressure 116/41, respiration 21, temperature is normal, pulse ox 98% on 60% FiO2. HEENT: Conjunctivae normal. Oral mucosa moist. NECK: No jugular venous distention. RESPIRATORY: Breath sounds diminished at the bases. A few scattered rhonchi and crackles. HEART: S1 and S2, muffled. ABDOMEN: Soft. NERVOUS: The patient is sedated. LABS: WBC 10.8, hemoglobin 11.1, platelets are 104. ASSESSMENT: 1. Acute bilateral COVID-19 interstitial pneumonia with acute hypoxic hypercarbic respiratory failure on mechanical ventilation. As well as sepsis, present on admission. 2. Lactic acidosis. 3. Paroxysmal atrial fibrillation. 4. Bradycardia. 5. Developing thrombocytopenia. 6. Elevated D-dimer without any evidence of pulmonary embolism on previous studies, on Xarelto. 7. Multiple PVCs as a response to dopamine. 8. Diabetes mellitus type 2. 9. Hyperlipidemia. 10.Hypertension history. 11.Sleep apnea. 12.Next history of coronary artery disease with coronary artery bypass graft. 13.History of chronic obstructive pulmonary disease. 14.Elevated inflammatory markers of COVID-19 including D-dimer. 15.Anemia, normocytic. 16.FULL CODE. RECOMMENDATIONS AND DISCUSSION: Recommend to continue current management, continue symptomatic treatment. Continue with broad-spectrum IV antibiotics. Continue mechanical ventilation and also recommend follow closely with Dr. Walls regarding vent parameters. I would also recommend evaluation per Hematology/Oncology because of the elevated D-dimer and as well as developing thrombocytopenia. The prognosis is guarded. Further recommendations to follow. [id number] / IJN: [id number] /
[2020-09-26] MEDS: TAMSULOSIN 0.4 MG CAP.ER.24H PO SCH (21:15)
[2020-09-27 00:06] LABS: Glucose,Whole Blood 225 mg/dL (75-99)
[2020-09-27] MEDS: INSULIN ASPART (NovoLOG) 100 UNIT/ML VIAL SQ SCH ×5 (00:17→23:48)
[2020-09-27] MEDS: SODIUM CHLORIDE 0.9% 1,000 ML IV SCH ×2 (00:18→11:30)
[2020-09-27] MEDS: PIPERACILLIN-TAZOBACTAM 3.375 GM in SODIUM CHLORIDE 0.9% 100 ML IVPB SCH ×4 (00:18→23:47)
[2020-09-27] MEDS: methylPREDNISolone SOD SUCCI 40 MG/ML 1 ML VIAL IV SCH ×4 (00:18→23:48)
[2020-09-27] MEDS: HYDROmorphone 1 MG/ML 1 ML SYRINGE IVP PRN ×2 (02:06→18:45)
[2020-09-27 05:13] LABS: ALT 50 U/L (4-49); AST 31 U/L (17-59); African American GFR (CKD) >90 (>60 ml/min/1.73 sqM); Albumin 1.9 g/dL (3.5-5.0); Alkaline Phosphatase 68 U/L (38-126); Anion Gap -1 mmol/L; Blood Urea Nitrogen 30 mg/dL (9-20); Calcium 8.2 mg/dL (8.4-10.2); Carbon Dioxide 28 mmol/L (22-30); Chloride 109 mmol/L (98-107); Glucose 220 mg/dL (74-99); Non-African American GFR(CKD) >90 (>60 ml/min/1.73 sqM); Potassium 4.8 mmol/L (3.5-5.1); Sodium 136 mmol/L (137-145); Total Bilirubin 0.4 mg/dL (0.2-1.3); Total Protein 4.2 g/dL (6.3-8.2)
[2020-09-27 05:59] LABS: Basophils % (A) 0 %; Eosinophils % (A) 0 %; HCT 34.7 % (39.0-53.0); HGB 11.2 gm/dL (13.0-17.5); Lymphocytes # (A) 0.2 k/uL (1.0-4.8); Lymphocytes % (A) 2 %; MCH 30.4 pg (25.0-35.0); MCHC 32.3 g/dL (31.0-37.0); MCV 94.1 fL (80.0-100.0); Monocytes # (A) 0.2 k/uL (0-1.0); Monocytes % (A) 2 %; Neutrophils % (A) 95 %; Platelet Count 103 k/uL (150-450); RBC 3.69 m/uL (4.30-5.90); RDW 14.1 % (11.5-15.5); WBC 10.5 k/uL (3.8-10.6)
[2020-09-27 06:17] LABS: ABG Base Excess 2.2 mmol/L; ABG HCO3 27 mmol/L (21-25); ABG Oxygen Saturation 95.4 % (94-97); ABG PCO2 42 mmHg (35-45); ABG PH 7.41 (7.35-7.45); ABG PO2 75 mmHg (83-108); ABG TCO2 28 mmol/L (19-24); Allen Test Performed? Yes
[2020-09-27 06:35] LABS: Glucose,Whole Blood 209 mg/dL (75-99)
--- NOTE | 2020-09-27 06:36 | XR ---
EXAMINATION TYPE: XR chest 1V DATE OF EXAM: 09/27/2020 CLINICAL HISTORY: Difficulty breathing progress study. TECHNIQUE: Single AP portable semiupright view of the chest is obtained. COMPARISON: Chest x-ray from one day earlier and older studies. FINDINGS: Stable endotracheal tube, orogastric tube, and left internal jugular central venous cathet er. Persistent cardiomegaly with atherosclerotic thoracic aorta. Overlying sternal wires and mediastinal clips are redemonstrated. Persistent bilateral multifocal opacities. Osseous structures grossly intac t. IMPRESSION: Persistent bilateral multifocal acute infiltrates. No significant change from one day ear lier.
[2020-09-27] MEDS: ASCORBIC ACID 500 MG TAB PO SCH ×2 (08:27→21:20)
[2020-09-27] MEDS: CHLORHEXIDINE GLUCONATE 15 ML CUP MUCOUS MEM SCH ×2 (08:27→21:20)
[2020-09-27] MEDS: CHOLECALCIFEROL 1,000 UNIT TAB PO SCH (08:27)
[2020-09-27] MEDS: ATORVASTATIN 80 MG TAB PO SCH (08:28)
[2020-09-27] MEDS: lisinopriL 20 MG TAB PO SCH (08:28)
[2020-09-27] MEDS: ZINC SULFATE 220 MG CAP PO SCH (08:28)
[2020-09-27] MEDS: INSULIN DETEMIR (LEVEMIR) 100 UNIT/ML SYR SQ SCH (08:29)
[2020-09-27] MEDS: MULTIVITAMINS, THERA 1 EACH TAB PO SCH (08:29)
[2020-09-27] MEDS: RIVAROXABAN 20 MG TAB PO SCH (08:30)
[2020-09-27] MEDS: NYSTATIN 100,000 UNIT/ML SUSP 500,000 UNIT/5 ML CUP PO SCH ×4 (08:30→21:20)
[2020-09-27] MEDS: DOPamine DRIP 800 MG in DEXTROSE/WATER 1 250ML.BAG IV SCH (08:31)
[2020-09-27] MEDS: ALBUTEROL HFA INHALER INHALATION SCH ×4 (08:46→21:28)
[2020-09-27 11:41] LABS: Glucose,Whole Blood 181 mg/dL (75-99)
--- NOTE | 2020-09-27 14:05 | P.PN ---
Subjective Progress Note Date: 09/27/20 Principal diagnosis: Acute hypoxic respiratory failure secondary to covid 19 pneumonitis and influenza B infection. 75-year-old white male patient of Dr. Cornell Gasca who presented to the emergency department on 09/15/2020 with complaints of difficulty breathing. Patient tested positive for COVID 19 and influenza B on 09/07/2020. He is been progressively short of breath, has a dry nonproductive cough, he is unclear whether he is having fevers. He feels fatigued, denies any nausea vomiting or diarrhea, denies any abdominal pain, denies any history of chronic lung problem s. His past medical history positive for atrial fibrillation on anticoagulation, hypertension, hyperlipidemia, diabetes mellitus type 2, coronary artery disease with history of previous bypass grafting, he is a former smoker. His chest x-ray showed bilateral diffuse airspace disease, concerning for COVID 19 pneumonia. His labs were reviewed, showing lymphopenia with lymphocyte count of 0.2, lactic acid level of 2.5 which has subsequently increased to 4.0, ferritin level was 2454, AST and ALT were 87 and 67 respectively, Altace was 1513, and CRP was 70.4. Pro-calcitonin level was negative at 0.09. Decadron has been started at 6 mg daily, he is on IV hydration, with lactated Ringer's at 100 ML per hour. he is on oral anticoagulation in the form of Xarelto. Remains on 7 L of oxygen per high flow nasal cannula and the pulse ox is between 87-91%. Afebrile On 09/18/2020 patient seen in follow-up on general medical surgical floor. He is on 11 L of oxygen, his pulse ox is 89%, he is afebrile, hemodynamically is been stable, patient was out of the window for Remdesivir, he was started on Tamiflu, he is on oral anticoagulation in the form of Xarelto, no fever or chills, his d-dimer has increased, I came up to 2.31 on today's labs, his CRP has improved significantly and is down to 1.5, LDH level is pending, he is on oral Decadron, he is on IV hydration, nausea vomiting, no abdominal pain, he is tolerating oral intake. No, but the chest pain. The patient is seen today 09/19/2020 follow-up on the regular medical floor. He is currently sitting up in bed. He is somewhat confused and altered. He's been pulling off his hospital gown. Getting up out of bed without assistance. Uncooperative. He is pulling off his oxygen. He is only at 90% O2 saturation on 15 L high flow nasal cannula. Chest x-ray continues to show coarse interstitial infiltrates bilaterally. D-dimer 3.01. Sodium 143. Potassium 4.0. Creatinine 0.7. C-reactive protein 8.2. Pro-calcitonin 0.09. He remains on Tamiflu. Anticoagulated with Xarelto. 09/20/2020, the patient is being seen in follow-up in the intensive care unit. As mentioned earlier, the patient developed progressive worsening shortness of breath, altered mentation, confusion, oxygen saturation, tachypnea and tachycardia and respiratory failure with hypoxemia. The patient got transferred to the intensive care unit and overnight the patient had to be intubated and placed on a mechanical ventilator. Currently is intubated. Lisinopril running at 25 mg per KG per minute. He is an assist-control mode of ventilation at the rate of 18 with a tidal volume of 450 and FiO2 of 80% with a PEEP of 10. Peak airway pressures around 21. He was quite tachypneic with increased minute ventilation. He was urinating adequate amount of tidal volumes well on a mechanical ventilator on a Monday tidal volume of 550 which obviously dropped a respiratory rate down to the mid 20s. The patient is currently being treated with systemic steroids. The patient was also given a course of Tamiflu knowing that he was checked positive for influenza B. He has been out of the window for Rermdesivir treatment, and the treatment was declined by pharmacy. I contacted the pharmacy again and based on the decline in his respiratory status and progressive worsening his hypoxic respiratory failure, we'll need an exception to offer this patient a treatment to give him the benefit of the doubt. Also, the patient is on IV Solu-Medrol. He remains on zinc. He remains on vitamin C. The patient has received also units of convalescent plasma. He'll be started on enteral feeding for nutritional support. 2 triple-lumen catheter was established yesterday. He remains on Xarelto as a long-term anticoagulant that the patient has been taking. Reevaluated today on 09/21/20, patient remains in the ICU, intubated and mechanically ventilated. Ventilator settings are assist control rate of 18, fully in control +550, FiO2 of 70%, PEEP of 10, however after reviewing the ABG, PEEP was increased at 12, FiO2 down to 60%. ABG showed a pO2 of 88 pCO2 of 37 pH of 7.40. IV fluids at 75 mL per hour. Propofol at 41 g subcu per minute, patient is not requiring any pressors. He is on enteral feeding with rate to 20 mL per hour. Goal is 58. Patient had a right IJ triple-lumen catheter, placed on 09/19, and left radial arterial line. Patient is receiving IV Solu- Medrol, also received remdesivir. Remains on zinc and vitamin C. He also received convalescent plasma. On enteral feeding. And on Xarelto long-term for anticoagulations therapy WBC count is 9.7 hemoglobin is 11.2. Electrolytes are normal. Chest x-ray shows bilateral interstitial infiltrates Reevaluated today on 09/22/20, remains in the ICU intubated and mechanically ventilated. Patient has ventilator settings are tidal volume is 550 assist- control rate of 18 FiO2 60% and PEEP of 12 ABG showed a pO2 of 90 pCO2 of 37 pH of 7.41 however based on that ABG I cut down the FiO2 to 55% kept him on a PEEP of 12. 80s on propofol at 45 mcg/kg/m 0.9 normal saline at 75 mL per hour not requiring any pressors. Remains on enteral tube feeding /. CBC showed WBC count of 9.2 hemoglobin is 10.9. Electrolytes are normal chest x-ray showed evidence of bilateral multifocal airspace disease consistent with pneumonia. Patient was reevaluated today on 09/23/20, remains intubated and mechanically ventilated. He is now on assist control mode of mechanical ventilation, volume control plus, tidal volume is 550 rate is 18 FiO2 is 55% and PEEP is 10. ABG showed a pO2 of 71 pCO2 of 36 pH of 7.40. Remains on propofol at 40 mcg/kg/m, IV fluid at 75 mL/h, patient is noted to be quite bradycardic, although his blood pressure seems to be holding, he is having sinus bradycardia rates as low as 58, seen by cardiology and recommended dopamine at 2 mcg/kg/m. Patient is also on enteral feeding no changes were made today his ventilator settings. However would like to awaken the patient, and assess mental status at least today. Chest x-ray continues to show diffuse bilateral interstitial infiltrates. Consistent with covid 19 pneumonitis, and ARDS Patient was reevaluated today on 09/24/20, remains intubated and mechanically ventilated. Patient is now on assist control rate of 18, volume control +550, inspiratory time is 1 second. FiO2 is 55% and PEEP is 10 ABG is pO2 of 73 pCO2 of 38 pH of 7.42. Patient is on propofol at 45 mcg/kg/m, his PEEP was cut down to 8. Basic metabolic profile is basically normal. CBC is relatively normal. D-dimer is 12.59. LDH is down to 787 from 1513. C-reactive protein is 36. Patient remains on the Covid 19 pneumonitis cocktail reevaluated today on 09/25/20, remains intubated and mechanically ventilated. His ventilator settings are assist control rate of 18, tidal volume is 550, FiO2 55%, PEEP is 5. ABG showed a pO2 of 71 pCO2 of 39 pH of 7.4.. His IV fluid is at 75 mL/h 0.9 normal saline, on propofol at 30 mcg/kg/m. Chest x-ray looks slightly worse with bilateral interstitial infiltrates. Patient remains on enteral tube feeding. Considering the worsening of the chest x-ray today, I recommended adding Zosyn empirically. Inflammatory markers were noted today, LDH is 680 C-reactive protein is 75.6. WBC count is 11.3 hemoglobin is 12. D- dimer remains elevated at 11.57. Reevaluated today on 09/26/20, remains in the ICU, intubated and mechanically ventilated. Patient is on assist control mode of mechanical ventilation rate 18, he is on volume control plus at 550, inspiratory time is 1. FiO2 is 65% and PEEP is at 8. ABG showed a pO2 of 84 pCO2 of 46 pH of 7.36. Cut down his FiO2 to 60%. Patient remains on propofol at 30 mcg/kg/m, he is on IV fluid 0.9 at 75 mL per hour. Chest x-ray continues to show significant airspace disease bilaterally. Patient remains sedated, however I haven't made a recommendation to hold sedation and assessment of status on a daily basis but the patient is not quite ready to have weaning parameters or 2 given weaning trials. D-dimer remains elevated at 9. Celexa lites are normal renal profile is normal WBC count is 10.8 hemoglobin is 11.20 Reevaluated today on 09/27/20, patient remains in the ICU, intubated and mechanically ventilated. His ventilator settings are rate 18, volume control plus of 550 with inspiratory time of 1.0 seconds FiO2 60% however cut it down to 55% PEEP at 8. ABG showed a pO2 of 75 pCO2 of 42 pH of 7.41. Patient is on propofol at 20 mcg/kg/m, IV fluid at 65 mL/h, and on vital HPI at 50 ML per hour. Off propofol yesterday, patient was arousable, he followed instructions, his chest x-ray continues to show bilateral infiltrates, improving. Patient is almost they are to start weaning and possibly consider extubation, but still requiring relatively high FiO2 and slightly high PEEP/8. Patient remains on Zosyn empirically. Chest x-ray is quite concerning to me because of the extensiveness of the infiltrates noted bilaterally. His ABG does not truly reflect the chest x-ray findings. CBC today is relatively normal and electrolytes as well as basic metabolic profile is normal. No inflammatory pamela ers were noted today. Objective - Vital Signs Vital signs: Vital Signs Temp 97.6 F 09/27/20 08:00 Pulse 43 L 09/27/20 11:00 Resp 20 09/27/20 11:00 BP 105/47 09/27/20 11:00 Pulse Ox 92 L 09/27/20 11:00 Intake & Output 09/26/20 09/27/20 09/27/20 18:59 06:59 18:59 Intake Total 4677.115 7371.906 898 Output Total 775 1070 510 Balance 1132.429 575.906 388 Weight 127.3 kg Intake: IV 972 858 468 Pressure bags 72 108 18 Sodium Chloride 0.9% 1, 900 750 450 000 ml @ 75 mls/hr IV . [id number] MICHOACANO Rx#:[id number] Intake, IV Titration 95.429 277.906 Amount propofoL 1,000 mg In 95.429 277.906 Empty Bag 1 bag @ Titrate IV .Q0M MICHOACANO Rx#: [id number] Tube Feeding 750 450 400 Other 90 60 30 Output: Urine 775 1070 510 Other: Voiding Method Indwelling Catheter Indwelling Catheter Indwelling Catheter ABP, PAP, CO, CI - Last Documented Arterial Blood Pressure 125/37 - Exam GENERAL EXAM: 75-year-old on mechanical ventilation. Sedated. HEAD: Normocephalic/atraumatic. HEENT: PERRLA, EOMI, no icterus. Endotracheal tube and orogastric tube are intact. CHEST: No chest wall deformity. Symmetrical expansion. LUNGS: Crackles and rhonchi noted bilaterally. CVS: Regular rate and rhythm, normal S1 and S2, no gallops, no murmurs, no rubs ABDOMEN: Soft, nontender. No hepatosplenomegaly, normal bowel sounds, no guarding or rigidity. EXTREMITIES: No clubbing, no edema, no cyanosis, 2+ pulses and upper and lower extremities. MUSCULOSKELETAL: No deformities.. SKIN: No rashes CENTRAL NERVOUS SYSTEM: Sedated on mechanical ventilation, could not assess. PSYCHIATRIC: Could not assess - Labs CBC & Chem 7: 09/27/20 04:25 09/27/20 04:25 Labs: Abnormal Lab Results - Last 24 Hours (Table) 09/26/20 09/27/20 09/27/20 Range/Units 18:34 00:04 04:25 RBC 3.69 L (4.30-5.90) m/uL Hgb 11.2 L (13.0-17.5) gm/dL Hct 34.7 L (39.0-53.0) % Plt Count 103 L (150-450) k/uL Neutrophils # 10.0 H (1.3-7.7) k/uL Lymphocytes # 0.2 L (1.0-4.8) k/uL ABG pO2 (83-108) mmHg ABG HCO3 (21-25) mmol/L ABG Total CO2 (19-24) mmol/L Sodium (137-145) mmol/L Chloride (98-107) mmol/L BUN (9-20) mg/dL Glucose (74-99) mg/dL POC Glucose (mg/dL) 273 H 225 H (75-99) mg/dL Calcium (8.4-10.2) mg/dL ALT (4-49) U/L Total Protein (6.3-8.2) g/dL Albumin (3.5-5.0) g/dL 09/27/20 09/27/20 09/27/20 Range/Units 04:25 06:15 06:32 RBC (4.30-5.90) m/uL Hgb (13.0-17.5) gm/dL Hct (39.0-53.0) % Plt Count (150-450) k/uL Neutrophils # (1.3-7.7) k/uL Lymphocytes # (1.0-4.8) k/uL ABG pO2 75 L (83-108) mmHg ABG HCO3 27 H (21-25) mmol/L ABG Total CO2 28 H (19-24) mmol/L Sodium 136 L (137-145) mmol/L Chloride 109 H (98-107) mmol/L BUN 30 H (9-20) mg/dL Glucose 220 H (74-99) mg/dL POC Glucose (mg/dL) 209 H (75-99) mg/dL Calcium 8.2 L (8.4-10.2) mg/dL ALT 50 H (4-49) U/L Total Protein 4.2 L (6.3-8.2) g/dL Albumin 1.9 L (3.5-5.0) g/dL 09/27/20 Range/Units 11:40 RBC (4.30-5.90) m/uL Hgb (13.0-17.5) gm/dL Hct (39.0-53.0) % Plt Count (150-450) k/uL Neutrophils # (1.3-7.7) k/uL Lymphocytes # (1.0-4.8) k/uL ABG pO2 (83-108) mmHg ABG HCO3 (21-25) mmol/L ABG Total CO2 (19-24) mmol/L Sodium (137-145) mmol/L Chloride (98-107) mmol/L BUN (9-20) mg/dL Glucose (74-99) mg/dL POC Glucose (mg/dL) 181 H (75-99) mg/dL Calcium (8.4-10.2) mg/dL ALT (4-49) U/L Total Protein (6.3-8.2) g/dL Albumin (3.5-5.0) g/dL Microbiology - Last 24 Hours (Table) 09/26/20 11:53 Gram Stain - Preliminary Sputum Sputum Culture - Preliminary Gram Neg Bacilli Assessment and Plan Assessment: Impression: Acute hypoxic respiratory failure secondary to covid 19 pneumonitis, and underlying influenza B infection. Chronic atrial fibrillation. Type 2 diabetes. Benign essential hypertension. Moderate pulmonary hypertension Recommendation: Continue ventilatory support. FiO2 is now 55% and PEEP remains 8. Remains on volume control plus. Continue PEEP at 8. Continue Zosyn. Empirically Daily assessment of mental status off propofol yesterday, his assessment was excellent. Patient was following instructions and appropriate. Continue nutritional support. Enteral feeding. Continue Covid 19 cocktail. GI and DVT prophylaxis. Remains critically ill, critical care time is greater than 30 minutes, not ready for weaning. Time with Patient: Greater than 30
--- NOTE | 2020-09-27 14:52 | P.CONS ---
History of Present Illness - Reason for Consult Consult date: 09/27/20 Increased D-Dimer, Thrombocytopenia Requesting physician: Bernardo Walls - History of Present Illness HPI from medical record as patient is currently in care of ICU and on mechanical ventilation. Gilbert is a 75 year old patient who has been admitted for greater than 12 days for Acute hypoxic respiratory failure secondary to covid 19 pneumonitis and influenza B infection. He initially presented to the emergency department on 09/15/2020 with complaints of difficulty breathing. Patient tested positive for COVID 19 and influenza B on 09/07/2020. He had been progressively short of breath, nonproductive cough, subjective fevers. His past medical history positive for atrial fibrillation on anticoagulation, hypertension, hyperlipidemia, diabetes mellitus type 2, coronary artery disease with history of previous bypass grafting, he is a former smoker. On presentation chest x-ray showed bilateral diffuse airspace disease, concerning for COVID 19 pneumonia. His labs were reviewed, showing lymphopenia ferritin level was 2454, CRP was 70.4. Decadron was started at 6 mg daily, IV hydration. As well as oral anticoagulation in the form of Xarelto. Unfortunetly, he was out of the window for Remdesivir, he was started on Tamiflu. On 09/20 The patient is currently being treated with systemic steroids. The patient was also given a course of Tamiflu knowing that he was checked positive for influenza B. He has been out of the window for Rermdesivir treatment, and the treatment was declined by pharmacy. I contacted the pharmacy again and based on the decline in his respiratory status and progressive worsening his hypoxic respiratory failure, we'll need an exception to offer this patient a treatment to give him the benefit of the doubt. 09/21 was able to receive IV Solu-Medrol, also received remdesivir prior to ventolation 09/21. Remains on zinc and vitamin C. He also received convalescent plasma. Hematology was consulted regarding his slow trend down of Platelets and Increased D-Dimer. Review of Systems ROS unobtainable: due to endotracheal tube Past Medical History Past Medical History: Atrial Fibrillation, Diabetes Mellitus, Hyperlipidemia, Hypertension, Prostate Disorder Additional Past Medical History / Comment(s): Cardioversion 10/2015 - 5 years without AFIB, iron deficiency anemia, sleep apnea with CPAP, heart catheterization January 2020, enlarged prostate History of Any Multi-Drug Resistant Organisms: None Reported Past Surgical History: Adenoidectomy, Cholecystectomy, Coronary Bypass/CABG, H eart Catheterization, Hernia Repair, Joint Replacement, Tonsillectomy Additional Past Surgical History / Comment(s): CABG x 4 in 2005 at [facility], bilateral knees replaced, cardioversion 10/2015, heart catheterization January 2020 Past Anesthesia/Blood Transfusion Reactions: Postoperative Nausea & Vomiting (PONV) Past Psychological History: PTSD Smoking Status: Former smoker Past Alcohol Use History: Occasional Additional Past Alcohol Use History / Comment(s): smoking: started 1963 stopped 2011. ETOH: "just social drinker" Past Drug Use History: None Reported - Past Family History Mother Family Medical History: Chest Pain / Angina, Coronary Artery Disease (CAD), Missy betes Mellitus, Hypertension Father Family Medical History: Chest Pain / Angina, Coronary Artery Disease (CAD), Diabetes Mellitus, Hypertension Medications and Allergies Home Medications Medication Instructions Recorded Confirmed Type Dofetilide [Tikosyn] 500 mcg PO BID 03/08/16 09/15/20 History Furosemide [Lasix] 20 mg PO DAILY 03/08/16 09/15/20 History Rivaroxaban [Xarelto] 20 mg PO DAILY 03/08/16 09/15/20 History Tamsulosin [Flomax] 0.4 mg PO HS 03/08/16 09/15/20 History metFORMIN HCL [Glucophage] 500 mg PO BID 03/08/16 09/15/20 History Multivitamins, Thera [Multivitamin 1 tab PO DAILY 08/23/16 09/15/20 History (formulary)] Cinnamon Bark [Cinnamon] 500 mg PO HS 04/21/18 09/15/20 History Atorvastatin [Lipitor] 80 mg PO DAILY 09/03/20 09/15/20 History Dulaglutide [Trulicity] 0.75 mg SQ MO 09/03/20 09/15/20 History Glimepiride [Amaryl] 2 mg PO BID 09/03/20 09/15/20 History Metoprolol Tartrate [Lopressor] 25 mg PO BID 09/03/20 09/15/20 History lisinopriL 20 mg PO DAILY 09/03/20 09/15/20 History Magnesium 300mg 300 mg PO DAILY 09/07/20 09/15/20 History Ascorbic Acid [Vitamin C] 1,000 mg PO DAILY #15 tablet 09/08/20 09/15/20 Rx Cholecalciferol [Vitamin D3 (25 1,000 unit PO DAILY #15 tablet 09/08/20 09/15/20 Rx Mcg = 1000 Iu)] Zinc 50 mg PO DAILY #15 tablet 09/08/20 09/15/20 Rx dexAMETHasone [Dexamethasone] 6 mg PO DAILY 09/15/20 09/15/20 History Allergies Allergy/AdvReac Type Severity Reaction Status Date / Time No Known Allergies Allergy Verified 09/15/20 18:21 Physical Exam Vitals: Vital Signs Temp Pulse Resp BP Pulse Ox 09/27/20 11:00 43 L 20 105/47 92 L 09/27/20 10:00 44 L 21 93 L 09/27/20 09:00 60 22 122/48 95 09/27/20 08:00 97.6 F 55 L 19 108/47 96 09/27/20 07:00 40 L 18 95 09/27/20 06:00 39 L 18 130/51 93 L 09/27/20 05:00 74 23 92 L 09/27/20 04:00 97.6 F 36 L 23 92 L 09/27/20 03:00 39 L 18 91 L 09/27/20 02:00 73 24 162/76 93 L 09/27/20 01:00 75 20 136/61 94 L 09/27/20 00:00 98.1 F 77 20 113/43 94 L 09/26/20 23:00 43 L 20 126/54 94 L 09/26/20 22:22 48 L 21 126/54 95 09/26/20 22:00 48 L 19 105/46 94 L 09/26/20 21:00 45 L 18 101/44 93 L 09/26/20 20:00 98.1 F 65 20 111/47 94 L 09/26/20 19:00 65 19 127/67 93 L 09/26/20 18:00 74 29 H 120/60 89 L 09/26/20 17:00 44 L 19 133/59 89 L 09/26/20 16:00 97.5 F L 72 25 H 111/45 91 L 09/26/20 15:00 42 L 21 116/41 90 L Intake and Output 09/26/20 09/27/20 09/27/20 22:59 06:59 14:59 Intake Total 2377.960 4694.571 898 Output Total 700 620 510 Balance 439.141 519.571 388 Intake: IV 558 624 468 Pressure bags 33 99 18 Sodium Chloride 0.9% 1, 525 525 450 000 ml @ 75 mls/hr IV . [id number] MICHOACANO Rx#:[id number] Intake, IV Titration 121.141 185.571 Amount propofoL 1,000 mg In 121.141 185.571 Empty Bag 1 bag @ Titrate IV .Q0M MICHOACANO Rx#: [id number] Tube Feeding 400 300 400 Other 60 30 30 Output: Urine 700 620 510 Other: Voiding Method Indwelling Catheter Indwelling Catheter Indwelling Catheter Weight 127.3 kg ABP, PAP, CO, CI - Last 8 Hours Arterial Blood Pressure 125/37 Arterial Blood Pressure 122/39 Arterial Blood Pressure 141/48 Arterial Blood Pressure 146/47 Arterial Blood Pressure 124/39 Vent Sedated Results CBC & Chem 7: 09/27/20 04:25 09/27/20 04:25 Labs: Abnormal Lab Results - Last 24 Hours (Table) 09/26/20 09/27/20 09/27/20 Range/Units 18:34 00:04 04:25 RBC 3.69 L (4.30-5.90) m/uL Hgb 11.2 L (13.0-17.5) gm/dL Hct 34.7 L (39.0-53.0) % Plt Count 103 L (150-450) k/uL Neutrophils # 10.0 H (1.3-7.7) k/uL Lymphocytes # 0.2 L (1.0-4.8) k/uL ABG pO2 (83-108) mmHg ABG HCO3 (21-25) mmol/L ABG Total CO2 (19-24) mmol/L Sodium (137-145) mmol/L Chloride (98-107) mmol/L BUN (9-20) mg/dL Glucose (74-99) mg/dL POC Glucose (mg/dL) 273 H 225 H (75-99) mg/dL Calcium (8.4-10.2) mg/dL ALT (4-49) U/L Total Protein (6.3-8.2) g/dL Albumin (3.5-5.0) g/dL 09/27/20 09/27/20 09/27/20 Range/Units 04:25 06:15 06:32 RBC (4.30-5.90) m/uL Hgb (13.0-17.5) gm/dL Hct (39.0-53.0) % Plt Count (150-450) k/uL Neutrophils # (1.3-7.7) k/uL Lymphocytes # (1.0-4.8) k/uL ABG pO2 75 L (83-108) mmHg ABG HCO3 27 H (21-25) mmol/L ABG Total CO2 28 H (19-24) mmol/L Sodium 136 L (137-145) mmol/L Chloride 109 H (98-107) mmol/L BUN 30 H (9-20) mg/dL Glucose 220 H (74-99) mg/dL POC Glucose (mg/dL) 209 H (75-99) mg/dL Calcium 8.2 L (8.4-10.2) mg/dL ALT 50 H (4-49) U/L Total Protein 4.2 L (6.3-8.2) g/dL Albumin 1.9 L (3.5-5.0) g/dL 09/27/20 Range/Units 11:40 RBC (4.30-5.90) m/uL Hgb (13.0-17.5) gm/dL Hct (39.0-53.0) % Plt Count (150-450) k/uL Neutrophils # (1.3-7.7) k/uL Lymphocytes # (1.0-4.8) k/uL ABG pO2 (83-108) mmHg ABG HCO3 (21-25) mmol/L ABG Total CO2 (19-24) mmol/L Sodium (137-145) mmol/L Chloride (98-107) mmol/L BUN (9-20) mg/dL Glucose (74-99) mg/dL POC Glucose (mg/dL) 181 H (75-99) mg/dL Calcium (8.4-10.2) mg/dL ALT (4-49) U/L Total Protein (6.3-8.2) g/dL Albumin (3.5-5.0) g/dL Microbiology - Last 24 Hours (Table) 09/26/20 11:53 Gram Stain - Preliminary Sputum Sputum Culture - Preliminary Gram Neg Bacilli Chest x-ray: report reviewed Assessment and Plan (1) Acute respiratory failure due to COVID-19 Current Visit: Yes Status: Acute Code(s): U07.1 - COVID-19; J96.00 - ACUTE RESPIRATORY FAILURE, UNSP W HYPOXIA OR HYPERCAPNIA SNOMED Code(s): 023481190 (2) Thrombocytopenia associated with COVID-19 Narrative/Plan: This in conjunction with his mild prolongation coagulation and d-dimer is likely associated with a low grade DIC from prolonged viral infections, with additional contributing factors of severe illness, lack of po intake, and medications. - Check Fibrinogen and recheck PT, PTT, INR today - If any s/s bleeding please contact Hematology - If fibrinogen less than 100 - Transfuse of cryoprecipitate recommended Current Visit: Yes Status: Acute Code(s): U07.1 - COVID-19; D69.59 - OTHER SECONDARY THROMBOCYTOPENIA SNOMED Code(s): 374537963 (3) Pneumonia due to COVID-19 virus Current Visit: Yes Status: Acute Code(s): U07.1 - COVID-19; J12.89 - OTHER VIRAL PNEUMONIA SNOMED Code(s): 608718708082609598 (4) Influenza B Current Visit: No Status: Acute Code(s): J10.1 - FLU DUE TO OTH IDENT INFLUENZA VIRUS W OTH RESP MANIFEST SNOMED Code(s): 13409709 (5) Morbid obesity Current Visit: No Status: Acute Code(s): E66.01 - MORBID (SEVERE) OBESITY DUE TO EXCESS CALORIES SNOMED Code(s): 134502408
--- NOTE | 2020-09-27 15:59 | PN ---
PROGRESS NOTE DATE OF SERVICE: 09/27/2020 I am covering for Dr. Staples. This 75-year-old gentleman who was admitted with bilateral pneumonia secondary to COVID- 19 pneumonia has received Remdesivir. The patient has sepsis and multiple complications. ARDS also suspected. Dr. Walls is following the patient closely. The most recent chest x-ray showed significant multiple bilateral lesions at this time. IL60 is pending at this time. Past medical history reviewed. REVIEW OF SYSTEMS: Could not be taken. CURRENT MEDICATIONS: Reviewed and include: Tylenol, Ventolin, vitamin C, Lipitor, Peridex, vitamin D3, Dilaudid. NovoLog. Levemir. Zestril. Solu-Medrol. Narcan. Zosyn IV. Xarelto. Flomax, oral zinc. PHYSICAL: Patient mechanically ventilated and sedated. Pulse 43, blood pressure 125/37, respiration 20, temperature normal, pulse ox 92% on 60% FiO2, PEEP 8. Vent settings noted. HEENT: Conjunctivae normal. NECK: No JVD. CARDIOVASCULAR: S1, S2 muffled. RESPIRATORY SYSTEM: Breath sounds diminished at the bases. A few rhonchi. ABDOMEN: Soft. Nontender. NERVOUS SYSTEM: The patient is mechanically sedated. LABS: WBC 10.2, hemoglobin 11.2, platelets 103. Sodium 136 and albumin is 1.9. ASSESSMENT: 1. Acute bilateral Covid-19 interstitial pneumonia with acute hypoxic hypercarbic respiratory failure on mechanical ventilation as well as sepsis, present on admission. 2. Lactic acidosis. 3. Paroxysmal atrial fibrillation. 4. Bradycardia. 5. Thrombocytopenia. 6. Elevated D-dimer without any evidence of pulmonary embolism on previous studies on Xarelto. 7. Multiple PVCs as a response to dopamine. 8. Diabetes mellitus type 2. 9. Hyperlipidemia. 10.Hypertension history. 11.Obstructive sleep apnea. 12.History of coronary artery disease, coronary artery bypass grafting. 13.History of chronic obstructive pulmonary disease. 14.Elevated inflammatory markers of Covid-19 including D-dimer. 15.Anemia, normocytic. 16.FULL CODE. RECOMMENDATIONS AND DISCUSSION: Recommend to continue current medications, management and symptomatic treatment. Otherwise, at this time, I would also recommend ultrasound of both upper and lower limbs to rule out possible pulmonary embolism. Continue the mechanical ventilation. Await IL6 levels and closely follow with Dr. Walls. Guarded prognosis. Further recommendations to follow. Dr. Staples will follow tomorrow. MMODL / IJN: [id number] /
[2020-09-27 16:47] LABS: Glucose,Whole Blood 210 mg/dL (75-99)
[2020-09-27 18:06] LABS: INR 0.9 (<1.2); Partial Thromboplastin Time 22.7 sec (22.0-30.0); Prothrombin Time 9.5 sec (9.0-12.0)
--- NOTE | 2020-09-27 18:35 | US ---
EXAMINATION TYPE: US venous doppler duplex LE DATE OF EXAM: 09/27/2020 5:33 PM COMPARISON: NONE CLINICAL HISTORY: elevated d dimer. Positive Covid patient, on Xeralto. Patient vented and unable to cooperate for exam. SIDE PERFORMED: Bilateral TECHNIQUE: The lower extremity deep venous system is examined utilizing real time linear array sonog jesus with graded compression, doppler sonography and color-flow sonography. VESSELS IMAGED: Common Femoral Vein Deep Femoral Vein Greater Saphenous Vein * Femoral Vein Popliteal Vein (* superficial vessels) Limited exam due to ICU patient being unable to cooperate for exam. right leg is limited in pop vein area, flow is seen and vessel is compressible. Left leg is limited in compression pictures due to pat ient positioning, there is flow seen throughout. Right Leg: Negative for DVT Left Leg: Negative for DVT IMPRESSION: No sign of deep vein thrombosis in both legs. Limited exam.
[2020-09-27] MEDS: TAMSULOSIN 0.4 MG CAP.ER.24H PO SCH (21:20)
[2020-09-27 23:30] LABS: Glucose,Whole Blood 202 mg/dL (75-99)
[2020-09-28] MEDS: SODIUM CHLORIDE 0.9% 1,000 ML IV SCH ×2 (02:27→15:56)
[2020-09-28 04:28] LABS: Basophils % (A) 0 %; Eosinophils # (A) 0.1 k/uL (0-0.7); Eosinophils % (A) 1 %; HCT 36.1 % (39.0-53.0); HGB 11.7 gm/dL (13.0-17.5); Lymphocytes # (A) 0.2 k/uL (1.0-4.8); Lymphocytes % (A) 2 %; MCH 30.2 pg (25.0-35.0); MCHC 32.4 g/dL (31.0-37.0); MCV 93.1 fL (80.0-100.0); Mean Platelet Volume 9.3; Monocytes # (A) 0.2 k/uL (0-1.0); Monocytes % (A) 3 %; Neutrophils # (A) 7.8 k/uL (1.3-7.7); Neutrophils % (A) 94 %; Platelet Count 117 k/uL (150-450); RBC 3.88 m/uL (4.30-5.90); RDW 14.1 % (11.5-15.5); WBC 8.3 k/uL (3.8-10.6)
[2020-09-28 05:48] LABS: ABG Base Excess 3.7 mmol/L; ABG HCO3 28 mmol/L (21-25); ABG Oxygen Saturation 96.7 % (94-97); ABG PCO2 39 mmHg (35-45); ABG PH 7.46 (7.35-7.45); ABG PO2 79 mmHg (83-108); ABG TCO2 29 mmol/L (19-24); Allen Test Performed? Yes
[2020-09-28 06:26] LABS: Glucose,Whole Blood 227 mg/dL (75-99)
[2020-09-28] MEDS: INSULIN ASPART (NovoLOG) 100 UNIT/ML VIAL SQ SCH ×3 (06:43→18:50)
[2020-09-28] MEDS: INSULIN DETEMIR (LEVEMIR) 100 UNIT/ML SYR SQ SCH (06:43)
--- NOTE | 2020-09-28 07:30 | XR ---
EXAMINATION TYPE: XR chest 1V DATE OF EXAM: 09/28/2020 COMPARISON: 09/27/2020 HISTORY: 75-year-old male intubated TECHNIQUE: Single frontal view of the chest is obtained. FINDINGS: ET tube is satisfactory. NG tube courses below the diaphragm. Median sternotomy wires. Left IJ CVC ti p at the lower right atrium. Heart upper limits of normal in size. Patchy bilateral airspace disease persists without significant change. IMPRESSION: Patchy bilateral diffuse airspace disease without significant change.
[2020-09-28] MEDS: ALBUTEROL HFA INHALER INHALATION SCH ×4 (07:32→20:50)
[2020-09-28 07:33] LABS: ALT 60 U/L (4-49); AST 35 U/L (17-59); African American GFR (CKD) >90 (>60 ml/min/1.73 sqM); Alkaline Phosphatase 68 U/L (38-126); Anion Gap 1 mmol/L; Blood Urea Nitrogen 31 mg/dL (9-20); Calcium 8.1 mg/dL (8.4-10.2); Carbon Dioxide 29 mmol/L (22-30); Chloride 108 mmol/L (98-107); Glucose 232 mg/dL (74-99); Non-African American GFR(CKD) >90 (>60 ml/min/1.73 sqM); Potassium 4.6 mmol/L (3.5-5.1); Sodium 138 mmol/L (137-145); Total Bilirubin 0.5 mg/dL (0.2-1.3); Total Protein 4.4 g/dL (6.3-8.2)
[2020-09-28] MEDS: MULTIVITAMINS, THERA 1 EACH TAB PO SCH (10:01)
[2020-09-28] MEDS: CHOLECALCIFEROL 1,000 UNIT TAB PO SCH (10:01)
[2020-09-28] MEDS: ZINC SULFATE 220 MG CAP PO SCH (10:01)
[2020-09-28] MEDS: ASCORBIC ACID 500 MG TAB PO SCH ×2 (10:01→19:45)
[2020-09-28] MEDS: PIPERACILLIN-TAZOBACTAM 3.375 GM in SODIUM CHLORIDE 0.9% 100 ML IVPB SCH ×3 (10:02→22:59)
[2020-09-28] MEDS: lisinopriL 20 MG TAB PO SCH (10:02)
[2020-09-28] MEDS: CHLORHEXIDINE GLUCONATE 15 ML CUP MUCOUS MEM SCH ×2 (10:02→19:45)
[2020-09-28] MEDS: ATORVASTATIN 80 MG TAB PO SCH (10:02)
[2020-09-28] MEDS: NYSTATIN 100,000 UNIT/ML SUSP 500,000 UNIT/5 ML CUP PO SCH ×4 (10:03→19:45)
[2020-09-28] MEDS: RIVAROXABAN 20 MG TAB PO SCH (10:03)
[2020-09-28] MEDS: methylPREDNISolone SOD SUCCI 40 MG/ML 1 ML VIAL IV SCH ×3 (10:03→22:59)
[2020-09-28 13:12] LABS: Glucose,Whole Blood 178 mg/dL (75-99)
[2020-09-28] MEDS: DOPamine DRIP 800 MG in DEXTROSE/WATER 1 250ML.BAG IV SCH (13:13)
[2020-09-28] MEDS: CLEVIDIPINE BUTYRATE 25 MG in EMPTY BAG 1 BAG IV SCH (13:23)
--- NOTE | 2020-09-28 18:30 | PN ---
PROGRESS NOTE PULMONARY/CRITICAL CARE PROGRESS NOTE: DATE OF SERVICE: September 28, 2020 Critical care time: 33 minutes. INTERVAL HISTORY: This is a 75-year-old gentleman with a history of COVID-19 pneumonia and acute hypoxemic respiratory failure. He was admitted back on September 15 and because of worsening respiratory status, required intubation and mechanical ventilation on September 19. The patient is on the VC plus mode. This is also known as pressure regulated volume control. His targeted tidal volume is 550 mL. His inspiratory time is 1 second. Respiratory rate 18, FiO2 of 55% and PEEP of 8. Blood gases show pO2 of 79, pCO2 of 39 and pH of 7.45. The patient is currently on propofol at 30 mcg/kg per minute, 0.9 at 75 mL an hour and Vital high-protein at goal which is 50 mL an hour. Today, we will try daily interruption of sedation with a spontaneous breathing trial with PSV 8, CPAP of 5. In addition, the patient has a history of moderate pulmonary hypertension, benign essential hypertension, type 2 diabetes, and chronic atrial fibrillation. PHYSICAL EXAMINATION: VITAL SIGNS: Current vital signs are reviewed. Temperature is 98. Heart rate 69, respiratory rate 24, blood pressure 130/55, mean 80. Saturations are anywhere from 86- 92 percent. GENERAL: Appears in no acute distress. HEENT: Examination is grossly unremarkable. Mucous membranes moist. No oral lesions. Oral endotracheal tube and NG tube noted. NECK: Supple. Full range of motion. No adenopathy or thyromegaly. Neck veins are flat. CARDIOVASCULAR: Examination reveals regular rhythm and rate. Heart rate mid to high 70s. S1, S2 normal. Heart sounds are distant. LUNGS: Reveal diffuse coarse rhonchi. Breath sounds equal. No wheezes or crackles. ABDOMEN: Soft. Bowel sounds heard. EXTREMITIES are intact. No cyanosis, clubbing, or edema. SKIN: Without rash. NEUROLOGIC: Examination cannot be adequately assessed. LABS: Reviewed. White count 8.3, hemoglobin 11.7, hematocrit 36.1. Platelet count 117,000. PO2 79, pCO2 of 39, pH is 7.46. Blood gases consistent with a mild metabolic alkalosis. Sodium 138, potassium 4.6. Chloride 108. CO2 29. Anion gap is 1. BUN and creatinine were 31 and 0.59. Calcium 8.1, albumin 2.0. Microbiology showing Pseudomonas aeruginosa in the sputum. It is sensitive to everything including aztreonam, cefepime, ceftazidime, Cipro, Levaquin meropenem, and Zosyn. Chest x-ray from the shows patchy bilateral airspace disease without significant change. CURRENT MEDICATIONS: Reviewed. Currently, the patient is on Tylenol, albuterol inhaler, ascorbic acid, Lipitor, chlorhexidine, vitamin D3, Cleviprex p.r.n., Dilaudid, insulin, lisinopril, Ativan, Solu-Medrol, multivitamins, Narcan, nystatin, Zosyn, propofol, Xarelto, Flomax and zinc. ASSESSMENT: 1. Acute hypoxemic respiratory failure secondary to COVID-19 pneumonia/pneumonitis, requiring intubation and mechanical ventilation on September 19. 2. Influenza B infection. 3. Pseudomonas aeruginosa, purulent tracheobronchitis/bronchopneumonia, currently on Zosyn. 4. Chronic atrial fibrillation. 5. Type 2 diabetes mellitus. 6. Benign essential hypertension. 7. Moderate pulmonary hypertension. 8. Obesity. PLAN: Currently, the patient is on the VC plus modality or pressure regulated volume control ventilation. We do a daily interruption of sedation with a spontaneous breathing trial on PSV 8, CPAP of 5. Additional recommendations and suggestions are forthcoming. He is being nourished at goal with Vital high-protein which is 50 mL an hour. Blood gases are reviewed. Medications are reviewed. Unnecessary medications are discontinued. We will continue to follow. Critical care time 33 minutes. VIDAL / JESSICAN: [id number] /
[2020-09-28 18:32] LABS: Glucose,Whole Blood 158 mg/dL (75-99)
[2020-09-28] MEDS: TAMSULOSIN 0.4 MG CAP.ER.24H PO SCH (19:45)
[2020-09-28 23:45] LABS: Glucose,Whole Blood 140 mg/dL (75-99)
[2020-09-29] MEDS: INSULIN ASPART (NovoLOG) 100 UNIT/ML VIAL SQ SCH ×4 (00:07→17:53)
--- NOTE | 2020-09-29 00:53 | P.PN ---
Progress Note - Text Progress Note Date: 09/28/20 Chief Complaint: Short of breath History of presenting complaint: This is a pleasant [address] Leon. Chronic stable medical conditions include atrial fibrillation, diabetes, hyperlipidemia, hypertension, BPH, obstructive sleep apnea uses CPAP. Patient's had cardioversion in 2015. Also known coronary artery disease with bypass in 2005. Also had a cardiac catheterization in January of this year. He was told and no blockages. Patient was here in the hospital from September 07 of September 08. Patient on the last visit presented to the ER for cough fever or shortness of breath with activity. He tested positive for COVID. Did not want to stay longer the hospital and decided to leave. Patient does take Savella to for his chronic A. fib. Patient's also was tested positive for COVID. She now presents with increasing shortness of breath. Pulse ox was found to be 85%. Slight headache. Patient's been having some loose stool also. Does feel weak, tired and rundown. Admitted with bilateral COVID 19 pneumonia, acute hypoxic respiratory failure, l actic acidosis type II. Patient was started on steroids, Lovenox, continued on Xarelto, bronchodilators. September 19 patient went into respiratory distress. Moved to the ICU. Intubated.receive Remdesivir. Sputum also positive for Pseudomonas. [id number]. ventilator-FiO2 of 55 and a PEEP of 8. Telemetry shows sinus rhythm. Drips included propofol and Cleviprex. Patient sedated. Review of systems: Patient intubated Active Medications Acetaminophen (Acetaminophen Tab 500 Mg Tab) 1,000 mg PO Q6HR PRN PRN Reason: Fever>101 Albuterol Sulfate (Albuterol Hfa Inhaler) 2 puff INHALATION RT-Q6H PRN PRN Reason: Shortness Of Breath Or Wheezing Albuterol Sulfate (Albuterol Hfa Inhaler) 2 puff INHALATION RT-QID [facility] Last Admin: 09/28/20 20:50 Dose: 2 puff Documented by: Ascorbic Acid (Ascorbic Acid 500 Mg Tab) 500 mg PO BID [facility] Last Admin: 09/28/20 19:45 Dose: 500 mg Documented by: Atorvastatin Calcium (Atorvastatin 80 Mg Tab) 80 mg PO DAILY [facility] Last Admin: 09/28/20 10:02 Dose: 80 mg Documented by: Chlorhexidine Gluconate (Chlorhexidine Gluconate 15 Ml Cup) 15 ml MUCOUS MEM BID [facility] Last Admin: 09/28/20 19:45 Dose: 15 ml Documented by: Cholecalciferol (Cholecalciferol 1,000 Unit Tab) 5,000 unit PO DAILY [facility] Last Admin: 09/28/20 10:01 Dose: 5,000 unit Documented by: Hydromorphone HCl (Hydromorphone 1 Mg/Ml 1 Ml Syringe) 1 mg IVP Q3HR PRN PRN Reason: Pain Last Admin: 09/27/20 18:45 Dose: 1 mg Documented by: Sodium Chloride (Saline 0.9%) 1,000 mls @ 75 mls/hr IV .[id number] [facility] Last Admin: 09/28/20 15:56 Dose: 75 mls/hr Documented by: Propofol 1,000 mg/ IV Solution 100 mls @ 0 mls/hr IV .Q0M [facility]; Protocol Last Admin: 09/29/20 00:08 Dose: 25 mcg/kg/min, 19.5 mls/hr Documented by: Piperacillin Sod/Tazobactam (Sod 3.375 gm/ Sodium Chloride) 100 mls @ 25 mls/hr IVPB Q8HR [facility] Last Admin: 09/28/20 22:59 Dose: 25 mls/hr Documented by: Clevidipine 25 mg/ IV Solution 50 mls @ 2 mls/hr IV .Q24H [facility]; Protocol Last Titration: 09/28/20 15:44 Dose: 0 mg/hr, 0 mls/hr Documented by: Insulin Aspart (Insulin Aspart (Novolog) 100 Unit/Ml Vial) 0 unit SQ Q6HR [facility]; Protocol Last Admin: 09/29/20 00:07 Dose: Not Given Documented by: Insulin Detemir (Insulin Detemir (Levemir) 100 Unit/Ml Syr) 30 unit SQ DAILY@0700 [facility] Last Admin: 09/28/20 06:43 Dose: 30 unit Documented by: Lisinopril (Lisinopril 20 Mg Tab) 20 mg PO DAILY [facility] Last Admin: 09/28/20 10:02 Dose: 20 mg Documented by: Methylprednisolone Sodium Succinate (Methylprednisolone Sod Succi 40 Mg/Ml 1 Ml Vial) 40 mg IV Q8HR [facility] Last Admin: 09/28/20 22:59 Dose: 40 mg Documented by: Multivitamins (Multivitamins, Thera 1 Each Tab) 1 each PO DAILY [facility] Last Admin: 09/28/20 10:01 Dose: 1 each Documented by: Naloxone HCl (Naloxone 0.4 Mg/Ml 1 Ml Vial) 0.2 mg IV Q2M PRN PRN Reason: Opioid Reversal Nystatin (Nystatin 100,000 Unit/Ml Susp 500,000 Unit/5 Ml Cup) 500,000 unit PO QID [facility] Last Admin: 09/28/20 19:45 Dose: 500,000 unit Documented by: Rivaroxaban (Rivaroxaban 20 Mg Tab) 20 mg PO DAILY [facility] Last Admin: 09/28/20 10:03 Dose: 20 mg Documented by: Tamsulosin HCl (Tamsulosin 0.4 Mg Cap.Er.24h) 0.4 mg PO HS [facility] Last Admin: 09/28/20 19:45 Dose: 0.4 mg Documented by: Zinc Sulfate (Zinc Sulfate 220 Mg Cap) 220 mg PO DAILY [facility] Last Admin: 09/28/20 10:01 Dose: 220 mg Documented by: Physical examination: VITAL SIGNS: 93, 71, 19, 115/58, 92% on the ventilator GENERAL: , Laying in bed-intubated, PSYCH: Patient sedated Rest of exam as per nursing and pulmonary INVESTIGATIONS, reviewed in the clinical context: white count 8.3 hemoglobin 11.7 platelets 117 potassium 4.6 creatinine 0.59 Chest x-ray film today-bilateral infiltrates Previous testing White count 10.6 hemoglobin 14.3 platelets 196 potassium 4.1 creatinine 0.99 Lactic acid 2.5 Ferritin 2454, CRP 70.4 LDH 1513 pro-calcitonin 0.09 EKG tracing personally reviewed by me-no sinus rhythm Chest x-ray film personally reviewed by me-bilateral infiltrates sputum culture-from September 26-pseudomonas aeruginosa Assessment: -COVID 19 pneumoniaand secondary pseudomonas aeruginosa-slow to respond -Lactic acidosis type II from above -Acute hypoxic respiratory failure from above-now on ventilator support [intubated September 19] -slow to respond -Paroxysmal atrial fibrillation currently in sinus rhythm -Diabetes mellitus type 2, uncontrolled with hyperglycemia secondary to steroids -Hyperlipidemia -Essential hypertension -Obstructive sleep apnea uses CPAP -Coronary artery disease with a CABG in 2005 and a cardiac catheterization in A pril 2019 showing nonsignificant disease -Acute COPD exacerbation in a ex-smoker Plan: Patient the ICU. patient on IV Zosyn, IV propofol, IV Solu-Medrol, IV Cleviprex bronchodilators. Doses remains guarded.
[2020-09-29] MEDS: SODIUM CHLORIDE 0.9% 1,000 ML IV SCH ×2 (03:42→15:45)
[2020-09-29 05:22] LABS: Basophils % (A) 0 %; Eosinophils # (A) 0.1 k/uL (0-0.7); Eosinophils % (A) 2 %; Lymphocytes # (A) 0.5 k/uL (1.0-4.8); Lymphocytes % (A) 6 %; MCHC 33.4 g/dL (31.0-37.0); MCV 92.7 fL (80.0-100.0); Mean Platelet Volume 9.1; Monocytes # (A) 0.3 k/uL (0-1.0); Monocytes % (A) 4 %; Neutrophils # (A) 6.9 k/uL (1.3-7.7); Neutrophils % (A) 88 %; Platelet Count 111 k/uL (150-450); RBC 3.89 m/uL (4.30-5.90); RDW 13.9 % (11.5-15.5); WBC 7.9 k/uL (3.8-10.6)
[2020-09-29 05:32] LABS: ALT 70 U/L (4-49); AST 41 U/L (17-59); African American GFR (CKD) >90 (>60 ml/min/1.73 sqM); Alkaline Phosphatase 69 U/L (38-126); Anion Gap -2 mmol/L; Blood Urea Nitrogen 28 mg/dL (9-20); C Reactive Protein 25.6 mg/L (<10.0); Calcium 8.3 mg/dL (8.4-10.2); Carbon Dioxide 31 mmol/L (22-30); Chloride 109 mmol/L (98-107); Creatine Kinase 25 U/L (55-170); Glucose 145 mg/dL (74-99); LDH 659 U/L (313-618); Non-African American GFR(CKD) >90 (>60 ml/min/1.73 sqM); Potassium 3.8 mmol/L (3.5-5.1); Sodium 138 mmol/L (137-145); Total Bilirubin 0.5 mg/dL (0.2-1.3); Total Protein 4.4 g/dL (6.3-8.2)
[2020-09-29] MEDS ORDERED: Potassium Replacement Protocol 1 EACH MISC MISCELLANE PRN (06:08)
[2020-09-29 06:12] LABS: ABG Base Excess 5.5 mmol/L; ABG HCO3 29 mmol/L (21-25); ABG Oxygen Saturation 91.8 % (94-97); ABG PCO2 41 mmHg (35-45); ABG PH 7.46 (7.35-7.45); ABG PO2 61 mmHg (83-108); ABG TCO2 31 mmol/L (19-24); Allen Test Performed? Yes
[2020-09-29] MEDS: INSULIN DETEMIR (LEVEMIR) 100 UNIT/ML SYR SQ SCH (06:55)
[2020-09-29] MEDS ORDERED: POTASSIUM BICARBONATE/CIT AC 20 MEQ TABLET.EFF NG-TUBE SCH (07:00)
--- NOTE | 2020-09-29 07:27 | XR ---
EXAMINATION TYPE: XR chest 1V DATE OF EXAM: 09/29/2020 COMPARISON: 09/28/2020 HISTORY: Shortness of breath TECHNIQUE: Single frontal view of the chest is obtained. FINDINGS: ET tube is satisfactory. NG tube courses below the diaphragm. Median sternotomy wires. Lef t IJ CVC tip at the lower right atrium. Heart upper limits of normal in size. Patchy bilateral airspa ce disease persists without significant change. IMPRESSION: Patchy bilateral diffuse airspace disease without significant change. Correlate for pneum onia.
[2020-09-29] MEDS: ALBUTEROL HFA INHALER INHALATION SCH ×4 (08:03→21:54)
[2020-09-29] MEDS: methylPREDNISolone SOD SUCCI 40 MG/ML 1 ML VIAL IV SCH ×2 (08:36→15:39)
[2020-09-29] MEDS: CHLORHEXIDINE GLUCONATE 15 ML CUP MUCOUS MEM SCH ×2 (08:36→20:06)
[2020-09-29] MEDS: ASCORBIC ACID 500 MG TAB PO SCH ×2 (08:37→20:06)
[2020-09-29] MEDS: MULTIVITAMINS, THERA 1 EACH TAB PO SCH (08:37)
[2020-09-29] MEDS: lisinopriL 20 MG TAB PO SCH (08:37)
[2020-09-29] MEDS: ZINC SULFATE 220 MG CAP PO SCH (08:37)
[2020-09-29] MEDS: PIPERACILLIN-TAZOBACTAM 3.375 GM in SODIUM CHLORIDE 0.9% 100 ML IVPB SCH ×2 (08:37→15:39)
[2020-09-29] MEDS: CHOLECALCIFEROL 1,000 UNIT TAB PO SCH (08:37)
[2020-09-29] MEDS: ATORVASTATIN 80 MG TAB PO SCH (08:37)
[2020-09-29] MEDS: NYSTATIN 100,000 UNIT/ML SUSP 500,000 UNIT/5 ML CUP PO SCH ×4 (08:39→20:06)
[2020-09-29] MEDS: RIVAROXABAN 20 MG TAB PO SCH (09:18)
--- NOTE | 2020-09-29 11:10 | PN ---
PROGRESS NOTE PULMONARY/CRITICAL CARE PROGRESS NOTE: DATE OF SERVICE: 09/29/2020 Critical care time 33 minutes. This is a 75-year-old gentleman with a history of COVID-19 pneumonia and acute hypoxemic respiratory failure. He was admitted back on September 15 and because of worsening respiratory status and hypoxemia, he required intubation and mechanical ventilation on September 19, 2020. The patient is on the VC plus mode. Respiratory rate 18, inspiratory time is 1 second, targeted tidal volume is 550, FiO2 of 55%, PEEP of 8. Blood gases show a pO2 of 61 with a pCO2 of 41 and a pH of 7.46. On September 28, we did a daily interruption of sedation and a spontaneous breathing trial. Unfortunately, the patient failed miserably. Currently, he is getting saline at 75 mL an hour, propofol at 30 mcg/kg per minute and Vital high-protein at 50, which is goal. In addition, the patient has a history of pulmonary hypertension, benign essential hypertension, diabetes, and chronic atrial fibrillation. Current vital signs are reviewed. Most recent temperature is 98.6, heart rate 85, respiratory rate, blood pressure 171/51, and CVP is running at 4. Saturations are in the low 90s. Appears in no acute distress. Currently sedated. HEENT: Examination is grossly unremarkable. He has an orally placed endotracheal tube and NG tube. NECK: Supple, full range of motion. No adenopathy. Neck veins are flat. CARDIOVASCULAR: Examination reveals regular rhythm and rate. Heart rate 85 beats per minute. S1, S2 normal. Heart sounds are distant. LUNGS: Reveal diffuse coarse rhonchi. Breath sounds are diminished. There are a few scattered crackles. No wheezes. ABDOMEN: Soft, bowel sounds are heard. No masses or tenderness. EXTREMITIES: Intact. No cyanosis, clubbing, or edema. SKIN: Without rash. NEUROLOGIC: Examination is difficult to assess given his current level of sedation. LABS: Reviewed. White count 7.9, hemoglobin 12, hematocrit 36.0, platelet count 111,000. D- dimer 8.03. Sodium 138, potassium 3.8, chloride 109, CO2 is 31, anion gap is -2, BUN and creatinine were 28 and 0.65. Calcium 8.3, ferritin 1237, LDH is 659. C-reactive protein 25.6, albumin 2. Microbiology showing evidence of Pseudomonas aeruginosa in the sputum from September 26. A chest x-ray from September 29 shows patchy bilateral diffuse airspace disease. CURRENT MEDICATIONS: Reviewed. The patient is currently on Tylenol, albuterol inhaler, vitamin C, Lipitor, chlorhexidine, vitamin D3, Cleviprex p.r.n., Dilaudid, insulin, lisinopril, Solu- Medrol, multivitamins, Narcan, nystatin, Zosyn, potassium replacement therapy, Diprivan, Xarelto, saline at 75 mL an hour, Flomax and zinc. ASSESSMENT: 1. Acute hypoxemic respiratory failure secondary to COVID-19 pneumonitis, requiring intubation and mechanical ventilation on September 19. 2. Influenza B infection. 3. Pseudomonas aeruginosa, purulent tracheobronchitis/bronchopneumonia, currently on Zosyn. 4. Chronic atrial fibrillation. 5. Type 2 diabetes mellitus. 6. Benign essential hypertension. 7. Moderate pulmonary hypertension. 8. Obesity. 9. Failed spontaneous breathing trial September 28. PLAN: Currently, the patient is on the VC plus mode. He failed his spontaneous breathing trial from yesterday. We will try again today. He is on propofol at 30 mcg/kg per minute. He is getting optimal nutrition at vital high-protein, which is at goal at 50 mL an hour. Blood gases are reasonable. Will continue to follow. Overall prognosis remains guarded. Critical care time 33 minutes. MMODL / JESSICAN: [id number] /
[2020-09-29 12:13] LABS: Glucose,Whole Blood 171 mg/dL (75-99)
[2020-09-29] MEDS: CLEVIDIPINE BUTYRATE 25 MG in EMPTY BAG 1 BAG IV SCH (14:00)
[2020-09-29 17:51] LABS: Glucose,Whole Blood 184 mg/dL (75-99)
--- NOTE | 2020-09-29 18:00 | CDI ---
Documentation Clarification Form Date: 09/29/2020 05:30:23 PM From: Isela Hernandez RN CCDS Admit Date: 09/15/2020 06:18:00 PM Patient Name: Gilbert Wyatt Visit Number: [id number] Discharge Date: ATTENTION: The Clinical Documentation Specialists (CDI) and [facility] Coding Staff appreciate your assistance in clarifying documentation. Please respond to the clarification below the line at the bottom and electronically sign. The CDI & [facility] Coding staff will review the response and follow-up if needed. Please note: Queries are made part of the Legal Health Record. If you have any questions, please contact the author of this message via ITS. Dr. Sudheer Staples The diagnosis Sepsis present on admission was documented in Internal medicine progress notes 09/23 through 09/27 and is not noted in subsequent documentation. History/Risk Factors: 75-year-old male presents to the ED with difficulty breathing tested positive for COVID out-patient September 07. Medical history DM, HLD, HTN and Sleep Apnea. Clinical Indicators: 09/15 VSS: B/P 97/67; HR 84; Temp 98.4 F Oral; RR 24; SpO2 84% room air 09/15 Labs: Neutrophils 10.0; Chl 109; Bun30; Lactic acid 2.5; 4.0; 3.1; 2.3; Ferritin 2454.5; AST 87; ALT 67; LDH 1513; CRP 70.4; Procalcitonin 0.09 09/19 Intubation with Mechanical Ventilation Treatment: 09/15 : Zinc sulfate daily; 0.9ns 75cc/hr; Hexadrol po daily d/c 09/18; Ventolin Q6 charlene changed 09/24 QID charlene; Vitamin C daily; Vitamin D3 daily; 09/16 Solumedrol IV Q 8Hr; 09/17 Tamiflu Q 12 d/c 09/21; 09/25 Piperacillin Ivpb Q 8Hr; 09/25 0.9ns 1L Bolus. Please clarify if the Sepsis was: Present/active this admission Treated and resolved this admission Ruled out Other, please specify Clinically unable to determine (Last Query Form Revision: June 2019) Sepsis present active this admission MTDD
[2020-09-29] MEDS: TAMSULOSIN 0.4 MG CAP.ER.24H PO SCH (20:06)
--- NOTE | 2020-09-29 23:31 | P.PN ---
Progress Note - Text Progress Note Date: 09/29/20 Chief Complaint: Short of breath History of presenting complaint: This is a pleasant [address] Leon. Chronic stable medical conditions include atrial fibrillation, diabetes, hyperlipidemia, hypertension, BPH, obstructive sleep apnea uses CPAP. Patient's had cardioversion in 2015. Also known coronary artery disease with bypass in 2005. Also had a cardiac catheterization in January of this year. He was told and no blockages. Patient was here in the hospital from September 07 of September 08. Patient on the last visit presented to the ER for cough fever or shortness of breath with activity. He tested positive for COVID. Did not want to stay longer the hospital and decided to leave. Patient does take Savella to for his chronic A. fib. Patient's also was tested positive for COVID. She now presents with increasing shortness of breath. Pulse ox was found to be 85%. Slight headache. Patient's been having some loose stool also. Does feel weak, tired and rundown. Admitted with bilateral COVID 19 pneumonia, acute hypoxic respiratory failure, l actic acidosis type II. Patient was started on steroids, Lovenox, continued on Xarelto, bronchodilators. September 19 patient went into respiratory distress. Moved to the ICU. Intubated.receive Remdesivir. Sputum also positive for Pseudomonas. Qspvc-IQK-tvvvnapty. ventilator-FiO2 FiO2 55 and a PEEP of 8. Telemetry-sinus rhythm. Drips included propofol and Cleviprex. On G-tube feeding. Review of systems: Patient intubated Active Medications Acetaminophen (Acetaminophen Tab 500 Mg Tab) 1,000 mg PO Q6HR PRN PRN Reason: Fever>101 Albuterol Sulfate (Albuterol Hfa Inhaler) 2 puff INHALATION RT-Q6H PRN PRN Reason: Shortness Of Breath Or Wheezing Albuterol Sulfate (Albuterol Hfa Inhaler) 2 puff INHALATION RT-QID [facility] Last Admin: 09/29/20 21:54 Dose: 2 puff Documented by: Ascorbic Acid (Ascorbic Acid 500 Mg Tab) 500 mg PO BID [facility] Last Admin: 09/29/20 20:06 Dose: 500 mg Documented by: Atorvastatin Calcium (Atorvastatin 80 Mg Tab) 80 mg PO DAILY [facility] Last Admin: 09/29/20 08:37 Dose: 80 mg Documented by: Chlorhexidine Gluconate (Chlorhexidine Gluconate 15 Ml Cup) 15 ml MUCOUS MEM BID [facility] Last Admin: 09/29/20 20:06 Dose: 15 ml Documented by: Cholecalciferol (Cholecalciferol 1,000 Unit Tab) 5,000 unit PO DAILY [facility] Last Admin: 09/29/20 08:37 Dose: 5,000 unit Documented by: Hydromorphone HCl (Hydromorphone 1 Mg/Ml 1 Ml Syringe) 1 mg IVP Q3HR PRN PRN Reason: Pain Last Admin: 09/27/20 18:45 Dose: 1 mg Documented by: Sodium Chloride (Saline 0.9%) 1,000 mls @ 75 mls/hr IV .[id number] [facility] Last Admin: 09/29/20 15:45 Dose: 75 mls/hr Documented by: Propofol 1,000 mg/ IV Solution 100 mls @ 0 mls/hr IV .Q0M [facility]; Protocol Last Admin: 09/29/20 20:06 Dose: 30 mcg/kg/min, 23.85 mls/hr Documented by: Piperacillin Sod/Tazobactam (Sod 3.375 gm/ Sodium Chloride) 100 mls @ 25 mls/hr IVPB Q8HR [facility] Last Admin: 09/29/20 15:39 Dose: 25 mls/hr Documented by: Clevidipine 25 mg/ IV Solution 50 mls @ 2 mls/hr IV .Q24H [facility]; Protocol Last Admin: 09/29/20 14:00 Dose: Not Given Documented by: Insulin Aspart (Insulin Aspart (Novolog) 100 Unit/Ml Vial) 0 unit SQ Q6HR [facility]; Protocol Last Admin: 09/29/20 17:53 Dose: 4 unit Documented by: Insulin Detemir (Insulin Detemir (Levemir) 100 Unit/Ml Syr) 30 unit SQ DAILY@0700 [facility] Last Admin: 09/29/20 06:55 Dose: 30 unit Documented by: Lisinopril (Lisinopril 20 Mg Tab) 20 mg PO DAILY [facility] Last Admin: 09/29/20 08:37 Dose: 20 mg Documented by: Methylprednisolone Sodium Succinate (Methylprednisolone Sod Succi 40 Mg/Ml 1 Ml Vial) 40 mg IV Q8HR [facility] Last Admin: 09/29/20 15:39 Dose: 40 mg Documented by: Miscellaneous Information (Potassium Replacement Protocol 1 Each Misc) 1 each MISCELLANE DAILY PRN; Protocol PRN Reason: Per Protocol Multivitamins (Multivitamins, Thera 1 Each Tab) 1 each PO DAILY [facility] Last Admin: 09/29/20 08:37 Dose: 1 each Documented by: Naloxone HCl (Naloxone 0.4 Mg/Ml 1 Ml Vial) 0.2 mg IV Q2M PRN PRN Reason: Opioid Reversal Nystatin (Nystatin 100,000 Unit/Ml Susp 500,000 Unit/5 Ml Cup) 500,000 unit PO QID [facility] Last Admin: 09/29/20 20:06 Dose: 500,000 unit Documented by: Rivaroxaban (Rivaroxaban 20 Mg Tab) 20 mg PO DAILY [facility] Last Admin: 09/29/20 09:18 Dose: 20 mg Documented by: Tamsulosin HCl (Tamsulosin 0.4 Mg Cap.Er.24h) 0.4 mg PO HS [facility] Last Admin: 09/29/20 20:06 Dose: 0.4 mg Documented by: Zinc Sulfate (Zinc Sulfate 220 Mg Cap) 220 mg PO DAILY [facility] Last Admin: 09/29/20 08:37 Dose: 220 mg Documented by: Physical examination: VITAL SIGNS: 100.9, 101, 24, 89/35, 91% on the ventilator GENERAL: , Laying in bed-intubated, PSYCH: Patient sedated Rest of exam as per nursing and pulmonary INVESTIGATIONS, reviewed in the clinical context: White count 7.9 hemoglobin 12 platelets 111 potassium 3.8 bun 28 creatinine 0.65 Chest x-ray film today-bilateral infiltrates, no significant change Previous testing White count 10.6 hemoglobin 14.3 platelets 196 potassium 4.1 creatinine 0.99 Lactic acid 2.5 Ferritin 2454, CRP 70.4 LDH 1513 pro-calcitonin 0.09 EKG tracing personally reviewed by me-no sinus rhythm Chest x-ray film personally reviewed by me-bilateral infiltrates sputum culture-from September 26-pseudomonas aeruginosa Assessment: -COVID 19 pneumoniaand secondary pseudomonas aeruginosa-slow to respond -Lactic acidosis type II from above -Acute hypoxic respiratory failure from above-now on ventilator support [intubated September 19] -slow to respond -Paroxysmal atrial fibrillation currently in sinus rhythm -Diabetes mellitus type 2, uncontrolled with hyperglycemia secondary to steroids -Hyperlipidemia -Essential hypertension -Obstructive sleep apnea uses CPAP -Coronary artery disease with a CABG in 2005 and a cardiac catheterization in January 2020 showing nonsignificant disease -Acute COPD exacerbation in a ex-smoker Plan: ICU. on IV Zosyn, IV propofol, IV Solu-Medrol, IV Cleviprex bronchodilators. Prognosis guarded
[2020-09-29 23:36] LABS: Glucose,Whole Blood 209 mg/dL (75-99)
[2020-09-30] MEDS: PIPERACILLIN-TAZOBACTAM 3.375 GM in SODIUM CHLORIDE 0.9% 100 ML IVPB SCH ×3 (00:57→15:56)
[2020-09-30] MEDS: methylPREDNISolone SOD SUCCI 40 MG/ML 1 ML VIAL IV SCH ×3 (00:57→15:56)
[2020-09-30] MEDS: INSULIN ASPART (NovoLOG) 100 UNIT/ML VIAL SQ SCH ×4 (00:58→18:29)
[2020-09-30] MEDS: SODIUM CHLORIDE 0.9% 1,000 ML IV SCH ×2 (00:58→15:24)
[2020-09-30 05:52] LABS: Glucose,Whole Blood 164 mg/dL (75-99)
[2020-09-30 06:07] LABS: ABG Base Excess 4.4 mmol/L; ABG HCO3 28 mmol/L (21-25); ABG Oxygen Saturation 96.4 % (94-97); ABG PCO2 41 mmHg (35-45); ABG PH 7.45 (7.35-7.45); ABG PO2 79 mmHg (83-108); ABG TCO2 30 mmol/L (19-24)
[2020-09-30 06:28] LABS: Basophils % (A) 0 %; Eosinophils % (A) 0 %; HCT 34.1 % (39.0-53.0); HGB 11.1 gm/dL (13.0-17.5); Lymphocytes # (A) 0.2 k/uL (1.0-4.8); Lymphocytes % (A) 2 %; MCH 30.3 pg (25.0-35.0); MCHC 32.4 g/dL (31.0-37.0); MCV 93.6 fL (80.0-100.0); Mean Platelet Volume 9.3; Monocytes # (A) 0.2 k/uL (0-1.0); Monocytes % (A) 2 %; Neutrophils # (A) 7.7 k/uL (1.3-7.7); Neutrophils % (A) 95 %; Platelet Count 115 k/uL (150-450); RBC 3.65 m/uL (4.30-5.90)
[2020-09-30] MEDS: INSULIN DETEMIR (LEVEMIR) 100 UNIT/ML SYR SQ SCH (06:56)
[2020-09-30 06:58] LABS: ALT 59 U/L (4-49); AST 32 U/L (17-59); African American GFR (CKD) >90 (>60 ml/min/1.73 sqM); Albumin 1.9 g/dL (3.5-5.0); Alkaline Phosphatase 61 U/L (38-126); Anion Gap -2 mmol/L; Blood Urea Nitrogen 29 mg/dL (9-20); Carbon Dioxide 30 mmol/L (22-30); Chloride 108 mmol/L (98-107); Creatine Kinase 56 U/L (55-170); Glucose 185 mg/dL (74-99); LDH 545 U/L (313-618); Non-African American GFR(CKD) >90 (>60 ml/min/1.73 sqM); Potassium 4.5 mmol/L (3.5-5.1); Sodium 136 mmol/L (137-145); Total Bilirubin 0.6 mg/dL (0.2-1.3); Total Protein 4.3 g/dL (6.3-8.2)
[2020-09-30] MEDS: ALBUTEROL HFA INHALER INHALATION SCH ×4 (07:37→20:05)
--- NOTE | 2020-09-30 07:44 | XR ---
EXAMINATION TYPE: XR chest 1V DATE OF EXAM: 09/30/2020 COMPARISON: Prior chest x-ray 09/29/2020 HISTORY: Intubated TECHNIQUE: Single frontal view of the chest is obtained. FINDINGS: Endotracheal tube and NG tube, left jugular central venous catheter, patient with post med hans sternotomy changes are stable findings. Bilateral airspace disease persists. No evident pneumotho rax or pleural effusion. Heart is stable. There are overlying artifacts. IMPRESSION: No significant change, correlate for pneumonia, edema, ARDS.
[2020-09-30 08:07] LABS: C Reactive Protein 149.7 mg/L (<10.0)
[2020-09-30] MEDS: NYSTATIN 100,000 UNIT/ML SUSP 500,000 UNIT/5 ML CUP PO SCH ×4 (08:44→20:41)
[2020-09-30] MEDS: ATORVASTATIN 80 MG TAB PO SCH (08:44)
[2020-09-30] MEDS: ASCORBIC ACID 500 MG TAB PO SCH ×2 (08:44→20:41)
[2020-09-30] MEDS: CHOLECALCIFEROL 1,000 UNIT TAB PO SCH (08:44)
[2020-09-30] MEDS: CHLORHEXIDINE GLUCONATE 15 ML CUP MUCOUS MEM SCH ×2 (08:44→20:41)
[2020-09-30] MEDS: ZINC SULFATE 220 MG CAP PO SCH (08:44)
[2020-09-30] MEDS: MULTIVITAMINS, THERA 1 EACH TAB PO SCH (08:45)
[2020-09-30] MEDS: RIVAROXABAN 20 MG TAB PO SCH (08:45)
[2020-09-30] MEDS: lisinopriL 20 MG TAB PO SCH (08:45)
[2020-09-30] MEDS: CLEVIDIPINE BUTYRATE 25 MG in EMPTY BAG 1 BAG IV SCH (10:26)
--- NOTE | 2020-09-30 10:40 | PN ---
PROGRESS NOTE PULMONARY/CRITICAL CARE PROGRESS NOTE: DATE OF SERVICE: 09/30/2020 Critical care time 33 minutes. This is a 75-year-old gentleman with history of COVID-19 pneumonia and acute hypoxemic respiratory failure. He was admitted back on September 15 and because of worsening respiratory status and hypoxemia, the patient required intubation and mechanical ventilation on September 19, 2020. He remains on the VC plus mode or pressure regulated volume control. His rate is 18, targeted tidal volume is 550, inspiratory time is 1 second, FiO2 of 55%, PEEP of 8. On those settings, his PO2 was 79, pCO2 of 41, pH of 7.45. Blood gases consistent with a mild metabolic alkalosis. The patient is on saline at 75 mL an hour, propofol at 30 mcg/kg per minute and Vital high-protein at 50 with a goal of 50 mL an hour. We will attempt a daily interruption of sedation and spontaneous breathing trial today. The patient will get pressure support of 8, CPAP of 5 during his SBT. In addition, the nurse mentions that he is not moving his left side. That continues to be an issue, he will have a head CT minus contrast and possibly a neurology consultation. Currently, his vital signs are reviewed, temperature is 98.4, heart rate 75, respiratory rate 22, blood pressure is 193/60. Central venous pressure is 3 and saturations are 95%. Appears in no acute distress. Currently sedated and intubated. There is an orally placed endotracheal tube and NG tube. HEENT: Examination is otherwise normal. NECK: Supple, full range of motion. No adenopathy, thyromegaly or neck vein distention. CARDIOVASCULAR: Examination reveals regular rhythm and rate. Heart rate 75 beats per minute. S1, S2 normal. Heart sounds are distant. LUNGS: Reveal diffuse coarse rhonchi. Breath sounds are diminished. Breath sounds are equal bilaterally. No wheezes or crackles. ABDOMEN: Soft, bowel sounds are heard. EXTREMITIES: Intact. Slight edema. SKIN: Without rash. NEUROLOGIC: Examination could not be adequately assessed. Currently, white count 8, hemoglobin 11.1, hematocrit 34.1, platelet count 115,000. Fibrinogen is 535. Sodium 136, potassium 4.5, chloride 108, CO2 is 30, anion gap is - 2, BUN and creatinine were 29 and 0.56. Calcium was 8. Albumin 1.9. Microbiology is positive for Pseudomonas aeruginosa in the sputum. The most recent chest x-ray done September 30 shows patchy bibasilar airspace disease. CURRENT MEDICATIONS: Reviewed. They include Tylenol, albuterol inhaler, vitamin C, Lipitor, Peridex, vitamin D3, Cleviprex, the Cleviprex is being used p.r.n., Dilaudid, insulin, Levemir, lisinopril, Solu-Medrol, multivitamins, Narcan, nystatin, Zosyn, potassium replacement, Xarelto, Flomax and zinc. ASSESSMENT: 1. Acute hypoxemic respiratory failure secondary to COVID-19 pneumonitis, requiring intubation and mechanical ventilation on September 19 with failure to wean from mechanical ventilation. 2. Influenza B infection. 3. Pseudomonas aeruginosa, purulent tracheobronchitis/bronchopneumonia, currently on Zosyn. 4. Chronic atrial fibrillation. 5. Type 2 diabetes mellitus. 6. Benign essential hypertension. 7. Moderate pulmonary hypertension. 8. Obesity. 9. Failed spontaneous breathing trial on September 28, 2020. PLAN: The patient will have another attempted weaning trial. Will hold the sedation. Will be placed on the PSV 8, CPAP of 5. If the left side of his body does not improve in terms of movement, the patient will need a head CT without contrast and likely a neurology consultation. Will continue to follow. Prognosis is guarded. Critical care time 33 minutes. MMTUNGL / JESSICAN: [id number] /
[2020-09-30 11:27] LABS: Glucose,Whole Blood 217 mg/dL (75-99)
--- NOTE | 2020-09-30 13:53 | CT ---
EXAMINATION TYPE: CT brain wo con DATE OF EXAM: 09/30/2020 COMPARISON: 09/03/2000 HISTORY: Patient not moving left side CT DLP: 1040.4 mGycm Automated exposure control for dose reduction was used. FINDINGS: Area of abnormal density involving the right posterior parietal and parietal occipital junction robson tible with acute to subacute infarct. Small satellite lesion involving the right parietal white matte r extending to the cortex is of indeterminate age. Slight mass effect upon the posterior margin of th e right lateral ventricle noted. No midline shift. Calvarium intact. Subtle density seen in the poste rior margin of the area of larger hypodensity may be artifactual. Subtle hemorrhage not excluded kandace mmend MRI. IMPRESSION: 1. New large area of low attenuation involving the right occipital and right parietal lobe posteriorl y suggestive of subacute infarct. Minimal mass effect upon the posterior margin of the right lateral ventricle. No midline shift. Faint intermediate density within the area of suspected infarct may be a rtifactual. Subtle petechial hemorrhage cannot be excluded. Report called to the patient's nurse. MRI recommended.
[2020-09-30 18:24] LABS: Glucose,Whole Blood 140 mg/dL (75-99)
[2020-09-30] MEDS: ASPIRIN 81 MG PO SCH (18:29)
[2020-09-30] MEDS: CLOPIDOGREL 75 MG TAB PO SCH (18:29)
--- NOTE | 2020-09-30 18:58 | P.CNNES ---
History of Present Illness Consult date: 09/30/20 Requesting physician: Blake Crow Reason for Consult: stroke on CT head History of Present Illness: This is a 75-year-old gentleman with medical history of atrial fibrillation, diabetes mellitus, hyperlipidemia, hypertension, that presented to the emergency department on 09/15/2020 with complaints of difficulty breathing and cough over the last couple days prior to presentation. History is obtained from medical records since the unable to obtain up from the patient because of his condition. Patient was tested positive for COVID 19 and influenza B on 09/07/2020. Her medical documentation the patient was the out of the window for Remdesivir and started on [place]. Regarding atrial fibrillation patient is on Xarelto. Neurology was consulted because of the stroke finding over the CT of the head which shows a stroke involving the right occipital and parietal lobe. Per the patient nurse and she stated that yesterday (09/29/20), around 9:00 in the morning the nurse felt like the patient had possible left-sided weakness but was not exactly sure because of the patient's agitation. Then today (09/30/2020) around 9:00 in the morning again she fell to the patient had also left-sided weakness was felt that the patient was neglecting the left side. Unsure exactly when the last normal state. Currently the patient is intubated on the ventilator and and is on propofol 30 mics per kilogram per minute. Workup in the hospital consisted of: CT of the head on 09/30/2020 was done because the patient the was not moving the left side. CT of the head was reported as shows new large area of low attenuation involving the right occipital and the right parietal lobe posteriorly suggestive of subacute infarct. Minimal mass effect upon the posterior margins of the right lateral ventricle. No midline shift. Faint intermediate density within the area of suspected infarct may be artifactual. Septal petechial hemorrhage cannot be excluded. Report called to the patient nurse. MRI recommended. I personally reviewed the CT of the head and I agree with the CT of the head findings. Patient had a 2-D echo on 09/23/2020 which was reported as mild concentric left ventricular hypertrophy. Ejection fraction of 55-60%. Left atrium is severely dilated. Moderate pulmonary hypertension. Patient had the duplex of lower lower extremities and there are negative for DVTs on 09/27/2020. TSH is 0.385 which is low. While left free T4 is 1.18 which is within normal limits. Last hemoglobin A1c was on 09/08/2020 reported as 6.7. Review of Systems View of system is limited but the per positive and negative as per HPI. Past Medical History Past Medical History: Atrial Fibrillation, Diabetes Mellitus, Hyperlipidemia, Hypertension, Prostate Disorder Additional Past Medical History / Comment(s): Cardioversion 10/2015 - 5 years without AFIB, iron deficiency anemia, sleep apnea with CPAP, heart catheterization January 2020, enlarged prostate History of Any Multi-Drug Resistant Organisms: None Reported Past Surgical History: Adenoidectomy, Cholecystectomy, Coronary Bypass/CABG, Heart Catheterization, Hernia Repair, Joint Replacement, Tonsillectomy Additional Past Surgical History / Comment(s): CABG x 4 in 2005 at [facility], bilateral knees replaced, cardioversion 10/2015, heart catheterization January 2020 Past Anesthesia/Blood Transfusion Reactions: Postoperative Nausea & Vomiting (PONV) Past Psychological History: PTSD Smoking Status: Former smoker Past Alcohol Use History: Occasional Additional Past Alcohol Use History / Comment(s): smoking: started 1963 stopped 2011. ETOH: "just social drinker" Past Drug Use History: None Reported - Past Family History Mother Family Medical History: Chest Pain / Angina, Coronary Artery Disease (CAD), Diabetes Mellitus, Hypertension Father Family Medical History: Chest Pain / Angina, Coronary Artery Disease (CAD), Diabetes Mellitus, Hypertension Medications and Allergies Home Medications Medication Instructions Recorded Confirmed Type Dofetilide [Tikosyn] 500 mcg PO BID 03/08/16 09/15/20 History Furosemide [Lasix] 20 mg PO DAILY 03/08/16 09/15/20 History Rivaroxaban [Xarelto] 20 mg PO DAILY 03/08/16 09/15/20 History Tamsulosin [Flomax] 0.4 mg PO HS 03/08/16 09/15/20 History metFORMIN HCL [Glucophage] 500 mg PO BID 03/08/16 09/15/20 History Multivitamins, Thera [Multivitamin 1 tab PO DAILY 08/23/16 09/15/20 History (formulary)] Cinnamon Bark [Cinnamon] 500 mg PO HS 04/21/18 09/15/20 History Atorvastatin [Lipitor] 80 mg PO DAILY 09/03/20 09/15/20 History Dulaglutide [Trulicity] 0.75 mg SQ MO 09/03/20 09/15/20 History Glimepiride [Amaryl] 2 mg PO BID 09/03/20 09/15/20 History Metoprolol Tartrate [Lopressor] 25 mg PO BID 09/03/20 09/15/20 History lisinopriL 20 mg PO DAILY 09/03/20 09/15/20 History Magnesium 300mg 300 mg PO DAILY 09/07/20 09/15/20 History Ascorbic Acid [Vitamin C] 1,000 mg PO DAILY #15 tablet 09/08/20 09/15/20 Rx Cholecalciferol [Vitamin D3 (25 1,000 unit PO DAILY #15 tablet 09/08/20 09/15/20 Rx Mcg = 1000 Iu)] Zinc 50 mg PO DAILY #15 tablet 09/08/20 09/15/20 Rx dexAMETHasone [Dexamethasone] 6 mg PO DAILY 09/15/20 09/15/20 History Allergies Allergy/AdvReac Type Severity Reaction Status Date / Time No Known Allergies Allergy Verified 09/15/20 18:21 Physical Examination - Vital Signs Vital Signs: Vital Signs Temp Pulse Resp BP Pulse Ox 09/30/20 15:00 47 L 14 94 L 09/30/20 14:00 66 20 91 L 09/30/20 12:00 98.5 F 64 19 86 L 09/30/20 11:00 94 21 90 L 09/30/20 10:00 78 24 92 L 09/30/20 09:00 75 22 95 09/30/20 08:00 98.4 F 49 L 19 96 09/30/20 07:00 40 L 18 96 09/30/20 06:00 44 L 18 96 09/30/20 05:00 47 L 18 97 09/30/20 04:00 98.5 F 45 L 18 97 09/30/20 03:00 43 L 18 97 09/30/20 02:00 46 L 18 97 09/30/20 01:00 48 L 19 98 09/30/20 00:00 98 F 58 L 19 98 09/29/20 23:00 67 21 98 09/29/20 22:00 73 22 97 09/29/20 21:00 76 22 97 09/29/20 20:00 97.5 F L 81 20 96 09/29/20 19:00 88 22 113/49 94 L 09/29/20 18:00 92 22 110/60 90 L 09/29/20 17:00 100 24 116/55 93 L Intake and Output 09/30/20 09/30/20 09/30/20 06:59 14:59 22:59 Intake Total 1048 1261.200 50.074 Output Total 1040 928 Balance 8 333.200 50.074 Intake: IV 648 648 Pressure bags 48 48 Sodium Chloride 0.9% 1, 600 600 000 ml @ 75 mls/hr IV . [id number] MICHOACANO Rx#:[id number] Intake, IV Titration 213.200 50.074 Amount Clevidipine Butyrate 25 13.200 mg In Empty Bag 1 bag @ 1 MG/HR 2 mls/hr IV .Q24H MICHOACANO Rx#:[id number] Piperacillin-Tazobactam 3 100 .375 gm In Sodium Chloride 0.9% 100 ml @ 25 mls/hr IVPB Q8HR MICHOACANO Rx# :[id number] propofoL 1,000 mg In 100 50.074 Empty Bag 1 bag @ Titrate IV .Q0M MICHOACANO Rx#: [id number] Tube Feeding 400 400 Output: Urine 1040 925 Stool 3 Other: Voiding Method Indwelling Catheter Indwelling Catheter # Bowel Movements 1 Weight 133 kg ABP, PAP, CO, CI - Last 8 Hours Arterial Blood Pressure 155/47 Arterial Blood Pressure 142/41 Arterial Blood Pressure 109/34 Arterial Blood Pressure 134/44 Arterial Blood Pressure 199/61 Arterial Blood Pressure 193/60 GENERAL: The patient is lying in bed and is not in acute distress. Patient is intubated on a ventilator is on sedation all follow-up profile 30 mics per kilogram per minute. CHEST: The heart rate is regular rate rhythm. No murmurs to auscultation. LUNG: Intubated and on ventilator. Clear to auscultation bilaterally no wheezing noted throughout. Not labored breathing. ABDOMEN/GI: Bowel sounds present in all 4 quadrants. No tenderness to palpation throughout. NEUROLOGICAL: Limited because of patient condition (on sedation). Higher mental function: Comatose. GCS of 3 (E1, VT1, M1). , Cranial nerves: The pupils are round, 2mm, equal and sluggishly reactive to light. I did not notice any significant facial weakness but again it was hard to assess. Rest of the cranial nerves could not be assessed because of condition. Motor: Gait and the strength could not be assessed because of the patient condition Cerebellum: Could not be assessed. Sensation: Could not be assessed. Reflexes (right/left): 1+ throughout.. Plantars are mute bilaterally. Results Last coagulation study is on 09/27/2020 and it's PT of 9.5, INR 5.9 and PTT of 22.7. The d-dimer is there trending down and the last one is 8.03. - Laboratory Findings CBC and BMP: 09/30/20 06:00 09/30/20 06:00 Abnormal Lab Findings: Abnormal Labs 09/15/20 09/15/20 09/15/20 17:17 17:17 17:17 WBC RBC Hgb Hct Plt Count Neutrophils # 10.0 H Lymphocytes # 0.2 L APTT 32.7 H Fibrinogen D-Dimer ABG pH ABG pCO2 ABG pO2 ABG HCO3 ABG Total CO2 ABG O2 Saturation Sodium Chloride 109 H Carbon Dioxide BUN 30 H Creatinine BUN/Creatinine Ratio Glucose POC Glucose (mg/dL) Plasma Lactic Acid Eliazar Calcium Magnesium Ferritin 2454.5 H AST 87 H ALT 67 H Lactate Dehydrogenase 1513 H Creatine Kinase C-Reactive Protein 70.4 H Total Protein 5.7 L Albumin 2.9 L TSH Urine Protein Urine Blood Urine RBC Urine Mucus 09/15/20 09/15/20 09/15/20 17:17 20:16 20:25 WBC RBC Hgb Hct Plt Count Neutrophils # Lymphocytes # APTT Fibrinogen D-Dimer ABG pH ABG pCO2 ABG pO2 ABG HCO3 ABG Total CO2 ABG O2 Saturation Sodium Chloride Carbon Dioxide BUN Creatinine BUN/Creatinine Ratio Glucose POC Glucose (mg/dL) 156 H Plasma Lactic Acid Eliazar 2.5 H* 3.6 H* Calcium Magnesium Ferritin AST ALT Lactate Dehydrogenase Creatine Kinase C-Reactive Protein Total Protein Albumin TSH Urine Protein Urine Blood Urine RBC Urine Mucus 09/15/20 09/16/20 09/16/20 23:25 01:58 04:57 WBC RBC Hgb Hct Plt Count Neutrophils # Lymphocytes # APTT Fibrinogen D-Dimer ABG pH ABG pCO2 ABG pO2 ABG HCO3 ABG Total CO2 ABG O2 Saturation Sodium Chloride Carbon Dioxide BUN Creatinine BUN/Creatinine Ratio Glucose POC Glucose (mg/dL) Plasma Lactic Acid Eliazar 4.0 H* 3.1 H* 2.3 H* Calcium Magnesium Ferritin AST ALT Lactate Dehydrogenase Creatine Kinase C-Reactive Protein Total Protein Albumin TSH Urine Protein Urine Blood Urine RBC Urine Mucus 09/16/20 09/16/20 09/16/20 07:52 08:34 10:51 WBC RBC Hgb Hct Plt Count Neutrophils # Lymphocytes # APTT Fibrinogen D-Dimer 1.39 H ABG pH ABG pCO2 ABG pO2 ABG HCO3 ABG Total CO2 ABG O2 Saturation Sodium Chloride Carbon Dioxide BUN Creatinine BUN/Creatinine Ratio Glucose POC Glucose (mg/dL) 253 H Plasma Lactic Acid Eliazar 4.2 H* Calcium Magnesium Ferritin AST ALT Lactate Dehydrogenase Creatine Kinase C-Reactive Protein Total Protein Albumin TSH Urine Protein Urine Blood Urine RBC Urine Mucus 09/16/20 09/16/20 09/16/20 11:30 11:39 14:48 WBC RBC Hgb Hct Plt Count Neutrophils # Lymphocytes # APTT Fibrinogen D-Dimer ABG pH ABG pCO2 ABG pO2 ABG HCO3 ABG Total CO2 ABG O2 Saturation Sodium Chloride Carbon Dioxide BUN Creatinine BUN/Creatinine Ratio Glucose POC Glucose (mg/dL) 257 H Plasma Lactic Acid Eliazar 3.4 H* 4.4 H* Calcium Magnesium Ferritin AST ALT Lactate Dehydrogenase Creatine Kinase C-Reactive Protein Total Protein Albumin TSH Urine Protein Urine Blood Urine RBC Urine Mucus 09/16/20 09/16/20 09/16/20 16:50 17:57 20:27 WBC RBC Hgb Hct Plt Count Neutrophils # Lymphocytes # APTT Fibrinogen D-Dimer ABG pH ABG pCO2 ABG pO2 ABG HCO3 ABG Total CO2 ABG O2 Saturation Sodium Chloride Carbon Dioxide BUN Creatinine BUN/Creatinine Ratio Glucose POC Glucose (mg/dL) 347 H 283 H Plasma Lactic Acid Eliazar 3.0 H* Calcium Magnesium Ferritin AST ALT Lactate Dehydrogenase Creatine Kinase C-Reactive Protein Total Protein Albumin TSH Urine Protein Urine Blood Urine RBC Urine Mucus 09/17/20 09/17/20 09/17/20 07:22 07:32 07:32 WBC RBC Hgb Hct Plt Count Neutrophils # Lymphocytes # APTT Fibrinogen D-Dimer 1.64 H ABG pH ABG pCO2 ABG pO2 ABG HCO3 ABG Total CO2 ABG O2 Saturation Sodium Chloride Carbon Dioxide BUN Creatinine BUN/Creatinine Ratio Glucose POC Glucose (mg/dL) 202 H Plasma Lactic Acid Eliazar Calcium Magnesium Ferritin AST ALT Lactate Dehydrogenase Creatine Kinase C-Reactive Protein 3.6 H Total Protein Albumin TSH Urine Protein Urine Blood Urine RBC Urine Mucus 09/17/20 09/17/20 09/17/20 11:09 16:23 20:20 WBC RBC Hgb Hct Plt Count Neutrophils # Lymphocytes # APTT Fibrinogen D-Dimer ABG pH ABG pCO2 ABG pO2 ABG HCO3 ABG Total CO2 ABG O2 Saturation Sodium Chloride Carbon Dioxide BUN Creatinine BUN/Creatinine Ratio Glucose POC Glucose (mg/dL) 261 H 165 H 278 H Plasma Lactic Acid Eliazar Calcium Magnesium Ferritin AST ALT Lactate Dehydrogenase Creatine Kinase C-Reactive Protein Total Protein Albumin TSH Urine Protein Urine Blood Urine RBC Urine Mucus 09/18/20 09/18/20 09/18/20 06:29 06:29 06:50 WBC RBC Hgb Hct Plt Count Neutrophils # Lymphocytes # APTT Fibrinogen D-Dimer 2.31 H ABG pH ABG pCO2 ABG pO2 ABG HCO3 ABG Total CO2 ABG O2 Saturation Sodium Chloride Carbon Dioxide BUN Creatinine BUN/Creatinine Ratio Glucose POC Glucose (mg/dL) 127 H Plasma Lactic Acid Eliazar Calcium Magnesium Ferritin AST ALT Lactate Dehydrogenase Creatine Kinase C-Reactive Protein 1.5 H Total Protein Albumin TSH Urine Protein Urine Blood Urine RBC Urine Mucus 09/18/20 09/18/20 09/18/20 11:40 17:01 20:47 WBC RBC Hgb Hct Plt Count Neutrophils # Lymphocytes # APTT Fibrinogen D-Dimer ABG pH ABG pCO2 ABG pO2 ABG HCO3 ABG Total CO2 ABG O2 Saturation Sodium Chloride Carbon Dioxide BUN Creatinine BUN/Creatinine Ratio Glucose POC Glucose (mg/dL) 128 H 193 H 247 H Plasma Lactic Acid Eliazar Calcium Magnesium Ferritin AST ALT Lactate Dehydrogenase Creatine Kinase C-Reactive Protein Total Protein Albumin TSH Urine Protein Urine Blood Urine RBC Urine Mucus 09/19/20 09/19/20 09/19/20 05:59 05:59 07:09 WBC RBC Hgb Hct Plt Count Neutrophils # Lymphocytes # APTT Fibrinogen D-Dimer 3.01 H ABG pH ABG pCO2 ABG pO2 ABG HCO3 ABG Total CO2 ABG O2 Saturation Sodium Chloride Carbon Dioxide BUN Creatinine BUN/Creatinine Ratio 31.43 H Glucose 115 H POC Glucose (mg/dL) 108 H Plasma Lactic Acid Eliazar Calcium Magnesium Ferritin AST ALT Lactate Dehydrogenase Creatine Kinase C-Reactive Protein 8.2 H Total Protein Albumin TSH Urine Protein Urine Blood Urine RBC Urine Mucus 09/19/20 09/19/20 09/19/20 11:57 16:50 17:25 WBC RBC Hgb Hct Plt Count Neutrophils # Lymphocytes # APTT Fibrinogen D-Dimer ABG pH ABG pCO2 ABG pO2 ABG HCO3 ABG Total CO2 ABG O2 Saturation Sodium Chloride Carbon Dioxide BUN Creatinine BUN/Creatinine Ratio Glucose POC Glucose (mg/dL) 101 H 151 H Plasma Lactic Acid Eliazar Calcium Magnesium Ferritin AST ALT Lactate Dehydrogenase Creatine Kinase C-Reactive Protein Total Protein Albumin TSH Urine Protein Trace H Urine Blood Trace H Urine RBC 22 H Urine Mucus Rare H 09/19/20 09/19/20 09/19/20 19:48 21:19 23:30 WBC RBC Hgb Hct Plt Count Neutrophils # Lymphocytes # APTT Fibrinogen D-Dimer ABG pH ABG pCO2 ABG pO2 ABG HCO3 ABG Total CO2 25 H ABG O2 Saturation Sodium Chloride Carbon Dioxide BUN Creatinine BUN/Creatinine Ratio Glucose POC Glucose (mg/dL) 169 H 209 H Plasma Lactic Acid Eliazar Calcium Magnesium Ferritin AST ALT Lactate Dehydrogenase Creatine Kinase C-Reactive Protein Total Protein Albumin TSH Urine Protein Urine Blood Urine RBC Urine Mucus 09/20/20 09/20/20 09/20/20 05:06 05:15 05:15 WBC RBC Hgb Hct Plt Count Neutrophils # Lymphocytes # APTT Fibrinogen D-Dimer 6.65 H ABG pH ABG pCO2 ABG pO2 ABG HCO3 ABG Total CO2 ABG O2 Saturation Sodium 135 L Chloride 108 H Carbon Dioxide BUN Creatinine BUN/Creatinine Ratio Glucose 211 H POC Glucose (mg/dL) 197 H Plasma Lactic Acid Eliazar Calcium Magnesium Ferritin AST ALT 52 H Lactate Dehydrogenase Creatine Kinase C-Reactive Protein 267.6 H Total Protein 4.9 L Albumin 2.3 L TSH Urine Protein Urine Blood Urine RBC Urine Mucus 09/20/20 09/20/20 09/20/20 05:15 05:35 11:40 WBC RBC 3.99 L Hgb 12.4 L Hct 37.0 L Plt Count Neutrophils # 8.3 H Lymphocytes # 0.1 L APTT Fibrinogen D-Dimer ABG pH ABG pCO2 ABG pO2 153 H ABG HCO3 ABG Total CO2 25 H ABG O2 Saturation 99.5 H Sodium Chloride Carbon Dioxide BUN Creatinine BUN/Creatinine Ratio Glucose POC Glucose (mg/dL) 194 H Plasma Lactic Acid Eliazar Calcium Magnesium Ferritin AST ALT Lactate Dehydrogenase Creatine Kinase C-Reactive Protein Total Protein Albumin TSH Urine Protein Urine Blood Urine RBC Urine Mucus 09/20/20 09/20/20 09/20/20 11:54 17:27 23:59 WBC RBC Hgb Hct Plt Count Neutrophils # Lymphocytes # APTT Fibrinogen D-Dimer ABG pH ABG pCO2 ABG pO2 ABG HCO3 ABG Total CO2 ABG O2 Saturation 97.9 H Sodium Chloride Carbon Dioxide BUN Creatinine BUN/Creatinine Ratio Glucose POC Glucose (mg/dL) 186 H 232 H Plasma Lactic Acid Eliazar Calcium Magnesium Ferritin AST ALT Lactate Dehydrogenase Creatine Kinase C-Reactive Protein Total Protein Albumin TSH Urine Protein Urine Blood Urine RBC Urine Mucus 09/21/20 09/21/20 09/21/20 04:40 04:40 04:40 WBC RBC 3.60 L Hgb 11.2 L Hct 33.5 L Plt Count Neutrophils # 9.3 H Lymphocytes # 0.2 L APTT Fibrinogen D-Dimer ABG pH ABG pCO2 ABG pO2 ABG HCO3 ABG Total CO2 ABG O2 Saturation Sodium 136 L Chloride 109 H Carbon Dioxide BUN 27 H Creatinine BUN/Creatinine Ratio Glucose 223 H POC Glucose (mg/dL) Plasma Lactic Acid Eliazar Calcium 8.1 L Magnesium 2.5 H Ferritin AST ALT 65 H Lactate Dehydrogenase Creatine Kinase C-Reactive Protein Total Protein 4.4 L Albumin 2.1 L TSH 0.385 L Urine Protein Urine Blood Urine RBC Urine Mucus 09/21/20 09/21/20 09/21/20 05:59 11:40 18:07 WBC RBC Hgb Hct Plt Count Neutrophils # Lymphocytes # APTT Fibrinogen D-Dimer ABG pH ABG pCO2 ABG pO2 ABG HCO3 ABG Total CO2 ABG O2 Saturation Sodium Chloride Carbon Dioxide BUN Creatinine BUN/Creatinine Ratio Glucose POC Glucose (mg/dL) 241 H 249 H 249 H Plasma Lactic Acid Eliazar Calcium Magnesium Ferritin AST ALT Lactate Dehydrogenase Creatine Kinase C-Reactive Protein Total Protein Albumin TSH Urine Protein Urine Blood Urine RBC Urine Mucus 09/21/20 09/22/20 09/22/20 23:28 04:00 04:00 WBC RBC 3.57 L Hgb 10.9 L Hct 33.5 L Plt Count Neutrophils # 8.8 H Lymphocytes # 0.1 L APTT Fibrinogen D-Dimer ABG pH ABG pCO2 ABG pO2 ABG HCO3 ABG Total CO2 ABG O2 Saturation Sodium Chloride 111 H Carbon Dioxide BUN 31 H Creatinine 0.65 L BUN/Creatinine Ratio Glucose 267 H POC Glucose (mg/dL) 256 H Plasma Lactic Acid Eliazar Calcium 8.2 L Magnesium 2.4 H Ferritin AST ALT 71 H Lactate Dehydrogenase Creatine Kinase C-Reactive Protein Total Protein 4.5 L Albumin 2.1 L TSH Urine Protein Urine Blood Urine RBC Urine Mucus 09/22/20 09/22/20 09/22/20 04:56 06:17 11:40 WBC RBC Hgb Hct Plt Count Neutrophils # Lymphocytes # APTT Fibrinogen D-Dimer ABG pH ABG pCO2 ABG pO2 ABG HCO3 ABG Total CO2 25 H ABG O2 Saturation 97.4 H Sodium Chloride Carbon Dioxide BUN Creatinine BUN/Creatinine Ratio Glucose POC Glucose (mg/dL) 246 H 248 H Plasma Lactic Acid Eliazar Calcium Magnesium Ferritin AST ALT Lactate Dehydrogenase Creatine Kinase C-Reactive Protein Total Protein Albumin TSH Urine Protein Urine Blood Urine RBC Urine Mucus 09/22/20 09/22/20 09/23/20 17:49 23:27 04:15 WBC RBC 3.95 L Hgb 11.8 L Hct 37.1 L Plt Count Neutrophils # 8.0 H Lymphocytes # 0.2 L APTT Fibrinogen D-Dimer ABG pH ABG pCO2 ABG pO2 ABG HCO3 ABG Total CO2 ABG O2 Saturation Sodium Chloride Carbon Dioxide BUN Creatinine BUN/Creatinine Ratio Glucose POC Glucose (mg/dL) 213 H 218 H Plasma Lactic Acid Eliazar Calcium Magnesium Ferritin AST ALT Lactate Dehydrogenase Creatine Kinase C-Reactive Protein Total Protein Albumin TSH Urine Protein Urine Blood Urine RBC Urine Mucus 09/23/20 09/23/20 09/23/20 04:15 05:19 06:04 WBC RBC Hgb Hct Plt Count Neutrophils # Lymphocytes # APTT Fibrinogen D-Dimer ABG pH ABG pCO2 ABG pO2 71 L ABG HCO3 ABG Total CO2 ABG O2 Saturation Sodium Chloride 112 H Carbon Dioxide BUN 28 H Creatinine 0.62 L BUN/Creatinine Ratio Glucose 230 H POC Glucose (mg/dL) 210 H Plasma Lactic Acid Eliazar Calcium Magnesium Ferritin AST ALT 65 H Lactate Dehydrogenase Creatine Kinase C-Reactive Protein Total Protein 4.7 L Albumin 2.2 L TSH Urine Protein Urine Blood Urine RBC Urine Mucus 09/23/20 09/23/20 09/23/20 12:05 18:00 23:49 WBC RBC Hgb Hct Plt Count Neutrophils # Lymphocytes # APTT Fibrinogen D-Dimer ABG pH ABG pCO2 ABG pO2 ABG HCO3 ABG Total CO2 ABG O2 Saturation Sodium Chloride Carbon Dioxide BUN Creatinine BUN/Creatinine Ratio Glucose POC Glucose (mg/dL) 198 H 224 H 245 H Plasma Lactic Acid Eliazar Calcium Magnesium Ferritin AST ALT Lactate Dehydrogenase Creatine Kinase C-Reactive Protein Total Protein Albumin TSH Urine Protein Urine Blood Urine RBC Urine Mucus 09/24/20 09/24/20 09/24/20 04:50 04:50 04:50 WBC 11.8 H RBC 4.20 L Hgb 12.4 L Hct Plt Count Neutrophils # 11.3 H Lymphocytes # 0.1 L APTT Fibrinogen D-Dimer 12.59 H ABG pH ABG pCO2 ABG pO2 ABG HCO3 ABG Total CO2 ABG O2 Saturation Sodium Chloride 111 H Carbon Dioxide BUN 28 H Creatinine 0.60 L BUN/Creatinine Ratio Glucose 256 H POC Glucose (mg/dL) Plasma Lactic Acid Eliazar Calcium Magnesium Ferritin 1691.5 H AST ALT 78 H Lactate Dehydrogenase 787 H Creatine Kinase C-Reactive Protein 36.3 H Total Protein 4.8 L Albumin 2.3 L TSH Urine Protein Urine Blood Urine RBC Urine Mucus 09/24/20 09/24/20 09/24/20 05:27 05:44 12:01 WBC RBC Hgb Hct Plt Count Neutrophils # Lymphocytes # APTT Fibrinogen D-Dimer ABG pH ABG pCO2 ABG pO2 73 L ABG HCO3 ABG Total CO2 26 H ABG O2 Saturation Sodium Chloride Carbon Dioxide BUN Creatinine BUN/Creatinine Ratio Glucose POC Glucose (mg/dL) 238 H 229 H Plasma Lactic Acid Eliazar Calcium Magnesium Ferritin AST ALT Lactate Dehydrogenase Creatine Kinase C-Reactive Protein Total Protein Albumin TSH Urine Protein Urine Blood Urine RBC Urine Mucus 09/24/20 09/25/20 09/25/20 17:44 00:04 04:30 WBC RBC Hgb Hct Plt Count Neutrophils # Lymphocytes # APTT Fibrinogen D-Dimer 11.57 H ABG pH ABG pCO2 ABG pO2 ABG HCO3 ABG Total CO2 ABG O2 Saturation Sodium Chloride Carbon Dioxide BUN Creatinine BUN/Creatinine Ratio Glucose POC Glucose (mg/dL) 218 H 205 H Plasma Lactic Acid Eliazar Calcium Magnesium Ferritin AST ALT Lactate Dehydrogenase Creatine Kinase C-Reactive Protein Total Protein Albumin TSH Urine Protein Urine Blood Urine RBC Urine Mucus 09/25/20 09/25/20 09/25/20 04:30 04:30 05:52 WBC 11.3 H RBC 4.01 L Hgb 12.0 L Hct 37.7 L Plt Count 130 L Neutrophils # 10.8 H Lymphocytes # 0.2 L APTT Fibrinogen D-Dimer ABG pH ABG pCO2 ABG pO2 71 L ABG HCO3 26 H ABG Total CO2 27 H ABG O2 Saturation Sodium Chloride 111 H Carbon Dioxide BUN 29 H Creatinine 0.64 L BUN/Creatinine Ratio Glucose 249 H POC Glucose (mg/dL) Plasma Lactic Acid Eliazar Calcium Magnesium Ferritin AST ALT 59 H Lactate Dehydrogenase 680 H Creatine Kinase C-Reactive Protein 75.6 H Total Protein 4.5 L Albumin 2.1 L TSH Urine Protein Urine Blood Urine RBC Urine Mucus 09/25/20 09/25/20 09/25/20 06:19 12:38 17:03 WBC RBC Hgb Hct Plt Count Neutrophils # Lymphocytes # APTT Fibrinogen D-Dimer ABG pH ABG pCO2 ABG pO2 ABG HCO3 ABG Total CO2 ABG O2 Saturation Sodium Chloride Carbon Dioxide BUN Creatinine BUN/Creatinine Ratio Glucose POC Glucose (mg/dL) 240 H 166 H 241 H Plasma Lactic Acid Eliazar Calcium Magnesium Ferritin AST ALT Lactate Dehydrogenase Creatine Kinase C-Reactive Protein Total Protein Albumin TSH Urine Protein Urine Blood Urine RBC Urine Mucus 09/25/20 09/26/20 09/26/20 23:34 04:35 04:35 WBC 10.8 H RBC 3.72 L Hgb 11.1 L Hct 35.2 L Plt Count 104 L Neutrophils # 10.4 H Lymphocytes # 0.2 L APTT Fibrinogen D-Dimer ABG pH ABG pCO2 ABG pO2 ABG HCO3 ABG Total CO2 ABG O2 Saturation Sodium 136 L Chloride 109 H Carbon Dioxide BUN 33 H Creatinine BUN/Creatinine Ratio Glucose 274 H POC Glucose (mg/dL) 247 H Plasma Lactic Acid Eliazar Calcium 8.1 L Magnesium Ferritin AST ALT Lactate Dehydrogenase 657 H Creatine Kinase C-Reactive Protein 163.8 H Total Protein Albumin TSH Urine Protein Urine Blood Urine RBC Urine Mucus 09/26/20 09/26/20 09/26/20 04:50 05:15 05:19 WBC RBC Hgb Hct Plt Count Neutrophils # Lymphocytes # APTT Fibrinogen D-Dimer 9.01 H ABG pH ABG pCO2 46 H ABG pO2 ABG HCO3 26 H ABG Total CO2 27 H ABG O2 Saturation Sodium Chloride Carbon Dioxide BUN Creatinine BUN/Creatinine Ratio Glucose POC Glucose (mg/dL) 277 H Plasma Lactic Acid Eliazar Calcium Magnesium Ferritin AST ALT Lactate Dehydrogenase Creatine Kinase C-Reactive Protein Total Protein Albumin TSH Urine Protein Urine Blood Urine RBC Urine Mucus 09/26/20 09/26/20 09/27/20 13:21 18:34 00:04 WBC RBC Hgb Hct Plt Count Neutrophils # Lymphocytes # APTT Fibrinogen D-Dimer ABG pH ABG pCO2 ABG pO2 ABG HCO3 ABG Total CO2 ABG O2 Saturation Sodium Chloride Carbon Dioxide BUN Creatinine BUN/Creatinine Ratio Glucose POC Glucose (mg/dL) 306 H 273 H 225 H Plasma Lactic Acid Eliazar Calcium Magnesium Ferritin AST ALT Lactate Dehydrogenase Creatine Kinase C-Reactive Protein Total Protein Albumin TSH Urine Protein Urine Blood Urine RBC Urine Mucus 09/27/20 09/27/20 09/27/20 04:25 04:25 06:15 WBC RBC 3.69 L Hgb 11.2 L Hct 34.7 L Plt Count 103 L Neutrophils # 10.0 H Lymphocytes # 0.2 L APTT Fibrinogen D-Dimer ABG pH ABG pCO2 ABG pO2 75 L ABG HCO3 27 H ABG Total CO2 28 H ABG O2 Saturation Sodium 136 L Chloride 109 H Carbon Dioxide BUN 30 H Creatinine BUN/Creatinine Ratio Glucose 220 H POC Glucose (mg/dL) Plasma Lactic Acid Eliazar Calcium 8.2 L Magnesium Ferritin AST ALT 50 H Lactate Dehydrogenase Creatine Kinase C-Reactive Protein Total Protein 4.2 L Albumin 1.9 L TSH Urine Protein Urine Blood Urine RBC Urine Mucus 09/27/20 09/27/20 09/27/20 06:32 11:40 16:45 WBC RBC Hgb Hct Plt Count Neutrophils # Lymphocytes # APTT Fibrinogen 542 H D-Dimer ABG pH ABG pCO2 ABG pO2 ABG HCO3 ABG Total CO2 ABG O2 Saturation Sodium Chloride Carbon Dioxide BUN Creatinine BUN/Creatinine Ratio Glucose POC Glucose (mg/dL) 209 H 181 H Plasma Lactic Acid Eliazar Calcium Magnesium Ferritin AST ALT Lactate Dehydrogenase Creatine Kinase C-Reactive Protein Total Protein Albumin TSH Urine Protein Urine Blood Urine RBC Urine Mucus 09/27/20 09/27/20 09/28/20 16:46 23:29 04:10 WBC RBC 3.88 L Hgb 11.7 L Hct 36.1 L Plt Count 117 L Neutrophils # 7.8 H Lymphocytes # 0.2 L APTT Fibrinogen D-Dimer ABG pH ABG pCO2 ABG pO2 ABG HCO3 ABG Total CO2 ABG O2 Saturation Sodium Chloride Carbon Dioxide BUN Creatinine BUN/Creatinine Ratio Glucose POC Glucose (mg/dL) 210 H 202 H Plasma Lactic Acid Eliazar Calcium Magnesium Ferritin AST ALT Lactate Dehydrogenase Creatine Kinase C-Reactive Protein Total Protein Albumin TSH Urine Protein Urine Blood Urine RBC Urine Mucus 09/28/20 09/28/20 09/28/20 04:10 05:43 06:24 WBC RBC Hgb Hct Plt Count Neutrophils # Lymphocytes # APTT Fibrinogen D-Dimer ABG pH 7.46 H ABG pCO2 ABG pO2 79 L ABG HCO3 28 H ABG Total CO2 29 H ABG O2 Saturation Sodium Chloride 108 H Carbon Dioxide BUN 31 H Creatinine 0.59 L BUN/Creatinine Ratio Glucose 232 H POC Glucose (mg/dL) 227 H Plasma Lactic Acid Eliazar Calcium 8.1 L Magnesium Ferritin AST ALT 60 H Lactate Dehydrogenase Creatine Kinase C-Reactive Protein Total Protein 4.4 L Albumin 2.0 L TSH Urine Protein Urine Blood Urine RBC Urine Mucus 09/28/20 09/28/20 09/28/20 13:10 18:30 23:44 WBC RBC Hgb Hct Plt Count Neutrophils # Lymphocytes # APTT Fibrinogen D-Dimer ABG pH ABG pCO2 ABG pO2 ABG HCO3 ABG Total CO2 ABG O2 Saturation Sodium Chloride Carbon Dioxide BUN Creatinine BUN/Creatinine Ratio Glucose POC Glucose (mg/dL) 178 H 158 H 140 H Plasma Lactic Acid Eliazar Calcium Magnesium Ferritin AST ALT Lactate Dehydrogenase Creatine Kinase C-Reactive Protein Total Protein Albumin TSH Urine Protein Urine Blood Urine RBC Urine Mucus 09/29/20 09/29/20 09/29/20 04:40 04:40 04:40 WBC RBC 3.89 L Hgb 12.0 L Hct 36.0 L Plt Count 111 L Neutrophils # Lymphocytes # 0.5 L APTT Fibrinogen D-Dimer 8.03 H ABG pH ABG pCO2 ABG pO2 ABG HCO3 ABG Total CO2 ABG O2 Saturation Sodium Chloride 109 H Carbon Dioxide 31 H BUN 28 H Creatinine 0.65 L BUN/Creatinine Ratio Glucose 145 H POC Glucose (mg/dL) Plasma Lactic Acid Eliazar Calcium 8.3 L Magnesium Ferritin 1237.0 H AST ALT 70 H Lactate Dehydrogenase 659 H Creatine Kinase 25 L C-Reactive Protein 25.6 H Total Protein 4.4 L Albumin 2.0 L TSH Urine Protein Urine Blood Urine RBC Urine Mucus 09/29/20 09/29/20 09/29/20 06:05 12:12 17:50 WBC RBC Hgb Hct Plt Count Neutrophils # Lymphocytes # APTT Fibrinogen D-Dimer ABG pH 7.46 H ABG pCO2 ABG pO2 61 L ABG HCO3 29 H ABG Total CO2 31 H ABG O2 Saturation 91.8 L Sodium Chloride Carbon Dioxide BUN Creatinine BUN/Creatinine Ratio Glucose POC Glucose (mg/dL) 171 H 184 H Plasma Lactic Acid Eliazar Calcium Magnesium Ferritin AST ALT Lactate Dehydrogenase Creatine Kinase C-Reactive Protein Total Protein Albumin TSH Urine Protein Urine Blood Urine RBC Urine Mucus 09/29/20 09/30/20 09/30/20 23:34 05:51 06:00 WBC RBC Hgb Hct Plt Count Neutrophils # Lymphocytes # APTT Fibrinogen D-Dimer ABG pH ABG pCO2 ABG pO2 79 L ABG HCO3 28 H ABG Total CO2 30 H ABG O2 Saturation Sodium Chloride Carbon Dioxide BUN Creatinine BUN/Creatinine Ratio Glucose POC Glucose (mg/dL) 209 H 164 H Plasma Lactic Acid Eliazar Calcium Magnesium Ferritin AST ALT Lactate Dehydrogenase Creatine Kinase C-Reactive Protein Total Protein Albumin TSH Urine Protein Urine Blood Urine RBC Urine Mucus 09/30/20 09/30/20 09/30/20 06:00 06:00 06:00 WBC RBC 3.65 L Hgb 11.1 L Hct 34.1 L Plt Count 115 L Neutrophils # Lymphocytes # 0.2 L APTT Fibrinogen 535 H D-Dimer ABG pH ABG pCO2 ABG pO2 ABG HCO3 ABG Total CO2 ABG O2 Saturation Sodium 136 L Chloride 108 H Carbon Dioxide BUN 29 H Creatinine 0.56 L BUN/Creatinine Ratio Glucose 185 H POC Glucose (mg/dL) Plasma Lactic Acid Eliazar Calcium 8.0 L Magnesium Ferritin 1592.0 H AST ALT 59 H Lactate Dehydrogenase Creatine Kinase C-Reactive Protein 149.7 H Total Protein 4.3 L Albumin 1.9 L TSH Urine Protein Urine Blood Urine RBC Urine Mucus 09/30/20 11:15 WBC RBC Hgb Hct Plt Count Neutrophils # Lymphocytes # APTT Fibrinogen D-Dimer ABG pH ABG pCO2 ABG pO2 ABG HCO3 ABG Total CO2 ABG O2 Saturation Sodium Chloride Carbon Dioxide BUN Creatinine BUN/Creatinine Ratio Glucose POC Glucose (mg/dL) 217 H Plasma Lactic Acid Eliazar Calcium Magnesium Ferritin AST ALT Lactate Dehydrogenase Creatine Kinase C-Reactive Protein Total Protein Albumin TSH Urine Protein Urine Blood Urine RBC Urine Mucus Assessment and Plan Assessment: Left weakness and negelct due to Right 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 Nursed noticed symptoms on 09/29/20 at 9AM. Seems cardioemoblic. No IV TPA since outside the window. Chronic atrial fibrillation on Xarelto Type 2 diabetes Essential hypertension Acute hypoxic respiratory failure secondary due to [place] 19 pneumonitis and underlying influenza B infection Moderate pulmonary hypertension Plan: Continue Lipitor 80 mg daily. Xarelto 20 mg daily was discontinued today as a result of the CT of the head finding. We'll get an MRI once the patient is clear to do that (currently intubated and on Vent). Within 5-7 days we'll get a repeat CT of the head and that if it's negative for intraparenchymal bleed or any new acute ischemia then the will consider starting the patient on the anticoagulation. Since the patient was Xarelto and had stroke on it maybe Will consider switching the patient over to Eliquis and will talk to cardiology regarding that. I'll start the patient on aspirin 81 as well as Plavix 75 mg daily in the meantime. Ordered CTA head and neck Ordered lipid panel PT and OT are consulted. Cardiology was consulted on him for bradycardia and we will ask team to reevaluate the patient. Regarding the management of his diabetes, hypertension we'll defer to the primary team. Regarding the patient's respiratory condition will defer to the pulmonary team Thank you for the consultation. Oscar Crow M.D. Neuro-hospitalist Time with Patient: Greater than 30
[2020-09-30] MEDS: TAMSULOSIN 0.4 MG CAP.ER.24H PO SCH (20:41)
--- NOTE | 2020-09-30 23:06 | CT ---
EXAMINATION TYPE: CT angio head neck DATE OF EXAM: 09/30/2020 COMPARISON none: HISTORY: stroke CT DLP: 754.8 mGycm Automated exposure control for dose reduction was used. CONTRAST: Performed with IV Contrast, patient injected with 65 mL of Isovue 370. There are 3-D post processed images. Images obtained from the aortic arch to the vertex of the brain. There is bilateral extensive airspace infiltrates in the visualized upper lung smith. There is arter ial flow in the subclavian arteries bilaterally. There is normal branching pattern of the great vesse ls on the aortic arch. The left vertebral artery has origin on the aortic arch. There is diminutive r ight vertebral artery. Left vertebral artery appears normal in size. There is endotracheal tube. Ther e is nasogastric tube. I see no evidence of any significant flow in the proximal right vertebral nell ry. There is moderate plaque formation in both common carotid arteries. There is significant plaque and a pproximate 70% stenosis at the origin left internal carotid artery. There is estimated 80% stenosis a t the origin of the right internal carotid artery. There is severe stenosis at the right carotid nell ry bifurcation. There is arterial flow in the anterior middle and posterior cerebral artery. There is normal contrast opacification of the venous sinuses. There is old large right occipital lobe cortical infarct. There is no mass effect. There is no evidence of intracranial aneurysm or neovascularity. There is arteria l flow in the vertebrobasilar artery system. IMPRESSION: No evidence of any significant intracranial angiographic abnormality. Severe stenosis of the carotid artery bifurcations with estimated more than 80% stenosis origin of th e right internal carotid artery and 70% stenosis origin left internal carotid artery. There is diminu tive right vertebral artery which may be filling in a retrograde fashion from the left vertebral nell ry.
[2020-10-01 01:03] LABS: Glucose,Whole Blood 141 mg/dL (75-99)
[2020-10-01] MEDS: INSULIN ASPART (NovoLOG) 100 UNIT/ML VIAL SQ SCH ×4 (01:25→18:31)
[2020-10-01] MEDS: methylPREDNISolone SOD SUCCI 40 MG/ML 1 ML VIAL IV SCH ×3 (01:26→15:19)
[2020-10-01] MEDS: PIPERACILLIN-TAZOBACTAM 3.375 GM in SODIUM CHLORIDE 0.9% 100 ML IVPB SCH ×3 (01:26→15:19)
[2020-10-01] MEDS: CLEVIDIPINE BUTYRATE 25 MG in EMPTY BAG 1 BAG IV SCH (04:36)
[2020-10-01 05:12] LABS: Basophils % (A) 0 %; Eosinophils # (A) 0.1 k/uL (0-0.7); Eosinophils % (A) 1 %; HGB 12.6 gm/dL (13.0-17.5); Lymphocytes # (A) 0.1 k/uL (1.0-4.8); Lymphocytes % (A) 1 %; MCH 30.5 pg (25.0-35.0); MCHC 33.1 g/dL (31.0-37.0); MCV 92.2 fL (80.0-100.0); Monocytes # (A) 0.3 k/uL (0-1.0); Monocytes % (A) 3 %; Neutrophils # (A) 8.3 k/uL (1.3-7.7); Neutrophils % (A) 94 %; Platelet Count 114 k/uL (150-450); RBC 4.13 m/uL (4.30-5.90); WBC 8.8 k/uL (3.8-10.6)
[2020-10-01 05:20] LABS: ABG Base Excess 4.1 mmol/L; ABG HCO3 28 mmol/L (21-25); ABG Oxygen Saturation 94.7 % (94-97); ABG PCO2 41 mmHg (35-45); ABG PH 7.44 (7.35-7.45); ABG PO2 72 mmHg (83-108); ABG TCO2 29 mmol/L (19-24); Allen Test Performed? Yes
[2020-10-01 05:27] LABS: ALT 78 U/L (4-49); AST 44 U/L (17-59); African American GFR (CKD) >90 (>60 ml/min/1.73 sqM); Albumin 2.2 g/dL (3.5-5.0); Alkaline Phosphatase 76 U/L (38-126); Anion Gap 1 mmol/L; Blood Urea Nitrogen 27 mg/dL (9-20); C Reactive Protein 77.2 mg/L (<10.0); Calcium 8.4 mg/dL (8.4-10.2); Carbon Dioxide 29 mmol/L (22-30); Chloride 107 mmol/L (98-107); Creatine Kinase 38 U/L (55-170); Glucose 218 mg/dL (74-99); LDH 661 U/L (313-618); Non-African American GFR(CKD) >90 (>60 ml/min/1.73 sqM); Potassium 4.3 mmol/L (3.5-5.1); Sodium 137 mmol/L (137-145); Total Bilirubin 0.5 mg/dL (0.2-1.3)
[2020-10-01 05:35] LABS: Cholesterol 137 mg/dL (<200); HDL Cholesterol 36 mg/dL (40-60); LDL Cholesterol,Calculated 82 mg/dL (0-99); Triglycerides 93 mg/dL (<150)
[2020-10-01] MEDS: INSULIN DETEMIR (LEVEMIR) 100 UNIT/ML SYR SQ SCH (06:13)
--- NOTE | 2020-10-01 07:48 | XR ---
EXAMINATION TYPE: XR chest 1V portable DATE OF EXAM: 10/01/2020 Comparison: 09/30/2020 Clinical History: 75-year-old male ICU follow-up Findings: ET tube satisfactory. NG tube courses below the diaphragm beyond the [id number]. Left IJ CVC tip a t the lower SVC. Multifocal patchy and confluent airspace opacities persist on both sides. There may be minimal improvement from prior exam. Median sternotomy wires. Impression: Continued diffuse bilateral patchy and confluent airspace disease. There may be minimal improvement i n the interval.
[2020-10-01] MEDS: ALBUTEROL HFA INHALER INHALATION SCH ×4 (07:55→22:28)
[2020-10-01] MEDS: MULTIVITAMINS, THERA 1 EACH TAB PO SCH ×2 (10:29→10:30)
[2020-10-01] MEDS: CHLORHEXIDINE GLUCONATE 15 ML CUP MUCOUS MEM SCH (10:29)
[2020-10-01] MEDS: ATORVASTATIN 80 MG TAB PO SCH (10:30)
[2020-10-01] MEDS: CLOPIDOGREL 75 MG TAB PO SCH (10:30)
[2020-10-01] MEDS: ASCORBIC ACID 500 MG TAB PO SCH ×2 (10:30→20:32)
[2020-10-01] MEDS: ASPIRIN 81 MG PO SCH (10:30)
[2020-10-01] MEDS: lisinopriL 20 MG TAB PO SCH (10:30)
[2020-10-01] MEDS: ZINC SULFATE 220 MG CAP PO SCH (10:30)
[2020-10-01] MEDS: SODIUM CHLORIDE 0.9% 1,000 ML IV SCH (10:30)
[2020-10-01] MEDS: CHOLECALCIFEROL 1,000 UNIT TAB PO SCH (10:30)
[2020-10-01] MEDS: NYSTATIN 100,000 UNIT/ML SUSP 500,000 UNIT/5 ML CUP PO SCH ×3 (10:31→18:30)
[2020-10-01 10:32] LABS: Ferritin 1591.8 ng/mL (22.0-322.0)
[2020-10-01 10:44] VITALS: BMI 42.0
--- NOTE | 2020-10-01 10:44 | P.PN ---
Subjective Progress Note Date: 10/01/20 Principal diagnosis: Severe hypoxemia related to COVID 19 and influenza B 75-year-old white male patient of Dr. Cornell Gasca who presented to the emergency department on 09/15/2020 with complaints of difficulty breathing. Patient tested positive for COVID 19 and influenza B on 09/07/2020. He is been progressively short of breath, has a dry nonproductive cough, he is unclear whether he is having fevers. He feels fatigued, denies any nausea vomiting or diarrhea, denies any abdominal pain, denies any history of chronic lung problems. His past medical history positive for atrial fibrillation on anticoagulation, hypertension, hyperlipidemia, diabetes mellitus type 2, robyn nary artery disease with history of previous bypass grafting, he is a former smoker. His chest x-ray showed bilateral diffuse airspace disease, concerning for COVID 19 pneumonia. His labs were reviewed, showing lymphopenia with lymphocyte count of 0.2, lactic acid level of 2.5 which has subsequently increased to 4.0, ferritin level was 2454, AST and ALT were 87 and 67 respectively, Altace was 1513, and CRP was 70.4. Pro-calcitonin level was negative at 0.09. Decadron has been started at 6 mg daily, he is on IV hydration, with lactated Ringer's at 100 ML per hour. he is on oral anticoagula tion in the form of Xarelto. Remains on 7 L of oxygen per high flow nasal cannula and the pulse ox is between 87-91%. Afebrile On 09/18/2020 patient seen in follow-up on general medical surgical floor. He is on 11 L of oxygen, his pulse ox is 89%, he is afebrile, hemodynamically is been stable, patient was out of the window for Remdesivir, he was started on Tamiflu, he is on oral anticoagulation in the form of Xarelto, no fever or chills, his d-dimer has increased, I came up to 2.31 on today's labs, his CRP has improved significantly and is down to 1.5, LDH level is pending, he is on oral Decadron, he is on IV hydration, nausea vomiting, no abdominal pain, he is tolerating oral intake. No, but the chest pain. On 10/01/2020 patient seen in follow-up in intensive care unit, he remains intubated, sedated, on the VC plus mode of ventilation, with the respiratory time of 1, targeted tidal volume of 550, rate of 18, FiO2 of 55%, PEEP of 8, this morning his blood gases show pO2 of 72, a CO2 of 41, and pH of 7.44, patient is on 0.0 cm to 75 ML per hour, Diprivan is at 30 mics per kilo per minute, Cleviprex at 4 mg per hour, patient is receiving tube feedings with vital high protein at 50 with a goal of 50. Yesterday during sedation holiday patient was felt to have a left facial droop, and left sided weakness, greater than the right side. CT of the brain showed a new large area of low attenuation involving the right occipital in the right parietal lobe posteriorly suggestive of subacute infarct, was a minimal mass effect upon the posterior margins of the right lateral ventricle, without midline shift. Septal petechial hemorrhage could not be excluded. Dr. Crow from neurology was consulted. Repeat angiography CT of the brain showed no evidence of any significant intracranial angiographic abnormality, and showed a severe stenosis of the carotid artery bifurcations with estimated with an 80% stenosis origin of the right internal carotid artery and 70% stenosis origin left carotid artery. This morning he remains on sedation with Diprivan at 30 mics per kilo per minute. Chest x-ray today shows continued diffuse bilateral patchy and confluent airspace disease. With minimal improvement in the interval. He is not on any vasopressors, he is on [facility] blood pressure control, current blood pressure is 147/53, sinus mechanism and slightly tachycardic. Today's labs have been reviewed, showing hemoglobin 12.6, platelets of count is 8.8, platelet count is 114, electrolytes within normal limits, BUN 27, creatinine 0.57, LDH 661, CRP 77.2, trending down, patient is status post Remdesivir, convalescent plasma, he is on IV steroids at 40 mg every 8 hours Objective - Vital Signs Vital signs: Vital Signs Temp 98.2 F 10/01/20 08:00 Pulse 120 H 10/01/20 09:00 Resp 19 10/01/20 09:00 BP 113/49 09/29/20 19:00 Pulse Ox 93 L 10/01/20 09:00 Intake & Output 09/30/20 10/01/20 10/01/20 18:59 06:59 18:59 Intake Total 9172.213 0710.614 463 Output Total 1355 1185 323 Balance 621.274 494.614 140 Weight 132.9 kg Intake: IV 1053 891 243 Pressure bags 78 66 18 Sodium Chloride 0.9% 1, 975 825 225 000 ml @ 75 mls/hr IV . [id number] [facility]O Rx#:[id number] Intake, IV Titration 373.274 238.614 Amount Clevidipine Butyrate 25 23.200 11.333 mg In Empty Bag 1 bag @ 1 MG/HR 2 mls/hr IV .Q24H [facility]O Rx#:[id number] Piperacillin-Tazobactam 3 200 .375 gm In Sodium Chloride 0.9% 100 ml @ 25 mls/hr IVPB Q8HR [facility] Rx# :[id number] propofoL 1,000 mg In 150.074 227.281 Empty Bag 1 bag @ Titrate IV .Q0M [facility]O Rx#: [id number] Oral 120 Tube Feeding 550 550 100 Output: Urine 1355 1185 320 Stool 3 Other: Voiding Method Indwelling Catheter Indwelling Catheter Indwelling Catheter # Bowel Movements 1 ABP, PAP, CO, CI - Last Documented Arterial Blood Pressure 147/53 - Exam GENERAL EXAM: Sedated, intubated 75-year-old white male, on VC plus mode of ventilation, with FiO2 55% and PEEP of 8 HEAD: Normocephalic/atraumatic. EYES: Normal reaction of pupils, equal size. Conjunctiva pink, sclera white. NOSE: Clear with pink turbinates. THROAT: No erythema or exudates. NECK: No masses, no JVD, no thyroid enlargement, no adenopathy. CHEST: No chest wall deformity. Symmetrical expansion. LUNGS: Equal air entry with no crackles, wheeze, rhonchi or dullness. CVS: Regular rate and rhythm, normal S1 and S2, no gallops, no murmurs, no rubs ABDOMEN: Soft, nontender. No hepatosplenomegaly, normal bowel sounds, no guarding or rigidity. EXTREMITIES: No clubbing, no edema, no cyanosis, 2+ pulses and upper and lower extremities. MUSCULOSKELETAL: Muscle strength and tone normal. SPINE: No scoliosis or deformity SKIN: No rashes CENTRAL NERVOUS SYSTEM: Sedated, intubated. No focal deficits, tone is normal in all 4 extremities. - Labs CBC & Chem 7: 10/01/20 04:40 10/01/20 04:40 Labs: Abnormal Lab Results - Last 24 Hours (Table) 09/30/20 09/30/20 09/30/20 Range/Units 06:00 11:15 18:21 RBC (4.30-5.90) m/uL Hgb (13.0-17.5) gm/dL Hct (39.0-53.0) % Plt Count (150-450) k/uL Neutrophils # (1.3-7.7) k/uL Lymphocytes # (1.0-4.8) k/uL Fibrinogen (200-500) mg/dL ABG pO2 (83-108) mmHg ABG HCO3 (21-25) mmol/L ABG Total CO2 (19-24) mmol/L BUN (9-20) mg/dL Creatinine (0.66-1.25) mg/dL Glucose (74-99) mg/dL POC Glucose (mg/dL) 217 H 140 H (75-99) mg/dL Ferritin 1592.0 H (22.0-322.0) ng/mL ALT (4-49) U/L Lactate Dehydrogenase (313-618) U/L Creatine Kinase (55-170) U/L C-Reactive Protein (<10.0) mg/L Total Protein (6.3-8.2) g/dL Albumin (3.5-5.0) g/dL HDL Cholesterol (40-60) mg/dL 10/01/20 10/01/20 10/01/20 Range/Units 01:01 04:40 04:40 RBC 4.13 L (4.30-5.90) m/uL Hgb 12.6 L (13.0-17.5) gm/dL Hct 38.0 L (39.0-53.0) % Plt Count 114 L (150-450) k/uL Neutrophils # 8.3 H (1.3-7.7) k/uL Lymphocytes # 0.1 L (1.0-4.8) k/uL Fibrinogen (200-500) mg/dL ABG pO2 (83-108) mmHg ABG HCO3 (21-25) mmol/L ABG Total CO2 (19-24) mmol/L BUN 27 H (9-20) mg/dL Creatinine 0.58 L (0.66-1.25) mg/dL Glucose 218 H (74-99) mg/dL POC Glucose (mg/dL) 141 H (75-99) mg/dL Ferritin (22.0-322.0) ng/mL ALT 78 H (4-49) U/L Lactate Dehydrogenase 661 H (313-618) U/L Creatine Kinase 38 L (55-170) U/L C-Reactive Protein 77.2 H (<10.0) mg/L Total Protein 5.0 L (6.3-8.2) g/dL Albumin 2.2 L (3.5-5.0) g/dL HDL Cholesterol 36 L (40-60) mg/dL 10/01/20 10/01/20 Range/Units 04:40 05:16 RBC (4.30-5.90) m/uL Hgb (13.0-17.5) gm/dL Hct (39.0-53.0) % Plt Count (150-450) k/uL Neutrophils # (1.3-7.7) k/uL Lymphocytes # (1.0-4.8) k/uL Fibrinogen 565 H (200-500) mg/dL ABG pO2 72 L (83-108) mmHg ABG HCO3 28 H (21-25) mmol/L ABG Total CO2 29 H (19-24) mmol/L BUN (9-20) mg/dL Creatinine (0.66-1.25) mg/dL Glucose (74-99) mg/dL POC Glucose (mg/dL) (75-99) mg/dL Ferritin (22.0-322.0) ng/mL ALT (4-49) U/L Lactate Dehydrogenase (313-618) U/L Creatine Kinase (55-170) U/L C-Reactive Protein (<10.0) mg/L Total Protein (6.3-8.2) g/dL Albumin (3.5-5.0) g/dL HDL Cholesterol (40-60) mg/dL Assessment and Plan Plan: Assessment: #1. Acute severe, worsening hypoxic respiratory failure related to COVID 19 and Influenza B, patient tested positive on September 07, 2020 for both COVID 19 and influenza B infection, intubated on 09/19/2020, remains intubated today on 10/01/2020 on BC plus mode of ventilation, with FiO2 of 55% and PEEP of 8. And is status post Remdesivir treatment from 09/20/2020 through 09/25/2020, and 1 unit of convalescent plasma and high-dose IV steroids #2. Left-sided weakness, left facial droop, related to right subacute ischemic stroke over right occipital/parietal region, neurological deficit was discovered on 2019, and the possibility includes cardioembolic source. Patient was outside window for TPA. Xarelto was placed on hold for possibility of petechial hemorrhage in the brain on the initial CAT scan of the brain on 2019, however follow-up CTA brain from 2019 not show any evidence of any significant intracranial angiographic abnormality #3. Chronic atrial fibrillation on Xarelto, with previous history of cardioversion. Xarelto is currently on hold #4. BPH #5. Diabetes mellitus type 2 #6. Hypertension #7. Increased inflammatory markers related to acute COVID 19 infection #8. Lymphopenia #9. Lactic acidosis, resolved Plan: Continue current medical treatment, the same ventilator settings, GI DVT prophylaxis, Xarelto was placed on hold for possibility of anterior cerebral hemorrhage, although follow-up CT images of the brain did not show any significant intracranial angiographic abnormality. Continue nutritional support, neurology is consulted, with the following. We'll decrease the Solu- Medrol to 40 mg twice daily. Overall prognosis is extremely guarded I performed a history & physical examination of the patient and discussed their management with my nurse practitioner, Xochitl Ramirez. I reviewed the nurse practitioner's note and agree with the documented findings and plan of care. Lung sounds are positive for diminished breath sounds. The findings and the impression was discussed with the patient. I attest to the documentation by the nurse practitioner. Time with Patient: Greater than 30
--- NOTE | 2020-10-01 12:26 | P.PN ---
Subjective Progress Note Date: 10/01/20 Patient was seen at bedside and he remains to be intubated on a ventilator and is on the IV propofol 30mcg/kg/min. Per the patient's nurse he stated that the the will be coming in today and that she's decided to make him comfort care. Objective - Vital Signs Vital signs: Vital Signs Temp 98.2 F 10/01/20 08:00 Pulse 93 10/01/20 11:00 Resp 20 10/01/20 11:00 BP 113/49 09/29/20 19:00 Pulse Ox 97 10/01/20 11:00 Intake & Output 09/30/20 10/01/20 10/01/20 18:59 06:59 18:59 Intake Total 8193.516 2999.614 725 Output Total 1355 1185 378 Balance 621.274 494.614 347 Weight 132.9 kg 132.9 kg Intake: IV 1053 891 405 Pressure bags 78 66 30 Sodium Chloride 0.9% 1, 975 825 375 000 ml @ 75 mls/hr IV . [id number] MICHOACANO Rx#:[id number] Intake, IV Titration 373.274 238.614 100 Amount Clevidipine Butyrate 25 23.200 11.333 mg In Empty Bag 1 bag @ 1 MG/HR 2 mls/hr IV .Q24H MICHOACANO Rx#:[id number] Piperacillin-Tazobactam 3 200 .375 gm In Sodium Chloride 0.9% 100 ml @ 25 mls/hr IVPB Q8HR MICHOACANO Rx# :[id number] propofoL 1,000 mg In 150.074 227.281 100 Empty Bag 1 bag @ Titrate IV .Q0M MICHOACANO Rx#: [id number] Oral 120 Tube Feeding 550 550 100 Output: Urine 1355 1185 375 Stool 3 Other: Voiding Method Indwelling Catheter Indwelling Catheter Indwelling Catheter # Bowel Movements 1 ABP, PAP, CO, CI - Last Documented Arterial Blood Pressure 128/47 - Exam GENERAL: The patient is lying in bed and is not in acute distress. Patient is intubated on a ventilator is on sedation all follow-up profile 30 mcg per kil ogram per minute. CHEST: The heart rate is regular rate rhythm. No murmurs to auscultation. LUNG: Intubated and on ventilator. Patient is breathing over the vent. NEUROLOGICAL: Limited because of patient condition (on sedation). Higher mental function: Comatose. GCS of 3 (E1, VT1, M1). , Cranial nerves: The pupils are round, 2mm, equal and sluggishly reactive to light. I did not notice any significant facial weakness but again it was hard to assess. Rest of the cranial nerves could not be assessed because of condition. Motor: Gait and the strength could not be assessed because of the patient condition Cerebellum: Could not be assessed. Sensation: Could not be assessed. Reflexes (right/left): 1+ throughout.. Plantars are mute bilaterally. - Labs CBC & Chem 7: 10/01/20 04:40 10/01/20 04:40 Labs: Abnormal Lab Results - Last 24 Hours (Table) 09/30/20 09/30/20 10/01/20 Range/Units 06:00 18:21 01:01 RBC (4.30-5.90) m/uL Hgb (13.0-17.5) gm/dL Hct (39.0-53.0) % Plt Count (150-450) k/uL Neutrophils # (1.3-7.7) k/uL Lymphocytes # (1.0-4.8) k/uL Fibrinogen (200-500) mg/dL ABG pO2 (83-108) mmHg ABG HCO3 (21-25) mmol/L ABG Total CO2 (19-24) mmol/L BUN (9-20) mg/dL Creatinine (0.66-1.25) mg/dL Glucose (74-99) mg/dL POC Glucose (mg/dL) 140 H 141 H (75-99) mg/dL Ferritin 1592.0 H (22.0-322.0) ng/mL ALT (4-49) U/L Lactate Dehydrogenase (313-618) U/L Creatine Kinase (55-170) U/L C-Reactive Protein (<10.0) mg/L Total Protein (6.3-8.2) g/dL Albumin (3.5-5.0) g/dL HDL Cholesterol (40-60) mg/dL 10/01/20 10/01/20 10/01/20 Range/Units 04:40 04:40 04:40 RBC 4.13 L (4.30-5.90) m/uL Hgb 12.6 L (13.0-17.5) gm/dL Hct 38.0 L (39.0-53.0) % Plt Count 114 L (150-450) k/uL Neutrophils # 8.3 H (1.3-7.7) k/uL Lymphocytes # 0.1 L (1.0-4.8) k/uL Fibrinogen 565 H (200-500) mg/dL ABG pO2 (83-108) mmHg ABG HCO3 (21-25) mmol/L ABG Total CO2 (19-24) mmol/L BUN 27 H (9-20) mg/dL Creatinine 0.58 L (0.66-1.25) mg/dL Glucose 218 H (74-99) mg/dL POC Glucose (mg/dL) (75-99) mg/dL Ferritin 1591.8 H (22.0-322.0) ng/mL ALT 78 H (4-49) U/L Lactate Dehydrogenase 661 H (313-618) U/L Creatine Kinase 38 L (55-170) U/L C-Reactive Protein 77.2 H (<10.0) mg/L Total Protein 5.0 L (6.3-8.2) g/dL Albumin 2.2 L (3.5-5.0) g/dL HDL Cholesterol 36 L (40-60) mg/dL 10/01/20 Range/Units 05:16 RBC (4.30-5.90) m/uL Hgb (13.0-17.5) gm/dL Hct (39.0-53.0) % Plt Count (150-450) k/uL Neutrophils # (1.3-7.7) k/uL Lymphocytes # (1.0-4.8) k/uL Fibrinogen (200-500) mg/dL ABG pO2 72 L (83-108) mmHg ABG HCO3 28 H (21-25) mmol/L ABG Total CO2 29 H (19-24) mmol/L BUN (9-20) mg/dL Creatinine (0.66-1.25) mg/dL Glucose (74-99) mg/dL POC Glucose (mg/dL) (75-99) mg/dL Ferritin (22.0-322.0) ng/mL ALT (4-49) U/L Lactate Dehydrogenase (313-618) U/L Creatine Kinase (55-170) U/L C-Reactive Protein (<10.0) mg/L Total Protein (6.3-8.2) g/dL Albumin (3.5-5.0) g/dL HDL Cholesterol (40-60) mg/dL Assessment and Plan Assessment: Left weakness and negelct due to Right 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 Nursed noticed symptoms on 09/29/20 at 9AM. Seems emoblic: artery to artery vs cardioembolic. No IV TPA since outside the window. Symptomatic right internal carotid artery (80% per CTA) Asymptomatic left internal carotid artery (70% per CTA) Chronic atrial fibrillation on Xarelto Type 2 diabetes Essential hypertension Acute hypoxic respiratory failure secondary due to [place] 19 pneumonitis and underlying influenza B infection Moderate pulmonary hypertension Plan: Continue Lipitor 80 mg daily. Xarelto 20 mg daily was discontinued today as a result of the CT of the head finding. Within 5-7 days we'll get a repeat CT of the head and that if it's negative for intraparenchymal bleed or any new acute ischemia then the will consider starting the patient on the anticoagulation. Since the patient was Xarelto and had stroke on it maybe Will consider switching the patient over to Eliquis and will talk to cardiology regarding that. I'll start the patient on aspirin 81 as well as Plavix 75 mg daily in the meantime. lipid panel: Triglyceride 93, cholesterol of 137, LDL of 82 and HDL is 36. PT and OT are consulted. Cardiology was consulted on him for bradycardia and and asked them to reevaluate the patient. I initially consulted Dr. Macedo for the carotid stenosis but then discontinue the consult since was notified by the patient nurse that the is going to make him comfort care later and afternoon today. Regarding the management of his diabetes, hypertension we'll defer to the primary team. Regarding the patient's respiratory condition will defer to the pulmonary team Per the patient nurse the wishes was to make the patient comfort care later in the afternoon today. Oscar Crow M.D. Neuro-hospitalist Time with Patient: Less than 30
[2020-10-01] MEDS ORDERED: MORPHINE SULFATE 4 MG/ML SYRINGE IV PRN (15:22)
[2020-10-01] MEDS ORDERED: LORazepam 2 MG/ML INJ IV PRN (15:22)
[2020-10-01] MEDS ORDERED: MORPHINE SULFATE 2 MG/ML SYRINGE IV PRN (15:22)
[2020-10-01] MEDS ORDERED: ARTIFICIAL TEARS-HYPROMELLOSE DROPS 15 ML BTL BOTH EYES PRN (15:22)
[2020-10-01] MEDS ORDERED: ONDANSETRON 4 MG/2 ML VIAL IVP PRN (15:22)
[2020-10-01] MEDS ORDERED: MORPHINE SULFATE 4 MG/ML SYRINGE IVP ONE (15:22)
[2020-10-01] MEDS ORDERED: SCOPOLAMINE 1.5MG/72HR PATCH TRANSDERM SCH (15:30)
[2020-10-01] MEDS: MORPHINE SULFATE (100 MG/2 ML) 100 MG in SODIUM CHLORIDE 0.9% 100 ML IV SCH (18:03)
[2020-10-01] MEDS: TAMSULOSIN 0.4 MG CAP.ER.24H PO SCH (20:32)
--- NOTE | 2020-10-01 22:49 | P.PN ---
Progress Note - Text Progress Note Date: 10/01/20 Chief Complaint: Short of breath History of presenting complaint: This is a pleasant [address] Leon. Chronic stable medical conditions include atrial fibrillation, diabetes, hyperlipidemia, hypertension, BPH, obstructive sleep apnea uses CPAP. Patient's had cardioversion in 2015. Also known coronary artery disease with bypass in 2005. Also had a cardiac catheterization in January of this year. He was told and no blockages. Patient was here in the hospital from September 07 of September 08. Patient on the last visit presented to the ER for cough fever or shortness of breath with activity. He tested positive for COVID. Did not want to stay longer the hospital and decided to leave. Patient does take Savella to for his chronic A. fib. Patient's also was tested positive for COVID. She now presents with increasing shortness of breath. Pulse ox was found to be 85%. Slight headache. Patient's been having some loose stool also. Does feel weak, tired and rundown. Admitted with bilateral COVID 19 pneumonia, acute hypoxic respiratory failure, l actic acidosis type II. Patient was started on steroids, Lovenox, continued on Xarelto, bronchodilators. September 19 patient went into respiratory distress. Moved to the ICU. Intubated.receive Remdesivir. Sputum also positive for Pseudomonas. Chese-NAF-nmsjdiezv. ventilator-FiO2 55 with a PEEP of 8. OG tube feeding at 50 mL an hour. IV drips includecleviprex and propofol.. So the patient this afternoon. Review of systems: Patient intubated Current medications reviewed in today's electronic records Physical examination: VITAL SIGNS: 98.2, 101, 20, 149 with 53, 96% on the ventilator GENERAL: , Laying in bed-intubated, PSYCH: Patient sedated Rest of exam as per nursing and pulmonary INVESTIGATIONS, reviewed in the clinical context: White count 8.8 hemoglobin 12.6 Chest x-ray film today-bilateral infiltrates, no significant change Previous testing White count 10.6 hemoglobin 14.3 platelets 196 potassium 4.1 creatinine 0.99 Lactic acid 2.5 Ferritin 2454, CRP 70.4 LDH 1513 pro-calcitonin 0.09 EKG tracing personally reviewed by me-no sinus rhythm Chest x-ray film personally reviewed by me-bilateral infiltrates sputum culture-from September 26-pseudomonas aeruginosa Assessment: -COVID 19 pneumoniaand secondary pseudomonas aeruginosa-slow to respond -Lactic acidosis type II from above -Acute hypoxic respiratory failure from above-now on ventilator support [intubated September 19] -slow to respond -Paroxysmal atrial fibrillation currently in sinus rhythm -Diabetes mellitus type 2, uncontrolled with hyperglycemia secondary to steroids -Hyperlipidemia -Essential hypertension -Obstructive sleep apnea uses CPAP -Coronary artery disease with a CABG in 2005 and a cardiac catheterization in January 2020 showing nonsignificant disease -Acute COPD exacerbation in a ex-smoker Plan: ICU. on IV Zosyn, IV propofol, IV Solu-Medrol, IV Cleviprex bronchodilators. Remains on the ventilator. Prognosis guarded. Late in the afternoon family decided to proceed with comfort measures.
[2020-10-01 23:06] VITALS: BP 123/68; PULSE 85; RESP 20; TEMP 98.3
[2020-10-02] MEDS: PIPERACILLIN-TAZOBACTAM 3.375 GM in SODIUM CHLORIDE 0.9% 100 ML IVPB SCH ×2 (01:33→07:44)
[2020-10-02] MEDS: NYSTATIN 100,000 UNIT/ML SUSP 500,000 UNIT/5 ML CUP PO SCH ×4 (01:33→15:52)
[2020-10-02] MEDS: methylPREDNISolone SOD SUCCI 40 MG/ML 1 ML VIAL IV SCH ×3 (01:33→14:02)
[2020-10-02] MEDS: INSULIN ASPART (NovoLOG) 100 UNIT/ML VIAL SQ SCH ×4 (01:54→14:03)
[2020-10-02] MEDS: SODIUM CHLORIDE 0.9% 1,000 ML IV SCH ×2 (04:02→14:00)
[2020-10-02] MEDS: CHOLECALCIFEROL 1,000 UNIT TAB PO SCH (07:44)
[2020-10-02] MEDS: ASCORBIC ACID 500 MG TAB PO SCH (07:44)
[2020-10-02] MEDS: ATORVASTATIN 80 MG TAB PO SCH (07:44)
[2020-10-02] MEDS: ASPIRIN 81 MG PO SCH (07:44)
[2020-10-02] MEDS: CLOPIDOGREL 75 MG TAB PO SCH (07:44)
[2020-10-02] MEDS: lisinopriL 20 MG TAB PO SCH (07:45)
[2020-10-02] MEDS: ZINC SULFATE 220 MG CAP PO SCH (07:45)
[2020-10-02] MEDS: ALBUTEROL HFA INHALER INHALATION SCH ×3 (09:00→15:50)
[2020-10-02] MEDS: INSULIN DETEMIR (LEVEMIR) 100 UNIT/ML SYR SQ SCH (10:54)
[2020-10-02] MEDS: MORPHINE SULFATE (100 MG/2 ML) 100 MG in SODIUM CHLORIDE 0.9% 100 ML IV SCH (11:05)
[2020-10-02] MEDS ORDERED: ATROPINE OPHTH SOLN 1% 5ML BTL SUBLINGUAL PRN (12:24)
[2020-10-02] MEDS ORDERED: ATROPINE OPHTH SOLN 1% 5ML BTL BOTH EYES SCH (13:00)
[2020-10-02] MEDS: CLEVIDIPINE BUTYRATE 25 MG in EMPTY BAG 1 BAG IV SCH (14:02)
--- NOTE | 2020-10-03 10:56 | P.DS ---
Providers Date of admission: 09/15/20 18:18 Expected date of discharge: 10/02/20 (Patient ) Attending physician: Sudheer Staples Consults: 09/16/20 21:40 Consult Physician Routine Consulting Provider: Martina Rivera Consult Reason/Comments: COVID 19 pneumonia Do you want consulting provider notified?: Yes 09/21/20 09:03 Consult Physician Routine Consulting Provider: Amado Barrera Consult Reason/Comments: bradycardia Do you want consulting provider notified?: Already Contacted 09/26/20 16:53 Consult Physician Routine Consulting Provider: David Schaeffer Consult Reason/Comments: low platelets, high d-dimer Do you want consulting provider notified?: Yes 09/30/20 15:00 Consult Physician Routine Consulting Provider: Oscar Crow Consult Reason/Comments: new subacute infart on right Do you want consulting provider notified?: Yes Primary care physician: Cornell Leon [facility] Course: Chief Complaint: Short of breath History of presenting complaint: This is a pleasant [address] Leon. Chronic stable medical conditions include atrial fibrillation, diabetes, hyperlipidemia, hypertension, BPH, obstructive sleep apnea uses CPAP. Patient's had cardioversion in 2015. Also known coronary artery disease with bypass in 2005. Also had a cardiac catheterization in January of this year. He was told and no blockages. Patient was here in the hospital from September 07 of September 08. Patient on the last visit presented to the ER for cough fever or shortness of breath with activity. He tested positive for COVID. Did not want to stay longer the hospital and decided to leave. Patient does take Savella to for his chronic A. fib. Patient's also was tested positive for COVID. She now presents with increasing shortness of breath. Pulse ox was found to be 85%. Slight headache. Patient's been having some loose stool also. Does feel weak, tired and rundown. Admitted with bilateral COVID 19 pneumonia, acute hypoxic respiratory failure, lactic acidosis type II. Patient was started on steroids, Lovenox, continued on Xarelto, bronchodilators. September 19 patient went into respiratory distress. Moved to the ICU. Intubated.receive Remdesivir. Sputum also positive for Pseudomonas. Patient did not show any improvement. Admitted to ICU. Family after discussion with emerging technologies director finally decided to proceed with terminal wean. Patient is put under comfort measures and patient succumbed to the same. Consultation: Dr. Crow from pulmonary Dr. Thompson from [facility] INVESTIGATIONS, reviewed in the clinical context: White count 8.8 hemoglobin 12.6 Chest x-ray film today-bilateral infiltrates, no significant change Previous testing White count 10.6 hemoglobin 14.3 platelets 196 potassium 4.1 creatinine 0.99 Lactic acid 2.5 Ferritin 2454, CRP 70.4 LDH 1513 pro-calcitonin 0.09 EKG tracing personally reviewed by me-no sinus rhythm Chest x-ray film personally reviewed by me-bilateral infiltrates sputum culture-from September 26-pseudomonas aeruginosa Cause of : COVID 19 pneumonia Assessment: -COVID 19 pneumonia and secondary pseudomonas aeruginosa-slow to respond -Lactic acidosis type II from above -Acute hypoxic respiratory failure from above-now on ventilator support [intubated September 19] -slow to respond -Paroxysmal atrial fibrillation currently in sinus rhythm -Diabetes mellitus type 2, uncontrolled with hyperglycemia secondary to steroids -Hyperlipidemia -Essential hypertension -Obstructive sleep apnea uses CPAP -Coronary artery disease with a CABG in 2005 and a cardiac catheterization in January 2020 showing nonsignificant disease -Acute COPD exacerbation in a ex-smoker Disposition: Patient Plan - Discharge Summary Discharge Rx Participant: No New Discharge Prescriptions: No Action Dofetilide [Tikosyn] 500 mcg PO BID Furosemide [Lasix] 20 mg PO DAILY metFORMIN HCL [Glucophage] 500 mg PO BID Rivaroxaban [Xarelto] 20 mg PO DAILY Tamsulosin [Flomax] 0.4 mg PO HS Multivitamins, Thera [Multivitamin (formulary)] 1 tab PO DAILY Cinnamon Bark [Cinnamon] 500 mg PO HS Metoprolol Tartrate [Lopressor] 25 mg PO BID Glimepiride [Amaryl] 2 mg PO BID lisinopriL 20 mg PO DAILY Atorvastatin [Lipitor] 80 mg PO DAILY Dulaglutide [Trulicity] 0.75 mg SQ MO Magnesium 300mg 300 mg PO DAILY Ascorbic Acid [Vitamin C] 1,000 mg PO DAILY #15 tablet Cholecalciferol [Vitamin D3 (25 Mcg = 1000 Iu)] 1,000 unit PO DAILY #15 tablet Zinc 50 mg PO DAILY #15 tablet dexAMETHasone [Dexamethasone] 6 mg PO DAILY Discharge Medication List Dofetilide [Tikosyn] 500 mcg PO BID 03/08/16 [History] Furosemide [Lasix] 20 mg PO DAILY 03/08/16 [History] Rivaroxaban [Xarelto] 20 mg PO DAILY 03/08/16 [History] Tamsulosin [Flomax] 0.4 mg PO HS 03/08/16 [History] metFORMIN HCL [Glucophage] 500 mg PO BID 03/08/16 [History] Multivitamins, Thera [Multivitamin (formulary)] 1 tab PO DAILY 08/23/16 [History] Cinnamon Bark [Cinnamon] 500 mg PO HS 04/21/18 [History] Atorvastatin [Lipitor] 80 mg PO DAILY 09/03/20 [History] Dulaglutide [Trulicity] 0.75 mg SQ MO 09/03/20 [History] Glimepiride [Amaryl] 2 mg PO BID 09/03/20 [History] Metoprolol Tartrate [Lopressor] 25 mg PO BID 09/03/20 [History] lisinopriL 20 mg PO DAILY 09/03/20 [History] Magnesium 300mg 300 mg PO DAILY 09/07/20 [History] Ascorbic Acid [Vitamin C] 1,000 mg PO DAILY #15 tablet 09/08/20 [Rx] Cholecalciferol [Vitamin D3 (25 Mcg = 1000 Iu)] 1,000 unit PO DAILY #15 tablet 09/08/20 [Rx] Zinc 50 mg PO DAILY #15 tablet 09/08/20 [Rx] dexAMETHasone [Dexamethasone] 6 mg PO DAILY 09/15/20 [History] Follow up Appointment(s)/Referral(s): Cornell Leon MD [Primary Care Provider] - 1-2 days [facility], [NON-STAFF] - Discharge Disposition: - Preliminary Cause of Preliminary Cause of : COVID-19 pneumonia
== END 2020-10-02 19:56 | disposition expired | DRG 870 ==
LOC: EC 16:54 → 4SSUR 18:18 → 2SICU 09-19 16:38 → 6NMEDSUR 10-01 22:43
PROVIDERS: ADMIT Hospitalist; ATTEND Hospitalist
PROC: 5A09457 Assistance with Respiratory Ventilation, 24-96 Consecutive Hours, Continuous Positive Airway Pressure (ICD-10-PCS; 2020-09-15)
PROC: 5A1955Z Respiratory Ventilation, Greater than 96 Consecutive Hours (ICD-10-PCS; principal; 2020-09-19)
PROC: 0BH17EZ Insertion of Endotracheal Airway into Trachea, Via Natural or Artificial Opening (ICD-10-PCS; principal; 2020-09-19)
PROC: 03HY32Z Insertion of Monitoring Device into Upper Artery, Percutaneous Approach (ICD-10-PCS; 2020-09-19)
PROC: 4A133B1 Monitoring of Arterial Pressure, Peripheral, Percutaneous Approach (ICD-10-PCS; 2020-09-19)
PROC: 02HV33Z Insertion of Infusion Device into Superior Vena Cava, Percutaneous Approach (ICD-10-PCS; 2020-09-19)
PROC: 4A133J1 Monitoring of Arterial Pulse, Peripheral, Percutaneous Approach (ICD-10-PCS; 2020-09-19)
PROC: XW13325 Transfusion of Convalescent Plasma (Nonautologous) into Peripheral Vein, Percutaneous Approach, New Technology Group 5 (ICD-10-PCS; 2020-09-19)
PROC: XW033E5 Introduction of Remdesivir Anti-infective into Peripheral Vein, Percutaneous Approach, New Technology Group 5 (ICD-10-PCS; 2020-09-19)
DX: A41.89 Other specified sepsis (principal); U07.1 COVID-19; G93.41 Metabolic encephalopathy; J12.89 Other viral pneumonia; J80 Acute respiratory distress syndrome; J10.08 Influenza due to other identified influenza virus with other specified pneumonia; I63.9 Cerebral infarction, unspecified; D65 Disseminated intravascular coagulation [defibrination syndrome]; J15.1 Pneumonia due to Pseudomonas; Z68.41 Body mass index [BMI] 40.0-44.9, adult; E87.2 Acidosis; J44.1 Chronic obstructive pulmonary disease with (acute) exacerbation; R41.4 Neurologic neglect syndrome; G81.94 Hemiplegia, unspecified affecting left nondominant side; J44.0 Chronic obstructive pulmonary disease with (acute) lower respiratory infection; Z51.5 Encounter for palliative care; D72.810 Lymphocytopenia; E78.5 Hyperlipidemia, unspecified; T38.0X5A Adverse effect of glucocorticoids and synthetic analogues, initial encounter; N40.0 Benign prostatic hyperplasia without lower urinary tract symptoms; Z96.653 Presence of artificial knee joint, bilateral; F43.10 Post-traumatic stress disorder, unspecified; I49.3 Ventricular premature depolarization; E83.41 Hypermagnesemia; G47.33 Obstructive sleep apnea (adult) (pediatric); I48.0 Paroxysmal atrial fibrillation; D50.9 Iron deficiency anemia, unspecified; E66.01 Morbid (severe) obesity due to excess calories; I25.10 Atherosclerotic heart disease of native coronary artery without angina pectoris; I10 Essential (primary) hypertension; E11.65 Type 2 diabetes mellitus with hyperglycemia; I27.20 Pulmonary hypertension, unspecified; B96.5 Pseudomonas (aeruginosa) (mallei) (pseudomallei) as the cause of diseases classified elsewhere; Z79.899 Other long term (current) drug therapy; Z79.84 Long term (current) use of oral hypoglycemic drugs; Z79.01 Long term (current) use of anticoagulants; Z87.891 Personal history of nicotine dependence; Z83.3 Family history of diabetes mellitus; Z82.49 Family history of ischemic heart disease and other diseases of the circulatory system; Z95.1 Presence of aortocoronary bypass graft; Z90.49 Acquired absence of other specified parts of digestive tract; Z90.89 Acquired absence of other organs; Z95.5 Presence of coronary angioplasty implant and graft; Z98.890 Other specified postprocedural states
CPT/HCPCS: 36415; 36600; 70450; 70496; 70498; 71045; 80048; 80053; 80061; 81001; 82550; 82728; 82805; 83520; 83605; 83615; 83735; 83880; 84145; 84439; 84443; 85025; 85379; 85384; 85610; 85730; 86140; 86850; 86900; 86901; 87040; 87070; 87077; 87186; 87205; 87324; 93005; 93306; 93970; 94002; 94003; 94640; 94660; 96372; 99285